=== PATIENT | male | born 1960 | race African-American/Black ===

== ENCOUNTER 2019-04-14 09:16 | Inpatient (IN) ==
[2019-04-14] MEDS ORDERED: FLEET ENEMA PR ONE (10:32)
[2019-04-14 10:55] LABS: URINE SOURCE CLEAN CATCH
[2019-04-14 10:58] LABS: BASO# 0.01 X1000 (0.0-0.2); BASO% 0.2 % (0.0-0.8); EOS# 0.27 X1000 (0.0-0.7); EOS% 6.6 % (0.0-10.0); HEMATOCRIT 19.6 % (42.0-52.0); HEMOGLOBIN 6.1 g/dL (14.0-18.0); IMM GRAN# 0.03 X1000 (0.0-0.04); IMM GRAN% 0.7 % (0.0-0.5); LYMPH# 0.82 X1000 (1.2-3.4); LYMPH% 20.1 % (20.5-51.1); MCHC 31.1 g/dL (33-37); MCV 96.6 FL (81-99); MONO# 0.16 X1000 (0.11-0.59); MONO% 3.9 % (1.7-9.3); MPV 9.8 FL (7.4-10.4); NEUT# 2.78 X1000 (1.4-6.5); NEUT% 68.5 % (42.2-75.2); PLT 238 X1000 (130-400); RBC 2.03 XMIL (4.7-6.1); RDW 15.6 % (11.5-14.5); WBC 4.07 X1000 (4.8-10.8)
[2019-04-14 11:02] LABS: BILIRUBIN URINE NEGATIVE (NEGATIVE); BLOOD URINE TRACE (NEGATIVE); COLOR STRAW; GLUCOSE URINE NEGATIVE (NEGATIVE); KETONE URINE NEGATIVE (NEGATIVE); LEUKOCYTES URINE NEGATIVE (NEGATIVE); NITRITE URINE NEGATIVE (NEGATIVE); PROTEIN URINE 50 mg/dL (NEGATIVE); SP GRAVITY URINE 1.008; TURBIDITY URINE CLEAR (CLEAR); UROBILINOGEN URINE NORMAL (NORMAL)
[2019-04-14 11:04] LABS: UR EPITHELIAL CELLS <10 /HPF (<10); URINE BACTERIA NEGATIVE /HPF; URINE RBC <10 /HPF (<10); URINE WBC <10 /HPF (<10)
[2019-04-14 11:13] LABS: AGAP 13; ALB/GLOB RATIO 1.3; ALBUMIN 3.5 g/dL (3.5-5.0); ALKALINE PHOSPHATASE 88 U/L (32-122); BUN 34 mg/dL (8-22); CALCIUM 8.3 mg/dL (8.8-10.2); CHLORIDE 104 mmol/L (98-107); COSMO 289; CREATININE 4.4 mg/dL (0.7-1.2); ESTIMATED GFR 17; GLUCOSE 96 mg/dL (70-104); GOT 12 U/L (10-34); GPT < 5 U/L (10-44); POTASSIUM 5.5 mmol/L (3.5-5.1); SODIUM 141 mmol/L (136-145); TCO2 24 mmol/L (25-35); TOTAL BILIRUBIN 0.15 mg/dL (0.20-1.00); TOTAL PROTEIN 6.3 g/dL (6.3-8.3)
--- NOTE | 2019-04-14 11:29 | Diag Imaging Result Doc PS360 ---
EXAM: CT ABDOMEN/PELVIS W/O CONTRAST 04/14/2019 HISTORY: flank pain TECHNIQUE: This exam was performed using automated exposure control, adjustment of mA or kV according to patient size, and/or use of iterative reconstruction technique. COMMENT: The current study is compared with the previous study of 09/22/2018. There is worsened atelectasis present in the right middle lobe and both lower lobes particularly the right lower lobe due to compression by a right pleural effusion. The effusion was not present previously. There is some anasarca. There are granulomata present in the spleen. There is no evidence of nephrolithiasis. The kidneys are stable in appearance. There is no evidence of bowel obstruction. There are no appreciable gallstones. The liver is grossly stable in appearance. The appendix is unremarkable. There is an apparent Hutch diverticulum on the left. There is some dilatation of the distal right ureter without evidence of stones. The urinary bladder is not distended. There is extensive lytic disease throughout the skeleton consistent with the patient's diagnosis of multiple myeloma. There is some loss of height of the L2 vertebral body compared to the previous study. Previously there were pathologic compression fractures of T10, T11, and T12 which have not changed. IMPRESSION: Right pleural effusion and worsened atelectasis. Worsened pathologic compression of the L2 vertebral body. Electronically signed by Glen Goldstein 04/14/2019 11:27 AM
--- NOTE | 2019-04-14 11:56 | PROVIDER DOCUMENTATION ---
This chart was entered by Mary Del Castillo Scribe, acting as scribe for Juancarlos Grider MD. HPI-General Adult - General Chief Complaint: Flank Pain Stated Complaint: FLANK PAIN Time Seen by Provider: 04/14/19 09:55 Source: patient Allergies/Adverse Reactions: Patient Allergies Allergy/AdvReac Type Severity Reaction Status Date / Time morphine Allergy ITCHING Verified 12/10/18 15:01 Home Medications: Home Medication List Medication Instructions Recorded Confirmed Last Taken Type Albuterol [Albuterol Neb] 1 dose INH 4XDAY 04/07/19 04/07/19 Unknown History Cetirizine [Zyrtec] 1 tab PO DAILY 04/07/19 04/07/19 Unknown History Diphenhydramine [Benadryl] 1 cap PO TID PRN 04/07/19 04/07/19 Unknown History Docusate Sodium 1 cap PO DAILY 04/07/19 04/07/19 Unknown History Ipratropium Remus Neb [Atrovent 1 dose INH 4X04/07/19 04/07/19 Unknown History Neb] Morphine E.r. [Ms Contin] 15 mg PO TID PRN 04/07/19 04/07/19 Unknown History Ondansetron [Zofran] 1 tab PO TID PRN 04/07/19 04/07/19 Unknown History Sevelamer Carbonate 1 tab PO TID 04/07/19 04/07/19 Unknown History - History of Present Illness -Gen Adult Nature of Presenting Problems: 58 y/o male presents to ED with L flank pain onset 2 days ago. Pt reports he has experienced constipation and polyuria recently. Pt states he has bone cancer and is hurting from his "toes to skull." Pt reports he has only had small, hard stools over the past few days. Pt is alert and oriented. Location of Pain/Injury: reports: other (L flank) Pain Radiation: reports: no radiation Quality of Pain: reports: aching Severity: reports: moderate Onset/Duration: reports: 2 days ago Timing: reports: still present Context/Activities at Onset: reports: none Modifying Factors: worse with: palpation Associated Symptoms: reports: constipation, other (L flank pain; polyuria; bone pain) Similar Symptoms Previously?: Yes Recently seen or treated by another doctor?: Yes Review of Systems - Adult - REVIEW OF SYSTEMS - ADULT Constitutional: denies: chills, fever Eyes: reports: no symptoms reported Ears, Nose, Mouth & Throat: reports: no symptoms reported Cardiovascular: denies: chest pain, palpitations Respiratory: denies: cough, shortness of breath Gastrointestinal: reports: constipation. denies: abdominal pain, diarrhea, nausea, vomiting Genitourinary: reports: flank pain (L). denies: incontinence Musculoskeletal: reports: bone pain. denies: back pain, joint pain Integumentary: reports: no symptoms reported Neurological: denies: dizziness/vertigo, seizure Psychiatric: reports: no symptoms reported Endocrine: reports: polyuria. denies: goiter Hematologic/Lymphatic: reports: no symptoms reported Allergic/Immunologic: reports: no symptoms reported All Other Systems: Reviewed and Negative Past History - Adult - PAST MEDICAL HISTORY-ADULT Review of Records: reports: Old Records Reviewed, Nursing Assessment Review, Medications Reviewed Major Childhood Illnesses: reports: denies history Cardiovascular: reports: HTN Respiratory: reports: asthma, COPD Gastrointestinal: reports: hemorrhoids, other (hernia) Obstetrical/Gynecological: reports: denies history Genitourinary: reports: dialysis, kidney disease Musculoskeletal: reports: cancer, other Neurological: reports: Seizures/Epilepsy Psychiatric: reports: schizophrenia Endocrine/Immune: reports: Diabetes, Myeloma Other Conditions: reports: denies history - PRIOR SURGERIES/PROCEDURES Surgical/Procedure History: reports: reviewed, not pertinent, hernia repair, bowel surgery, other - IMMUNIZATION STATUS Childhood Immunizations: See Nurse Assessment Flu Vaccine: See Nurse Assessment - FAMILY HISTORY Family History: reviewed, not pertinent - SOCIAL HISTORY Smoking: greater than 1 pack/day Provider spent 3-5 mins advising pt. on dangers of tobacco.: Discussed manners to quit use, and f/u contacts for add'l counseling. Substance Use: alcohol, other Alcohol Use Frequency: occasionally Living Situation: family Physical Exam-General - PHYSICAL EXAM-ADULT Initial Vital Signs Reviewed: Yes - CONSTITUTIONAL General Appearance: appears well, no apparent distress, slow to respond - EYES Eyes: other (pinpoint pupils) - HEAD, EARS, NOSE, MOUTH & THROAT HENMT: normocephalic/atraumatic, moist mucous membranes, normal ENT inspection - NECK Neck: non-tender, full range of motion - RESPIRATORY Respiratory: chest non-tender, lungs clear, normal breath sounds - CARDIOVASCULAR Cardiovascular: normal peripheral pulses, regular rate, rhythm - GASTROINTESTINAL (ABDOMEN) Abdominal Exam: normal bowel sounds, non tender, soft - MUSCULOSKELETAL Back Exam: normal inspection, no vertebral tenderness, other (L flank tenderness) Extremity: normal range of motion, non-tender - SKIN Integumentary: normal color, warm/dry - NEUROLOGIC Neurologic: grossly normal - PSYCHIATRIC Psych/Mental Status: other (slow to respond) Progress - PLAN OF CARE/RESULTS Progress/Plan/Lab Results: Vital Signs - 8 hr 04/14/19 09:50 Temperature 98.3 F Pulse Rate 75 Respiratory Rate 12 Blood Pressure 161/103 O2 Sat by Pulse Oximetry 98 Orders Category Date Time Status CT ABDOMEN/PELVIS W/O CONTRAST [CT] Stat Exams 04/14/19 10:30 Taken CBC WITH ELECTRONIC DIFF [HEME] Stat Lab 04/14/19 10:38 Completed COMPREHENSIVE METABOLIC PANEL [CHEM] Stat Lab 04/14/19 10:38 Completed URINALYSIS [URINALYSIS] Stat Lab 04/14/19 10:40 Completed Na Phos,M-B/Na Phos,Di-Ba [Fleet Enema] Med 04/14/19 10:32 Discontinued 133 ml NC NOW ONE Laboratory Tests 04/14/19 04/14/19 04/14/19 10:38 10:38 10:40 WBC 4.07 L RBC 2.03 L Hgb 6.1 L Hct 19.6 L MCV 96.6 MCH 30.0 MCHC 31.1 L RDW Std Deviation 15.6 H Plt Count 238 MPV 9.8 Immature Gran % (Auto) 0.7 H Neut % (Auto) 68.5 Lymph % (Auto) 20.1 L Sullivan % (Auto) 3.9 Eos % (Auto) 6.6 Baso % (Auto) 0.2 Immature Gran # (Auto) 0.03 Neut # (Auto) 2.78 Lymph # (Auto) 0.82 L Sullivan # (Auto) 0.16 Eos # (Auto) 0.27 Baso # (Auto) 0.01 Sodium 141 Potassium 5.5 H Chloride 104 Carbon Dioxide 24 L Anion Gap 13 BUN 34 H Creatinine 4.4 H Estimated GFR/1.73 m2 17 BUN/Creatinine Ratio 8 Glucose 96 Calculated Osmolality 289 Calcium 8.3 L Total Bilirubin 0.15 L AST 12 ALT < 5 L Alkaline Phosphatase 88 Total Protein 6.3 Albumin 3.5 Globulin 2.8 Albumin/Globulin Ratio 1.3 Urine Source CLEAN CATCH Urine Color STRAW Urine Turbidity CLEAR Urine pH 7.0 Ur Specific [place] 1.008 Urine Protein 50 A Ur Glucose (Stick) NEGATIVE Ur Ketones (Stick) NEGATIVE Urine Blood TRACE A Urine Nitrite NEGATIVE Urine Bilirubin NEGATIVE Urobilinogen Dipstick NORMAL Urine Leukocytes NEGATIVE Urine WBC (Auto) <10 Urine RBC (Auto) <10 U Epithel Cells (Auto) <10 Urine Bacteria (Auto) NEGATIVE At recheck pt admits that he hasnt had dialysis in over 1 week and that he usually has to get blood. Result Diagrams: 04/14/19 10:38 04/14/19 10:38 - REASSESSMENT Reassessment #1 Time Reassessed: 11:35 Status: other (Pt is more alert. He reports he was released from [facility] a "week and some days" ago. Pt states he was undergoing dialysis while incarcerated, but has not been dialyzed since his release. Pt reports he was told to come to ED for dialysis.) - CT/MRI 1 CT Study: Abdomen, Pelvis Impression: Abnormal (COMMENT: The current study is compared with the previous study of 09/22/2018. There is worsened atelectasis present in the right middle lobe and both lower lobes particularly the right lower lobe due to compression by a right pleural effusion. The effusion was not present previously. There is some anasarca. There are granulomata present in the spleen. There is no evidence of nephrolithiasis. The kidneys are stable in appearance. There is no evidence of bowel obstruction. There are no appreciable gallstones. The liver is grossly stable in appearance. The appendix is unremarkable. There is an apparent Hutch diverticulum on the left. There is some dilatation of the distal right ureter without evidence of stones. The urinary bladder is not distended. There is extensive lytic disease throughout the skeleton consistent with the patient's diagnosis of multiple myeloma. There is some loss of height of the L2 vertebral body compared to the previous study. Previously there were pathologic compression fractures of T10, T11, and T12 which have not changed. IMPRESSION: Right pleural effusion and worsened atelectasis. Worsened pathologic compression of the L2 vertebral body. Electronically signed by Glen Goldstein 04/14/2019 11:27 AM 04/14/19 [id number]) - CONSULTS/PCP/HOSPITALIST Notification #1 *Consult/PCP/Hospitalist*: KAVEH Mcmahon for hospitalist Time Discussed: 11:43 Reason/Comments: Severe anemia, chronic renal failure, dialysis, pleural effusion Consult Disposition: Admit #2 Consult: Dr. Keita Time Discussed: 14:44 Reason/Comments: Dialysis Consult Disposition: Will see in ED (Dr. Keita saw pt in ED. He does not recommend dialysis, but states he wants pt to followup with nephrology. He requests pt be given a unit of blood while in ED.) Departure - Departure Date of Disposition Decision: 04/14/19 Time of Disposition Decision: 11:30 DIAGNOSIS: Hyperkalemia, Pleural effusion Chronic renal failure Qualifiers: Chronic kidney disease stage: unspecified stage Qualified Code(s): N18.9 - Chronic kidney disease, unspecified Anemia Qualifiers: Anemia type: unspecified type Qualified Code(s): D64.9 - Anemia, unspecified Compression fracture of L2 Qualifiers: Encounter type: initial encounter Qualified Code(s): S32.020A - Wedge compression fracture of second lumbar vertebra, initial encounter for closed fracture Disposition: ADMITTED INPATIENT 09 Certified Medical Emergency: Emergent Condition: Fair - Critical Care Note This patient required my direct & personal management of CC.: No Attestation - Physician/ PRINCESS Attestation Patient care was provided by Advanced Practice Provider:: No The physician spent face to face time with patient:: Yes Advanced Practice Provider documentation review:: Supervising physician onsite and consulted in the evaluation and care of this patient. The physician did have a face to face encounter with the patient. This chart was documented by the indicated scribe, (Mary Del Castillo Scribe) and accurately reflects the services I performed and decisions made by me, Juancarlos Grider MD, as attested by the provider's signature.
[2019-04-14] MEDS ORDERED: ZOFRAN IV PRN (12:16)
[2019-04-14] MEDS ORDERED: TYLENOL PO PRN (12:16)
[2019-04-14] MEDS ORDERED: NS 250 ML ONE (14:32)
[2019-04-14] MEDS ORDERED: ULTRAM PO PRN (15:10)
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
--- NOTE | 2019-04-14 17:56 | NEPHROLOGY CONSULTATION ---
DATE: 04/14/2019 REASON FOR CONSULTATION: CKD stage 5. HISTORY OF PRESENT ILLNESS: Mr. Treadwell is a 58-year-old man. He has schizoaffective disorder as well as COPD and hypertension. We have seen him in the past, and he has required hemodialysis under our care last year. His renal function recovered, and he was able to discontinue treatment. In the interim, he was hospitalized and incarcerated I [facility] in [place]. He had dialysis as an outpatient as a prisoner and is using a tunneled right IJ catheter. He has been back in the [place] area for at least 2 weeks and has not dialyzed since he was released from alf. I saw him back on 04/07 at which time, we offered to see him in the office and help with catheter care and develop a long-term plan. He checked himself out of the emergency room against advice. He has subsequently been to the ER on 1 other occasion before today. Today, he ate his lunch, and he is sleeping. He will arouse for me, but his speech is very difficult to interpret; and he goes back to sleep. He is able to follow commands. Staff states that he was ambulatory and alert. PAST MEDICAL HISTORY: As above. HOME MEDICATIONS: Include albuterol, cetirizine, Colace, ipratropium, ondansetron, sevelamer, morphine. ALLERGIES: Morphine. SOCIAL: He is single and lives alone here in [place]. He has no car and no phone. His only form of transportation is bicycle or else to have someone transport him. [place] FAMILY HISTORY: Otherwise, noncontributory. REVIEW OF SYSTEMS: Otherwise, noncontributory. PHYSICAL EXAMINATION: Vital Signs: Blood pressure 151/88, heart rate 74, afebrile. General: No acute distress. Skin: Warm and dry. Conjunctivae are pale. Pupils are equal. Oropharynx is clear. Neck: Neck veins are not distended. Right IJ catheter in the right chest. PMI is nondisplaced. Regular rate and rhythm. No rubs. Lungs: Have equal breath sounds. No crackles. Abdomen: Soft, nontender. Bowel sounds present. Extremities: No edema, clubbing or cyanosis. Neurologic: No asterixis. IMPRESSION: Chronic kidney disease stage 4 to 5. His creatinine is actually trending downward. Albumin is 3.5 and stable. No significant acidosis. Potassium is only marginally elevated at 5.5. I agree with transfusions to treat his hemoglobin of 6.1. If he is admitted, then we can have surgery remove his tunneled catheter as he is not in an immediate need for dialysis. We certainly can plan for a more appropriate chronic dialysis access. cc: Ronald Keita MD
--- NOTE | 2019-04-15 07:23 | Diag Imaging Result Doc PS360 ---
EXAM: CHEST-PORTABLE 04/15/2019 HISTORY: fu TECHNIQUE: AP portable at 0603 COMMENT: There is what appears to be a loculated pleural fluid collection in the minor fissure. The inspiration is actually slightly better than on 04/07/2019 but there is still some apparent platelike atelectasis in both lower lobes. There is a double-lumen catheter in the right internal jugular with its tip in the superior vena cava near the azygos vein. Lytic changes in the lateral sixth rib on the left with subpleural mass is again noted. IMPRESSION: Atelectasis. Loculated right pleural effusion. Lytic changes in the left sixth rib consistent with the patient's history of multiple myeloma. Electronically signed by Glen Goldstein 04/15/2019 7:20 AM
[2019-04-15 07:59] LABS: HEMATOCRIT 29.3 % (42.0-52.0); HEMOGLOBIN 9.5 g/dL (14.0-18.0); RBC 3.19 XMIL (4.7-6.1); WBC 3.68 X1000 (4.8-10.8)
[2019-04-15 08:00] LABS: BASO# 0.01 X1000 (0.0-0.2); BASO% 0.3 % (0.0-0.8); EOS# 0.02 X1000 (0.0-0.7); EOS% 0.5 % (0.0-10.0); IMM GRAN# 0.02 X1000 (0.0-0.04); IMM GRAN% 0.5 % (0.0-0.5); LYMPH# 0.72 X1000 (1.2-3.4); LYMPH% 19.6 % (20.5-51.1); MCH 29.8 PG (27-31); MCHC 32.4 g/dL (33-37); MCV 91.8 FL (81-99); MONO# 0.14 X1000 (0.11-0.59); MONO% 3.8 % (1.7-9.3); MPV 8.9 FL (7.4-10.4); NEUT# 2.77 X1000 (1.4-6.5); NEUT% 75.3 % (42.2-75.2); PLT 229 X1000 (130-400); RDW 16.5 % (11.5-14.5)
[2019-04-15 08:04] LABS: HEMOGLOBIN A1C 5.8 % (4.8-6.0)
[2019-04-15] MEDS: MIRALAX PO SCH ×2 (08:11→08:13)
[2019-04-15 08:14] LABS: AGAP 12; ALB/GLOB RATIO 0.9; ALBUMIN 3.2 g/dL (3.5-5.0); ALKALINE PHOSPHATASE 86 U/L (32-122); BUN 32 mg/dL (8-22); CALCIUM 9.3 mg/dL (8.8-10.2); CHLORIDE 106 mmol/L (98-107); COSMO 286; CREATININE 3.9 mg/dL (0.7-1.2); ESTIMATED GFR 19; GLUCOSE 92 mg/dL (70-104); GOT 10 U/L (10-34); GPT < 5 U/L (10-44); MAGNESIUM 1.7 mg/dL (1.5-2.7); POTASSIUM 5.5 mmol/L (3.5-5.1); SODIUM 140 mmol/L (136-145); TCO2 22 mmol/L (25-35); TOTAL BILIRUBIN 0.19 mg/dL (0.20-1.00); TOTAL PROTEIN 6.6 g/dL (6.3-8.3)
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
--- NOTE | 2019-04-15 15:03 | NEPHROLOGY PROGRESS NOTE ---
DATE: 04/15/2019 TIME SEEN: 0630. SUBJECTIVE: Mr. Treadwell is resting quietly in bed. He is sitting up. States that the nurses have not treated him well due to him not getting enough pain medication. OBJECTIVE: Most recent vital signs: His last temperature 99.2 degrees, blood pressure 138/68, heart rate 76, respirations are 20. He has had 700 mL in, 1155 mL out. This is to void. LABORATORY DATA: Sodium 140, potassium 5.5, chloride 106, CO2 22, BUN 32, creatinine 3.9, glucose is 92. He has an anion gap of 12, calcium 9.3, magnesium 1.7, albumin is 3.2. White count 3.68, hemoglobin 9.5, hematocrit 29.3 with a platelet count of 223,000. PHYSICAL EXAMINATION: General: This is a 58-year-old male. He appears in no acute distress though he is slightly agitated. Skin: Warm and dry. HEENT: Normocephalic, atraumatic. Conjunctiva is pale pink. He has CHRISTY. Mucous membranes are dry. Neck: Supple. Trachea midline. No evidence of JVD. Chest: Reveals tunneled catheter to the right chest wall. This is dry and intact. Cardiovascular: Regular rate and rhythm without murmur or gallop. Lungs: Clear to auscultation bilaterally. Equal excursion. He is on room air. Abdomen: Soft, nontender. Positive bowel sounds. Genitourinary: Not inspected. Patient has been voiding adequate amount. Extremities: Have no edema. No clubbing or cyanosis. Neurological: He is alert and oriented x2. He has no asterixis upon exam. Integumentary: No rashes or lesions evident. ASSESSMENT AND PLAN: 1. Chronic kidney disease stage 4-5. Patient's creatinine has been trending down, remains stable at 3.9, BUN of 32, adequate urine output. The patient has been running a low-grade temperature. Secondary to these findings, we will go ahead and request Dr. Perez for removal of his tunneled catheter to the right chest wall and we will request that they evaluate for creation of an AV fistula. No indications for hemodialysis at this time. 2. Electrolytes and acid-base balance. These are acceptable. 3. Anemia this is low but stable. The patient received 2 units of packed red blood cells yesterday. 4. Low-grade temperature. Again, patient is to have his tunneled dialysis catheter removed. I would like to thank you for allowing us to follow with this patient. Dictated by KAVEH Cunningham for Ronald Keita MD Face to face encounter, data reviewed, discussed with Lc Mujica on 04/15/19. I agree with the above assessment and plan of care. cc: KAVEH Cunningham MD [facility]
[2019-04-15] MEDS: PERCOCET-5 PO PRN ×2 (17:16→21:49)
--- NOTE | 2019-04-15 17:41 | PROGRESS NOTE ---
DATE: 04/15/2019 INTERVAL HISTORY: No acute event overnight. SUBJECTIVE: The patient refused to take his tramadol, saying that it does not help. He wants me to order something more. He states that he was diagnosed with multiple myeloma probably more than a year ago and he was on some treatment, but the last time he received treatment was about 6 months ago. He tells me that it was stopped because he had developed acute kidney injury and he has a lot of other medical issues and he has not been able to follow up. We discussed about the nature of multiple myeloma and I answered all of his questions. OBJECTIVE: Vital signs: Temperature 98.1 degrees, pulse 86, respiratory rate 20, blood pressure 120/83, saturating 99% on room air. General: Does not appear in any acute distress. HEENT: Oral cavity is moist. Lungs: Air entry bilaterally equal. No wheeze, rhonchi, crackles. Cardiovascular: S1, S2 normal. No murmur, rub, or gallop. Abdomen: Soft, nontender. Extremities: No lower extremity edema. Neurologic: He is alert and oriented x3. Musculoskeletal: He does have localized left-sided rib cage pain. Neck: He has a right-sided neck internal jugular venous catheter for dialysis. LABS: Suggestive of normocytic anemia which has improved after blood transfusion, normal platelet count, hyperkalemia which is stable, chronic kidney disease stage 4 to stage 5. MICROBIOLOGY: No data. ASSESSMENT AND PLAN: 1. Acute respiratory distress and subjective shortness of breath on presentation which has resolved; likely due to symptomatic anemia. He is breathing well on room air. It is possible that his anemia was symptomatic which was causing his shortness of breath and he appears to be doing fine after 2 PRBC blood transfusion. This is likely anemia of chronic kidney disease. Five months ago his ferritin was within normal limits and his saturations were also normal and he appears to have chronic anemia. 2. Chronic kidney disease stage 4 to stage 5. He does have hyperkalemia, but he is making urine and does not have metabolic acidosis. Nephrology is planning to remove his right-sided neck internal jugular catheter and Surgery team is planning am AV fistula placement, following which, my plan is to have him follow up with Nephrology as an outpatient. 3. Acute on chronic back pain, likely because of multiple lytic bony lesions in the setting of multiple myeloma. I will start him on lidocaine patch as well as some [place]. We will get him on MiraLAX to avoid constipation. It appears that the patient has been noncompliant. My plan is to refer him to outpatient provider, Dr. Collins, in her clinic at the time of discharge. 4. Other medical history including COPD, schizoaffective disorder, diabetes mellitus type 2 documentation. Appears to be stable. His hemoglobin A1c is within acceptable range, so he does not have diabetes. 5. Disposition. After possible AV fistula creation tomorrow my plan is to discharge the patient home. Plan of care was discussed with him. I will try to reach out to his next of kin and address all of the surrogate decision maker's concerns. I had left a voice message for his POA as the patient wanted me to contact her. His daughter's number is not functional. cc: Wilfred Carpenter MD MTDD
[2019-04-15] MEDS: LIDODERM TOP SCH (18:08)
[2019-04-16] MEDS ORDERED: XYLOCAINE 1% INJ ONE (06:43)
[2019-04-16 07:36] LABS: BASO# 0.01 X1000 (0.0-0.2); BASO% 0.3 % (0.0-0.8); EOS# 0.02 X1000 (0.0-0.7); EOS% 0.6 % (0.0-10.0); HEMATOCRIT 31.9 % (42.0-52.0); HEMOGLOBIN 10.2 g/dL (14.0-18.0); IMM GRAN# 0.02 X1000 (0.0-0.04); IMM GRAN% 0.6 % (0.0-0.5); LYMPH# 1.04 X1000 (1.2-3.4); LYMPH% 28.7 % (20.5-51.1); MCH 29.6 PG (27-31); MCV 92.5 FL (81-99); MONO# 0.15 X1000 (0.11-0.59); MONO% 4.1 % (1.7-9.3); MPV 8.9 FL (7.4-10.4); NEUT# 2.39 X1000 (1.4-6.5); NEUT% 65.7 % (42.2-75.2); PLT 237 X1000 (130-400); RBC 3.45 XMIL (4.7-6.1); RDW 15.9 % (11.5-14.5); WBC 3.63 X1000 (4.8-10.8)
[2019-04-16 07:55] LABS: CALCIUM 8.9 mg/dL (8.8-10.2); CREATININE 4.1 mg/dL (0.7-1.2); MAGNESIUM 1.6 mg/dL (1.5-2.7); PHOSPHORUS 4.6 mg/dL (2.7-4.5); POTASSIUM 5.1 mmol/L (3.5-5.1)
[2019-04-16] MEDS: PERCOCET-5 PO PRN ×2 (08:31→14:22)
[2019-04-16] MEDS: LIDODERM TOP SCH (08:32)
[2019-04-16] MEDS: MIRALAX PO SCH (08:32)
[2019-04-16] MEDS ORDERED: XYLOCAINE 1%/EPI 1:100,000 ONE (13:09)
[2019-04-16] MEDS ORDERED: XYLOCAINE-MPF 2% ONE (13:12)
[2019-04-16] MEDS ORDERED: AMIDATE ONE (13:12)
[2019-04-16] MEDS ORDERED: QUELICIN (DOSE) ONE (13:12)
--- NOTE | 2019-04-16 13:52 | GENERAL SURGERY PROGRESS NOTE ---
DATE: 04/16/2019 Reviewed ultrasound findings with therapy tech. The patient has very poor vein selection in both extremities secondary to thickened leyva, small vessels and trauma to his left arm. The patient reports pain all over. OBJECTIVE: Vital Signs: Patient is currently afebrile. His vital signs stable. General: No acute distress. HEENT: Normocephalic, atraumatic. Pupils equal, round, reactive to light. Mucous membranes moist. Oropharynx benign. Neck: Supple. Trachea midline. Cardiovascular: Regular rate and rhythm. Lungs: Grossly clear. Abdomen: Soft, nontender, nondistended. Extremities: Unchanged. Vascular: All extremities perfused. Neurologic: Grossly intact. Skin: Intact, no signs of jaundice. LABORATORY: Reviewed from yesterday. White blood cell count 3, hematocrit 29, platelet count 229,000. Creatinine is 3.9. ASSESSMENT AND PLAN: A 58-year-old gentleman with chronic kidney disease and multiple medical comorbidities. 1. Chronic kidney disease. At this time the patient has poor vein selection for fistula access. He may require graft and I am not sure he has good potential as spots for graft. Will discuss with Dr. Keita given the fact he is not requiring dialysis right now if we want to hold off on placement of a fistula, could still potentially remove his dialysis catheter but will have to discuss with Dr. Keita. 2. Multiple medical comorbidities currently being managed by the hospitalist service. cc: Frederick Perez MD
[2019-04-16 15:21] VITALS: BP 125/82
--- NOTE | 2019-04-16 16:57 | NEPHROLOGY PROGRESS NOTE ---
DATE: 04/16/2019 SUBJECTIVE: He is lying in bed. He has no new complaints today. No shortness of breath, nausea, vomiting, etc. OBJECTIVE: Vital Signs: Blood pressure 105/70, heart rate 69, afebrile. General: No acute distress. Skin: Warm and dry. Conjunctivae are pink. Neck: Neck veins are not appreciated. Heart: Regular with a gallop but no rubs. Lungs: Have equal breath sounds. No crackles or wheezes. Abdomen: Soft, nontender. Bowel sounds present. Extremities: Have no edema, clubbing, or cyanosis. Neurologic: No asterixis. IMPRESSION: 1. Chronic kidney disease stage 4 to 5. BUN and creatinine are stable and he does not meet any criteria for acute dialysis. Dr. Perez will remove his tunneled catheter today at the bedside. He did not have suitable veins for fistula so we will defer placement of permanent access until he is eminently in need of treatment. Okay to discharge from my perspective. We will follow him as an outpatient. cc: Ronald Keita MD
--- NOTE | 2019-04-16 19:22 | DISCHARGE SUMMARY ---
ADMISSION DATE: 04/14/2019 DISCHARGE DATE: 04/16/2019 ADDENDUM: I was able to get in touch with the patient's power of ip technology transactions attorney. I informed her about patient's medical course, his medical illnesses, multiple myeloma, chronic kidney disease, need for a regular physician followup and answered all of her questions. She she tells me that patient has schizophrenia and bipolar mood disorder and he does not follow up his appointment and is hard for him to find a regular doctor because of that. She also informs me if I could help him set up a skilled nursing, however I told her that patient is not willing to go to skilled nursing at the moment. He would rather want to go home so I am discharging home and she should contact her primary care provider and start discussion about skilled nursing placement. cc: Wilfred Carpenter MD MTDD
--- NOTE | 2019-04-16 20:02 | OPERATIVE NOTE ---
PROCEDURE DATE: 04/16/2019 PREOPERATIVE DIAGNOSIS: No longer needed hemodialysis catheter. POSTOPERATIVE DIAGNOSIS: No longer needed hemodialysis catheter. PROCEDURE: Removal of tunneled hemodialysis catheter. SURGEON: Frederick Perez MD. SOLVENT PLANT TREATER: None. ANESTHESIA: General endotracheal. INTRAOPERATIVE FINDINGS: As dictated. COMPLICATIONS: None at the time of this dictation. ESTIMATED BLOOD LOSS: 5 mL. SPECIMEN REMOVED: Catheter. BRIEF HISTORY: A 58-year-old gentleman who has chronic kidney disease, had a hemodialysis catheter placed in an outside facility. He needed it removed. The risks, benefits, and alternatives were discussed. Consent was obtained. PROCEDURE: At first, we tried to do this at the bedside. We prepped and draped his neck in the standard fashion and did a formal time-out, confirming patient and procedure. All were in agreement. We used local anesthetic to anesthetize the skin and started making an incision over it. His cuff was higher than anticipated. We therefore aborted the procedure and brought him down to the operating room. The patient underwent general endotracheal anesthesia without complication with a rapid sequence intubation. He then had his neck re-prepped and draped. After a repeat formal time-out, we turned our attention to the neck. We completed the incision, and it took a long incision to get to the cuff. We were able to circumferentially dissect out the cuff and remove it. The catheter came out intact. We closed the skin with 3-0 chromic in a running fashion. The patient tolerated the procedure well and was transferred back to the recovery room in stable condition. cc: Frederick Perez MD
--- NOTE | 2019-04-16 20:39 | Extremity Venous Study ---
PROCEDURE NAME: Vein Map/Hemodialysis Nate Arms - 04/15/2019 REQUESTING PHYSICIAN: Dr. Perez WHEAT CLEANER: Tom INDICATIONS: Evaluation for hemodialysis access. EQUIPMENT: GE Vivid E9 ultrasound system and a 9 L-D transducer. FINDINGS: Images in both right and left upper extremity venous systems were obtained with attention given to size. On the right side, the cephalic vein has a chronic appearing superficial venous thrombosis essentially up into the level of the axilla. The basilic vein has thickened leyva and difficult to see until the level of the axilla. On the left side, the basilic vein measured 2.5, just proximal to the antecubital fossa, but remains just slightly above 2. The cephalic vein has an acute superficial venous thrombosis on the left side. All veins have very thickened leyva. INTERPRETATION: Likely no real good venous access noted with thickened leyva and a combination of superficial venous thrombosis on the right side of the cephalic vein and on the left side acute superficial venous thrombosis. If the patient requires access, he will likely require a graft. cc: Frederick Perez MD
--- NOTE | 2019-04-17 05:47 | DISCHARGE SUMMARY ---
ADMISSION DATE: 04/14/2019 DISCHARGE DATE: 04/16/2019 DISCHARGE DISPOSITION: Home. DISCHARGE CONDITION: The patient is alert and oriented x3. Hemodynamically stable, not in acute distress. Denies any more shortness of breath. He has bone pain from his multiple myeloma. DISCHARGE DIAGNOSES: 1. Acute respiratory distress and subjective shortness of breath due to symptomatic anemia. 2. Acute on chronic back pain in the setting of multiple lytic bony lesions in the setting of multiple myeloma. 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 3. Chronic kidney disease stage 4 to stage 5. 4. Hyperkalemia. OTHER DIAGNOSES: 1. Documented history of chronic obstructive pulmonary disease with active tobacco use. 2. Schizoaffective disorder. 3. Diabetes mellitus type 2 documentation. However, it is resolved based on hemoglobin A1c which is in acceptable range. 4. Removal of right-sided tunneled dialysis catheter on 04/16/2019. DISCHARGE MEDICATIONS: 1. Albuterol nebulization 2.5 mg inhaled 4 times a day. 2. Ipratropium nebulization 0.5 mg inhaled 4 times a day. 3. Sevelamer 800 mg t.i.d. 4. Lidocaine 5% patch to be applied over the back. 10 patches have been prescribed. 5. MiraLAX 17 g daily 20 packets have been prescribed. 6. Percocet 5 mg every 6 hours as needed of pain, 15 tablets have been prescribed. VITALS: At the time of discharge, temperature 98 degrees, pulse 76, respiratory rate of 14, and blood pressure 125/82 saturating 100% on room air. PHYSICAL EXAMINATION: General: He does not appear in any acute distress. Oral cavity is moist. Lungs: Air entry bilaterally equal. No wheeze, rhonchi, or crackles. Cardiovascular: S1, S2 normal. No murmur, rub, or gallop. Abdomen: Soft, nontender. Extremities: No lower extremity edema. He is alert and oriented x3. His right-sided neck tunneled dialysis catheter has been removed. SIGNIFICANT LABORATORY DURING HOSPITAL DISCHARGE: WBC 3.6, hemoglobin 10.2, and platelet count 237,000. Potassium 5.1, BUN 31, creatinine 4.1. GFR of 18. Phosphorus of 4.6. SIGNIFICANT MICROBIOLOGY DURING HOSPITAL ADMISSION: None. SIGNIFICANT IMAGING: Abdomen and pelvis CT for flank pain had right-sided pleural effusion, worse atelectasis. Pathological compression of L2 vertebral body. Extensive lytic disease throughout skeleton consistent with history of multiple myeloma. Chest x-ray on 04/15 had atelectasis, right- sided pleural effusion, lytic changes in the 6th rib consistent with patient's history of multiple myeloma on the left side. HOSPITAL COURSE SUMMARY: Mr. Treadwell is 58-year-old man with prior history of multiple myeloma diagnosed in 2018. 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 Apparently on his last admission a few weeks ago, he had received right-sided tunneled dialysis catheter in preparation for dialysis. However, he had left against medical advice and had not followed up with dialysis clinic at that time. While on arrival, he was found to have mild right-sided pleural effusion, likely in the setting of his chronic kidney disease. Though he was hemodynamically stable, his blood count was found to be 6.1. It was thought to be secondary to his anemia of chronic kidney disease. He received 2 units of blood transfusion, and he responded well to it. His shortness of breath had improved. Right- sided tunneled dialysis catheter was taken out. Apparently, venous mapping was performed in preparation for AV fistula creation for future. However. He had poor vein anatomy so no surgery was performed. He did not have any acute need of dialysis, and his potassium was 5.1 at discharge. He was provided a BMP sleep and was advised to follow up with Nephrology as an outpatient to see if he would need dialysis in the future. His anemia was thought to be anemia of chronic kidney disease, and his hemoglobin was stable after blood transfusion. On CT scan, he was found to have multiple lytic bony lesions affecting his entire vertebral column as well as compression fracture of lumbar vertebra. Apparently, patient was on therapy a year ago when he was diagnosed with multiple myeloma, but he has had behavioral issues and he was not following up with his appointment appropriately so the at home independent call center agent's office had fired him. At the time of discharge, the patient was advised to find a regular provider as well as find another at home independent call center agent if he would need treatment. Hospice concept was explained to the patient to see if he would be willing to go for hospice care. However, he states that he would like to be treated for his medical condition. He was advised to find a regular doctor, and follow up as an outpatient. I tried to reach out to patient's power of environmental attorney listed in the medical chart, and have left voice messages twice. I have not heard back, and the patient was informed about this. TIME SPENT: More than 30 minutes were spent in discharging the patient. All of his questions have been answered satisfactorily. cc: Wilfred Carpenter MD MTDD
== END 2019-04-16 17:39 | disposition home or self-care (01) | DRG 683 ==
LOC: SUPCPDRO → ED 09:16 → EDIPHOLD 12:11 → SUATTDRO 12:11 → 3N 20:52
PROVIDERS: ATTEND Internal Medicine
CPT/HCPCS: 36430; 71010; 71045; 74176; 80048; 80053; 81001; 82948; 83036; 83735; 84100; 85025; 86850; 86900; 86901; 86920; 88300; 99285; A9270; G0365; J0330; J2405; J7050; P9016; XXXXX

== ENCOUNTER 2019-04-24 08:16 | Inpatient (IN) ==
[2019-04-24] MEDS ORDERED: TYLENOL PO ONE (09:46)
--- NOTE | 2019-04-24 10:23 | Diag Imaging Result Doc PS360 ---
EXAM: CHEST-2 VIEWS INDICATION: LUQ pain/SOB TECHNIQUE: 2 views COMPARISON: 04/22/2019 FINDINGS: Bibasilar atelectasis is stable. The subpleural mass at the periphery of the left lower lung zone is unchanged. No new consolidation is identified. Cardiac silhouette is stable. IMPRESSION: Stable chest. Electronically signed by Tyrese Osuna 04/24/2019 10:21 AM
--- NOTE | 2019-04-24 10:25 | PROVIDER DOCUMENTATION ---
HPI-General Adult - General Chief Complaint: Back Pain Stated Complaint: back pain Time Seen by Provider: 04/24/19 09:16 Source: patient Allergies/Adverse Reactions: Patient Allergies Allergy/AdvReac Type Severity Reaction Status Date / Time morphine Allergy ITCHING Verified 04/24/19 15:13 Home Medications: Home Medication List Medication Instructions Recorded Confirmed Last Taken Type RX: Albuterol [Albuterol Neb] 1 dose INH 4XDAY 04/07/19 04/07/19 Unknown History RX: Ipratropium [place] Neb 1 dose INH 4XDAY 04/07/19 04/07/19 Unknown History [Atrovent Neb] RX: Sevelamer Carbonate 1 tab PO TID 04/07/19 04/07/19 Unknown History RX: Lidocaine 5% Patch [Lidoderm] 1 ea TOP DAILY #10 patch 04/16/19 Unknown Rx RX: Oxycodone/APAP 5 mg/325 mg 1 ea PO Q6H PRN #15 tab 04/16/19 Unknown Rx [Percocet-5] RX: Polyethylene Glycol 3350 17 gm PO DAILY #20 powder, packet 04/16/19 Unknown Rx [Miralax] Oxycodone HCl/Acetaminophen 1 ea PO Q6H PRN PRN #12 tab 04/22/19 Unknown Rx [Percocet 5-325 mg Tablet] - History of Present Illness -Gen Adult Nature of Presenting Problems: Patient is a 58 yobm who complains of pain "all down my spine for months", LUQ pain, and SOB x 3 weeks. States he was receiving chemotherapy for bone cancer while in [facility] and dialysis while in [facility] as well. He was released from [facility] 3 weeks ago and has not received any of this treatment. Denies fever, cough, or any other symptoms. He is non-toxic in appearance. Review of Systems - Adult - REVIEW OF SYSTEMS - ADULT Constitutional: reports: no symptoms reported. denies: chills, fever Eyes: reports: no symptoms reported Ears, Nose, Mouth & Throat: reports: no symptoms reported Cardiovascular: reports: no symptoms reported. denies: edema, syncope Respiratory: reports: see HPI, shortness of breath. denies: cough, hemoptysis, wheezing Gastrointestinal: reports: see HPI, abdominal pain. denies: diarrhea, nausea, vomiting Genitourinary: reports: no symptoms reported Musculoskeletal: reports: see HPI, back pain Integumentary: reports: no symptoms reported Neurological: reports: no symptoms reported Psychiatric: reports: no symptoms reported Endocrine: reports: no symptoms reported Hematologic/Lymphatic: reports: no symptoms reported Allergic/Immunologic: reports: no symptoms reported All Other Systems: Reviewed and Negative Past History - Adult - PAST MEDICAL HISTORY-ADULT Review of Records: reports: Old Records Reviewed, Nursing Assessment Review, Medications Reviewed, Social history reviewed & non-contributory. Major Childhood Illnesses: reports: denies history Cardiovascular: reports: HTN Respiratory: reports: asthma, COPD Gastrointestinal: reports: hemorrhoids, other (hernia) Obstetrical/Gynecological: reports: denies history Genitourinary: reports: kidney disease Musculoskeletal: reports: cancer, other Neurological: reports: Seizures/Epilepsy Psychiatric: reports: schizophrenia Endocrine/Immune: reports: Diabetes, Myeloma Other Conditions: reports: denies history - PRIOR SURGERIES/PROCEDURES Surgical/Procedure History: reports: reviewed, not pertinent, hernia repair, other - IMMUNIZATION STATUS Childhood Immunizations: See Nurse Assessment Flu Vaccine: See Nurse Assessment - FAMILY HISTORY Family History: reviewed, not pertinent - SOCIAL HISTORY Smoking: cigarettes, greater than 1 pack/day Physical Exam-General - PHYSICAL EXAM-ADULT Initial Vital Signs Reviewed: Yes - CONSTITUTIONAL General Appearance: alert, no apparent distress. negative: lethargic, slow to respond - EYES Eyes: PERRL/EOMI, pink conjunctivae - HEAD, EARS, NOSE, MOUTH & THROAT HENMT: normocephalic/atraumatic, moist mucous membranes - NECK Neck: non-tender, full range of motion, supple, normal inspection - RESPIRATORY Respiratory: chest non-tender, lungs clear, normal breath sounds, no pleuratic chest pain, no respiratory distress, no accessory muscle use - CARDIOVASCULAR Cardiovascular: regular rate, rhythm, no gallop, no murmur - GASTROINTESTINAL (ABDOMEN) Abdominal Exam: normal bowel sounds, soft, no organomegaly, no pulsatile mass, tenderness (LUQ). negative: distended, guarding, rigid, rebound, McBurney's point tenderness - MUSCULOSKELETAL Back Exam: normal inspection, no CVA tenderness, vertebral tenderness (thoracic and lumbar spine) Extremity: normal range of motion, non-tender, normal inspection - SKIN Integumentary: normal color, warm/dry. negative: cyanosis, diaphoresis, jaundice, mottled, pallor - NEUROLOGIC Neurologic: grossly normal, no motor/sensory deficits - PSYCHIATRIC Psych/Mental Status: normal mood/affect, normal thought content, normal thought process, oriented x 3 Progress - PLAN OF CARE/RESULTS Progress/Plan/Lab Results: Vital Signs - 8 hr 04/24/19 08:24 04/24/19 09:53 Temperature 97.5 F L 97.6 F Pulse Rate 89 84 Respiratory Rate 18 18 Blood Pressure 143/94 159/96 O2 Sat by Pulse Oximetry 97 99 Orders Category Date Time Status Saline Loc NOW Care 04/24/19 09:49 Active CHEST-2 VIEWS [RAD] Stat Exams 04/24/19 09:49 Taken AMYLASE [CHEM] Stat Lab 04/24/19 10:00 Received CBC WITH DIFF [HEME] Stat Lab 04/24/19 10:00 Results COMPREHENSIVE METABOLIC PANEL [CHEM] Stat Lab 04/24/19 10:00 Received LIPASE [CHEM] Stat Lab 04/24/19 10:00 Received PRO B-NATRIURETIC PEPTIDE Stat Lab 04/24/19 10:00 Received TROPONIN T Stat Lab 04/24/19 10:00 Received UA NIMS W/REFLEX CULT [URINALYSIS] Stat Lab 04/24/19 09:49 Uncollected Acetaminophen [Tylenol] Med 04/24/19 09:46 Discontinued 650 mg PO NOW ONE EKG [EKG] Stat Ther 04/24/19 09:49 Ordered 1039- Anemia and renal function stable as compared to prior results. Pt in agreement with admission plan. Result Diagrams: 04/24/19 10:00 04/24/19 13:13 - EKG 1 Time of EKG reading by physician:: 11:15 EKG Read and Signed by:: Juancarlos Grider EKG Interpretation (*Must complete 3 of following elements*): Abnormal Rate: 80 Rhythm: SR with nonspecific t wave abnormality QRS: normal ST Wave: normal - XRAY 1 XRAY Study: Chest (IMPRESSION: Stable chest. Electronically signed by Tyrese Osuna 04/24/2019 10:21 AM) - CT/MRI 1 CT Study: Abdomen, Pelvis (IMPRESSION: 1.Interval resolution of the right pleural effusion and improvement of atelectasis at the lung bases. 2.Stable chronic dilation of the distal left ureter. No obstructing stones are identified and there is no hydronephrosis. 3.Stable diffuse lytic lesions throughout the skeleton consistent with known multiple myeloma with stable multilevel compression deformities. Electronically signed by Tyrese Osuna 04/24/2019 11:28 AM) - CONSULTS/PCP/HOSPITALIST Notification #1 *Consult/PCP/Hospitalist*: CHANO Graham MAIL ORDER BILLER Time Discussed: 14:09 (Dr. Grider spoke with automotive internet sales consultant) Reason/Comments: admission-pancreatitis Consult Disposition: Admit Departure - Departure Date of Disposition Decision: 04/24/19 Time of Disposition Decision: 14:12 DIAGNOSIS: Compression fracture Chronic renal failure Qualifiers: Chronic kidney disease stage: unspecified stage Qualified Code(s): N18.9 - Chronic kidney disease, unspecified Anemia Qualifiers: Anemia type: unspecified type Qualified Code(s): D64.9 - Anemia, unspecified Pancreatitis Qualifiers: Chronicity: acute Pancreatitis type: unspecified pancreatitis type Acute pancreatitis complication: unspecified Qualified Code(s): K85.90 - Acute pancreatitis without necrosis or infection, unspecified Abdominal pain Qualifiers: Abdominal location: left upper quadrant Qualified Code(s): R10.12 - Left upper quadrant pain Disposition: ADMITTED INPATIENT 09 Certified Medical Emergency: Emergent Condition: Stable - Critical Care Note This patient required my direct & personal management of CC.: No Attestation - Physician/ PRINCESS Attestation Patient care was provided by Advanced Practice Provider:: Yes Advanced Practice Provider:: Zeina Blankenship Advanced Practice Provider documentation review:: The Mid-level provider documentation, treatment plan and medical decision making was reviewed by the physician who agrees with all treatment and medical decision making by the [facility]. The physician spent face to face time with patient:: No Advanced Practice Provider documentation review:: Supervising physician onsite and consulted in the evaluation and care of this patient. The physician did not have a face to face encounter with the patient.
[2019-04-24 10:27] LABS: ALB/GLOB RATIO 1.4; ALBUMIN 4.2 g/dL (3.5-5.0); CALCIUM 10.2 mg/dL (8.8-10.2); CREATININE 3.9 mg/dL (0.7-1.2); TOTAL BILIRUBIN 0.18 mg/dL (0.20-1.00); TOTAL PROTEIN 7.3 g/dL (6.3-8.3)
[2019-04-24 10:30] LABS: BASO# 0.02 X1000 (0.0-0.2); BASO% 0.5 % (0.0-0.8); EOS# 0.03 X1000 (0.0-0.7); EOS% 0.7 % (0.0-10.0); HEMATOCRIT 26.9 % (42.0-52.0); HEMOGLOBIN 8.7 g/dL (14.0-18.0); LYMPH# 0.96 X1000 (1.2-3.4); LYMPH% 23.1 % (20.5-51.1); MCH 29.5 PG (27-31); MCHC 32.3 g/dL (33-37); MCV 91.2 FL (81-99); MONO# 0.17 X1000 (0.11-0.59); MONO% 4.1 % (1.7-9.3); MPV 8.8 FL (7.4-10.4); NEUT# 2.97 X1000 (1.4-6.5); NEUT% 71.6 % (42.2-75.2); PLT 231 X1000 (130-400); RBC 2.95 XMIL (4.7-6.1); RDW 15.1 % (11.5-14.5); WBC 4.15 X1000 (4.8-10.8)
[2019-04-24] MEDS ORDERED: KAYEXALATE PO ONE (10:38)
--- NOTE | 2019-04-24 11:31 | Diag Imaging Result Doc PS360 ---
EXAM: CT ABDOMEN/PELVIS W/O CONTRAST INDICATION: LUQ pain TECHNIQUE: This exam was performed using automated exposure control, adjustment of mA or kV according to patient size, and/or use of iterative reconstruction technique. COMPARISON: 04/14/2019 FINDINGS: The right pleural effusion seen on the previous study has resolved. There is residual bibasilar atelectasis bilaterally but it has improved slightly. There is also likely a component of fibrosis at the lung bases. The liver, gallbladder, spleen, pancreas, and adrenal glands are grossly unremarkable as imaged with unenhanced CT. No renal stones are appreciated. The distal left ureter is dilated. There is chronic dilation of the distal left ureter. It is stable. No ureteral stone is identified. There are a couple of stable phleboliths in the pelvis. The urinary bladder is partially distended. Urinary bladder wall is somewhat thickened. This is stable and may be due to underdistention, at least in part. Correlate clinically to exclude a component of cystitis. The GI tract is grossly unremarkable as imaged with unenhanced CT. Diffuse lytic lesions throughout the visualized skeleton consistent with known multiple myeloma are again identified. There are stable pathologic compression deformities involving T10, T11, T12, and L2. IMPRESSION: 1.Interval resolution of the right pleural effusion and improvement of atelectasis at the lung bases. 2.Stable chronic dilation of the distal left ureter. No obstructing stones are identified and there is no hydronephrosis. 3.Stable diffuse lytic lesions throughout the skeleton consistent with known multiple myeloma with stable multilevel compression deformities. Electronically signed by Tyrese Osuna 04/24/2019 11:28 AM
[2019-04-24 11:51] LABS: URINE SOURCE CLEAN CATCH
[2019-04-24 11:57] LABS: BILIRUBIN URINE NEGATIVE (NEGATIVE); BLOOD URINE TRACE (NEGATIVE); COLOR STRAW; GLUCOSE URINE NEGATIVE (NEGATIVE); KETONE URINE NEGATIVE (NEGATIVE); LEUKOCYTES URINE NEGATIVE (NEGATIVE); NITRITE URINE NEGATIVE (NEGATIVE); PH URINE 5.5; PROTEIN URINE 30 mg/dL (NEGATIVE); SP GRAVITY URINE 1.007; TURBIDITY URINE CLEAR (CLEAR); UROBILINOGEN URINE NORMAL (NORMAL)
[2019-04-24 11:58] LABS: UR EPITHELIAL CELLS <10 /HPF (<10); URINE BACTERIA NEGATIVE /HPF; URINE RBC <10 /HPF (<10); URINE WBC <10 /HPF (<10)
[2019-04-24] MEDS ORDERED: ZOFRAN IV ONE (13:34)
[2019-04-24] MEDS ORDERED: DILAUDID IV ONE (13:34)
[2019-04-24] MEDS ORDERED: TYLENOL PO PRN (14:15)
[2019-04-24] MEDS ORDERED: ZOFRAN IV PRN (14:15)
[2019-04-24] MEDS ORDERED: PERCOCET-5 PO PRN (16:41)
[2019-04-24] MEDS ORDERED: GEODON IM ONE (16:41)
[2019-04-24] MEDS ORDERED: STERILE WATER INJ. INJ ONE (16:41)
[2019-04-24] MEDS ORDERED: CALCIUM GLUCONATE 4.65 MEQ in NS 50 ML IV ONE (16:51)
[2019-04-24] MEDS ORDERED: HUMULIN R IV ONE (16:51)
[2019-04-24] MEDS ORDERED: D50W SYRINGE IV ONE (16:52)
[2019-04-24] MEDS ORDERED: ALBUTEROL 0.5% INH CONC FOR HYPERKALEMIA INH ONE (16:52)
[2019-04-24] MEDS ORDERED: NS 1,000 ML IV SCH (17:15)
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
[2019-04-24 21:23] LABS: CALCIUM 9.8 mg/dL (8.8-10.2); CREATININE 4.1 mg/dL (0.7-1.2); POTASSIUM 4.7 mmol/L (3.5-5.1)
[2019-04-25] MEDS: DILAUDID IV PRN ×2 (05:35→08:29)
[2019-04-25 08:27] VITALS: BP 138/87
[2019-04-25 08:36] LABS: EOS# 0.04 X1000 (0.0-0.7); HEMATOCRIT 25.7 % (42.0-52.0); HEMOGLOBIN 8.4 g/dL (14.0-18.0); LYMPH# 0.87 X1000 (1.2-3.4); LYMPH% 22.7 % (20.5-51.1); MCH 29.8 PG (27-31); MCHC 32.7 g/dL (33-37); MCV 91.1 FL (81-99); MONO# 0.16 X1000 (0.11-0.59); MONO% 4.2 % (1.7-9.3); MPV 8.8 FL (7.4-10.4); NEUT# 2.77 X1000 (1.4-6.5); NEUT% 72.1 % (42.2-75.2); PLT 238 X1000 (130-400); RBC 2.82 XMIL (4.7-6.1); RDW 15.3 % (11.5-14.5); WBC 3.84 X1000 (4.8-10.8)
[2019-04-25 08:50] LABS: AGAP 16; ALBUMIN 3.6 g/dL (3.5-5.0); ALKALINE PHOSPHATASE 80 U/L (32-122); BUN 51 mg/dL (8-22); CALCIUM 9.8 mg/dL (8.8-10.2); CHLORIDE 106 mmol/L (98-107); COSMO 295; CREATININE 4.1 mg/dL (0.7-1.2); ESTIMATED GFR 18; GLUCOSE 98 mg/dL (70-104); GOT 10 U/L (10-34); GPT < 5 U/L (10-44); MAGNESIUM 1.6 mg/dL (1.5-2.7); POTASSIUM 5.1 mmol/L (3.5-5.1); SODIUM 141 mmol/L (136-145); TCO2 19 mmol/L (25-35); TOTAL BILIRUBIN 0.15 mg/dL (0.20-1.00); TOTAL PROTEIN 7.3 g/dL (6.3-8.3)
[2019-04-25] MEDS ORDERED: LIDODERM TOP SCH (09:45)
[2019-04-25] MEDS ORDERED: DUONEB (A & A) INH PRN (09:58)
--- NOTE | 2019-04-25 10:04 | PROGRESS NOTE ---
DATE: 04/25/2019 SUBJECTIVE: As per the patient, his abdominal pain is better. He is hungry. We will start this patient on a diet at this moment. I will continue with the home medications. He has a history of multiple myeloma with bone destruction, and he has been on Percocet at home. He has requested to increase the dose, which I believe is okay. After giving his diet, he is tolerating that with no problem. Probably we will discharge this patient in the afternoon. OBJECTIVE: Vital Signs: Temperature 98.3 degrees, pulse 89, respiratory rate 16, blood pressure 138/87, oxygen saturation 100% on room air. HEENT: Head normocephalic, no trauma. PERRLA. Neck: Supple. No JVD. No masses. Central trachea. Chest: Clear to auscultation. No wheezing. No rales. He has multiple places with pain to palpation, which is not new. Abdomen: Soft. Some tenderness to palpation at the level of the left upper quadrant and epigastric area. Extremities: No edema, no clubbing, no cyanosis. Neurological: The patient is alert. He is oriented. He is following commands. DIAGNOSTIC STUDIES: WBC 3.8, hemoglobin 8.4, hematocrit 25.7, platelet 238,000. Sodium 141, potassium 5.1, chloride 106, bicarbonate 19, BUN 51, creatinine 4.1, glucose 98, calcium 9.8. ASSESSMENT AND PLAN: 1. Intractable pain due to multiple compression fractures and multiple myeloma. Continue with the same management. He is feeling a little bit better. 2. Mild pancreatitis, basically resolved. This patient is hungry, and he is not having abdominal pain. We will continue to monitor. 3. Chronic kidney disease. This is his baseline. 4. Hyperkalemia, resolved. 5. Chronic obstructive pulmonary disease, not in exacerbation. 6. Anemia of chronic disease, stable at this moment. 7. Medical noncompliance. As per the patient, he does not have a primary care as he does not wish to be on dialysis. He just wants to control his pain, I talked to him about his kidneys, and I know that the Nephrology department has been following this patient before. I have recommended to him to continue follow up with Dr. Keita as an outpatient. 8. History of multiple myeloma. Aware. I believe he has been followed by Hematology/Oncology department before, but he is not going to the clinic as an outpatient. 9. History of psychiatric illness. It looks like it is related to a schizoaffective disorder. Aware. cc: Albert Barclay MD
[2019-04-25] MEDS ORDERED: REGLAN PO SCH (11:00)
[2019-04-25] MEDS ORDERED: DUONEB (A & A) INH SCH (11:30)
[2019-04-25] MEDS ORDERED: RENAGEL PO SCH (12:00)
--- NOTE | 2019-04-25 17:38 | DISCHARGE SUMMARY ---
ADMISSION DATE: 04/24/2019 DISCHARGE DATE: 04/25/2019 DISCHARGE DIAGNOSES: 1. Intractable pain due to multiple compression fractures and multiple myeloma. 2. Mild pancreatitis, resolved. 3. Chronic kidney disease. 4. Hyperkalemia, resolved. 5. Chronic obstructive pulmonary disease, not in exacerbation. 6. Anemia of chronic disease. 7. Medical noncompliance. 8. History of multiple myeloma. 9. History of psychiatric illness, likely a schizoaffective disorder. HOSPITAL COURSE: A 58-year-old male with a past medical history of advanced CKD, history of multiple myeloma. Apparently he had dialysis in the past, but he left AMA instead of having his dialysis. He has history hypertension, asthma, COPD, GERD, diabetes, schizoaffective disorder, GI bleed due to hemorrhoids, and chronic anemia. He recently was discharged from this hospital on 04/14/2019 with basically the same symptoms. The patient now is complaining of worsening back pain at this time. States that he has not been taking his medication. He denies any fever, chills, pain, heart palpitation, nausea, or vomiting. CT of the abdomen and pelvis was done and showed resolution of the right pleural effusion and stable lytic lesion throughout the skeleton, consistent with multiple myeloma with stable multilevel compression deformities. He was found to be hyperkalemic and also some elevation of the liver enzymes. The potassium was treated and then was better. We gave him a little bit of IV fluids, and the next day, he was not complaining of any abdominal pain. His BUN and creatinine and also his potassium were fine. He asked for food today, and he tolerated that well. He wants to be discharged. He does not want to stay, and I believe he is stable enough to go. I talked to him about his kidney dysfunction, and he states that he knows about it, but he needs time to go to the handbag frames inspector,. As per the patient, he is not following any oncologist, even though he has been seen in the past. He has a long history of medical noncompliance. I do not think this patient will go to any outpatient clinic, but I talked to him multiple times about it. PHYSICAL EXAMINATION: Temperature 98.3 degrees, pulse 89, respiratory rate 18, blood pressure 138/87 ,oxygen saturation 100% on room air HEENT: Head normocephalic, no trauma. PERRLA. Neck: Supple. No JVD. No masses. Central trachea. Chest: Clear to auscultation. Some crepitus at the bases. He does have pain to palpation mostly on the left thoracic area. Abdomen: Soft. Mild tenderness to palpation around the periumbilical area. Extremities: No edema, no clubbing, no cyanosis. Neurological: The patient is alert and oriented x3. No focal neurological deficits. DIAGNOSTIC STUDIES: WBC 3.8, hemoglobin 8.4, hematocrit 25.7, platelets 238. Sodium 141, potassium 5.1, chloride 106, bicarbonate 19, BUN 51, creatinine 4.1, glucose 98, calcium 9.8, magnesium 1.6, albumin 3.6. DISCHARGE MEDICATIONS: Basically I will continue with the same medications that he was discharged on previously. I will add Percocet 10 every 6 hours as needed to his medications. Albuterol 1 dose inhaled 4 times a day. Ipratropium 1 dose inhaled 4 times a day. Lidocaine patch 5% 1 daily on the right side of the thorax. Reglan 10 mg p.o. q.a.c. plus at bedtime. Zofran 4 mg p.o. t.i.d. Percocet 10 mg 1 tablet p.o. q.6 h, #20 tablets. MiraLAX 17 g p.o. daily. Sevelamer carbonate 1 tablet p.o. t.i.d. COORDINATION TIME: Time discharging this patient 35 minutes. cc: Albert Barclay MD MTDD
--- NOTE | 2019-04-26 08:34 | EKG Report ---
Test Performed on : 04/24/2019 11:13:25 AM Test Reason : LUQ pain/SOB Blood Pressure : / mmHG Vent. Rate : 080 BPM Atrial Rate : 080 BPM P-R Int : 204 ms QRS Dur : 092 ms QT Int : 384 ms P-R-T Axes : 041 011 080 degrees QTc Int : 442 ms Normal sinus rhythm. Moderate voltage criteria for LVH, may be normal variant Nonspecific T wave abnormality Abnormal ECG When compared with ECG of 12-APR-2019 04:10, (Unconfirmed) No significant change was found Unconfirmed Result
== END 2019-04-25 14:19 | disposition home or self-care (01) | DRG 559 ==
LOC: SUPCPDRO → ED 08:16 → 3N 16:07
PROVIDERS: ATTEND Internal Medicine
CPT/HCPCS: 71020; 71046; 74176; 80048; 80053; 81001; 82150; 83690; 83735; 83880; 84132; 84478; 84484; 85025; 93005; 94640; 94761; 99284; A9270; J1170; J2405

== ENCOUNTER 2019-05-03 10:28 | Inpatient (IN) ==
[2019-05-03] MEDS ORDERED: MORPHINE IV ONE (10:57)
[2019-05-03] MEDS ORDERED: ZOFRAN IV ONE (10:57)
[2019-05-03] MEDS ORDERED: DILAUDID IV ONE (11:18)
[2019-05-03 11:25] LABS: EOS# 0.05 X1000 (0.0-0.7); EOS% 1.9 % (0.0-10.0); HEMATOCRIT 20.8 % (42.0-52.0); HEMOGLOBIN 6.8 g/dL (14.0-18.0); IMM GRAN# 0.01 X1000 (0.0-0.04); IMM GRAN% 0.4 % (0.0-0.5); LYMPH# 0.79 X1000 (1.2-3.4); LYMPH% 29.6 % (20.5-51.1); MCH 30.4 PG (27-31); MCHC 32.7 g/dL (33-37); MCV 92.9 FL (81-99); MONO# 0.12 X1000 (0.11-0.59); MONO% 4.5 % (1.7-9.3); MPV 8.5 FL (7.4-10.4); NEUT% 63.6 % (42.2-75.2); PLT 203 X1000 (130-400); RBC 2.24 XMIL (4.7-6.1); RDW 15.2 % (11.5-14.5); WBC 2.67 X1000 (4.8-10.8)
--- NOTE | 2019-05-03 11:44 | Diag Imaging Result Doc PS360 ---
CT ABDOMEN/PELVIS W/O CONTRAST - 05/03/2019 INDICATION: abdominal pain COMPARISON: 04/24/2019 FINDINGS: There is some scattered linear atelectasis in the lung bases, similar or improved from prior. There is mild cardiomegaly. Anemia is present. No radiodense renal stones. No hydronephrosis or hydroureter. No bowel obstruction or inflammation. There is severe constipation mainly of the proximal colon. Stable diffuse bony abnormalities. There are numerous compression fractures of the lower thoracic spine. IMPRESSION: Constipation. No acute process. This exam was performed using automated exposure control, adjustment of mA or kV according to patient size, and/or use of iterative reconstruction technique Electronically signed by Marcelino Rausch 05/03/2019 11:42 AM
[2019-05-03 11:45] LABS: AGAP 13; ALKALINE PHOSPHATASE 99 U/L (32-122); BUN 59 mg/dL (8-22); CALCIUM 9.8 mg/dL (8.8-10.2); CHLORIDE 104 mmol/L (98-107); COSMO 287; CREATININE 6.4 mg/dL (0.7-1.2); ESTIMATED GFR 9; GLUCOSE 96 mg/dL (70-104); GOT 10 U/L (10-34); GPT 6 U/L (10-44); LIPASE 24 U/L (13-60); POTASSIUM 5.9 mmol/L (3.5-5.1); SODIUM 135 mmol/L (136-145); TCO2 18 mmol/L (25-35); TOTAL BILIRUBIN < 0.15 mg/dL (0.20-1.00); TOTAL PROTEIN 7.5 g/dL (6.3-8.3)
[2019-05-03] MEDS ORDERED: HUMULIN R IV ONE (11:51)
[2019-05-03] MEDS ORDERED: D50W SYRINGE IV ONE (11:53)
[2019-05-03] MEDS ORDERED: HUMULIN R (PARKWAY) ONE ×2 (11:57→12:03)
[2019-05-03] MEDS ORDERED: ALBUTEROL NEB INH ONE (12:04)
--- NOTE | 2019-05-03 12:20 | PROVIDER DOCUMENTATION ---
This chart was entered by Mary Del Castillo Scribe, acting as scribe for Ana Velez MD. HPI-Abdominal Pain/GI Problem - General Chief Complaint: Abdominal Pain Stated Complaint: ABD PAIN Time Seen by Provider: 05/03/19 10:59 Source: patient, EMS Allergies/Adverse Reactions: Patient Allergies Allergy/AdvReac Type Severity Reaction Status Date / Time morphine Allergy NAUSEA Verified 05/01/19 09:09 Home Medications: Home Medication List Medication Instructions Recorded Confirmed Last Taken Type Albuterol [Albuterol Neb] 1 dose INH 4XDAY 04/07/19 05/01/19 05/01/19 History Ipratropium Troup Neb [Atrovent 1 dose INH 4XDAY 04/07/19 05/01/19 05/01/19 History Neb] Sevelamer Carbonate 1 tab PO TID 04/07/19 05/01/19 05/01/19 History Lidocaine 5% Patch [Lidoderm] 1 ea TOP DAILY #10 patch 04/16/19 05/01/19 05/01/19 Rx Polyethylene Glycol 3350 [Miralax] 17 gm PO DAILY #20 powder, packet 04/16/19 05/01/19 05/01/19 Rx Metoclopramide [Reglan] 10 mg PO AC + HS 04/24/19 05/01/19 05/01/19 History Ondansetron HCl [Zofran] 4 mg PO TID 04/24/19 05/01/19 05/01/19 History Oxycodone HCl/Acetaminophen 1 ea PO Q6H #20 tab 04/25/19 05/01/19 05/01/19 Rx [Percocet 10-325 mg Tablet] - History of Present Illness-ABD Nature of Presenting Problems: 58 y/o male presents to ED with generalized abdominal pain, weakness, N/V, constipation, and back pain onset 2 weeks ago. Pt reports he has not dialyzed in 3 weeks because his port was removed. Pt is alert and oriented. Abdominal Pain Onset Location: reports: generalized abdomen Pain Radiation: reports: no radiation Quality of Pain: reports: aching Severity in ED: reports: mild Onset/Duration: reports: other (2 weeks ago) Timing: reports: still present Activities at Onset: reports: none Exposure to sick contacts?: No Modifying Factors: worse with: palpation Associated Symptoms: reports: back/neck pain, constipation, nausea, vomiting, weakness Last BM: unsure Dark Stools Present?: reports: none noticed Rectal Bleeding: reports: none Rectal Pain: reports: none Similar Symptoms Previously?: Yes Recently seen or treated by another doctor?: Yes Review of Systems - Adult - REVIEW OF SYSTEMS - ADULT Constitutional: denies: chills, fever Eyes: reports: no symptoms reported Ears, Nose, Mouth & Throat: reports: no symptoms reported Cardiovascular: denies: chest pain, palpitations Respiratory: denies: cough, shortness of breath Gastrointestinal: reports: abdominal pain, constipation, nausea, vomiting. denies: diarrhea Genitourinary: reports: no symptoms reported Musculoskeletal: reports: back pain. denies: joint pain Integumentary: reports: no symptoms reported Neurological: reports: other (weakness). denies: dizziness/vertigo, seizure Psychiatric: reports: no symptoms reported Endocrine: reports: no symptoms reported Hematologic/Lymphatic: reports: no symptoms reported Allergic/Immunologic: reports: no symptoms reported All Other Systems: Reviewed and Negative Past History - Adult - PAST MEDICAL HISTORY-ADULT Review of Records: reports: Old Records Reviewed, Nursing Assessment Review, Medications Reviewed Major Childhood Illnesses: reports: denies history Cardiovascular: reports: HTN Respiratory: reports: asthma, COPD Gastrointestinal: reports: hemorrhoids, other (hernia) Obstetrical/Gynecological: reports: denies history Genitourinary: reports: kidney disease Musculoskeletal: reports: cancer, other Neurological: reports: Seizures/Epilepsy Psychiatric: reports: bipolar, schizophrenia Endocrine/Immune: reports: Diabetes, Myeloma Other Conditions: reports: denies history - PRIOR SURGERIES/PROCEDURES Surgical/Procedure History: reports: reviewed, not pertinent, indwelling device (dialysis port placed and removed), hernia repair, bowel surgery, other - IMMUNIZATION STATUS Childhood Immunizations: See Nurse Assessment Flu Vaccine: See Nurse Assessment - FAMILY HISTORY Family History: reviewed, not pertinent - SOCIAL HISTORY Smoking: greater than 1 pack/day Provider spent 3-5 mins advising pt. on dangers of tobacco.: Discussed manners to quit use, and f/u contacts for add'l counseling. Substance Use: other Alcohol Use Frequency: occasionally Living Situation: family Physical Exam-General - PHYSICAL EXAM-ADULT Initial Vital Signs Reviewed: Yes - CONSTITUTIONAL General Appearance: appears well, alert, no apparent distress - EYES Eyes: PERRL/EOMI, pink conjunctivae - HEAD, EARS, NOSE, MOUTH & THROAT HENMT: normocephalic/atraumatic, moist mucous membranes, normal ENT inspection - NECK Neck: non-tender, full range of motion - RESPIRATORY Respiratory: chest non-tender, lungs clear, normal breath sounds - CARDIOVASCULAR Cardiovascular: normal peripheral pulses, regular rate, rhythm - GASTROINTESTINAL (ABDOMEN) Abdominal Exam: normal bowel sounds, soft, tenderness (abdomen diffusely/dramatically tender) - MUSCULOSKELETAL Back Exam: normal inspection, no CVA tenderness Extremity: normal range of motion - SKIN Integumentary: normal color, warm/dry - NEUROLOGIC Neurologic: grossly normal - PSYCHIATRIC Psych/Mental Status: normal mood/affect, normal thought content, normal thought process, oriented x 3 Progress - PLAN OF CARE/RESULTS Progress/Plan/Lab Results: Vital Signs - 8 hr 05/03/19 10:32 Temperature 98.2 F Pulse Rate 88 Respiratory Rate 18 Blood Pressure 124/67 O2 Sat by Pulse Oximetry 95 Orders Category Date Time Status Saline Loc NOW Care 05/03/19 10:[address] ABDOMEN/PELVIS W/O CONTRAST [CT] Stat Exams 05/03/19 10:58 Ordered CBC WITH DIFF [HEME] Stat Lab 05/03/19 10:56 Uncollected COMPREHENSIVE METABOLIC PANEL [CHEM] Stat Lab 05/03/19 10:56 Uncollected LIPASE [CHEM] Stat Lab 05/03/19 10:57 Uncollected Morphine Med 05/03/19 10:57 Discontinued 4 mg IV NOW ONE Ondansetron [Zofran] Med 05/03/19 10:57 Discontinued 4 mg IV NOW ONE Laboratory Tests 05/03/19 05/03/19 11:15 11:15 WBC 2.67 L RBC 2.24 L Hgb 6.8 L Hct 20.8 L MCV 92.9 MCH 30.4 MCHC 32.7 L RDW Std Deviation 15.2 H Plt Count 203 MPV 8.5 Immature Gran % (Auto) 0.4 Neut % (Auto) 63.6 Lymph % (Auto) 29.6 [place] % (Auto) 4.5 Eos % (Auto) 1.9 Baso % (Auto) 0.0 Immature Gran # (Auto) 0.01 Neut # (Auto) 1.70 Lymph # (Auto) 0.79 L [place] # (Auto) 0.12 Eos # (Auto) 0.05 Baso # (Auto) 0.00 Sodium 135 L Potassium 5.9 H Chloride 104 Carbon Dioxide 18 L Anion Gap 13 BUN 59 H Creatinine 6.4 H Estimated GFR/1.73 m2 9 BUN/Creatinine Ratio 9 Glucose 96 Calculated Osmolality 287 Calcium 9.8 Total Bilirubin < 0.15 L AST 10 ALT 6 L Alkaline Phosphatase 99 Total Protein 7.5 Albumin 4.0 Globulin 4.0 Albumin/Globulin Ratio 1.0 Lipase 24 Result Diagrams: 05/03/19 11:15 05/03/19 11:15 - EKG 1 Time of EKG reading by physician:: 12:37 EKG Read and Signed by:: Ana Velez EKG Interpretation (*Must complete 3 of following elements*): Abnormal Rate: 83 Rhythm: NSR [place]: normal QRS: normal [place] Interval: normal ST Wave: non-specific ST changes (consider lateral ischemia) - CT/MRI 1 CT Study: Abdomen, Pelvis Impression: Abnormal ([facility] [address] , [address], [place] [address] Department of Imaging Patient: KEMI HAMILTON Date: 05/03/19#: [id number] : 1960DM Status: REG ERAcct#: [id number] Age/Sex: 58/MRoom/Bed: Loc: P.ED Ordering Physician: Ana Velez MD Family Physician: None,PCP Reason for Procedure: abdominal pain ___ Signed CT ABDOMEN/PELVIS W/O CONTRAST - 05/03/2019 INDICATION: abdominal pain COMPARISON: 04/24/2019 FINDINGS: There is some scattered linear atelectasis in the lung bases, similar or improved from prior. There is mild cardiomegaly. Anemia is present. No radiodense renal stones. No hydronephrosis or hydroureter. No bowel obstruction or inflammation. There is severe constipation mainly of the proximal colon. Stable diffuse bony abnormalities. There are numerous compression fractures of the lower thoracic spine. IMPRESSION: Constipation. No acute process. This exam was performed using automated exposure control, adjustment of mA or kV according to patient size, and/or use of iterative reconstruction technique Electronically signed by Marcelino Rausch 05/03/2019 11:42 AM 05/03/19 1142 Interpreting Physician: Marcelino Rausch MD Dictated Date/Time: 05/03/19 1136 cc: Ana Velez MD; None,PCP) - CONSULTS/PCP/HOSPITALIST Notification #1 *Consult/PCP/Hospitalist*: Dr. Tsai Time Discussed: 12:01 Reason/Comments: Anemia, chronic kidney disease, hyperkalemia, constipation, back pain Consult Disposition: Admit (to [facility]; Dr. Tsai will discuss pt with [facility] hospitalist; Dr. Tsai requests Dr. Langford be consulted.) #2 Consult: Dr. Langford Time Discussed: 12:12 Reason/Comments: Anemia, chronic kidney disease, hyperkalemia, constipation, back pain Consult Disposition: Will see in ED, Admit (to [facility]) Departure - Departure Date of Disposition Decision: 05/03/19 Time of Disposition Decision: 12:14 DIAGNOSIS: Hyperkalemia Anemia Qualifiers: Anemia type: unspecified type Qualified Code(s): D64.9 - Anemia, unspecified Chronic kidney disease Qualifiers: Chronic kidney disease stage: unspecified stage Qualified Code(s): N18.9 - Chronic kidney disease, unspecified Constipation Qualifiers: Constipation type: unspecified constipation type Qualified Code(s): K59.00 - Constipation, unspecified Back pain Qualifiers: Back pain location: back pain in unspecified location Chronicity: chronic Back pain laterality: unspecified Qualified Code(s): M54.9 - Dorsalgia, unspecified; G89.29 - Other chronic pain Disposition: ADMITTED INPATIENT 09 Certified Medical Emergency: Emergent Condition: Stable Referrals and Follow-Ups: None,PCP [Primary Care Provider] - Discharge Education: Steps to Quit Smoking, [id number] - Critical Care Note This patient required my direct & personal management of CC.: No Attestation - Physician/ PRINCESS Attestation Patient care was provided by Advanced Practice Provider:: No The physician spent face to face time with patient:: Yes Advanced Practice Provider documentation review:: Supervising physician onsite and consulted in the evaluation and care of this patient. The physician did have a face to face encounter with the patient. This chart was documented by the indicated scribe, (Mary Del Castillo, Aleyda) and accurately reflects the services I performed and decisions made by me, Ana Velez MD, as attested by the provider's signature.
[2019-05-03] MEDS ORDERED: TYLENOL PO PRN (13:27)
[2019-05-03] MEDS ORDERED: ZOFRAN IV PRN (13:27)
--- NOTE | 2019-05-03 13:46 | EKG Report ---
Test Performed on : 05/03/2019 12:37:14 PM Test Reason : hyperkalemia Blood Pressure : / mmHG Vent. Rate : 083 BPM Atrial Rate : 083 BPM P-R Int : 208 ms QRS Dur : 092 ms QT Int : 362 ms P-R-T Axes : 051 014 095 degrees QTc Int : 425 ms Normal sinus rhythm. T wave abnormality, consider lateral ischemia Abnormal ECG When compared with ECG of 24-APR-2019 11:13, (Unconfirmed) No significant change was found Unconfirmed Result
[2019-05-03] MEDS ORDERED: NS 1,000 ML ONE (14:18)
[2019-05-03 14:27] LABS: BILIRUBIN URINE NEGATIVE (NEGATIVE); BLOOD URINE 1+ (NEGATIVE); CLARITY CLEAR (CLEAR); COLOR YELLOW; GLUCOSE URINE NEGATIVE (NEGATIVE); KETONE URINE NEGATIVE (NEGATIVE); LEUKOCYTES URINE TRACE (NEGATIVE); NITRITE URINE NEGATIVE (NEGATIVE); PROTEIN URINE TRACE mg/dL (NEGATIVE); UROBILINOGEN URINE NORMAL
[2019-05-03 14:37] LABS: UR AMPHETAMINES QUAL NONE DETECTED (NONE DETECT); UR BARBITUATES QUAL NONE DETECTED (NONE DETECT); UR BENZODIAZEPIN QUAL NONE DETECTED (NONE DETECT); UR CANNABINOIDS QUAL NONE DETECTED (NONE DETECT); UR COCAINE QUAL NONE DETECTED (NONE DETECT); UR METHADONE QUAL NONE DETECTED (NONE DETECT); UR METHAMPHETAMINE QUAL NONE DETECTED (NONE DETECT); UR OPIATES QUAL PRESUMPTIVE POSITIVE (NONE DETECT); UR OXYCODONE QUAL NONE DETECTED (NONE DETECT); UR PCP QUAL NONE DETECTED (NONE DETECT); UR PROPOXYPHENE QUAL NONE DETECTED (NONE DETECT); UR TCA QUAL NONE DETECTED (NONE DETECT)
[2019-05-03 14:39] LABS: URINE SOURCE CATH
[2019-05-03 14:41] LABS: URINE BACTERIA NEGATIVE /HFP; URINE CAST NONE SEEN /LPF; URINE CRYSTAL NONE SEEN /HPF; URINE EPITHELIAL CELLS <10 /HPF (<10); URINE RBC <10 /HPF (<10); URINE WBC <10 /HPF (<10); URINE YEAST NONE SEEN /HPF
[2019-05-03] MEDS ORDERED: NS 1,000 ML IV ONE ×2 (14:42→21:21)
[2019-05-03] MEDS ORDERED: HUMULIN R (PARKWAY) SUBQ SCH (16:00)
[2019-05-03] MEDS: DILAUDID IV PRN ×2 (16:20→20:45)
[2019-05-03] MEDS: PRILOSEC PO SCH (17:10)
[2019-05-03] MEDS: PERICOLACE PO SCH (22:07)
[2019-05-03 22:33] LABS: CALCIUM 9.8 mg/dL (8.8-10.2); CREATININE 5.7 mg/dL (0.7-1.2)
[2019-05-03 22:34] LABS: POTASSIUM 6.4 mmol/L (3.5-5.1)
[2019-05-03] MEDS ORDERED: KAYEXALATE PO ONE (23:56)
[2019-05-04] MEDS: DUONEB (A & A) INH SCH ×5 (00:30→21:10)
[2019-05-04] MEDS ORDERED: PERCOCET-10 PO PRN ×2 (00:58→01:07)
[2019-05-04] MEDS: DILAUDID IV PRN (05:54)
[2019-05-04] MEDS: PRILOSEC PO SCH ×3 (05:56→18:03)
[2019-05-04 06:08] LABS: INR 0.87; PROTIME 12.6 Seconds (11.0-16.0)
[2019-05-04 06:09] LABS: PTT 32.4 Seconds (22.3-41.8)
[2019-05-04 06:11] LABS: EOS# 0.02 X1000 (0.0-0.7); EOS% 0.7 % (0.0-10.0); HEMATOCRIT 24.5 % (42.0-52.0); HEMOGLOBIN 7.9 g/dL (14.0-18.0); LYMPH# 1.15 X1000 (1.2-3.4); LYMPH% 37.8 % (20.5-51.1); MCH 29.7 PG (27-31); MCHC 32.2 g/dL (33-37); MCV 92.1 FL (81-99); MONO# 0.15 X1000 (0.11-0.59); MONO% 4.9 % (1.7-9.3); NEUT# 1.72 X1000 (1.4-6.5); NEUT% 56.6 % (42.2-75.2); PLT 204 X1000 (130-400); RBC 2.66 XMIL (4.7-6.1); RDW 15.3 % (11.5-14.5); WBC 3.04 X1000 (4.8-10.8)
[2019-05-04 06:28] LABS: ALB/GLOB RATIO 1.1; ALBUMIN 3.7 g/dL (3.5-5.0); CALCIUM 9.7 mg/dL (8.8-10.2); CREATININE 5.7 mg/dL (0.7-1.2); MAGNESIUM 1.9 mg/dL (1.5-2.7); TOTAL BILIRUBIN 0.16 mg/dL (0.20-1.00)
[2019-05-04] MEDS: HUMULIN R SUBQ SCH ×4 (06:47→21:08)
--- NOTE | 2019-05-04 07:33 | Diag Imaging Result Doc PS360 ---
EXAM: CHEST-PORTABLE INDICATION: sob TECHNIQUE: One view COMPARISON: 05/01/2019 FINDINGS: Lung volumes are low similar to the previous study. The patient is rotated toward the left. Bilateral interstitial infiltrates as well as left basilar atelectasis are approximately stable given differences in positioning. No new consolidation is identified. Cardiac silhouette is stable. IMPRESSION: Essentially stable chest. Electronically signed by Tyrese Osuna 05/04/2019 7:31 AM
--- NOTE | 2019-05-04 08:44 | HISTORY AND PHYSICAL ---
ADDENDUM REPORT This is a 58-year-old gentleman, very unfortunate, with multiple myeloma, with multiple compression fractures. He has not had any treatment for his multiple myeloma. He has chronic renal failure which is usually at a level of, I would say stage 4, but is currently stage 5. He has required dialysis in the past. Workup in the ER showed worsening renal failure, some hyperkalemia, although I do not think he had any distinct EKG changes. When we examined him, he had been given pain medication and was fairly sedated, but he did respond to questions. His vital signs were stable. He was just in a lot of pain, which he has multiple compression fractures which were felt to be associated with multiple myeloma. In any case, with his progression in renal failure, we felt that it would likely be better for him to go to [facility] in case he needed dialysis, not clear that he absolutely needs it at this point, but he may progress to that point. He has required it in the past, but he has also refused it in the past. We will repeat his basic, get a Cardiology consult. I think at this point he is really a Hospice patient, and we will get a Palliative Care consult. I may go ahead and consult Oncology as well, although he has not been amenable to treatment previously. As far as I can tell, I am not sure if he has actually seen anybody in consultation. Dr. Keita has been consulted previously. He has psychiatric issues, too, which is most likely complicating his decision making. As far as I can tell, he has not been seen by Oncology, though. So we will get consult there and will work on pain medication as well. cc: Nick Tsai MD
[2019-05-04] MEDS ORDERED: DEPAKOTE ER PO ONE (09:48)
[2019-05-04] MEDS ORDERED: SEROQUEL PO ONE (09:48)
[2019-05-04] MEDS: HEPARIN SUBQ SCH ×2 (10:32→21:05)
[2019-05-04] MEDS: PERICOLACE PO SCH ×2 (10:32→21:05)
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
[2019-05-04] MEDS: OXY IR PO PRN ×3 (12:14→21:06)
[2019-05-04] MEDS: RENAGEL PO SCH ×2 (17:54→18:03)
[2019-05-04] MEDS: SEROQUEL PO SCH (21:04)
[2019-05-04] MEDS: LOKELMA POWDER PACKET PO SCH (21:04)
[2019-05-04] MEDS: DEPAKOTE ER PO SCH (21:05)
[2019-05-04] MEDS: CYMBALTA PO SCH (21:05)
[2019-05-05] MEDS: OXY IR PO PRN ×5 (01:40→22:20)
[2019-05-05] MEDS: DUONEB (A & A) INH SCH ×4 (03:05→21:15)
[2019-05-05 04:54] LABS: ALLEN TEST YES; BE -5.2 mmoll (-3.0-3.0); BLOOD TYPE ARTERIAL; HCO3-(ACT) 20.9 mmoll (20.0-26.0); METHB 0.5 % (0.0-1.5); O2(CT) 10.1 mL/dL (15.0-23.0); PCO2(98.6) 41 mmHg (35-45); PO2(98.6) 78 mmHg (60-100); SAMPLE BLOOD; SAO2 100.6 % (95.0-100.0); THB 7.3 g/dL (11.5-17.4); pH(98.6) 7.31 (7.35-7.45)
[2019-05-05 04:55] LABS: MODALITY ROOM AIR
[2019-05-05] MEDS: PRILOSEC PO SCH ×3 (05:23→17:33)
[2019-05-05] MEDS: HUMULIN R SUBQ SCH ×4 (06:22→21:48)
[2019-05-05 08:59] LABS: BASO# 0.01 X1000 (0.0-0.2); BASO% 0.4 % (0.0-0.8); EOS# 0.02 X1000 (0.0-0.7); EOS% 0.8 % (0.0-10.0); HEMOGLOBIN 8.4 g/dL (14.0-18.0); LYMPH# 0.85 X1000 (1.2-3.4); LYMPH% 32.9 % (20.5-51.1); MCH 29.9 PG (27-31); MCHC 32.3 g/dL (33-37); MCV 92.5 FL (81-99); MONO# 0.11 X1000 (0.11-0.59); MONO% 4.3 % (1.7-9.3); MPV 9.1 FL (7.4-10.4); NEUT# 1.59 X1000 (1.4-6.5); NEUT% 61.6 % (42.2-75.2); PLT 193 X1000 (130-400); RBC 2.81 XMIL (4.7-6.1); RDW 15.2 % (11.5-14.5); WBC 2.58 X1000 (4.8-10.8)
[2019-05-05 09:13] LABS: ALBUMIN 3.9 g/dL (3.5-5.0); CALCIUM 10.4 mg/dL (8.8-10.2); CREATININE 5.5 mg/dL (0.7-1.2); PHOSPHORUS 8.1 mg/dL (2.7-4.5); POTASSIUM 5.4 mmol/L (3.5-5.1)
[2019-05-05] MEDS: RENAGEL PO SCH ×3 (09:31→17:33)
[2019-05-05] MEDS: DEPAKOTE ER PO SCH ×2 (09:31→20:00)
[2019-05-05] MEDS: CYMBALTA PO SCH ×2 (09:31→20:00)
[2019-05-05] MEDS: HEPARIN SUBQ SCH ×2 (09:32→20:02)
[2019-05-05] MEDS: PERICOLACE PO SCH ×2 (09:32→20:00)
[2019-05-05] MEDS: SEROQUEL PO SCH ×2 (09:32→20:01)
[2019-05-05] MEDS ORDERED: DULCOLAX PR ONE (11:43)
[2019-05-05] MEDS: LOKELMA POWDER PACKET PO SCH (11:58)
[2019-05-05] MEDS ORDERED: DULCOLAX PR PRN (12:02)
--- NOTE | 2019-05-05 15:18 | PROGRESS NOTE ---
DATE: 05/05/2019 INTERVAL HISTORY: Patient with continued reports of back pain, but much better controlled. Complaints of constipation. Conversing exam continue to be somewhat challenging as most of his responses are appropriate, but they are frequently extremely tangential and occasionally just nonsensical. No acute events overnight. REVIEW OF SYSTEMS: Twelve point review of systems negative except as per interval history. LABS: hemoglobin 8.4, hematocrit 26.0, platelets 183,000. ABG with pH 7.3, PO2 41, 78% on room air. Sodium 137, potassium 5.4, BUN 61, creatinine 5.5, bicarb 22, lactate 0.8. VITALS: T-max 98.6, pulse 81, respirations 24, blood pressure 147/85. 02 sat 100% on room air. PHYSICAL EXAMINATION: General: No acute distress. Vitals: As above. HEENT: Normocephalic, atraumatic. Moist mucous membranes. Poor dentition. Cardiovascular: Regular rate and rhythm. No murmurs noted. Pulmonary: Clear to auscultation bilaterally. No wheezing, rales or rhonchi noted. Abdomen: Soft, nontender, nondistended. Bowel sounds positive. Extremities: Peripheral pulses intact. No clubbing or cyanosis. Neurologic: Cranial nerves grossly intact. No focal deficits identified. Psychiatric: Odd affect, asleep but easily arousable. Requires repeated questioning, but did appear to be oriented x 3. Skin: No new rashes or lesions. ASSESSMENT AND PLAN: 1. ANASTASIA on CKD 4 versus worsening of his chronic kidney disease stage 5. Creatinine fairly stable here suggesting more likely CKD 5, approaching end-stage. Has had some mapping done. Again, some hyperkalemia today, although quite mild compared to previous. Will give an additional dose of Kayexalate. Awaiting further recommendations from Nephrology. 2. Constipation. The patient still with no bowel movement. We will add MiraLAX and Dulcolax suppositories and consider enema if this is ineffective. 3. Chronic pain. Continue oxycodone. 4. Anemia, fairly stable. Monitor. 5. Multiple myeloma. Patient has been extremely resistant to treatment of this and caregivers are considering hospice. We will await the results of their discussion. 6. COPD, stable. No sign of exacerbation at this time. 7. Diabetes mellitus. Reasonable control. Monitor sugars. 8. Hypertension, reasonable control. Monitor. 9. Schizoaffective disorder. Does not appear to be well controlled on his home Depakote and Seroquel. Strongly recommend outpatient psych followup. 10. Tobacco abuse. Cessation has been discussed. 11. Disposition. Awaiting Nephrology recommendations regarding possible initiation of dialysis in the near future and discussions with caregivers regarding possibly going home with hospice. We will see what happens. NATALY
[2019-05-05] MEDS: MIRALAX PO SCH ×2 (16:04→20:00)
[2019-05-06] MEDS: DUONEB (A & A) INH SCH ×4 (03:20→21:00)
[2019-05-06 06:31] LABS: HEMATOCRIT 24.7 % (42.0-52.0); MCH 30.5 PG (27-31); MCHC 32.4 g/dL (33-37); MCV 94.3 FL (81-99); MPV 8.9 FL (7.4-10.4); RBC 2.62 XMIL (4.7-6.1); RDW 15.1 % (11.5-14.5); WBC 2.26 X1000 (4.8-10.8)
[2019-05-06] MEDS: OXY IR PO PRN ×3 (06:31→20:23)
[2019-05-06] MEDS: PRILOSEC PO SCH ×2 (06:42→18:52)
[2019-05-06 06:49] LABS: ALBUMIN 3.7 g/dL (3.5-5.0); CALCIUM 10.7 mg/dL (8.8-10.2); CREATININE 5.9 mg/dL (0.7-1.2); PHOSPHORUS 8.8 mg/dL (2.7-4.5); POTASSIUM 5.7 mmol/L (3.5-5.1)
[2019-05-06] MEDS: HUMULIN R SUBQ SCH ×4 (07:23→22:12)
[2019-05-06] MEDS ORDERED: DIPRIVAN 1% ONE (09:16)
[2019-05-06] MEDS ORDERED: VERSED ONE (09:16)
[2019-05-06] MEDS ORDERED: FENTANYL ONE (09:16)
[2019-05-06] MEDS ORDERED: NS 1,000 ML ONE (09:27)
[2019-05-06] MEDS ORDERED: XYLOCAINE 1%/EPI 1:100,000 ONE (09:27)
[2019-05-06] MEDS ORDERED: HEPARIN ONE (09:27)
[2019-05-06] MEDS ORDERED: KEFZOL 1 GM/D5W 1 GM/50 ML IVPB ONE (09:51)
[2019-05-06] MEDS ORDERED: HEPARIN (DOSE) ONE (10:46)
[2019-05-06] MEDS ORDERED: NEO-SYNEPHRINE ONE (10:52)
[2019-05-06] MEDS: HEPARIN SUBQ SCH ×2 (11:35→20:24)
[2019-05-06] MEDS: RENAGEL PO SCH ×3 (11:36→18:52)
--- NOTE | 2019-05-06 12:37 | GENERAL SURGERY PROGRESS NOTE ---
DATE: 05/06/2019 SUBJECTIVE: Patient seems to be doing okay. No major issues. OBJECTIVE: Vital Signs: Patient is currently afebrile. His vital signs are stable. General: No acute distress. HEENT: Normocephalic, atraumatic. Pupils equal, round, reactive to light. Mucous membranes moist. Oropharynx benign. Neck: Supple. Trachea midline. Cardiovascular: Regular rate and rhythm. Lungs: Grossly clear. Abdomen: Soft, nontender, nondistended. Extremities: Left upper extremity still with vein markings from vein mapping. ASSESSMENT AND PLAN: This is a 58-year-old gentleman with chronic kidney disease needing hemodialysis access. Hemodialysis access. At this time we will plan on placement of a brachiocephalic fistula. Vein mapping seems to suggest we could potentially do this. Discussed with the patient yesterday the risks, benefits, and alternatives, risks including, but not limited to, bleeding, infection, risk of anesthesia, risk of failure of the graft to mature, risk of injury to surrounding structures. He voiced understanding and wished to proceed with the procedure. We have him on the schedule for today. cc: Frederick Perez MD
[2019-05-06] MEDS: SEROQUEL PO SCH ×2 (14:17→20:24)
[2019-05-06] MEDS: DEPAKOTE ER PO SCH ×2 (14:17→20:23)
[2019-05-06] MEDS: CYMBALTA PO SCH ×2 (14:17→20:23)
[2019-05-06] MEDS: MIRALAX PO SCH ×2 (14:20→20:23)
[2019-05-06] MEDS: PERICOLACE PO SCH ×2 (14:23→20:24)
--- NOTE | 2019-05-06 16:25 | NEPHROLOGY PROGRESS NOTE ---
DATE: 05/06/2019 SUBJECTIVE: He is lying in bed, anticipating surgery. He is complaining of back pain and says he needs OxyContin. No shortness of breath, nausea or vomiting. OBJECTIVE: Vital Signs: Blood pressure 138/79, heart rate 81, respiration 18, afebrile. Generally: No acute distress. Skin: Warm and dry. Neck: Neck veins are not distended. Heart: Regular. No rubs. Lungs: Equal. No crackles. Abdomen: Soft, nontender. Bowel sounds present. Extremities: No edema, clubbing or cyanosis. IMPRESSION AND PLAN: 1. Chronic kidney disease stage 5. He has plans for a fistula creation today. He is euvolemic. Potassium is acceptable. Okay for surgery. 2. Electrolytes. Potassium 5.7 on lokelma. He also is hypercalcemic. He is on sevelamer as a binder and no other medications that should raise his calcium. No changes. We will check PTH. 3. Hypertension. At target. 4. Anemia. Multiple myeloma. He has been dismissed by Oncology. cc: Ronald Keita MD [facility]
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
--- NOTE | 2019-05-06 17:41 | PROGRESS NOTE ---
DATE: 05/06/2019 INTERVAL HISTORY: Patient is status post placement of left arm fistula this morning. He was groggy afterwards, but seems be recovered now. Still somewhat tangential, but really the most coherent he has been since he has been here. Complaining of constipation and mild abdominal discomfort, but no other new complaints. REVIEW OF SYSTEMS: Twelve point review of systems negative except as per interval history. LABS: WBC 2.2, hemoglobin 8.0, hematocrit 24.7, platelets 172,000. Sodium 140, potassium 5.7, BUN 66, creatinine 5.9, phosphorus 8.8, calcium 10.7, albumin 3.7. VITALS: T-max 98.4, pulse 94, respirations 20, blood pressure 121/81. O2 sat 93% on room. PHYSICAL EXAMINATION: General: No acute distress. Vitals: As above. HEENT: Normocephalic, atraumatic. Moist mucous membranes. Poor dentition. Cardiovascular: Regular rate and rhythm. No murmurs noted. Pulmonary: Clear to auscultation bilaterally. No wheezing, rales or rhonchi. Abdomen: Soft, nontender, nondistended. Bowel sounds positive, Extremities: Peripheral pulses intact. No clubbing or cyanosis. Neurologic: Cranial nerves grossly intact. No focal deficits identified. Psychiatric: Odd affect. Speech somewhat fast and tangential, but less than previous. Requires less redirection. Remains oriented x 3. Skin: No new rashes or lesions. ASSESSMENT AND PLAN: 1. Likely CKD 5. Creatinine slightly increased, but largely stable suggesting this is probably worsening of his underlying chronic kidney disease. Fistula placement this morning. Volume status looks to be okay, but potassium is trying to creep up. We will see what Nephrology says, but may end up needing dialysis in the immediate future. 2. Constipation. Patient n.p.o. this morning so did not receive his laxatives. Will see if MiraLAX and Regi-Colace are effective. Offered patient suppository, but he refused. May consider some lactulose if he continues to have issues. 3. Chronic pain. Continue oxycodone. 4. Anemia, fairly stable. Likely anemia of chronic disease related to kidney dysfunction. Monitor blood counts. 5. Multiple myeloma. Patient has repeatedly refused treatment. Caregivers considering hospice. Further discussion with them pending. 6. COPD, stable. No sign of exacerbation at this time. 7. Diabetes mellitus, reasonable control. Monitor glucose. 8. Hypertension. Excellent control on current regimen. Monitor. 9. Schizoaffective disorder. The patient remains oriented, but has had a lot of tangentiality and varying degrees of coherent. Actually, today he is the best he has been so far, actually pretty reasonable today. Continue Depakote, Seroquel and monitor. I strongly recommend outpatient psych followup. Given the patient has had some improvement over the course of hospitalization, suspect that he may not be fully compliant with his medications at home. 10. Tobacco abuse. Cessation has been discussed. 11. Disposition: Monitoring kidney function, hyperkalemia and awaiting to see if patient will need to initiate dialysis sooner rather than later. Also, pending discussion with power of commercial attorney regarding possibly going home with hospice.
[2019-05-06] MEDS: LOKELMA POWDER PACKET PO SCH (18:39)
--- NOTE | 2019-05-06 18:39 | OPERATIVE NOTE ---
PROCEDURE DATE: 05/06/2019 PREOPERATIVE DIAGNOSIS: Chronic kidney disease with anticipated hemodialysis. POSTOPERATIVE DIAGNOSIS: Chronic kidney disease with anticipated hemodialysis. PROCEDURE: Left brachiocephalic arteriovenous fistula creation with transposition of the cephalic vein. SURGEON: Frederick Perez MD. ROLLER TURNER: Dr. Wilberto Maloney. Dr. Maloney assisted with the entirety of the case. His presence was crucial for the completion of the case. ANESTHESIA: General endotracheal. FINDINGS: Thick walled vein, but amenable to fistula creation. He had some scar tissue from previous traumatic injury in the area. There was flow noted proximally and distally in the artery and in the fistula. COMPLICATIONS: None at the time of this dictation. ESTIMATED BLOOD LOSS: 10 mL. SPECIMENS REMOVED: None. BRIEF HISTORY: A 58-year-old gentleman with chronic kidney disease, felt that he would benefit from AV fistula creation. The risks, benefits, and alternatives were discussed and documented on the chart, all questions answered. DESCRIPTION OF PROCEDURE IN DETAIL: After informed consent was obtained, patient was brought to the operative theatre, transferred to the operating table, placed in supine position. General endotracheal anesthesia was then performed without complication. A formal time-out was then performed confirming patient, date, procedure. All in agreement. At that time, attention was given to the left arm that had previously been marked with vein mapping. This area was prepped and draped in sterile fashion. After the time-out, we identified the cephalic vein, made an incision over it, and connected it laterally to the brachial artery. We isolated the cephalic vein first, put a vessel loop around it. We then dissected out the brachial artery. There was a lot of scar tissue from his previous traumatic injury in the area, but we were able to get proximal and distal control. We then gave the patient heparin 2000 units IV. We then transected the vein in a good location. We tied off the other end. We then transposed it subcutaneous under the skin to the artery, performed an arteriotomy, and then sewed the anastomosis with a running 6- 0 Prolene with good results. We did check both proximally and distally with the dilator on the artery. There was patency. We closed it, we opened and released the arteries after getting the anastomosis fixed, and there was flow noted proximally, distally and in the fistula. His vein was somewhat diminutive distally, but again there was flow. We then closed the skin with a running 3- 0 chromic. We did this because the skin was very thin. The patient tolerated the procedure well, had perfusion noted in his hand at the completion of the case. cc: Frederick Perez MD
--- NOTE | 2019-05-06 18:57 | NEPHROLOGY CONSULTATION ---
DATE: 05/04/2019 REASON FOR CONSULTATION: Evaluate and treat end-stage renal disease with hyperkalemia. HISTORY OF PRESENT ILLNESS: Mr. Treadwell is a 58-year-old man. We have met him on several occasions. He has known chronic kidney disease stage 4-5 but has not required dialysis in the last several weeks. He has been to the emergency room several times, complaining mostly of abdominal discomfort. No shortness of breath. He has not been vomiting. He does have constipation. He again came to the emergency room yesterday, where he was significantly anemic with a hemoglobin of 6.8. He has received a blood transfusion, and his hemoglobin today is 7.9. He was also hyperkalemic with a potassium of 6.4. This has improved to 5.0 this morning. He is eating. His weight is stable. No PND or orthopnea. PAST MEDICAL HISTORY: CKD stage 5, hypertension, COPD, schizoaffective disorder, multiple myeloma. HOME MEDICATIONS: Albuterol, ipratropium, sevelamer, MiraLAX, ondansetron, divalproex, duloxetine, gabapentin, oxycodone, quetiapine, and trazodone. ALLERGIES: Morphine. SOCIAL HISTORY: He lives alone here in [place]. Very limited transportation. FAMILY HISTORY: Otherwise noncontributory. REVIEW OF SYSTEMS: Otherwise noncontributory. PHYSICAL EXAMINATION: Vital Signs: Blood pressure 133/84, heart rate 73, respirations 24, afebrile. General: No acute distress. Skin: Warm and dry. Neck: Neck veins are not distended. Heart: Regular. Lungs: Equal. No crackles or wheezes. Abdomen: Soft and nontender. Bowel sounds present. Extremities: No edema,clubbing or cyanosis. IMPRESSION: 1. Anemia. Improved following transfusion. Likely secondary to his myeloma. He also has leukopenia. Oncology has been consulted. 2. Chronic kidney disease stage 5. I talked to Dr. Perez, and he will attempt left upper arm arteriovenous fistula. As long as we are able to manage his electrolytes and acid base, we will defer on dialysis. Volume status is acceptable. cc: Ronald Keita MD
[2019-05-07] MEDS: OXY IR PO PRN ×2 (00:27→05:57)
[2019-05-07] MEDS: DUONEB (A & A) INH SCH ×4 (03:20→21:10)
[2019-05-07] MEDS: PRILOSEC PO SCH ×3 (05:57→16:20)
[2019-05-07 06:22] LABS: HEMATOCRIT 25.6 % (42.0-52.0); HEMOGLOBIN 8.2 g/dL (14.0-18.0); MCH 30.3 PG (27-31); MCV 94.5 FL (81-99); MPV 8.9 FL (7.4-10.4); RBC 2.71 XMIL (4.7-6.1); RDW 15.1 % (11.5-14.5); WBC 2.53 X1000 (4.8-10.8)
[2019-05-07] MEDS: HUMULIN R SUBQ SCH ×4 (06:56→20:59)
[2019-05-07 07:22] LABS: ALBUMIN 3.7 g/dL (3.5-5.0); CALCIUM 10.9 mg/dL (8.8-10.2); CREATININE 6.1 mg/dL (0.7-1.2); PHOSPHORUS 8.7 mg/dL (2.7-4.5)
[2019-05-07] MEDS: RENAGEL PO SCH ×3 (09:00→16:20)
--- NOTE | 2019-05-07 09:23 | PROGRESS NOTE ---
DATE: 05/04/2019 INTERVAL HISTORY: The patient is still with odd behavior. Complaints of pain entirely controlled by current regimen. Hyperkalemia improved. No acute events on telemetry. No new complaints. Discussed his case with his power of securities attorney, Emili Whitaker. Discussed his longstanding refusal of treatment, his myeloma. He appears to continue to be reluctant about this. He has been agreeable to other therapies so far in this admission. She requested that we have a palliative care nurse speak with her because she is considering moving him to hospice care, both to improve access to pain control medications and because of his relatively poor prognosis for his untreated multiple myeloma and near end-stage kidney disease. REVIEW OF SYSTEMS: 12-point review of systems negative except as per interval history. LABORATORY: WBC 3.0, hemoglobin 10.9, hematocrit 24.5, platelets 204. Sodium 135, potassium 5, bicarbonate 17, BUN 66, creatinine 5.7, glucose 107. IMAGING: Chest x-ray with stable chest, bilateral interstitial infiltrates, essentially unchanged. VITALS: T-max 98.6, pulse 77, respirations 19, blood pressure 145/84, O2 saturation 100% on room air. PHYSICAL EXAMINATION: General: No acute distress. Vitals as above. HEENT: Normocephalic, atraumatic. Moist mucous membranes. No cervical adenopathy. Cardiovascular: Regular rate and rhythm. No murmurs noted. Pulmonary: Clear to auscultation bilaterally. No wheezing, rales, or rhonchi. No accessory muscle use or increased work of breathing. Abdomen soft, nontender, nondistended. Bowel sounds soft. Extremities: Peripheral pulses decreased but present. No clubbing or cyanosis. Neurologic: Cranial nerves appear grossly intact. Mild global weakness but no focal deficits identified. Psychiatric: Patient awake, alert, oriented to person and place but not time. Mostly but not entirely cooperative. Verbal responses are frequently tangential and occasionally nonsensical. Speech slightly fast but not clearly pressured. Skin: No new rashes or lesions identified. ASSESSMENT AND PLAN: 1. Acute kidney injury on chronic kidney disease 4 versus end-stage renal disease. Exact baseline slightly unclear. Definitely bordering on dialysis at least. Plans for mapping for possible dialysis access today. No acute need for dialysis currently as his potassium has improved. Continue to monitor closely and await further nephrology recommendations. 2. Multiple myeloma. Patient has refused all treatment thus far. He has also been fired from at least Dr. Collins's office and possibly Dr. Winkler's office as well. 3. Abdominal pain. CT scan showing constipation. improved with bowel regimen. Continue to monitor. 4. Chronic back pain, likely secondary to multiple myeloma. Patient reports that he has done well with oxycodone in the past. We will start this and adjust dosing as needed. 5. Chronic anemia, likely secondary to multiple myeloma and chronic kidney disease. Slightly worse on admission but improved since post transfusion of 1 unit. Monitor. 6. Chronic obstructive pulmonary disease. No sign of exacerbation at this time. Monitor. 7. Diabetes mellitus. Continue sliding scale insulin, reasonable control so far. 8. Hypertension, reasonable control here. Continue current therapy. 9. Tobacco abuse. Discussed cessation. Offered nicotine patch. DISPOSITION: Patient's potassium improved. Awaiting nephrology recommendations regarding advanced kidney disease. Under normal circumstances suspect that he would initiate dialysis in the near future, but given untreated myeloma, underlying psychiatric issues, medical noncompliance, and the possibility of him going on hospice in the immediate future, uncertain if they will want to pursue this or not. Further discussion is pending regarding the possibility of moving him toward hospice care.
[2019-05-07] MEDS: PERICOLACE PO SCH ×2 (09:44→22:03)
[2019-05-07] MEDS: HEPARIN SUBQ SCH ×2 (09:45→22:02)
[2019-05-07] MEDS: CYMBALTA PO SCH ×2 (09:45→22:02)
[2019-05-07] MEDS: MIRALAX PO SCH ×2 (09:45→22:03)
[2019-05-07] MEDS: EPOGEN SUBQ SCH (09:45)
[2019-05-07] MEDS: DEPAKOTE ER PO SCH ×2 (09:45→22:02)
[2019-05-07] MEDS: SEROQUEL PO SCH ×2 (09:45→22:03)
[2019-05-07] MEDS: LOKELMA POWDER PACKET PO SCH (11:31)
--- NOTE | 2019-05-07 13:48 | GENERAL SURGERY PROGRESS NOTE ---
DATE: 05/07/2019 The patient's fistula has flow in it right now, the incision has a dressing intact. At this point, we will just monitor his fistula. cc: Frederick Perez MD
--- NOTE | 2019-05-07 14:14 | GENERAL SURGERY PROGRESS NOTE ---
DATE: 05/05/2019 SUBJECTIVE: Reviewed vein mapping. Seems to have a candidate for brachiocephalic only left arm. OBJECTIVE: Vital signs: The patient is currently afebrile . His vital signs are stable. General exam: No acute distress. HEENT: Normocephalic, atraumatic. Pupils equal, round, reactive to light. Mucous membranes moist. Oropharynx benign. Neck supple. Trachea is midline. Cardiovascular: Regular rate and rhythm. Lungs grossly clear. Abdomen soft, some tenderness. No peritoneal signs. Extremities: Moves all extremities. Neurologic: Grossly intact. Skin: No signs of jaundice. Vascular: All extremities perfused. LABORATORY: None this morning as of yet. ASSESSMENT AND PLAN: An 88-year-old gentleman with chronic kidney disease needing hemodialysis access. Need for hemodialysis access. At this time we will plan on placement of an AV fistula tomorrow. Discussed with the patient risks, benefits, alternatives, risks including but limited to risk of anesthesia, risk of bleeding, risk of infection, risk of failure to the area to mature, risk of injury to surrounding structures discussed. He voiced understanding and wished to proceed with the procedure. cc: Frederick Perez MD
--- NOTE | 2019-05-07 16:46 | PROGRESS NOTE ---
DATE: 05/07/2019 INTERVAL HISTORY: The patient remains oriented, but overall slightly less coherent today. Increased tangentiality. No acute events overnight. LABS: WBC 2.5, hemoglobin 8.2, hematocrit 25.6, platelets 176,000. Sodium 139, potassium 6, bicarb 21, BUN 66, creatinine 6.1, glucose 98, calcium 10.9, phosphorus 8.7. VITALS: T-max 98.5 degrees, pulse 81, respirations 19, blood pressure 113/62, O2 saturation 95% on room air. PHYSICAL EXAMINATION: General: No acute distress. Vitals: As above. HEENT: Normocephalic, atraumatic. Poor dentition, unchanged. Cardiovascular: Regular rate and rhythm. No murmurs noted. Pulmonary: Clear to auscultation bilaterally. No wheezing, rales, or rhonchi. Abdomen: Soft, nontender, nondistended. Bowel sounds positive. Extremities: Peripheral pulses intact. No clubbing, cyanosis. Recently placed left arm fistula bandaged. Some blood on the bandage, but no obvious active bleeding. Neurologic: Cranial nerves grossly intact. No focal deficits identified. Psychiatric: Still with odd affect. Speech more tangential and topics will be more nonsensical today, although he remains oriented x3. Slightly more difficult to redirect today. Skin: No new rashes or lesions. ASSESSMENT AND PLAN: 1. Likely end-stage renal disease. Creatinine continues slight up trend. Potassium trending up. Has a fistula in place, but will be quite a while before it is ready. Awaiting Nephrology records, but suspect he will need dialysis in the immediate future. 2. Constipation. Improved with bowel regimen. Monitor. 3. Chronic pain continue home oxycodone. 4. Anemia likely anemia of chronic disease related to kidney dysfunction and malignancy. Continue to monitor blood count. 5. Multiple myeloma. Patient has repeatedly refused treatment. Considering hospice. Awaiting decisions. 6. Chronic obstructive pulmonary disease, stable. No sign of exacerbation at this time. 7. Diabetes control reasonable. Monitor glucose. 8. Hypertension. Control remains quite good. Monitor. 9. Schizoaffective disorder versus schizophrenia. The patient remains oriented but with odd and frequently tangential thinking and speech as above. Continue Depakote and Seroquel and monitor. Will need outpatient psych follow-up. 10. Tobacco abuse. Cessation has been discussed. DISPOSITION: Awaiting decision regarding timing of dialysis, resolution of hyperkalemia, and power of management consulting's decisions regarding possible hospice.
--- NOTE | 2019-05-07 19:53 | Extremity Venous Study ---
PROCEDURE NAME: Vein Map/Hemodialysis LT Arm - 05/04/2019 LEFT UPPER EXTREMITY VEIN MAPPING: REFERRING PHYSICIAN: Dr. Perze. LOCATION: [facility]. A 58-year-old male. DIVISIONAL STOREKEEPER: Keena Dougherty RVT. INDICATION: Evaluate for AV fistula placement. FINDINGS: There does appear to be chronic thrombophlebitis involving the veins in the antecubital area, including the cephalic vein in this area and the medial cubital vein. The left brachial artery measured 4.7 mm in greatest dimension. The left radial artery measured 2.7 mm in greatest dimension. The left cephalic vein in the arm measured 3.3 to 4.0 mm in greatest dimension. In the forearm it measured 1.0 to 2.1 mm in greatest dimension. The left basilic vein in the arm measured 2.9 to 5.4 mm in greatest dimension. INTERPRETATION: The superficial veins in the left upper extremity appeared to be satisfactory for arteriovenous fistula placement, especially in the arm. It appears that a left cephalic to radial artery or brachial artery AV fistula is possible. cc: MD Frederick Alvarado MD
[2019-05-08] MEDS: DUONEB (A & A) INH SCH ×4 (03:37→21:20)
[2019-05-08] MEDS: OXY IR PO PRN ×3 (04:44→23:21)
[2019-05-08] MEDS: PRILOSEC PO SCH ×3 (04:45→16:28)
[2019-05-08 06:22] LABS: HEMATOCRIT 25.4 % (42.0-52.0); HEMOGLOBIN 8.1 g/dL (14.0-18.0); MCH 30.2 PG (27-31); MCHC 31.9 g/dL (33-37); MCV 94.8 FL (81-99); MPV 8.5 FL (7.4-10.4); RBC 2.68 XMIL (4.7-6.1); RDW 14.9 % (11.5-14.5); WBC 2.22 X1000 (4.8-10.8)
[2019-05-08 06:40] LABS: ALBUMIN 3.6 g/dL (3.5-5.0); POTASSIUM 5.5 mmol/L (3.5-5.1)
[2019-05-08] MEDS: HUMULIN R SUBQ SCH ×4 (07:10→20:56)
[2019-05-08] MEDS: SEROQUEL PO SCH ×2 (08:37→20:55)
[2019-05-08] MEDS: MIRALAX PO SCH ×2 (08:37→20:55)
[2019-05-08] MEDS: RENAGEL PO SCH ×3 (08:38→16:28)
[2019-05-08] MEDS: DEPAKOTE ER PO SCH ×2 (08:38→20:55)
[2019-05-08] MEDS: HEPARIN SUBQ SCH ×2 (08:39→20:55)
[2019-05-08] MEDS: CYMBALTA PO SCH ×2 (08:46→20:55)
[2019-05-08] MEDS: PERICOLACE PO SCH ×2 (08:51→20:55)
[2019-05-08] MEDS: LOKELMA POWDER PACKET PO SCH (11:37)
--- NOTE | 2019-05-08 14:35 | PROGRESS NOTE ---
DATE: 05/08/2019 INTERVAL HISTORY: No acute events overnight. SUBJECTIVE: Mr. Treadwell was sleeping in the bed, denies any complaints except back pain. He says that doctor had repaired his left arm for dialysis, and he states that he is supposed to go for dialysis Friday, Friday, but is not clear about the schedule and when it is supposed to be started. He said the only thing he is complaining of currently is his back pain. He clearly states that he would never want to go to hospice service. I discussed with him our exam findings and that I would reach out to his power of real estate attorney. OBJECTIVE: Vitals: Temperature 98.1 degrees, pulse off 66, respiratory rate 20, blood pressure 150/60, saturating 98% on room air. General: Does not appear in any acute distress. HEENT: He has missing teeth. Oral cavity is otherwise moist. Respiratory: Air entry bilaterally equal with no wheeze, rhonchi or crackles. Cardiovascular: Heart sounds normal. No murmur, rub or gallop. Abdomen: Soft, nontender, nondistended. Active bowel sounds. He has no lower extremity edema. He has recently placed left arm AV fistula, which is bandaged. Psychiatric: He is alert. He is oriented to place and person and to situation to most part; however, he has poor understanding of his medical condition. He knows he would of cancer but does not understand the timeline. He is not clear about the goals of care for himself. ASSESSMENT AND PLAN: 1. Chronic kidney disease stage 5. He continues to have a high BUN and creatinine. His hyperkalemia is in acceptable range. His hyponatremia, hypochloremia and bicarbonate are also on lower side but in acceptable range. Left arm AV fistula creation has been performed by surgery. According to nephrology, no acute need for dialysis. Continue Lokelma. 2. Chronic back pain because of multiple compression fractures because of his multiple myeloma. Continue him on current dose of oxycodone and continue MiraLAX with bisacodyl to avoid constipation. 3. Schizoaffective disorder versus schizophrenia. Continue his home medication of Depakote, duloxetine, quetiapine. 4. Others: His anemia of chronic illness and leucopenia could be from multiple myeloma; he was briefly on treatment in 2018 but later on because of his unacceptable behavior with the outpatient provider's staff and noncompliance, he was fired; his COPD currently is stable. I will continue albuterol ipratropium nebulization; sevelamer for hypercalcemia and hyperphosphatemia. 5. Disposition. Continue to monitor patient inside the hospital. Plan of care discussed with the patient. All of his questions have been answered. The patient has clearly stated that he would not like to go to hospice service so disposition is going to be a concern. I called to reach out to the patient's power of real estate attorney to discuss about long-term discharge plan. I have left her a voice message to call us back. cc: Wilfred Carpenter MD MTDD
--- NOTE | 2019-05-08 19:01 | NEPHROLOGY PROGRESS NOTE ---
DATE: 05/08/2019 SUBJECTIVE: No new complaints. He states he has been out of bed this morning. He has eaten his breakfast. No other new complaints. He had a dose of Oxy IR at 0444 hours this morning. He is still somewhat slurring his words. OBJECTIVE: Vital Signs: Blood pressure 163/70, heart rate 79, respirations 16, afebrile. Generally: No acute distress. Skin: Warm and dry. Eyes: Conjunctivae are pink. Neck: Neck veins are not distended. Heart: Regular with S4. Lungs: Equal. No crackles. Extremities: Positive thrill and left upper arm AV fistula. No edema. IMPRESSION: 1. Chronic kidney disease stage V. BUN and creatinine are roughly stable. Creatinine 6.0. He is eating adequately. 2. Electrolytes: Hyperphosphatemia. Will address. Hyperkalemia is managed adequately with Lokelma. cc: Ronald Keita MD
[2019-05-09] MEDS: DUONEB (A & A) INH SCH ×4 (03:28→21:05)
[2019-05-09] MEDS: PRILOSEC PO SCH ×2 (06:34→16:41)
[2019-05-09] MEDS: HUMULIN R SUBQ SCH ×4 (06:57→22:34)
[2019-05-09] MEDS: PERICOLACE PO SCH ×2 (09:36→20:24)
[2019-05-09] MEDS: HEPARIN SUBQ SCH ×2 (09:36→20:24)
[2019-05-09] MEDS: DEPAKOTE ER PO SCH ×2 (09:36→20:24)
[2019-05-09] MEDS: RENAGEL PO SCH ×3 (09:36→16:40)
[2019-05-09] MEDS: CYMBALTA PO SCH ×2 (09:37→20:24)
[2019-05-09] MEDS: SEROQUEL PO SCH ×2 (09:37→20:24)
[2019-05-09] MEDS: MIRALAX PO SCH ×2 (09:38→20:24)
[2019-05-09] MEDS: OXY IR PO PRN ×2 (10:11→16:41)
[2019-05-09] MEDS: LOKELMA POWDER PACKET PO SCH (11:55)
--- NOTE | 2019-05-09 12:59 | PROGRESS NOTE ---
DATE: 05/09/2019 SUBJECTIVE: Patient notes that he needs Roxicodone 30's, as that is the only thing that has proven to work for spinal twisting. Notes that he does not take pain medication at home because he has not found a physician to give them to him. OBJECTIVE: Vital signs: Temperature 96, pulse 77, respiratory rate 18, BP 136/61. General: Patient is currently in no distress. Does not appear to be outwardly in pain. He is sitting up in the bed watching television. HEENT: Normocephalic. Neck: Supple. Cardiovascular: Regular rate. Chest: Clear. Abdomen: Soft, nondistended. Extremities: Moves all extremities. Neurologic: No changes .patient is awake, alert, oriented. ASSESSMENT: 1. Chronic kidney failure, stage 5. 2. Chronic pain with a history of multiple compression fractures, I believe secondary to multiple myeloma. 3. Schizoaffective disorder schizophrenia. 4. Anemia of chronic disease. PLAN: Discussed with patient that Roxicodone is something that would need to be written an outpatient from his outpatient clinic. We certainly do not need to start him on medications in the hospital setting for long-term outpatient usage that he would possibly have difficulty attempting to get a prescription for. Currently, he does not appear to be in extreme pain. Therefore, we will continue to follow on his current regimen. DISPOSITION: As noted, before we are awaiting his deputy prosecuting attorney to call us back. cc: Sloan Chu MD MTDD
[2019-05-10] MEDS: DUONEB (A & A) INH SCH ×4 (03:05→21:53)
[2019-05-10] MEDS: PRILOSEC PO SCH ×3 (05:42→19:57)
[2019-05-10] MEDS: OXY IR PO PRN (05:42)
[2019-05-10] MEDS: HUMULIN R SUBQ SCH ×4 (06:52→21:00)
--- NOTE | 2019-05-10 07:04 | GENERAL SURGERY PROGRESS NOTE ---
DATE: 05/10/2019 Patient seems to be doing well. He still has flow in his fistula. From a surgical point of view, everything seems to be healing. I will be available if needed. cc: Frederick Perez MD
[2019-05-10 07:11] LABS: ALBUMIN 3.7 g/dL (3.5-5.0); CALCIUM 11.3 mg/dL (8.8-10.2); CREATININE 6.8 mg/dL (0.7-1.2); PHOSPHORUS 8.1 mg/dL (2.7-4.5); POTASSIUM 5.2 mmol/L (3.5-5.1)
--- NOTE | 2019-05-10 10:11 | NEPHROLOGY PROGRESS NOTE ---
DATE: 05/10/2019 Date Seen: 05/10/2019 Time Seen: 06:40 SUBJECTIVE: Mr. Treadwell is sitting up in bed. Denies any complaints. No increased work of breathing. OBJECTIVE: His most recent vital signs: His last temperature 98 degrees, blood pressure 115/62. His heart rate is 69, respirations are 12. He is currently on room air. His last recorded saturation is 95%. He has had 544 in. He has had 600 mL out to void. LABORATORY DATA: Sodium 138, potassium 5.2, chloride 98, CO2 22, BUN 65, creatinine 6.8, glucose 95, anion gap of 18, his calcium is up to 11.3, phosphorus 8.1, albumin 3.7. The patient had a previous hemoglobin of 8.1 on the twenty-second. PHYSICAL EXAMINATION: This is a 58-year-old male he is resting quietly in bed. His skin is warm and dry. HEENT normocephalic, atraumatic. Conjunctiva is pale pink. He has CHRISTY. Mucous membranes are dry neck is. Trachea midline. No JVD rate and rhythm. The patient has an S4. Lungs: Clear. Mucous membranes are dry. He remains on room air. Abdomen: Soft nontender positive bowel sounds. Genitourinary: Not inspected. Voiding adequate amounts. Extremities positive thrill to the left upper arm AV fistula. No redness or drainage. No lower extremity edema. ASSESSMENT AND PLAN: 1. Chronic kidney disease stage 5. The patient's BUN and creatinine have remained stable. He is eating adequately. Volume status acceptable. No indications for dialysis intervention. Continue to monitor the growth and improvement of his arteriovenous fistula placement to the left upper arm. 2. Electrolytes and acid-base balance. Patient has mild hyperkalemia. Continues on Lokelma . We will encourage him to continue on this until ready to start dialysis. 3. Hypercalcemia. Patient's calcium is 11.3 up from 11 yesterday. He remains on Renagel without a calcium based binder. 4. Anemia. This remains low but stable. He continues on Epogen. 5. Back pain. This continues to be monitored by the primary care. I would like to thank you for allowing us to follow with this patient. Dictated by KAVEH Cunningham for Ronald Keita MD Face to face encounter, data reviewed, discussed with Lc Mujica on 05/10/19. I agree with the above assessment and plan of care. cc: KAVEH Cunningham MD MTDD
[2019-05-10] MEDS: PERICOLACE PO SCH (11:11)
[2019-05-10] MEDS: DEPAKOTE ER PO SCH (11:11)
[2019-05-10] MEDS: EPOGEN SUBQ SCH (11:11)
[2019-05-10] MEDS: HEPARIN SUBQ SCH (11:11)
[2019-05-10] MEDS: CYMBALTA PO SCH (11:12)
[2019-05-10] MEDS: MIRALAX PO SCH (11:13)
[2019-05-10] MEDS: SEROQUEL PO SCH (11:14)
[2019-05-10] MEDS: RENAGEL PO SCH ×3 (11:14→19:57)
[2019-05-10] MEDS: LOKELMA POWDER PACKET PO SCH (15:55)
--- NOTE | 2019-05-10 16:49 | PROGRESS NOTE ---
DATE: 05/10/2019 SUBJECTIVE: The patient has no major complaints. He seemed a bit lethargic per nursing staff, but when he starts to arouse, he does have more complete conversations. He is definitely a lot more awake than I when I saw him on admission. OBJECTIVE: Vital Signs: Blood pressure 133/71, heart rate 74, respiratory 18, and temperature 98.4 degrees. Cardiovascular: Regular rate and rhythm. Pulmonary: Bilateral breath sounds clear to auscultation. GI: Soft, nontender, and nondistended. Bowel sounds are positive. In any case, no major issues. LABORATORY DATA: White count, I do not have any new white count there. Potassium 5.2, creatinine is 6.8, and calcium of 11.3. PROBLEM LIST: 1. Chronic kidney failure which he will end up likely needing dialysis. AV fistula I think had been placed in his left arm. That will take awhile to mature, it was placed on the . Nephrology recommends just monitoring at this point. He does not need dialysis. 2. Hyperkalemia has resolved. He is on Lokelma. 3. Hypercalcemia. He is on Renagel without a calcium binder. 4. Anemia is stable. 5. Multiple myeloma which is still not treated. I guess he has burnt his bridges with Dr. Collins and that group, and I think it is because of not keeping appointment. I will attempt to get another opinion from Dr. Winkler because I do not know if he has ever really been treated or offered treatment at this point. I completely understand. He is a very difficult patient, but I just want to see if there is anything which can be managed. 6. Compression fractures. He will need pain medication. DISPOSITION: Unclear what we can do for him long-term, but we will continue to follow closely. cc: Nick Tsai MD
[2019-05-11] MEDS: DEPAKOTE ER PO SCH ×4 (00:37→21:06)
[2019-05-11] MEDS: SEROQUEL PO SCH ×4 (00:37→21:05)
[2019-05-11] MEDS: CYMBALTA PO SCH ×3 (00:38→21:05)
[2019-05-11] MEDS: PERICOLACE PO SCH ×4 (00:38→21:05)
[2019-05-11] MEDS: HEPARIN SUBQ SCH ×4 (00:38→21:06)
[2019-05-11] MEDS: MIRALAX PO SCH ×3 (00:39→21:06)
[2019-05-11] MEDS: PRILOSEC PO SCH ×3 (01:48→17:13)
[2019-05-11] MEDS: OXY IR PO PRN (03:00)
[2019-05-11] MEDS: DUONEB (A & A) INH SCH ×5 (06:07→22:26)
[2019-05-11] MEDS: HUMULIN R SUBQ SCH ×4 (06:37→21:06)
[2019-05-11 06:44] LABS: ALBUMIN 3.9 g/dL (3.5-5.0); CALCIUM 11.5 mg/dL (8.8-10.2); CREATININE 6.7 mg/dL (0.7-1.2); PHOSPHORUS 7.7 mg/dL (2.7-4.5); POTASSIUM 5.1 mmol/L (3.5-5.1)
[2019-05-11 06:56] LABS: EOS% 1.7 % (0.0-10.0); HEMOGLOBIN 8.5 g/dL (14.0-18.0); LYMPH% 39.6 % (20.5-51.1); MCHC 32.7 g/dL (33-37); MCV 91.9 FL (81-99); MONO% 8.1 % (1.7-9.3); MPV 8.9 FL (7.4-10.4); NEUT% 49.7 % (42.2-75.2); PLT 186 X1000 (130-400); RBC 2.83 XMIL (4.7-6.1); RDW 14.5 % (11.5-14.5); WBC 2.35 X1000 (4.8-10.8)
[2019-05-11 06:57] LABS: EOS# 0.04 X1000 (0.0-0.7); IMM GRAN# 0.02 X1000 (0.0-0.04); IMM GRAN% 0.9 % (0.0-0.5); LYMPH# 0.93 X1000 (1.2-3.4); MONO# 0.19 X1000 (0.11-0.59); NEUT# 1.17 X1000 (1.4-6.5)
--- NOTE | 2019-05-11 08:59 | NEPHROLOGY PROGRESS NOTE ---
DATE: 05/11/2019 TIME SEEN: 0710 hours. SUBJECTIVE: Mr. Treadwell is resting very quietly in bed. The nurses state that he has been uncooperative during the night in regards with fingerstick blood sugars or assistance with his ADL. He states verbally that he is tired of being in the hospital. OBJECTIVE: Vital Signs: Temperature 97.8 degrees, blood pressure 119/62, heart rate 70, respirations 18. He is on room air. Last recorded saturation 95%. He has had 680 in; he has had 450+ out void. General: On physical examination, this is a 58-year-old male. He is resting quietly in bed. He appears chronically ill. He is in no acute distress. Skin: Warm and dry. HEENT: Normocephalic, atraumatic. Conjunctiva is pale. He has CHRISTY. Mucous membranes dry. Neck: Supple. Trachea midline. No evidence of JVD. Cardiovascular: Regular rate and rhythm. Patient has an S4. Lungs: Clear to auscultation bilaterally. Equal excursion on room air. Abdomen: Soft, nontender. Positive bowel sounds, though he complains of left upper quadrant pain with movement. Extremities: Has no edema. No clubbing or cyanosis with left upper arm fistula, palpable good thrill. No edema to the lower extremities. Neurological: Alert and oriented x3. LABORATORY DATA: Sodium 133, potassium is 5.1, chloride 94, CO2 24. BUN 62, creatinine 6.7, glucose 94. His anion gap is 15, calcium is 11.5, phosphorus 7.7, albumin 3.9. White count 6.25, hemoglobin 8.5, hematocrit 26, platelet count 186. ASSESSMENT AND PLAN: 1. Chronic kidney disease stage V. Patient's BUN and creatinine are elevated. His calcium remains elevated. Due to these findings, we will start him on normal saline at 100 mL an hour for 24 hours. We will re-evaluate his labs in the morning. 2. Electrolytes and acid-base balance. Calcium level is up to 11.5, BUN is 62, creatinine 6.7. Sodium down to 133, we will add intravenous fluids of normal saline at 100 mL an hour and re- evaluate the patient in am. If he continues to feel bad, is not eating, continues to ache all over, we may need to revisit starting dialysis sooner than waiting for his arteriovenous fistula to mature. 3. Acid-base balance. This is acceptable. 4. Anemia. This is low, but stable. 5. Left upper quadrant pain. This has been monitored by the Primary Care. We will add intravenous fluid and see if this assists. I would like to thank you for allowing us to follow with this patient. Dictated by KAVEH Cunningham for Ronald Keita MD Face to face encounter, data reviewed, discussed with Lc Mujica on 05/11/19. I agree with the above assessment and plan of care. cc: KAVEH Cunningham MD [facility]
[2019-05-11] MEDS: RENAGEL PO SCH ×3 (09:53→17:13)
[2019-05-11] MEDS: NS 1,000 ML IV SCH ×2 (09:54→23:10)
[2019-05-11] MEDS: LOKELMA POWDER PACKET PO SCH (12:46)
--- NOTE | 2019-05-11 17:15 | PROGRESS NOTE ---
DATE: 05/11/2019 SUBJECTIVE: Patient has no major complaints. OBJECTIVE: Blood pressure 119/72, heart rate 70, respiratory 18, temperature 98.4 degrees, 97% on room air.Cardiovascular: Regular rate and rhythm. Pulmonary: Bilateral breath sounds clear to auscultation. Gastrointestinal: Soft, nontender, nondistended. Bowel sounds are positive. LABORATORY DATA: White count 2,hemoglobin 8, hematocrit 26, platelets 186,000. Sodium 133, creatinine 6.7. PROBLEM LIST: 1. Acute on chronic renal failure with stage 5 disease. He has an AV fistula that was just placed in his left arm. It is not mature yet for usage. Nephrology has initiated IV fluids so we will continue to monitor. 2. Hyperkalemia. The patient is on Lokelma. We will continue treatment. 3. Hypercalcemia. Patient is on Renagel. 4. Multiple myeloma. The patient at least has been evaluated by all local oncologists who have not been able to participate in his care for various reasons. I think mostly it is just that he is not compliant with his treatments, and so he has no local oncologist. 5. Compression fractures. Continue pain control. DISPOSITION: Family member has legal power of food sales clerk, and they are looking at going to rehabilitation tomorrow until he gets a little bit stronger. We will go ahead and pursue that in the meantime and follow closely. cc: Nick Tsai MD
[2019-05-12] MEDS: DUONEB (A & A) INH SCH ×2 (03:28→10:01)
[2019-05-12] MEDS: NS 1,000 ML IV SCH ×2 (05:18→06:12)
[2019-05-12] MEDS: PRILOSEC PO SCH (06:28)
[2019-05-12] MEDS: HUMULIN R SUBQ SCH ×2 (07:30→11:18)
--- NOTE | 2019-05-12 09:07 | NEPHROLOGY PROGRESS NOTE ---
DATE: 05/12/2019 TIME SEEN: 0700. SUBJECTIVE: Mr. Treadwell is resting quietly in bed. States that he is feeling less achy than yesterday. He still has low appetite, though he states his nausea has slightly improved. OBJECTIVE: Vital Signs: Temperature 97.6 degrees, blood pressure 103/57, heart rate 77, respirations 16. He is on room air. Last recorded saturation 98%. He has had 1546 in and 1400 out to void. Labs: These are currently pending this a.m. Previous potassium 5.1. Previous hemoglobin of 8.5 on the . BUN of 62, creatinine 6.7. The patient remains on normal saline at 100 mL an hour. Physical Examination: General: This is a 58-year-old, male resting quietly in bed. He appears chronically ill. No acute distress. Skin is warm and dry. HEENT: Normocephalic, atraumatic. Conjunctivae pale. He has CHRISTY. Mucous membranes are dry. Neck: Supple. Trachea midline. No evidence of JVD. Cardiovascular: He is regular rate and rhythm. He has an S4. Lungs: Clear to auscultation bilaterally. Equal excursion, on room air. Abdomen: Soft, nontender. Positive bowel sounds. Genitourinary: Not inspected. Patient has been voiding adequate amounts. Extremities: Have no edema, no clubbing or cyanosis. Palpable fistula to the left upper arm. Neurological: Alert and oriented x3. ASSESSMENT AND PLAN: 1. Chronic kidney disease stage 5D. The patient's BUN had slightly elevated yesterday. We have started intravenous fluids of normal saline at 100 mL an hour. Labs are still pending this morning. Adequate urine out. 2. Electrolytes and acid-base balance. These are currently pending. Labs have been stable. 3. Anemia. This remains low but stable. 4. Left upper quadrant pain. Again, this may be related to fluid volume deficit. He continues with his intravenous fluids. We will leave this for another 24 hours. I would like to thank you for allowing us to follow with this patient. Dictated by KAVEH Cunningham for Ronald Keita MD Face to face encounter, data reviewed, discussed with Lc Mujica on 05/12/19. I agree with the above assessment and plan of care. cc: KAVEH Cunningham MD [facility]
[2019-05-12 10:15] LABS: ALBUMIN 3.5 g/dL (3.5-5.0); PHOSPHORUS 6.6 mg/dL (2.7-4.5); POTASSIUM 4.6 mmol/L (3.5-5.1)
[2019-05-12] MEDS: MIRALAX PO SCH (10:52)
[2019-05-12] MEDS: HEPARIN SUBQ SCH (11:10)
[2019-05-12] MEDS: EPOGEN SUBQ SCH (11:10)
[2019-05-12] MEDS: SEROQUEL PO SCH (11:11)
[2019-05-12] MEDS: DEPAKOTE ER PO SCH (11:11)
[2019-05-12] MEDS: PERICOLACE PO SCH (11:11)
[2019-05-12] MEDS: CYMBALTA PO SCH (11:11)
[2019-05-12] MEDS: RENAGEL PO SCH ×2 (11:12→13:39)
[2019-05-12] MEDS: OXY IR PO PRN (11:17)
[2019-05-12 11:41] VITALS: BP 120/68
--- NOTE | 2019-05-12 12:00 | DISCHARGE SUMMARY ---
ADMISSION DATE: 05/03/2019 DISCHARGE DATE: 05/12/2019 CONSULTATIONS: 1. Dr. Frederick Perez with General Surgery. 2. Dr. Keita with Nephrology. PERTINENT PROCEDURES: 1. Abdomen and pelvis CT. Constipation. No acute process. 2. Hemodialysis vein mapping for evaluation of AV fistula. 3. Left brachiocephalic AV fistula creation with transposition of the cephalic vein performed by Dr. Perez. DISCHARGE DIAGNOSES: 1. Acute on chronic renal failure stage 5. The patient has had an arteriovenous fistula that was placed, but not mature for usage. He was initiated on IV fluids for 24 hours by Nephrology. 2. Electrolytes and acid base balance. His calcium level was increased to 11, his BUN was 62, his creatinine was 6.7, his sodium was down to 133. Again, Nephrology added normal saline for 24 hours. Question of another hemodialysis session prior to discharge. 3. Acid base balance. Acceptable. 4. Anemia. Low but stable. 5. Hyperkalemia. Patient is on Lokelma. 6. Hypercalcemia, on Renagel. 7. Multiple myeloma. The patient has been evaluated by all local oncologists, who have not been able to participate in his care for various reasons for compliant issues, so he has no local oncologist. 8. Compression fractures. Continue with p.r.n. pain control. 9. Schizoaffective disorder versus schizophrenia. Continue home medications. 10. Chronic obstructive pulmonary disease history. No exacerbation. HOSPITAL COURSE: Briefly, Mr. Treadwell is a 58-year-old male who has known chronic kidney disease stage 4 to 5, but had not required dialysis in several weeks, hypertension, COPD, schizoaffective disorder, multiple myeloma. He reported to the ED where he was found to be significantly anemic with a hemoglobin of 6.8. He received a unit of blood. He was also found to be hyperkalemic with a potassium of 6.4. However, his volume status has been acceptable. Dr. Frederick Perez was consulted by Nephrology to do upper arm AV fistula, which he did receive on 05/06/2019. However, it is not mature enough for hemodialysis use at this point. He did have a bump up in his BUN and creatinine as well as his calcium. He was placed on Lokelma as well as Renagel for his hypercalcemia, and initiated on IV fluids for 24 hours. If his laboratory data is acceptable, he will be discharged this morning to rehab. If not, there is talk of doing a dialysis session prior to his discharge. He has had a stable hospital course and will be discharged to rehab. VITAL SIGNS: Temperature 98.1 degrees, heart rate 65, respirations 16, blood pressure 115/70, O2 is 95% on room air. DISCHARGE DIET: Renal. DISCHARGE MEDICATIONS: 1. Seroquel 300 mg p.o. at bedtime. 2. Albuterol nebulizer 1 dose inhaled 4 times a day. 3. Atrovent 0.5 mg 1 dose inhaled 4 times a day. 4. Cymbalta 20 mg p.o. b.i.d. 5. Depakote ER 500 mg p.o. b.i.d. 6. Desyrel 50 mg p.o. at bedtime p.r.n. 7. Gabapentin 100 mg p.o. t.i.d. 8. Percocet 10/325 one tab p.o. q.6 hours p.r.n. pain. 9. Seroquel 50 mg p.o. at 0800 and 1400. 10. Renagel 3 times a day daily with food. 11. Zofran 4 mg p.o. t.i.d. 12. Lokelma powder packet 10 g p.o. daily at 1100. 13. MiraLAX 17 g p.o. b.i.d. FOLLOWUP: Mr. Treadwell is being discharged to rehab at [facility]. He will continue to follow up with Dr. Keita for hemodialysis in the future. He will follow up in the office in 3 to 4 weeks with a renal CBC, urine, microalbumin, creatinine ratio. In regards to his multiple myeloma, he has not been able to follow treatments or have an oncologist secondary to noncompliance issues. They are having ongoing discussions with his POA about treatment for his multiple myeloma as well as if he would even continue to do his hemodialysis treatments once his fistula has matured and the need arises. He can return to the ED or call 911 for any worsening of symptoms. Dictated by KAVEH Haywood for Nick Tsai MD cc: MD Ronald Huff MD
[2019-05-12] MEDS: LOKELMA POWDER PACKET PO SCH (13:39)
--- NOTE | 2019-05-12 21:59 | DISCHARGE SUMMARY ---
ADMISSION DATE: 05/03/2019 DISCHARGE DATE: 05/12/2019 SUBJECTIVE: The patient is seen day of discharge. She is sitting up in bed. No major complaints. OBJECTIVE: CARDIOVASCULAR: Regular rate and rhythm. PULMONARY: Bilateral breath sounds. Clear to auscultation. LAB DATA: Creatinine is at 7. DISPOSITION: Discharge today. DISCHARGE CONDITION: Is stable and he seems to be doing better. PLAN: [facility]. This is a [id number] encounter note with Tamra Masters. Please note, her medications. He will go out on Lokelma due to persistent hyperkalemia. Of note: I did try to consult Oncology. Unfortunately, he has no local oncologist who will see him. I think there had been attempts to keep care but because of patient behavioral issues and I think not keeping up appointments, he has no opportunities locally unfortunately. We will continue to follow closely. TIME SPENT: 32 minute discharge. cc: Nick Tsai MD MTDD
== END 2019-05-12 15:13 | DRG 629 ==
LOC: P.ED 10:28 → P.EDIPHOLD 13:48 → SUATTDRO 13:48 → 4N 05-04 11:43
PROVIDERS: ATTEND Internal Medicine
CPT/HCPCS: 36430; 71010; 71045; 74176; 80048; 80053; 80069; 80104; 80301; 80305; 81001; 82150; 82550; 82805; 82948; 83605; 83690; 83735; 83970; 84484; 85025; 85027; 85610; 85730; 86850; 86900; 86901; 86920; 87040; 87088; 93005; 93010; 94640; 94761; 94799; 96361; 96374; 96375; 96376; 99284; 99285; A9270; G0365; G0431; G0434; G0477; J0690; J0885; J1170; J1644; J1815; J2250; J2270; J2370; J2405; J3010; J7030; P9016; XXXXX

== ENCOUNTER 2019-07-01 15:18 | Observation (INO) ==
[2019-07-01 16:24] LABS: BASO# 0.01 X1000 (0.0-0.2); BASO% 0.4 % (0.0-0.8); EOS# 0.06 X1000 (0.0-0.7); EOS% 2.2 % (0.0-10.0); HEMATOCRIT 18.1 % (42.0-52.0); IMM GRAN# 0.02 X1000 (0.0-0.04); IMM GRAN% 0.7 % (0.0-0.5); LYMPH# 0.64 X1000 (1.2-3.4); LYMPH% 23.9 % (20.5-51.1); MCH 28.9 PG (27-31); MCHC 30.4 g/dL (33-37); MCV 95.3 FL (81-99); MONO# 0.11 X1000 (0.11-0.59); MONO% 4.1 % (1.7-9.3); MPV 8.6 FL (7.4-10.4); NEUT# 1.84 X1000 (1.4-6.5); NEUT% 68.7 % (42.2-75.2); PLT 193 X1000 (130-400); RDW 16.7 % (11.5-14.5); WBC 2.68 X1000 (4.8-10.8)
[2019-07-01 16:27] LABS: HEMOGLOBIN 5.5 g/dL (14.0-18.0)
[2019-07-01] MEDS ORDERED: NS 500 ML IV ONE (16:29)
[2019-07-01 16:43] LABS: EOS 2 % (1-10); MONO 4 % (1-9)
[2019-07-01 16:44] LABS: LYMPHS 28 % (21-51); SEGS 66 % (42-75)
[2019-07-01 16:48] LABS: AGAP 14; ALBUMIN 3.4 g/dL (3.5-5.0); ALKALINE PHOSPHATASE 68 U/L (32-122); BUN 51 mg/dL (8-22); CALCIUM 11.1 mg/dL (8.8-10.2); CHLORIDE 97 mmol/L (98-107); COSMO 285; CREATININE 8.3 mg/dL (0.7-1.2); ESTIMATED GFR 8; GLUCOSE 125 mg/dL (70-104); GOT 10 U/L (10-34); GPT < 5 U/L (10-44); POTASSIUM 5.1 mmol/L (3.5-5.1); SODIUM 135 mmol/L (136-145); TCO2 24 mmol/L (25-35); TOTAL BILIRUBIN < 0.15 mg/dL (0.20-1.00); TOTAL PROTEIN 6.7 g/dL (6.3-8.3)
[2019-07-01] MEDS ORDERED: NS 2,000 ML MISC PRN (17:28)
[2019-07-01] MEDS ORDERED: HEPARIN IV PRN (17:28)
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
[2019-07-01] MEDS ORDERED: ZOFRAN PO PRN (17:58)
[2019-07-01] MEDS ORDERED: OXY IR PO PRN ×2 (17:58→18:01)
[2019-07-01] MEDS ORDERED: DESYREL PO PRN (17:58)
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
[2019-07-01] MEDS ORDERED: RISPERDAL PO SCH (21:00)
[2019-07-01] MEDS: ALBUTEROL NEB INH SCH (21:29)
[2019-07-01] MEDS: ATROVENT NEB INH SCH (21:29)
[2019-07-01] MEDS: DEPAKOTE ER PO SCH (22:35)
[2019-07-01] MEDS: NEURONTIN PO SCH (22:35)
[2019-07-02] MEDS: MIRALAX PO SCH ×2 (01:01→09:42)
[2019-07-02 01:43] LABS: IRON SATURATION 57 %; TIBC 165 ug/dL; TOTAL IRON 94 ug/dL (53-167); UNBOUND IRON 71 ug/dL (112-346)
[2019-07-02] MEDS: ATROVENT NEB INH SCH ×2 (03:10→10:14)
[2019-07-02] MEDS ORDERED: PROTONIX PO SCH (07:00)
[2019-07-02 07:31] LABS: EOS# 0.04 X1000 (0.0-0.7); EOS% 1.7 % (0.0-10.0); HEMATOCRIT 25.3 % (42.0-52.0); HEMOGLOBIN 8.1 g/dL (14.0-18.0); IMM GRAN# 0.04 X1000 (0.0-0.04); IMM GRAN% 1.7 % (0.0-0.5); LYMPH# 0.76 X1000 (1.2-3.4); LYMPH% 32.8 % (20.5-51.1); MCH 29.6 PG (27-31); MCV 92.3 FL (81-99); MONO# 0.13 X1000 (0.11-0.59); MONO% 5.6 % (1.7-9.3); MPV 8.2 FL (7.4-10.4); NEUT# 1.35 X1000 (1.4-6.5); NEUT% 58.2 % (42.2-75.2); PLT 173 X1000 (130-400); RBC 2.74 XMIL (4.7-6.1); RDW 16.3 % (11.5-14.5); WBC 2.32 X1000 (4.8-10.8)
[2019-07-02 08:17] VITALS: BP 121/65
[2019-07-02] MEDS ORDERED: RENAGEL PO SCH (09:00)
[2019-07-02] MEDS ORDERED: LOKELMA POWDER PACKET PO SCH (09:00)
[2019-07-02] MEDS ORDERED: PROZAC PO SCH (09:00)
[2019-07-02] MEDS ORDERED: VITAMIN B-12 PO SCH (09:00)
[2019-07-02] MEDS: NEURONTIN PO SCH (09:41)
[2019-07-02] MEDS: DEPAKOTE ER PO SCH (09:41)
[2019-07-02] MEDS: ALBUTEROL NEB INH SCH (10:09)
--- NOTE | 2019-07-02 11:30 | DISCHARGE SUMMARY ---
ADMISSION DATE: 07/01/2019 DISCHARGE DATE: 07/02/2019 ADMISSION DIAGNOSES: 1. Anemia with need of blood transfusion, likely progression of anemia of chronic kidney disease as well as bone marrow infiltration with multiple myeloma. 2. End-stage renal disease, on dialysis. 3. Mild wheezing on examination and active tobacco abuse with chronic obstructive pulmonary disease and asthma. 4. Anxiety. 5. Chronic pain. DISCHARGE DIAGNOSES: 1. Anemia with need of blood transfusion, likely progression of anemia of chronic kidney disease as well as bone marrow infiltration with multiple myeloma. 2. End-stage renal disease, on dialysis. 3. Mild wheezing on examination and active tobacco abuse with chronic obstructive pulmonary disease and asthma. 4. Anxiety. 5. Chronic pain. He received 3 packed red blood cells for his anemia. Hemoglobin and hematocrit this morning are 8 and 25. CONSULTATIONS: Dr. Keita. SURGERIES/PROCEDURES: None. HOSPITAL COURSE: Mr. Mickey Treadwell is a 58-year-old male with a medical history of end-stage renal disease, anemia of chronic kidney disease. Apparently was running low on the hemoglobin and hematocrit as an outpatient. Came to the hospital for blood transfusion, dialysis and is to go back home with [facility]. Apparently, there was miscommunication. He went to the emergency department, so we were requested to admit him into the hospital for blood transfusion. vitals remained stable and he is going to go back to his facility he came from. DISCHARGE VITAL SIGNS: Temperature 98.1 degrees, heart rate 79, respiratory rate 16, blood pressure 121/65, O2 saturation 96% on 2 L nasal cannula. DISCHARGE LAB DATA: White blood cells 2000, hemoglobin 8, hematocrit 25, platelet count 173,000. His admission hematocrit and hemoglobin had a hemoglobin of 5.5, hematocrit of 18.1. Glucose this morning was 95. IMAGING: None. Telemetry strips show sinus rhythm with a bundle-branch. DISCHARGE MEDICATIONS: 1. Albuterol 4 times a day. 2. Atrovent 4 times a day. 3. Depakote extended release 500 mg p.o. twice daily. 4. Trazodone 50 mg p.o. nightly p.r.n. 5. Fluoxetine 20 mg p.o. daily. 6. Neurontin 100 mg p.o. t.i.d. 7. Sodium zirconium powder packet 10 g p.o. daily. 8. Oxycodone 20 mg p.o. q.8 hours p.r.n. 9. Protonix 40 mg p.o. daily. 10. Provera 10 mg p.o. daily. 11. Risperidone 1 mg p.o. nightly. 12. Sevelamer carbonate 800 mg p.o. t.i.d. 13. Vitamin B12 1000 mcg p.o. daily. 14. Zofran 4 mg p.o. t.i.d. 15. Zyrtec 10 mg p.o. daily. 16. MiraLAX 17 g p.o. twice daily. DISCHARGE DIET: Renal. DISCHARGE ACTIVITY: As tolerated. DISCHARGE PHYSICIAN FOLLOWUP: Dr. Keita. DISCHARGE INSTRUCTIONS: Those will be per [facility] as he was only here for blood transfusion. DISCHARGE DISPOSITION: [facility]. Dictated by KAVEH Mcknight for Wilfred Carpenter MD cc: KAVEH Mcknight MD MTDD
--- NOTE | 2019-07-02 12:50 | DISCHARGE SUMMARY ---
ADMISSION DATE: 07/01/2019 DISCHARGE DATE: 07/02/2019 ADDENDUM: Mr. Treadwell came to this hospital because of symptomatic anemia with hemoglobin of 5.3 and feeling of weakness. He, on 07/01/2019, received 3 units of blood transfusion as well as hemodialysis, following which he is feeling better. His anemia is thought to be related to progression of his chronic anemia in the setting of chronic kidney disease as well as his bone marrow infiltration with multiple myeloma. Currently, his iron studies are unremarkable. He does not have any overt bleeding in the stool. His hemoglobin has increased after transfusion and plan is to discharge him back to his skilled nursing. I advised him to get benign prostatic hypertrophy evaluation outpatient. I also advised him to consider getting treatment for his multiple myeloma as well. Previously had refused to take treatment. I had a lengthy discussion on previous admissions with his power of deputy county attorney. Less than 30 minutes spent in discharging this patient. Details on discharge medications are dictated separately. cc: Wilfred Carpenter MD MTDD
--- NOTE | 2019-07-02 14:16 | NEPHROLOGY PROGRESS NOTE ---
DATE: 07/02/2019 SUBJECTIVE: He had a transfusion during dialysis yesterday. He is complaining today of urinary frequency and urgency. OBJECTIVE: Vital signs: Blood pressure 121/65, heart rate 79, respirations 16, afebrile. General: No acute distress. Skin: Warm and dry. Neck: Neck veins are not distended. Cardiovascular: Heart is regular with a gallop. Lungs: Equal. No crackles. Abdomen: Soft, nontender. Bowel sounds present. Extremities: No edema, clubbing or cyanosis. IMPRESSION: 1. Anemia requiring transfusion. He has multiple myeloma and leukopenia and anemia secondary to this diagnosis. 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 We will make a referral to Dr. Winkler as an outpatient. Otherwise he can attend his routine dialysis treatment tomorrow. 2. Okay for discharge. cc: MD Wilfred Lowe MD
== END 2019-07-02 12:28 ==
LOC: SUPCPDRO → ED 15:18 → 1N 18:57 → INTOOBSV 18:57
PROVIDERS: ADMIT Internal Medicine; ATTEND Internal Medicine

== ENCOUNTER 2019-07-31 10:19 | Inpatient (IN) ==
[2019-07-31 11:18] LABS: EOS# 0.01 X1000 (0.0-0.7); EOS% 0.4 % (0.0-10.0); HEMATOCRIT 19.8 % (42.0-52.0); IMM GRAN# 0.04 X1000 (0.0-0.04); IMM GRAN% 1.6 % (0.0-0.5); LYMPH# 0.48 X1000 (1.2-3.4); LYMPH% 19.8 % (20.5-51.1); MCH 29.2 PG (27-31); MCHC 29.8 g/dL (33-37); MONO# 0.14 X1000 (0.11-0.59); MONO% 5.8 % (1.7-9.3); MPV 7.7 FL (7.4-10.4); NEUT# 1.76 X1000 (1.4-6.5); NEUT% 72.4 % (42.2-75.2); PLT 211 X1000 (130-400); RBC 2.02 XMIL (4.7-6.1); RDW 16.2 % (11.5-14.5); WBC 2.43 X1000 (4.8-10.8)
[2019-07-31 11:21] LABS: HEMOGLOBIN 5.9 g/dL (14.0-18.0)
[2019-07-31 11:35] LABS: HYPOCHROM 3+; LYMPHS 29 % (21-51); MONO 3 % (1-9); SEGS 68 % (42-75)
[2019-07-31 11:39] LABS: AGAP 14; ALBUMIN 3.6 g/dL (3.5-5.0); ALKALINE PHOSPHATASE 79 U/L (32-122); BUN 43 mg/dL (8-22); CALCIUM 9.5 mg/dL (8.8-10.2); CHLORIDE 95 mmol/L (98-107); COSMO 283; CREATININE 8.3 mg/dL (0.7-1.2); ESTIMATED GFR 7; GLUCOSE 106 mg/dL (70-104); GOT 12 U/L (10-34); GPT < 5 U/L (10-44); POTASSIUM 4.2 mmol/L (3.5-5.1); SODIUM 136 mmol/L (136-145); TCO2 27 mmol/L (25-35); TOTAL PROTEIN 7.2 g/dL (6.3-8.3)
--- NOTE | 2019-07-31 11:48 | Diag Imaging Result Doc PS360 ---
EXAM: CT HEAD/C-SPINE W/O CONTRAST INDICATION: head injury, poss LOC TECHNIQUE: This exam was performed using automated exposure control, adjustment of mA or kV according to patient size, and/or use of iterative reconstruction technique. COMPARISON: CT head dated 04/07/[address] C-spine dated 09/25/2018 FINDINGS: Head: There is suggestion of minimal periventricular white matter microangiopathy that is stable. There is no definite acute infarct given the limited sensitivity of CT versus MRI. There is no discrete intracranial mass, mass effect, or intracranial hemorrhage. The surrounding soft tissues are essentially unremarkable. The calvaria is intact. C-spine: There are diffuse lytic lesions seen throughout the cervical spine as well as the visualized ribs, clavicles, and scapulae consistent with the history of multiple myeloma. It is similar to the previous study. There is a chronic fracture with partial bridging involving the lateral mass of C1 on the right that is stable. No new fracture or subluxation is appreciated. Surrounding soft tissues are essentially unremarkable. IMPRESSION: 1.Suggestion of minimal white matter microangiopathy that is stable. No evidence of acute intracranial pathology. 2.Diffuse lytic lesions seen throughout the cervical spine consistent with known multiple myeloma. 3.Stable chronic fracture involving the lateral mass of C1 on the right with partial bridging. 4.No definite acute fracture or acute C-spine injury is appreciated. Electronically signed by Tyrese Osuna 07/31/2019 11:46 AM
--- NOTE | 2019-07-31 12:03 | EKG Report ---
Test Performed on : 07/31/2019 11:57:09 AM Test Reason : weakness Blood Pressure : / mmHG Vent. Rate : 071 BPM Atrial Rate : 071 BPM P-R Int : 212 ms QRS Dur : 102 ms QT Int : 352 ms P-R-T Axes : 054 024 076 degrees QTc Int : 382 ms Sinus rhythm. with 1st degree AV block. Nonspecific T wave abnormality Abnormal ECG When compared with ECG of 17-JUL-2019 10:01, (Unconfirmed) Non-specific change in ST segment in Anterior leads Unconfirmed Result
[2019-07-31] MEDS ORDERED: NS 500 ML IV ONE (12:37)
--- NOTE | 2019-07-31 13:19 | PROVIDER DOCUMENTATION ---
This chart was entered by Arben Dumont Scribe, acting as scribe for Alisha Aviles CRNP. HPI-General Adult - General Chief Complaint: Fall Stated Complaint: back pain Time Seen by Provider: 07/31/19 10:31 Source: patient, EMS Allergies/Adverse Reactions: Patient Allergies Allergy/AdvReac Type Severity Reaction Status Date / Time morphine AdvReac NAUSEA Verified 07/01/19 16:09 Home Medications: Home Medication List Medication Instructions Recorded Confirmed Last Taken Type Albuterol [Albuterol Neb] 1 dose INH 4XDAY 04/07/19 07/15/19 05/03/19 08:00 History Ipratropium [place] Neb [Atrovent 1 dose INH 4XDAY 04/07/19 07/15/19 05/03/19 08:00 History Neb] Sevelamer Carbonate 1 tab PO TID 04/07/19 07/15/19 05/01/19 History Ondansetron HCl [Zofran] 4 mg PO TID 04/24/19 07/15/19 05/01/19 History Gabapentin 100 mg PO TID 05/03/19 07/15/19 Unknown History Trazodone [Desyrel] 50 mg PO HS PRN PRN 05/03/19 07/15/19 Unknown History Polyethylene Glycol 3350 [Miralax] 17 gm PO BID powder, packet 05/11/19 07/15/19 Unknown Rx Cetirizine HCl [Zyrtec] 10 mg PO DAILY 07/01/19 07/15/19 Unknown History Cyanocobalamin (Vitamin B-12) 1,000 mcg PO DAILY 07/01/19 07/15/19 Unknown History [Vitamin B12] Fluoxetine HCl 20 mg PO QAM 07/01/19 07/15/19 Unknown History Medroxyprogesterone Acet [Provera] 10 mg PO DAILY 07/01/19 07/09/19 Unknown History Oxycodone HCl 20 mg PO Q6H PRN PRN 07/01/19 07/15/19 Unknown History Pantoprazole [Protonix] 40 mg PO DAILY@0700 07/01/19 07/15/19 Unknown History Risperidone 1 mg PO QPM 07/01/19 07/15/19 Unknown History Sodium Zirconium Powder Pkt 10 gm PO DAILY 07/01/19 07/15/19 Unknown History [Lokelma Powder Packet] Valproic Acid [Depakene Liquid] 10 ml PO BID 07/15/19 07/15/19 Unknown History Magnesium Citrate [Citrate of 296 ml PO ONCE #1 bottle 07/17/19 Unknown Rx Magnesia] - History of Present Illness -Gen Adult Nature of Presenting Problems: Pt is a 59 yom who presents the ED with multiple complaints. Pt is a very poor historian. Pt states he fell five days ago getting into the shower. Pt complains of back pain, bilateral rib pain, a headache, generalized weakness, and potential syncope. Pt reports when he fell he hit his head and had LOC. Pt reports being a dialysis pt and states he goes three times per week. Pt denies a hx of a stroke. Location of Pain/Injury: reports: head, upper extremity, abdomen, back, generalized Quality of Pain: reports: aching, dull Severity: reports: mild Onset/Duration: reports: 5 days ago Timing: reports: still present Associated Symptoms: reports: arm pain, back/neck pain, muscle aches, weakness, trouble walking Similar Symptoms Previously?: Yes Recently seen or treated by another doctor?: No Review of Systems - Adult - REVIEW OF SYSTEMS - ADULT Constitutional: reports: see HPI Eyes: reports: no symptoms reported Ears, Nose, Mouth & Throat: reports: no symptoms reported Cardiovascular: reports: no symptoms reported Respiratory: reports: no symptoms reported Gastrointestinal: reports: see HPI, abdominal pain Genitourinary: reports: see HPI Musculoskeletal: reports: see HPI, bone pain, back pain, muscle aches, muscle weakness Integumentary: reports: no symptoms reported Neurological: reports: see HPI, headache/migraines, syncope Psychiatric: reports: no symptoms reported Endocrine: reports: no symptoms reported Hematologic/Lymphatic: reports: no symptoms reported Allergic/Immunologic: reports: no symptoms reported All Other Systems: Reviewed and Negative Past History - Adult - PAST MEDICAL HISTORY-ADULT Review of Records: reports: Old Records Reviewed, Nursing Assessment Review, Medications Reviewed, Social history reviewed & non-contributory. Major Childhood Illnesses: reports: denies history Cardiovascular: reports: HTN Respiratory: reports: asthma, COPD Gastrointestinal: reports: hemorrhoids, other (hernia) Obstetrical/Gynecological: reports: denies history Genitourinary: reports: dialysis, ESRD, kidney disease Musculoskeletal: reports: cancer, other Neurological: reports: Seizures/Epilepsy Psychiatric: reports: bipolar, schizophrenia Endocrine/Immune: reports: Diabetes, Myeloma Other Conditions: reports: denies history - PRIOR SURGERIES/PROCEDURES Surgical/Procedure History: reports: reviewed, not pertinent, indwelling device (dialysis port placed and removed), hernia repair, bowel surgery, other - IMMUNIZATION STATUS Childhood Immunizations: See Nurse Assessment Flu Vaccine: See Nurse Assessment - FAMILY HISTORY Family History: reviewed, not pertinent - SOCIAL HISTORY Smoking: cigarettes, less than 1 pack/day Substance Use: alcohol Alcohol Use Frequency: occasionally Physical Exam-General - PHYSICAL EXAM-ADULT Exam Limited by: Pt's condition Initial Vital Signs Reviewed: Yes - CONSTITUTIONAL General Appearance: alert, mild distress - EYES Eyes: PERRL/EOMI - HEAD, EARS, NOSE, MOUTH & THROAT HENMT: moist mucous membranes - RESPIRATORY Respiratory: chest non-tender, lungs clear, normal breath sounds, no pleuratic chest pain, no respiratory distress, no accessory muscle use - CARDIOVASCULAR Cardiovascular: normal peripheral pulses, regular rate, rhythm, no edema, no gallop, no JVD, no murmur - GASTROINTESTINAL (ABDOMEN) Abdominal Exam: soft, tenderness - MUSCULOSKELETAL Back Exam: CVA tenderness, decreased range of motion Extremity: tenderness - SKIN Integumentary: normal color - NEUROLOGIC Neurologic: motor weakness Progress - PLAN OF CARE/RESULTS Progress/Plan/Lab Results: Vital Signs - 8 hr 07/31/19 10:21 Temperature 98 F Pulse Rate 82 Respiratory Rate 20 Blood Pressure 119/70 O2 Sat by Pulse Oximetry 97 Result Diagrams: 07/31/19 10:53 07/31/19 10:53 - CT/MRI 1 CT Study: Cervical Spine, Head Impression: See EMR Report (EXAM: CT HEAD/C-SPINE W/O CONTRAST INDICATION: head injury, poss LOC TECHNIQUE: This exam was performed using automated exposure control, adjustment of mA or kV according to patient size, and/or use of iterative reconstruction technique. COMPARISON: CT head dated 04/07/[address] C-spine dated 09/25/2018 FINDINGS: Head: There is suggestion of minimal periventricular white matter microangiopathy that is stable. There is no definite acute infarct given the limited sensitivity of CT versus MRI. There is no discrete intracranial mass, mass effect, or intracranial hemorrhage. The surrounding soft tissues are essentially unremarkable. The calvaria is intact. C-spine: There are diffuse lytic lesions seen throughout the cervical spine as well as the visualized ribs, clavicles, and scapulae consistent with the history of multiple myeloma. It is similar to the previous study. There is a chronic fracture with partial bridging involving the lateral mass of C1 on the right that is stable. No new fracture or subluxation is appreciated. Surrounding soft tissues are essentially unremarkable. IMPRESSION: 1.Suggestion of minimal white matter microangiopathy that is stable. No evidence of acute intracranial pathology. 2.Diffuse lytic lesions seen throughout the cervical spine consistent with known multiple myeloma. 3.Stable chronic fracture involving the lateral mass of C1 on the right with partial bridging. 4.No definite acute fracture or acute C-spine injury is appreciated. Electronically signed by Tyrese Osuna 07/31/2019 11:46 AM 07/31/19 1146 Interpreting Physician: Tyrese Osuna MD Dictated Date/Time: 07/31/19 1134 cc: Alisha Aviles; None,PCP) - CONSULTS/PCP/HOSPITALIST Notification #1 *Consult/PCP/Hospitalist*: Dr Tsai Time Discussed: 12:13 (will need to go to [facility]) Consult Disposition: Will see in ED, Admit Departure - Departure Date of Disposition Decision: 07/31/19 Time of Disposition Decision: 12:14 DIAGNOSIS: Elevated troponin Acute on chronic renal failure Qualifiers: Acute renal failure type: unspecified Chronic kidney disease stage: on chronic dialysis Qualified Code(s): N17.9 - Acute kidney failure, unspecified; N18.9 - Chronic kidney disease, unspecified; Z99.2 - Dependence on renal dialysis Multiple myeloma Qualifiers: Multiple myeloma remission status: unspecified Qualified Code(s): C90.00 - Multiple myeloma not having achieved remission Failure to thrive Qualifiers: Failure to thrive age range: in adult Qualified Code(s): R62.7 - Adult failure to thrive Anemia Qualifiers: Anemia type: unspecified type Qualified Code(s): D64.9 - Anemia, unspecified Disposition: ADMITTED INPATIENT 09 Certified Medical Emergency: Emergent Condition: Fair Referrals and Follow-Ups: None,PCP [Primary Care Provider] - - Critical Care Note This patient required my direct & personal management of CC.: No Attestation - Physician/ PRINCESS Attestation Patient care was provided by Advanced Practice Provider:: Yes Advanced Practice Provider:: Alisha Aviles Advanced Practice Provider documentation review:: The Mid-level provider documentation, treatment plan and medical decision making was reviewed by the physician who agrees with all treatment and medical decision making by the MLP. The physician spent face to face time with patient:: No Advanced Practice Provider documentation review:: Supervising physician onsite and consulted in the evaluation and care of this patient. The physician did not have a face to face encounter with the patient. This chart was documented by the indicated scribe, (Arben Dumont Scribe) and accurately reflects the services I performed and decisions made by me, Alisha Aviles CRNP, as attested by the provider's signature.
--- NOTE | 2019-07-31 14:02 | Diag Imaging Result Doc PS360 ---
EXAM: RIBS BILATERAL W/PA CHEST INDICATION: bilateral rib pain TECHNIQUE: 5 views COMPARISON: 07/17/2019 FINDINGS: The entire skeleton is very heterogeneous including the ribs consistent with known diffuse multiple myeloma that has been seen on prior CTs. There are several old rib fractures that are mainly on the left. There is a cortical defect at the anterior aspect of the fifth rib on the left that could be acute. No other obvious acute rib fractures are appreciated. Lung volumes are very low. There is subsegmental atelectasis at the lung bases and there is increased central vascular markings suggesting pulmonary venous congestion. There is stable cardiomegaly. There is no evidence of pneumothorax. IMPRESSION: 1.Diffuse skeletal lytic lesions consistent with known multiple myeloma. 2.Multiple old rib fractures and a possible more acute nondisplaced fracture involving the anterior aspect of the left fifth rib. 3.Low lung volumes, cardiomegaly, and suggestion of pulmonary venous congestion. Electronically signed by Tyrese Osuna 07/31/2019 2:00 PM
[2019-07-31 15:01] LABS: URINE SOURCE CLEAN CATCH
[2019-07-31 15:03] LABS: BILIRUBIN URINE NEGATIVE (NEGATIVE); BLOOD URINE LARGE (NEGATIVE); COLOR ORANGE; GLUCOSE URINE NEGATIVE (NEGATIVE); KETONE URINE NEGATIVE (NEGATIVE); LEUKOCYTES URINE LARGE (NEGATIVE); NITRITE URINE NEGATIVE (NEGATIVE); PH URINE 7.5; PROTEIN URINE 200 mg/dL (NEGATIVE); SP GRAVITY URINE 1.015; TURBIDITY URINE HAZY (CLEAR); UR EPITHELIAL CELLS <10 /HPF (<10); URINE BACTERIA NEGATIVE /HPF; URINE RBC TNTC /HPF (<10); URINE WBC TNTC /HPF (<10); UROBILINOGEN URINE NORMAL (NORMAL)
[2019-07-31] MEDS ORDERED: NARCAN IV ONE (15:32)
[2019-07-31] MEDS ORDERED: ASPIRIN PR ONE (15:41)
[2019-07-31] MEDS ORDERED: ZOSYN 2.25 GM in NS 50 ML IV SCH (15:45)
[2019-07-31] MEDS ORDERED: ZOFRAN PO PRN (15:47)
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
[2019-07-31 16:08] LABS: BLOOD TYPE ARTERIAL; SAMPLE BLOOD
[2019-07-31 16:13] LABS: ALLEN TEST YES; BE 2.7 mmoll (-3.0-3.0); METHB 1.6 % (0.0-1.5); O2(CT) 9.8 mL/dL (15.0-23.0); O2HB 94.9 % (95.0-99.0); PO2(98.6) 87 mmHg (60-100); THB 7.2 g/dL (11.5-17.4); pH(98.6) 7.35 (7.35-7.45)
[2019-07-31 16:15] LABS: MODALITY CANNULA; PCO2(98.6) 52 mmHg (35-45)
[2019-07-31] MEDS: RENAGEL PO SCH (16:59)
[2019-07-31] MEDS ORDERED: ALBUTEROL NEB INH SCH (17:00)
[2019-07-31] MEDS ORDERED: ATROVENT NEB INH SCH (17:00)
--- NOTE | 2019-07-31 18:25 | PROGRESS NOTE ---
DATE: 07/31/2019 HISTORY: Mr. Treadwell was transferred from [facility] for chest pain, altered mental status and need for nephrology and cardiology evaluation. SUBJECTIVE: He is currently very drowsy. He does intermittently open eyes but does not engage in meaningful conversation and keeps asleep. He is mumbling to painful stimuli. VITAL SIGNS: Temperature 98 degrees, pulse 74, respiratory 20, blood pressure 130/80 saturating 100% on 4 L nasal cannula. PHYSICAL EXAMINATION: He is not in acute distress.HEENT: Oral cavity is moist. Respiratory: He has diminished respiratory effort. Lungs: Air entry diminished bilateral inframammary region. No wheeze, rhonchi, crackles. Abdomen: Soft, nontender. Extremity: Edema he has a left arm AV fistula. He is moving all extremities to painful stimuli. LABS: Suggestive of leukopenia anemia related to multiple myeloma. He has elevated BUN and creatinine. The urinalysis has multiple WBCs. In the past urine culture was growing Pseudomonas. His troponin were elevated to 0.117. MICROBIOLOGY: Urine culture is in lab. I will keep him on broad-spectrum antibiotics until the final urine culture results come back, considering he may have a urine infection contributing to it. Chest x-ray, head CT largely unremarkable except diffuse bony lytic lesions. ASSESSMENT AND PLAN: 1. Acute encephalopathy. 2. Suspected acute cystitis. 3. History of untreated multiple myeloma. 4. Chronic bone pain. 5. History of schizophrenia. 6. Elevated troponin. PLAN: 1. I will get stat arterial blood gases. 2. We will give him IV naloxone. 3. Start him on IV antibiotics. 4. Elevated troponin. His elevated troponin could be in the setting of end-stage renal disease and his current acute presentation due to demand ischemia. EKG does not have new ST-T changes. I will consult Cardiology in future if his troponin continues to rise. Plan of care discussed with the nursing team. 5. Anemia, likely because of his multiple myeloma. I will give him 2 units of packed red blood cells. cc: Wilfred Carpenter MD
--- NOTE | 2019-07-31 18:47 | ECHO REPORT ---
ORDER DATE: 07/31/2019 ECHOCARDIOGRAPHIC MEASUREMENTS: 1. Interventricular septum 1.1. 2. Left ventricular posterior wall 1.1. 3. Diastolic diameter 5.1. 4. Left atrium 4.2. 5. Aorta 3.6. SUMMARY OF 2-DIMENSIONAL IMAGIN. Aortic valve leaflets are trileaflet. 2. Pulmonic valve is normal. 3. Mitral valve is normal. 4. Tricuspid valve is normal. 5. There is left atrial enlargement. 6. There is mild mitral regurgitation. 7. Peak velocity across the aortic valve is less than 2 m/sec. There is no aortic stenosis or regurgitation. There is mild tricuspid regurgitation. Peak velocity across the tricuspid valve is 2.8 m/sec. 8. Pulmonary systolic pressure of 42 mmHg. 9. There is left atrial enlargement. 10. Normal left ventricular cavity size. Estimated ejection fraction of 55%. There is mild apical anteroseptal hypokinesis. 11. There is diastolic dysfunction, grade 2. 12. There is no pericardial effusion or obvious intracardiac mass or thrombus seen. cc: MD Nick Walton MD
--- NOTE | 2019-07-31 20:27 | PROGRESS NOTE ---
DATE: 07/31/2019 SUBJECTIVE: Mr. Treadwell was transferred from [facility] to [facility] because of acute encephalopathy, end-stage renal disease, and need for Nephrology followup. There was also initially concern of chest pain and elevated troponin, so Cardiology consultation was also a possible request. However, on my evaluation, his EKG was largely unremarkable, and his troponin has been currently showing flat trend. So, I have stopped the Cardiology evaluation. In the meantime when I went to see Mr. Treadwell at bedside, he is very drowsy. He is mumbling a few words. However, he is repositioning himself in bed. He opens eyes with strong verbal stimuli. He denies any complaints though. He is not participating in the clinical encounter meaningfully at the moment. VITAL SIGNS: His vitals are largely unremarkable. He is afebrile. Temperature of 97.5 degrees, pulse 74, respiratory rate 22, blood pressure 126/78. He is saturating 100% on 4 L nasal cannula. PHYSICAL EXAMINATION: He is not in any acute distress. Oral cavity is moist.Lungs: Air entry bilaterally equal. No wheeze, rhonchi, crackles. Heart: S1, S2 normal. No murmur, rub, or gallop. Abdomen: Soft, nontender. No lower extremity edema. He has a left arm AV fistula. He is arousable to strong verbal stimuli. However, he does not follow commands to help neurological examination. He has been taking oxycodone at home, so I ordered IV naloxone for him. Following which, he started waking up, and when I saw him 10 minutes later on naloxone, he was able to contribute to the history meaningfully. Though he denies any burning or pain while urinating, he states he has been urinating very frequently, which is normal for him. Initially, I had ordered blood culture and antibiotic, which I will discontinue. ASSESSMENT: 1. Acute encephalopathy likely due to acute hypercarbic respiratory failure due to narcotic overdose. 2. Type 2 myocardial infarction. His elevated troponin could be also in the setting of his end- stage renal disease. EKG did not have ST-elevation to suggest acute coronary syndrome. 3. End-stage renal disease, on hemodialysis. 4. Severe anemia, which could also be a contributing factor to his acute encephalopathy, likely because of multiple myeloma which he has not been on treatment for. PLAN: I will start patient on BiPAP. I will hold his narcotic pain medication. I will consult Nephrology for dialysis. Plan of care discussed with the patient. Apparently, he had expressed to the previous team at [facility] that he would not want chest compression and his code status is listed to be DNR level 1, which I will confirm when he is more alert. cc: Wilfred Carpenter MD
[2019-07-31] MEDS: DEPAKENE LIQUID PO SCH (20:31)
[2019-07-31] MEDS: MIRALAX PO SCH (20:31)
[2019-07-31] MEDS: DUONEB (A & A) INH SCH (21:16)
[2019-08-01] MEDS: DUONEB (A & A) INH SCH ×4 (03:42→20:40)
[2019-08-01] MEDS: PROTONIX PO SCH ×2 (05:55→06:19)
[2019-08-01 06:47] LABS: BASO# 0.01 X1000 (0.0-0.2); BASO% 0.4 % (0.0-0.8); EOS# 0.03 X1000 (0.0-0.7); EOS% 1.2 % (0.0-10.0); HEMOGLOBIN 7.8 g/dL (14.0-18.0); IMM GRAN# 0.04 X1000 (0.0-0.04); IMM GRAN% 1.6 % (0.0-0.5); LYMPH% 28.5 % (20.5-51.1); MCH 29.4 PG (27-31); MCHC 31.2 g/dL (33-37); MCV 94.3 FL (81-99); MONO# 0.16 X1000 (0.11-0.59); MONO% 6.5 % (1.7-9.3); MPV 8.4 FL (7.4-10.4); NEUT# 1.52 X1000 (1.4-6.5); NEUT% 61.8 % (42.2-75.2); PLT 201 X1000 (130-400); RBC 2.65 XMIL (4.7-6.1); RDW 16.2 % (11.5-14.5); WBC 2.46 X1000 (4.8-10.8)
[2019-08-01 07:13] LABS: CALCIUM 9.7 mg/dL (8.8-10.2); CREATININE 8.5 mg/dL (0.7-1.2); POTASSIUM 5.4 mmol/L (3.5-5.1)
[2019-08-01] MEDS: VITAMIN B-12 PO SCH (08:15)
[2019-08-01] MEDS: MIRALAX PO SCH ×2 (08:15→20:12)
[2019-08-01] MEDS: PROZAC PO SCH (08:15)
[2019-08-01] MEDS: RENAGEL PO SCH ×3 (08:15→16:17)
[2019-08-01] MEDS: ZYRTEC PO SCH (08:15)
[2019-08-01] MEDS: DEPAKENE LIQUID PO SCH ×2 (08:21→20:12)
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
[2019-08-01] MEDS: LOKELMA POWDER PACKET PO SCH (11:36)
[2019-08-01] MEDS: OXY IR PO PRN (21:37)
[2019-08-02] MEDS: DUONEB (A & A) INH SCH ×3 (03:45→15:15)
[2019-08-02] MEDS: PROTONIX PO SCH ×2 (05:56→06:14)
[2019-08-02] MEDS ORDERED: NS 2,000 ML MISC PRN (06:18)
[2019-08-02] MEDS ORDERED: TIGHT: 0.2 ML/HR FOR DIALYSIS MISC PRN (06:18)
[2019-08-02] MEDS ORDERED: HEPARIN IV PRN (06:18)
[2019-08-02] MEDS ORDERED: NS 500 ML IV ONE (06:19)
[2019-08-02 06:34] LABS: EOS# 0.02 X1000 (0.0-0.7); EOS% 0.7 % (0.0-10.0); HEMATOCRIT 24.1 % (42.0-52.0); HEMOGLOBIN 7.7 g/dL (14.0-18.0); LYMPH# 0.82 X1000 (1.2-3.4); LYMPH% 27.6 % (20.5-51.1); MCH 30.9 PG (27-31); MCV 96.8 FL (81-99); MONO# 0.16 X1000 (0.11-0.59); MONO% 5.4 % (1.7-9.3); MPV 8.4 FL (7.4-10.4); NEUT# 1.97 X1000 (1.4-6.5); NEUT% 66.3 % (42.2-75.2); PLT 181 X1000 (130-400); RBC 2.49 XMIL (4.7-6.1); RDW 16.2 % (11.5-14.5); WBC 2.97 X1000 (4.8-10.8)
[2019-08-02 07:04] LABS: CALCIUM 9.8 mg/dL (8.8-10.2); CREATININE 8.9 mg/dL (0.7-1.2); PHOSPHORUS 8.5 mg/dL (2.7-4.5); POTASSIUM 5.4 mmol/L (3.5-5.1)
[2019-08-02] MEDS: DEPAKENE LIQUID PO SCH (10:02)
[2019-08-02] MEDS: VITAMIN B-12 PO SCH (10:05)
[2019-08-02] MEDS: PROZAC PO SCH (10:05)
[2019-08-02] MEDS: LOKELMA POWDER PACKET PO SCH (10:05)
[2019-08-02] MEDS: RENAGEL PO SCH ×3 (10:05→17:58)
[2019-08-02] MEDS: ZYRTEC PO SCH (10:05)
[2019-08-02] MEDS: MIRALAX PO SCH (10:05)
--- NOTE | 2019-08-02 11:36 | DISCHARGE SUMMARY ---
ADMISSION DATE: 07/31/2019 DISCHARGE DATE: 08/02/2019 DISCHARGE DISPOSITION: Back to [facility]. DISCHARGE CONDITION: Hemodynamically stable. He is alert and oriented. He is answering all questions appropriately. He says he wants to be treated for his multiple myeloma. His blood count has increased appropriately. Discharge team is working on setting up an appointment with Dr. Phillips in [place] for multiple myeloma. DISCHARGE DIAGNOSES: 1. Acute encephalopathy due to use of narcotic pain medication and mild overdose related to that, as well as severe anemia. 2. Acute hypercapnic respiratory failure 2. Type 2 myocardial infarction due to demand ischemia. 3. Severe anemia related to multiple myeloma. OTHER DIAGNOSES: 1. History of multiple myeloma diagnosed in 2016 or 2017, and he was discharged from multiple oncologist offices because of unprofessional behavior. 2. History of schizophrenia. 3. Chronic bone pain due to multiple myeloma, osteolytic lesion. 4. End-stage renal disease, on Friday, , Friday dialysis. 5. Chronic gastroesophageal reflux disease. CONSULTATIONS DURING HOSPITAL ADMISSION: Dr. Keita, Nephrology. DISCHARGE MEDICATIONS: Albuterol nebulization 2.5 mg inhaled 4 times a day, ipratropium 0.5 mg 4 times a day, valproic acid 250 mg p.o. b.i.d., tolterodine 2 mg p.o. daily (24- hour release), fluoxetine 20 mg in the morning time, pantoprazole 40 mg daily, medroxyprogesterone 10 mg daily, risperidone 1 mg at nighttime, Sevelamer 800 mg t.i.d., vitamin B12 at 1000 mcg daily, Zofran 4 mg t.i.d. as needed for nausea and vomiting, cetirizine 10 mg daily, sodium zirconium powder 10 grams daily, MiraLAX 17 grams b.i.d., oxycodone 20 mg every 8 hours for pain not controlled on acetaminophen (the frequency is decreased from every 6 hours considering he presented with likely narcotic overdose). Gabapentin 100 mg t.i.d. as well as trazodone 50 mg at nighttime have been held. PHYSICAL EXAMINATION: Vital Signs: At the time of discharge, temperature 98.1 degrees, pulse 87, respiratory rate 22, blood pressure 120/70, he is saturating 94% on 3 L nasal cannula. General: He does not appear in any acute distress. HEENT: Oral cavity is moist. Lungs: Air entry bilaterally equal. No wheeze or rhonchi. Mild inspiratory crackles. Cardiovascular: S1, S2 normal. No murmur, rub, or gallop. Abdomen: Soft. He has generalized abdominal tenderness. Extremities: No lower extremity edema. He has left arm AV fistula. Neurologic: He is alert and oriented. He is engaging in meaningful conversation. He does have flight of ideas. LABORATORY DATA: Labs suggestive of leukopenia. Hemoglobin of 7.7, platelets of 181,000. His sodium is 135, potassium 5.4. He does have elevated BUN and creatinine. MICROBIOLOGY: Urine culture did not have any growth. IMAGING: Head and cervical spine CT had minimal white matter microangiopathy. No evidence of acute intracranial pathology. Diffuse lytic lesions seen throughout the cervical spine consistent with known multiple myeloma. Stable chronic fracture involving lateral mass of C1 on the right with partial bridging. No definitive evidence of acute C-spine injury. Ribs and chest x-ray had diffuse skeletal lytic lesion consistent with known multiple myeloma. Multiple old rib fractures and possible more acute nondisplaced fracture involving the anterior aspect of the left fifth rib, low lung volumes, cardiomegaly, and suggestion of pulmonary venous congestion. Echocardiogram performed had an estimated ejection fraction of 50% with normal left ventricular cavity size. There was mild hypokinesia of anteroseptal wall. EKG had sinus rhythm with first-degree AV block, nonspecific T-wave abnormalities. Troponin initially was elevated to 0.117, which was declining to 0.109 on repeat. HOSPITAL COURSE SUMMARY: Mr. Treadwell is a 59-year-old man with past medical history of end-stage renal disease, schizophrenia, multiple myeloma, who was found to be confused at the [facility], and was sent to [facility]. From there, he was transferred to [facility] for Nephrology evaluation. He was complaining of bilateral rib cage pain on arrival, and was found to be very drowsy. However, he became more alert after intravenous naloxone. On blood work, he was found to have severe anemia with hemoglobin of 5.9. Noticeably, he was diagnosed with multiple myeloma around the year 2017, and was initially started on treatment, but then he was discharged from multiple oncologist offices because of unprofessional behavior. Since then, his multiple myeloma was untreated. He had intermittently expressed his wishes about not receiving any more treatment because he was tired. Later on, he was placed to [facility]. While inside this hospital, his troponin had suggested a rather flat trend, which was thought to be related to end-stage renal disease, and he, on my evaluation, did not actually complain of chest pain. His pain was rib cage pain, which was thought to be related to his lytic bone lesions. He was managed conservatively. His opioid pain medications were decreased. He also received 2 units of blood transfusion, following which his blood count had increased. I called his daughter, Ms. Iram Treadwell, at [phone], and had a discussion about Mr. Treadwell' condition. I had explained to her that untreated multiple myeloma, he may succumb to within a few months' time, and she had expressed that she would like him to be treated, and so was the patient's wishes. We will try to set an appointment with an oncologist team in [place]. He is hemodynamically stable to be discharged back to [facility]. TIME SPENT: More than 30 minutes were spent in discharging this patient. cc: MD NATALY Alberto
[2019-08-02] MEDS: OXY IR PO PRN (12:17)
[2019-08-02 16:12] VITALS: BP 120/71
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
--- NOTE | 2019-08-03 08:52 | HEMO/ONC CONSULTATION ---
DATE: 08/02/2019 REQUESTING PHYSICIAN: DR. Keita regarding multiple myeloma. HISTORY OF PRESENT ILLNESS: Mr. Treadwell is an unfortunate 59-year-old gentleman who is known to our practice for a diagnosis of multiple myeloma. He was discharged from our practice due to noncompliance and threatening behavior. He has not followed up with Oncology since that time or he has not been fired from another practice, it is unclear. He presented to the hospital with suicidal thoughts, thought to be related to medication overdose. He has improved during his hospitalization, but has had worsening transfusion dependence and severe anemia. He is receiving 2 units of packed red blood cells today before discharge back to [facility]. He is on dialysis under the care of Dr. Keita. We are consulted for recommendations regarding management of multiple myeloma. PAST MEDICAL HISTORY: Significant for multiple myeloma, hypertension, COPD, end-stage renal disease, tobacco abuse, cocaine abuse. History of chronic back pain, anemia, chronic disease, chronic constipation. PAST SURGICAL HISTORY: None. SOCIAL HISTORY: Patient smoked 1 pack per day for 30 years of tobacco. He denies any alcohol use. He does have a history of cocaine use. He was released from assisted after 20 years in November 2017. FAMILY MEDICAL HISTORY: Maternal grandmother had unknown cancer. Dad of an [place]. REVIEW OF SYSTEMS: Pertinent positives and negatives are negative except as per HPI. ECOG performance status is 2. Pain score is a 2. Continue current management. Reassess at return visit. PHYSICAL EXAMINATION: Vital Signs: Temperature 97.8 degrees, pulse 83 to 18, blood pressure 127/75, O2 saturation 95% on 3 L nasal cannula. General: This is a chronically ill-appearing man who appears older than his stated age. He is unaccompanied at the time of consultation. Eyes: Sclerae anicteric. Conjunctiva pale. Cardiovascular: Regular rate and rhythm. Normal S1, S2. No murmurs, rubs, or gallops. Pulmonary: Lungs clear to auscultation bilaterally without wheezes, rales, or rhonchi. Abdomen: Soft, nontender, nondistended with normoactive bowel sounds. Neuro: Gait is not assessed as patient is in a hospital bed. LABORATORY DATA: White count 2.97, hemoglobin 7.7, platelet count 181,000. Creatinine 8.9. ASSESSMENT/PLAN: 1. Multiple myeloma: The patient has not had treatment since at least August 2018. Prior to leaving our clinic, he was noted to have responsive disease. I suspect he would still have responsive disease. In light of his last oncology follow-up, and compliance previously, I would recommend starting low-dose oral therapy. The patient is interested in therapy at this time. I have given recommendations to Dr. Keita for 25 mg daily Cytoxan with weekly CBC monitoring. Cytoxan will be given after dialysis. If Dr. Keita feels comfortable starting treatment, then that can be started prior to his oncology follow-up. I have given recommendations for oncology follow-up option to the patient and to his hospital team, who will establish outpatient followup for the patient. I will check a baseline myeloma panel at this time, which can be followed up as an outpatient by his oncologist. 2. Anemia: Patient is receiving transfusions at this time. Follow up as above. 3. Lytic bone lesions related to myeloma. The patient is a candidate for therapy with Xgeva. This can be instituted as an outpatient and may help some with his bone pain. I will follow up on any further questions prior to his discharge from the hospital. He will have outpatient follow up with another oncologist of his choosing. cc: MD Wilfred Lowe MD Heather Shah, MD MTDD
== END 2019-08-02 19:00 | DRG 840 ==
LOC: P.ED 10:19 → 2N 10:19 → SUATTDRO 10:20 → OBSVTOIN 10:20
PROVIDERS: ATTEND Internal Medicine

== ENCOUNTER 2019-08-24 22:39 | Inpatient (IN) ==
[2019-08-24] MEDS ORDERED: DILAUDID IV ONE (23:06)
[2019-08-24 23:12] LABS: ALLEN TEST YES; BE 4.7 mmoll (-3.0-3.0); BLOOD TYPE ARTERIAL; HCO3-(ACT) 28.5 mmoll (20.0-26.0); METHB 0.9 % (0.0-1.5); MODALITY CANNULA; O2HB 90.6 % (95.0-99.0); PCO2(98.6) 47 mmHg (35-45); PO2(98.6) 67 mmHg (60-100); SAMPLE BLOOD; SAO2 96.9 % (95.0-100.0); pH(98.6) 7.41 (7.35-7.45)
[2019-08-24 23:59] LABS: BASO# 0.01 X1000 (0.0-0.2); BASO% 0.4 % (0.0-0.8); EOS# 0.02 X1000 (0.0-0.7); EOS% 0.8 % (0.0-10.0); HEMATOCRIT 21.4 % (42.0-52.0); HEMOGLOBIN 6.5 g/dL (14.0-18.0); LYMPH# 0.64 X1000 (1.2-3.4); LYMPH% 26.9 % (20.5-51.1); MCH 29.4 PG (27-31); MCHC 30.4 g/dL (33-37); MCV 96.8 FL (81-99); MONO# 0.11 X1000 (0.11-0.59); MONO% 4.6 % (1.7-9.3); MPV 8.3 FL (7.4-10.4); NEUT% 67.3 % (42.2-75.2); PLT 184 X1000 (130-400); RBC 2.21 XMIL (4.7-6.1); RDW 15.9 % (11.5-14.5); WBC 2.38 X1000 (4.8-10.8)
[2019-08-25 00:26] LABS: AGAP 14; ALB/GLOB RATIO 0.8; ALBUMIN 3.2 g/dL (3.5-5.0); ALKALINE PHOSPHATASE 78 U/L (32-122); BUN 31 mg/dL (8-22); CHLORIDE 94 mmol/L (98-107); COSMO 277; CREATININE 5.8 mg/dL (0.7-1.2); ESTIMATED GFR 12; GLUCOSE 103 mg/dL (70-104); GOT 10 U/L (10-34); GPT < 5 U/L (10-44); POTASSIUM 4.6 mmol/L (3.5-5.1); SODIUM 135 mmol/L (136-145); TCO2 27 mmol/L (25-35); TOTAL BILIRUBIN 0.17 mg/dL (0.20-1.00); TOTAL PROTEIN 7.3 g/dL (6.3-8.3)
--- NOTE | 2019-08-25 00:44 | ED EKG INTERP ---
This chart was entered by Sera Savage Scribe, acting as scribe for Prince Adamson MD. EKG Interpretation - EKG Time of EKG reading by physician:: 00:25 EKG Read and Signed by:: Prince Adamson EKG Interpretation (*Must complete 3 of following elements*): Abnormal (Nonspecific T wave abnormality) Rate: 88 Rhythm: NSR [place]: normal QRS: normal AL Interval: normal ST Wave: normal Attestation - Physician/ PRINCESS Attestation Patient care was provided by Advanced Practice Provider:: No The physician spent face to face time with patient:: Yes Advanced Practice Provider documentation review:: Supervising physician onsite and consulted in the evaluation and care of this patient. The physician did have a face to face encounter with the patient. This chart was documented by the indicated scribe, (Sera Savage Scribe) and accurately reflects the services I performed and decisions made by me, Prince Adamson MD, as attested by the provider's signature.
--- NOTE | 2019-08-25 00:45 | EKG Report ---
Test Performed on : 08/25/2019 00:25:09 AM Test Reason : CP Blood Pressure : / mmHG Vent. Rate : 088 BPM Atrial Rate : 088 BPM P-R Int : 188 ms QRS Dur : 090 ms QT Int : 358 ms P-R-T Axes : 046 032 064 degrees QTc Int : 433 ms Normal sinus rhythm. Nonspecific T wave abnormality Abnormal ECG When compared with ECG of 14-AUG-2019 21:37, (Unconfirmed) No significant change was found Unconfirmed Result
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
[2019-08-25] MEDS ORDERED: DILAUDID IV ONE (04:32)
[2019-08-25] MEDS ORDERED: DILAUDID ONE (04:37)
[2019-08-25] MEDS ORDERED: ZOFRAN IV PRN (05:48)
[2019-08-25] MEDS ORDERED: NICODERM PATCH TD PRN (05:52)
[2019-08-25] MEDS ORDERED: TYLENOL PO PRN (05:52)
[2019-08-25] MEDS ORDERED: ROBAXIN PO PRN ×2 (05:53→06:15)
[2019-08-25] MEDS ORDERED: TIGHT: 0.2 ML/HR FOR DIALYSIS MISC PRN (06:17)
[2019-08-25] MEDS ORDERED: HEPARIN IV PRN (06:17)
[2019-08-25] MEDS ORDERED: NS 2,000 ML MISC PRN (06:17)
--- NOTE | 2019-08-25 06:27 | Diag Imaging Result Doc PS360 ---
CHEST-PORTABLE - 08/24/2019 INDICATION: SOB COMPARISON: 08/15/2019 FINDINGS: Stable critically low lung volumes. Slight worsening patchy infiltrates in the lung bases bilaterally. Heart size remains borderline. Pulmonary vascularity is more distended. There is probably interstitial pulmonary edema. IMPRESSION: Worsening from prior. Electronically signed by Marcelino Rausch 08/25/2019 6:24 AM
[2019-08-25] MEDS ORDERED: PROTONIX PO SCH (07:00)
[2019-08-25] MEDS: ATROVENT NEB INH SCH ×2 (08:12→14:09)
[2019-08-25] MEDS: ALBUTEROL NEB INH SCH ×2 (08:12→14:09)
--- NOTE | 2019-08-25 08:26 | Diag Imaging Result Doc PS360 ---
EXAM: ABDOMEN FLAT/UPRIGHT INDICATION: Abdominal Pain TECHNIQUE: 2 views COMPARISON: 07/17/2019 FINDINGS: There are nonspecific bowel gas and stool patterns. There is no obstructive bowel pattern. There is no evidence of large volume free abdominal gas. There is stable metallic shrapnel projecting of the left side of the abdomen and the left thigh. IMPRESSION: Nonspecific abdomen. Electronically signed by Tyrese Osuna 08/25/2019 8:24 AM
[2019-08-25] MEDS: OXY IR PO PRN ×2 (08:28→17:08)
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
[2019-08-25] MEDS ORDERED: MIRALAX PO SCH (09:00)
[2019-08-25] MEDS ORDERED: RENAGEL PO SCH (09:00)
[2019-08-25] MEDS ORDERED: VITAMIN B-12 PO SCH (09:00)
[2019-08-25] MEDS ORDERED: ZYRTEC PO SCH (09:00)
[2019-08-25] MEDS ORDERED: DETROL LA PO SCH (09:00)
[2019-08-25] MEDS ORDERED: PROZAC PO SCH (09:00)
[2019-08-25] MEDS ORDERED: PROVERA PO SCH (09:00)
[2019-08-25] MEDS ORDERED: DEPAKENE LIQUID PO SCH (09:00)
[2019-08-25] MEDS: RENAGEL PO SCH ×3 (09:08→17:08)
[2019-08-25 09:19] LABS: URINE SOURCE CLEAN CATCH
[2019-08-25 09:28] LABS: BILIRUBIN URINE NEGATIVE (NEGATIVE); BLOOD URINE TRACE (NEGATIVE); COLOR STRAW; GLUCOSE URINE NEGATIVE (NEGATIVE); KETONE URINE NEGATIVE (NEGATIVE); LEUKOCYTES URINE MODERATE (NEGATIVE); NITRITE URINE NEGATIVE (NEGATIVE); PH URINE 7.5; PROTEIN URINE 70 mg/dL (NEGATIVE); SP GRAVITY URINE 1.011; TURBIDITY URINE CLEAR (CLEAR); UR EPITHELIAL CELLS <10 /HPF (<10); URINE BACTERIA NEGATIVE /HPF; URINE RBC <10 /HPF (<10); URINE WBC 20-40 /HPF (<10); UROBILINOGEN URINE NORMAL (NORMAL)
--- NOTE | 2019-08-25 12:55 | PROGRESS NOTE ---
DATE: 08/25/2019 SUBJECTIVE: Mr. Treadwell is a 59-year-old male who presented with past medical history of end-stage renal disease, intermittent hemodialysis on Tuesdays, , and Saturdays, hypertension, COPD, untreated multiple myeloma, chronic back pain secondary to compression fracture secondary to multiple myeloma, chronic constipation, anemia of chronic disease, nicotine dependence, and history of cocaine abuse. The patient states that he has had increasing shortness of breath and fatigue for the last couple of days. Reports that he is wheelchair bound, and that he does have chronic back pain. A couple of weeks ago, he fell, hitting his chest and left side. He says they performed x-rays. Looking back in the chart, in the ER, fell on 07/31/2019. During the ER visit, he had gotten x-rays of bilateral ribs and chest, and he had some rib fractures, but they looked old, mainly on the left. He was admitted with dyspnea, and feels secondary to his anemia. Hemoglobin was 6.5, hematocrit 21. X-ray showed some low lung volumes, so they admitted him and put him on some oxygen. He is at dialysis this morning. He has symptomatic anemia, end-stage renal disease, history of multiple myeloma (not treated), elevated troponin, history of hypertension, chronic back pain. PHYSICAL EXAMINATION TODAY: Vital Signs: Temperature 97.6 degrees, pulse 77, respirations 20, blood pressure 139/78. HEENT: Pupils are equal and round. Lungs: Clear in all lung loza. Cardiovascular: Regular rhythm and rate without murmur or S3. Abdomen: Soft. Skin: Warm and dry. IMAGING: Abdominal x-ray: Nonspecific abdomen. ASSESSMENT AND PLAN: 1. Anemia. Suspect this is a combination of chronic disease, renal insufficiency. Transfuse and try to keep his hemoglobin above 7. Ideally, would like to keep it around 9 or 10. 2. Multiple myeloma. Will follow his counts. 3. End-stage renal disease. Continue hemodialysis. His volume status looks pretty good. Follow his electrolytes. 4. Chronic pain syndrome. cc: Akshat Elias MD
[2019-08-25 14:33] VITALS: BP 132/68
--- NOTE | 2019-08-25 17:23 | DISCHARGE SUMMARY ---
ADMISSION DATE: 08/25/2019 DISCHARGE DATE: 08/25/2019 CONTINUATION: DISCHARGE MEDICATIONS: He is going to be on ipratropium bromide nebulizer 1 puff 4 times a day as needed, nicotine patch which is 21 mg a day, Prozac 20 mg daily, acetaminophen 650 mg q.6 hours as needed, takes 25 mg at bedtime. He is going to continue his medications of albuterol, ipratropium, selvamar carbonate 1 tablet 3 times a day. He has Zofran 4 mg to take oral as needed, MiraLAX 17 g twice a day, Zyrtec 10 mg a day, vitamin B12 1000 mcg orally daily, Protonix 40 mg a day, risperidone 1 mg every evening, fluoxetine 20 mg every morning, valproic acid he takes 10 mL twice a day, , Detrol LA 2 mg daily, trazodone 50 mg at bedtime, methocarbamol which is Robaxin 500 mg twice a day and oxycodone 20 mg came with prescription for just 20 of them. cc: Akshat Elias MD MTDD
--- NOTE | 2019-08-25 18:27 | NEPHROLOGY CONSULTATION ---
DATE: 08/25/2019 REASON FOR CONSULTATION: Assistance with management of CKD and anemia. HISTORY OF PRESENT ILLNESS: Mr. Treadwell is a 59-year-old man with myeloma and end- stage kidney disease. He has required recurrent transfusions because of his untreated myeloma. He had progressively worsening fatigue and shortness of breath over the last several weeks. His hemoglobin was 7.1 at dialysis on Friday and we were in the process of arranging transfusion, but he came to the emergency room because of his symptoms. This morning he relates pain in the back but no other new findings. PAST MEDICAL HISTORY: As above. He also has a history of schizoaffective disorder, hypertension, COPD. ALLERGIES: Morphine. HOME MEDICATIONS: Include albuterol, ipratropium, sevelamer, ondansetron, MiraLAX, cetirizine, cyanocobalamin, pantoprazole, risperidone, fluoxetine, valproate, medroxyprogesterone, tolterodine, oxycodone, trazodone, methocarbamol. SOCIAL HISTORY: He lives in [facility]. FAMILY HISTORY: Otherwise not obtainable. REVIEW OF SYSTEMS: Otherwise not obtainable. PHYSICAL EXAMINATION: Vital Signs: Blood pressure 132/68, heart rate 81, respirations 15, afebrile. General: Chronically ill, thin black man, in no distress. Skin: Warm and dry. Conjunctivae are pink. Oropharynx is moist. Dentition poor but unchanged. Neck: Supple. Trachea is midline. Neck vein distention is present. Heart: PMI is nondisplaced. Regular rate and rhythm with S4. No rubs. Lungs: Have equal excursion. Equal breath sounds. No crackles. Abdomen: Soft, nontender. Bowel sounds are present. Extremities: Have no edema, clubbing, or cyanosis. IMAGING: Chest x-ray with low lung volumes, possible interstitial edema. IMPRESSIONS: 1. Anemia secondary to multiple myeloma. He will be transfused during dialysis today, 3 units as they are available. 2. Shortness of breath. Attempt to achieve his outpatient dry weight and reassess. 3. Multiple myeloma. He has been released from both local oncology practices. Okay to discharge after dialysis from my perspective. cc: Ronald Keita MD
[2019-08-25] MEDS ORDERED: CYTOXAN PO SCH (21:00)
[2019-08-25] MEDS ORDERED: RISPERDAL PO SCH (21:00)
[2019-08-25] MEDS ORDERED: DESYREL PO SCH (21:00)
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
== END 2019-08-25 19:17 | DRG 840 ==
LOC: SUPCPDRO → ED 22:39 → 1N 08-25 03:45 → SUATTDRO 08-25 03:45
PROVIDERS: ATTEND Emergency Medicine

== ENCOUNTER 2019-09-04 09:43 | Inpatient (IN) ==
[2019-09-04 11:00] LABS: BASO# 0.01 X1000 (0.0-0.2); BASO% 0.3 % (0.0-0.8); EOS# 0.02 X1000 (0.0-0.7); EOS% 0.7 % (0.0-10.0); HEMATOCRIT 27.7 % (42.0-52.0); HEMOGLOBIN 8.4 g/dL (14.0-18.0); IMM GRAN# 0.03 X1000 (0.0-0.04); LYMPH# 0.65 X1000 (1.2-3.4); MCH 29.1 PG (27-31); MCHC 30.3 g/dL (33-37); MCV 95.8 FL (81-99); MONO# 0.12 X1000 (0.11-0.59); MONO% 4.1 % (1.7-9.3); MPV 8.3 FL (7.4-10.4); NEUT# 2.12 X1000 (1.4-6.5); NEUT% 71.9 % (42.2-75.2); PLT 187 X1000 (130-400); RBC 2.89 XMIL (4.7-6.1); RDW 15.9 % (11.5-14.5); WBC 2.95 X1000 (4.8-10.8)
[2019-09-04 11:04] LABS: INR 0.94; PROTIME 12.7 Seconds (11.0-16.0)
[2019-09-04 11:05] LABS: PTT 39.7 Seconds (22.3-41.8)
[2019-09-04 11:40] LABS: AGAP 13; ALB/GLOB RATIO 0.7; ALBUMIN 3.2 g/dL (3.5-5.0); ALKALINE PHOSPHATASE 81 U/L (32-122); BUN 21 mg/dL (8-22); CALCIUM 10.9 mg/dL (8.8-10.2); CHLORIDE 97 mmol/L (98-107); CK PROFILE 53 U/L (24-204); COSMO 276; CREATININE 4.7 mg/dL (0.7-1.2); ESTIMATED GFR 16; GLUCOSE 84 mg/dL (70-104); GOT 10 U/L (10-34); GPT < 5 U/L (10-44); POTASSIUM 4.3 mmol/L (3.5-5.1); SODIUM 137 mmol/L (136-145); TCO2 27 mmol/L (25-35); TOTAL BILIRUBIN < 0.15 mg/dL (0.20-1.00); TOTAL PROTEIN 7.9 g/dL (6.3-8.3)
[2019-09-04] MEDS ORDERED: NITROGLYCERIN TOP ONE (12:10)
[2019-09-04] MEDS ORDERED: TYLENOL PO PRN ×2 (12:17→13:11)
[2019-09-04] MEDS ORDERED: ZOFRAN IV PRN ×2 (12:17→13:11)
[2019-09-04] MEDS ORDERED: DETROL LA PO PRN (13:11)
[2019-09-04] MEDS: RENAGEL PO SCH ×2 (14:05→18:08)
[2019-09-04] MEDS: OXY IR PO PRN (14:27)
[2019-09-04] MEDS: ROBAXIN PO PRN (14:27)
[2019-09-04] MEDS: ATROVENT NEB INH SCH ×4 (15:23→22:56)
[2019-09-04] MEDS: ALBUTEROL NEB INH SCH ×2 (15:23→21:56)
[2019-09-04] MEDS: DESYREL PO SCH (20:54)
[2019-09-04] MEDS: DEPAKENE LIQUID PO SCH (20:54)
[2019-09-04] MEDS: MIRALAX PO SCH (20:54)
[2019-09-04] MEDS: CYTOXAN PO SCH (20:54)
[2019-09-04] MEDS: RISPERDAL PO SCH (21:03)
[2019-09-05] MEDS: OXY IR PO PRN ×3 (00:38→20:38)
[2019-09-05] MEDS ORDERED: DILAUDID IV ONE (01:44)
[2019-09-05] MEDS: ATROVENT NEB INH SCH ×8 (03:42→21:53)
[2019-09-05] MEDS: ALBUTEROL NEB INH SCH ×4 (03:42→21:53)
[2019-09-05 05:45] LABS: BASO# 0.01 X1000 (0.0-0.2); BASO% 0.4 % (0.0-0.8); EOS# 0.03 X1000 (0.0-0.7); EOS% 1.1 % (0.0-10.0); HEMATOCRIT 26.8 % (42.0-52.0); HEMOGLOBIN 8.1 g/dL (14.0-18.0); IMM GRAN# 0.03 X1000 (0.0-0.04); IMM GRAN% 1.1 % (0.0-0.5); LYMPH% 29.4 % (20.5-51.1); MCH 29.3 PG (27-31); MCHC 30.2 g/dL (33-37); MCV 97.1 FL (81-99); MONO# 0.13 X1000 (0.11-0.59); MONO% 4.8 % (1.7-9.3); MPV 8.4 FL (7.4-10.4); NEUT# 1.72 X1000 (1.4-6.5); NEUT% 63.2 % (42.2-75.2); PLT 181 X1000 (130-400); RBC 2.76 XMIL (4.7-6.1); WBC 2.72 X1000 (4.8-10.8)
[2019-09-05 06:01] LABS: AGAP 14; ALB/GLOB RATIO 0.7; ALKALINE PHOSPHATASE 67 U/L (32-122); BUN 26 mg/dL (8-22); CALCIUM 11.8 mg/dL (8.8-10.2); CHLORIDE 95 mmol/L (98-107); CHOLESTEROL 122 mg/dL (0-200); COSMO 277; CREATININE 6.3 mg/dL (0.7-1.2); ESTIMATED GFR 11; GLUCOSE 99 mg/dL (70-104); GOT 9 U/L (10-34); GPT < 5 U/L (10-44); HDL 50 mg/dL (35-55); LDL 54 mg/dL; SODIUM 136 mmol/L (136-145); TCO2 27 mmol/L (25-35); TOTAL BILIRUBIN 0.15 mg/dL (0.20-1.00); TOTAL PROTEIN 7.4 g/dL (6.3-8.3); TRIGLYCERIDES 92 mg/dL (39-160); VLDL 18 mg/dL
[2019-09-05] MEDS: PROTONIX PO SCH (06:30)
[2019-09-05] MEDS: ASPIRIN PO SCH (09:21)
[2019-09-05] MEDS: ZYRTEC PO SCH (09:21)
[2019-09-05] MEDS: RENAGEL PO SCH ×3 (09:21→17:36)
[2019-09-05] MEDS: VITAMIN B-12 PO SCH (09:21)
[2019-09-05] MEDS: PROZAC PO SCH (09:21)
[2019-09-05] MEDS: DEPAKENE LIQUID PO SCH ×2 (09:21→20:39)
[2019-09-05] MEDS: PROVERA PO SCH (09:22)
[2019-09-05] MEDS: MIRALAX PO SCH ×5 (09:22→20:50)
[2019-09-05] MEDS: ROBAXIN PO PRN (20:38)
[2019-09-05] MEDS: CYTOXAN PO SCH (20:38)
[2019-09-05] MEDS: RISPERDAL PO SCH (20:39)
[2019-09-05] MEDS: DESYREL PO SCH (20:39)
[2019-09-06] MEDS: ATROVENT NEB INH SCH ×4 (03:06→15:17)
[2019-09-06] MEDS: ALBUTEROL NEB INH SCH ×3 (03:08→15:17)
[2019-09-06 05:48] LABS: BASO# 0.01 X1000 (0.0-0.2); BASO% 0.4 % (0.0-0.8); EOS# 0.03 X1000 (0.0-0.7); EOS% 1.1 % (0.0-10.0); HEMATOCRIT 26.1 % (42.0-52.0); HEMOGLOBIN 7.9 g/dL (14.0-18.0); IMM GRAN# 0.02 X1000 (0.0-0.04); IMM GRAN% 0.8 % (0.0-0.5); LYMPH# 0.77 X1000 (1.2-3.4); LYMPH% 28.9 % (20.5-51.1); MCH 29.4 PG (27-31); MCHC 30.3 g/dL (33-37); MONO# 0.09 X1000 (0.11-0.59); MONO% 3.4 % (1.7-9.3); MPV 8.5 FL (7.4-10.4); NEUT# 1.74 X1000 (1.4-6.5); NEUT% 65.4 % (42.2-75.2); PLT 180 X1000 (130-400); RBC 2.69 XMIL (4.7-6.1); WBC 2.66 X1000 (4.8-10.8)
[2019-09-06] MEDS: PROTONIX PO SCH (06:22)
[2019-09-06 06:31] LABS: CREATININE 7.4 mg/dL (0.7-1.2); POTASSIUM 5.8 mmol/L (3.5-5.1)
[2019-09-06 06:32] LABS: CALCIUM 12.2 mg/dL (8.8-10.2)
[2019-09-06] MEDS: VITAMIN B-12 PO SCH (08:19)
[2019-09-06] MEDS: RENAGEL PO SCH ×3 (08:19→18:23)
[2019-09-06] MEDS: ZYRTEC PO SCH (08:19)
[2019-09-06] MEDS: ASPIRIN PO SCH (08:19)
[2019-09-06] MEDS: PROVERA PO SCH (08:20)
[2019-09-06] MEDS: DEPAKENE LIQUID PO SCH (08:20)
[2019-09-06] MEDS: PROZAC PO SCH (08:20)
[2019-09-06] MEDS ORDERED: NS 2,000 ML MISC PRN (08:23)
[2019-09-06] MEDS ORDERED: HEPARIN IV PRN (08:23)
[2019-09-06] MEDS: OXY IR PO PRN (08:50)
[2019-09-06 12:02] VITALS: BP 123/78
[2019-09-06] MEDS ORDERED: XGEVA SUBQ ONE (12:30)
[2019-09-06] MEDS ORDERED: NS IV ONE (14:00)
[2019-09-06] MEDS ORDERED: ZOMETA IV ONE (14:00)
[2019-09-06] MEDS: MIRALAX PO SCH (18:23)
== END 2019-09-06 17:33 ==
LOC: SUPCPDRO → ED 09:43 → 1N 12:46
PROVIDERS: ATTEND Internal Medicine

== ENCOUNTER 2019-09-24 11:51 | Inpatient (IN) ==
--- NOTE | 2019-09-24 12:42 | PROVIDER DOCUMENTATION ---
HPI-Psychological Disorder - General Chief Complaint: Psych-High Risk Stated Complaint: PSYCH EVAL Time Seen by Provider: 09/24/19 11:54 Allergies/Adverse Reactions: Patient Allergies Allergy/AdvReac Type Severity Reaction Status Date / Time morphine AdvReac NAUSEA Verified 09/24/19 12:26 Home Medications: Home Medication List Medication Instructions Recorded Confirmed Last Taken Type Albuterol [Albuterol Neb] 1 dose INH 4XDAY 04/07/19 09/18/19 08/24/19 History Ipratropium [place] Neb [Atrovent 1 dose INH 4XDAY 04/07/19 09/18/19 08/24/19 History Neb] Sevelamer Carbonate 1 tab PO TID 04/07/19 09/18/19 08/24/19 History Ondansetron HCl [Zofran] 4 mg PO TID PRN 04/24/19 09/18/19 08/24/19 History Polyethylene Glycol 3350 [Miralax] 17 gm PO BID powder, packet 05/11/19 09/18/19 08/24/19 Rx Cetirizine HCl [Zyrtec] 10 mg PO DAILY 07/01/19 09/18/19 08/24/19 History Cyanocobalamin (Vitamin B-12) 1,000 mcg PO DAILY 07/01/19 09/18/19 08/24/19 History [Vitamin B12] Pantoprazole [Protonix] 40 mg PO DAILY@0700 07/01/19 09/18/19 08/24/19 History Medroxyprogesterone Acetate 10 mg PO DAILY 07/31/19 09/18/19 08/24/19 History [Provera] Tolterodine Tartrate [Detrol LA] 2 mg PO DAILY PRN 07/31/19 09/18/19 08/24/19 History Acetaminophen [Tylenol] 650 mg PO Q6H PRN PRN tab 08/25/19 09/18/19 Unknown Rx Cyclophosphamide [Cytoxan] 25 mg PO QHS cap 08/25/19 09/18/19 Unknown Rx Ipratropium [place] Neb [Atrovent 0.5 mg INH [id number] neb 08/25/19 09/18/19 Unknown Rx Neb] Methocarbamol [Robaxin] 500 mg PO BID PRN 08/25/19 09/18/19 08/24/19 History Nicotine Patch [Nicoderm Patch] 21 mg TD Q24H PRN PRN patch.td24 08/25/19 09/18/19 Unknown Rx Aspirin 325 mg PO DAILY tab 09/06/19 09/18/19 Unknown Rx Fluoxetine [Prozac] 20 mg PO QAM #20 cap 09/06/19 09/18/19 Unknown Rx Oxycodone I.r. [Oxy Ir] 20 mg PO Q8H PRN PRN #30 tab 09/06/19 09/18/19 Unknown Rx Risperidone [Risperdal] 1 mg PO QPM #20 tab 09/06/19 09/18/19 Unknown Rx Trazodone HCl 50 mg PO QHS #30 tab 09/06/19 09/18/19 Unknown Rx Valproic Acid [Depakene Liquid] 10 ml PO BID #500 ml 09/06/19 09/18/19 Unknown Rx - History of Present Illness-Psych Nature of Presenting Problem: Patient with a h/o Multiple myeloma, schizophrenia, COPD ESRD on HD T/H/S here in the ER today as family wants him to be re evaluation for placement. Patient is said to be aggressive to her family at home and recently stated that she wants to light up his home O2 and cause havok to his relative including himself and his family are quit uncomfortable this this. Patient denies being depressed Timing: reports: still present Situational problems related to:: reports: N/A Psychiatric Complaints: reports: agitated, suicidal ideation Substance Use: reports: denies - Suicidal Ideation Suicide Risk Assessment: male sex, rational thought loss (hallucinations), frightened friends-family Clinician's estimation of suicide risk?: high risk Review of Systems - Adult - REVIEW OF SYSTEMS - ADULT Constitutional: reports: no symptoms reported Eyes: reports: no symptoms reported Ears, Nose, Mouth & Throat: reports: no symptoms reported Cardiovascular: reports: no symptoms reported Respiratory: reports: no symptoms reported Gastrointestinal: reports: no symptoms reported Genitourinary: reports: no symptoms reported Musculoskeletal: reports: back pain (chronic low back pain and he is requesting morphine) Neurological: reports: no symptoms reported Psychiatric: reports: see HPI Endocrine: reports: no symptoms reported Hematologic/Lymphatic: reports: no symptoms reported Past History - Adult - PAST MEDICAL HISTORY-ADULT Review of Records: reports: Nursing Assessment Review, Medications Reviewed, Social history reviewed & non-contributory. Major Childhood Illnesses: reports: denies history Cardiovascular: reports: HTN Respiratory: reports: asthma, COPD Gastrointestinal: reports: hemorrhoids, other (hernia) Obstetrical/Gynecological: reports: denies history Genitourinary: reports: dialysis, ESRD, kidney disease Musculoskeletal: reports: cancer, other Neurological: reports: Seizures/Epilepsy Psychiatric: reports: bipolar, schizophrenia Endocrine/Immune: reports: Diabetes, Myeloma Other Conditions: reports: denies history - PRIOR SURGERIES/PROCEDURES Surgical/Procedure History: reports: reviewed, not pertinent, indwelling device (dialysis port placed and removed), hernia repair, bowel surgery, other - IMMUNIZATION STATUS Childhood Immunizations: See Nurse Assessment Flu Vaccine: See Nurse Assessment - FAMILY HISTORY Family History: reviewed, not pertinent Physical Exam-Psych Focus - Physical Exam-Psych Initial Vital Signs Reviewed: Yes Appearance: no apparent distress, other (speech is sometimes confusing) Neurological: alert, other (oriented x 2, does not know date) Thoughts/Hallucinations: flight of ideas HENMT: normocephalic/atraumatic, moist mucous membranes Neck: non-tender, full range of motion, supple Respiratory: chest non-tender, lungs clear, wheezing (mild) Cardiovascular: no edema, no JVD, no murmur Abdominal Exam: non tender, soft Back Exam: no vertebral tenderness, CVA tenderness Extremity: non-tender, no pedal edema Integumentary: normal color Progress - PLAN OF CARE/RESULTS Progress/Plan/Lab Results: Vital Signs - 8 hr 09/24/19 14:30 09/24/19 14:45 09/24/19 15:00 Pulse Rate 63 72 60 Respiratory Rate 26 H 15 10 L Blood Pressure 129/77 O2 Sat by Pulse Oximetry 98 98 94 L 09/24/19 15:01 09/24/19 15:15 09/24/19 15:30 Pulse Rate 55 L 74 58 L Respiratory Rate 14 17 11 L Blood Pressure O2 Sat by Pulse Oximetry 95 90 L 93 L 09/24/19 15:45 09/24/19 16:00 09/24/19 16:15 Pulse Rate 63 61 57 L Respiratory Rate 20 17 15 Blood Pressure O2 Sat by Pulse Oximetry 91 L 90 L 91 L 09/24/19 16:30 09/24/19 16:45 09/24/19 17:00 Pulse Rate 72 61 67 Respiratory Rate 25 H 11 L 16 Blood Pressure O2 Sat by Pulse Oximetry 90 L 94 L 94 L 09/24/19 17:15 09/24/19 17:30 09/24/19 17:32 Pulse Rate 56 L 69 61 Respiratory Rate 16 20 13 Blood Pressure 145/85 O2 Sat by Pulse Oximetry 93 L 90 L 93 L 09/24/19 18:01 09/24/19 19:48 Pulse Rate 56 L 68 Respiratory Rate 16 17 Blood Pressure 129/80 O2 Sat by Pulse Oximetry 96 99 Laboratory Results - last 24 hr 09/24/19 09/24/19 09/24/19 14:09 14:09 14:09 WBC 2.90 L RBC 2.83 L Hgb 8.3 L Hct 26.2 L MCV 92.6 MCH 29.3 MCHC 31.7 L RDW Std Deviation 17.4 H Plt Count 202 MPV 8.5 Immature Gran % (Auto) 1.7 H Neut % (Auto) 70.4 Lymph % (Auto) 21.7 Glynn % (Auto) 5.5 Eos % (Auto) 0.0 Baso % (Auto) 0.7 Immature Gran # (Auto) 0.05 H Neut # (Auto) 2.04 Lymph # (Auto) 0.63 L Glynn # (Auto) 0.16 Eos # (Auto) 0.00 Baso # (Auto) 0.02 Sodium 132 L Potassium 6.7 H* Chloride 88 L Carbon Dioxide 20 L Anion Gap 24 BUN 128 H Creatinine 10.4 H* Estimated GFR/1.73 m2 6 BUN/Creatinine Ratio 12 Glucose 97 Calculated Osmolality 303 Calcium 8.0 L Total Bilirubin 0.19 L AST 13 ALT < 5 L Alkaline Phosphatase 91 Total Protein 8.2 Albumin 3.8 Globulin 4.4 Albumin/Globulin Ratio 0.9 Vitamin B12 TSH Free T4 Urine Source Urine Color Urine Turbidity Urine pH Ur Specific [place] Urine Protein Ur Glucose (Stick) Ur Ketones (Stick) Urine Blood Urine Nitrite Urine Bilirubin Urobilinogen Dipstick Urine Leukocytes Urine WBC (Auto) Urine RBC (Auto) U Epithel Cells (Auto) Urine Bacteria (Auto) Salicylates < 3.00 L Urine Opiates Screen Ur Oxycodone Screen Ur Methadone, Qual Acetaminophen < 1.2 L Ur Barbiturates Screen Ur Phencyclidine Scrn Ur Amphetamines Screen U Benzodiazepines Scrn Urine Cocaine Screen U Cannabinoids Screen Plasma/Serum Ethyl Alc 0 09/24/19 09/24/19 09/24/19 14:09 14:09 14:09 WBC RBC Hgb Hct MCV MCH MCHC RDW Std Deviation Plt Count MPV Immature Gran % (Auto) Neut % (Auto) Lymph % (Auto) Glynn % (Auto) Eos % (Auto) Baso % (Auto) Immature Gran # (Auto) Neut # (Auto) Lymph # (Auto) Glynn # (Auto) Eos # (Auto) Baso # (Auto) Sodium Potassium Chloride Carbon Dioxide Anion Gap BUN Creatinine Estimated GFR/1.73 m2 BUN/Creatinine Ratio Glucose Calculated Osmolality Calcium Total Bilirubin AST ALT Alkaline Phosphatase Total Protein Albumin Globulin Albumin/Globulin Ratio Vitamin B12 1705 H TSH 3.51 Free T4 0.92 L Urine Source CLEAN CATCH Urine Color STRAW Urine Turbidity CLEAR Urine pH 6.5 Ur Specific [place] 1.014 Urine Protein 70 A Ur Glucose (Stick) NEGATIVE Ur Ketones (Stick) NEGATIVE Urine Blood MODERATE A Urine Nitrite NEGATIVE Urine Bilirubin NEGATIVE Urobilinogen Dipstick NORMAL Urine Leukocytes NEGATIVE Urine WBC (Auto) <10 Urine RBC (Auto) TNTC A U Epithel Cells (Auto) <10 Urine Bacteria (Auto) NEGATIVE Salicylates Urine Opiates Screen Ur Oxycodone Screen Ur Methadone, Qual Acetaminophen Ur Barbiturates Screen Ur Phencyclidine Scrn Ur Amphetamines Screen U Benzodiazepines Scrn Urine Cocaine Screen U Cannabinoids Screen Plasma/Serum Ethyl Alc 09/24/19 09/24/19 14:09 20:20 WBC RBC Hgb Hct MCV MCH MCHC RDW Std Deviation Plt Count MPV Immature Gran % (Auto) Neut % (Auto) Lymph % (Auto) Glynn % (Auto) Eos % (Auto) Baso % (Auto) Immature Gran # (Auto) Neut # (Auto) Lymph # (Auto) Glynn # (Auto) Eos # (Auto) Baso # (Auto) Sodium Potassium 6.3 H* Chloride Carbon Dioxide Anion Gap BUN Creatinine Estimated GFR/1.73 m2 BUN/Creatinine Ratio Glucose Calculated Osmolality Calcium Total Bilirubin AST ALT Alkaline Phosphatase Total Protein Albumin Globulin Albumin/Globulin Ratio Vitamin B12 TSH Free T4 Urine Source Urine Color Urine Turbidity Urine pH Ur Specific [place] Urine Protein Ur Glucose (Stick) Ur Ketones (Stick) Urine Blood Urine Nitrite Urine Bilirubin Urobilinogen Dipstick Urine Leukocytes Urine WBC (Auto) Urine RBC (Auto) U Epithel Cells (Auto) Urine Bacteria (Auto) Salicylates Urine Opiates Screen NONE DETECTED Ur Oxycodone Screen PRESUMPTIVE POSITIVE A Ur Methadone, Qual NONE DETECTED Acetaminophen Ur Barbiturates Screen NONE DETECTED Ur Phencyclidine Scrn NONE DETECTED Ur Amphetamines Screen NONE DETECTED U Benzodiazepines Scrn NONE DETECTED Urine Cocaine Screen NONE DETECTED U Cannabinoids Screen NONE DETECTED Plasma/Serum Ethyl Alc Orders Category Date Time Status Admit - [facility] Routine AdmDCTranf 09/24/19 21:03 Active Activity - Bedrest with BSC ORDERED Care 09/24/19 21:03 Active Finger Stick Blood Sugar (ED) DIRECTED Care 09/24/19 19:49 Active Intake and Output-Strict ORDERED Care 09/24/19 21:03 Active Nursing- MD Consult Request ROUTINE Care 09/24/19 21:03 Active Update & Confirm Home Medicati ROUTINE Care 09/24/19 20:08 Active Vital Signs Order Q1H Care 09/24/19 21:03 Active Z-Document. for Tele Applied ORDERED Care 09/24/19 21:03 Active [facility] Routine Cons 09/25/19 08:00 Ordered Physician/Provider Consults Routine Cons 09/25/19 08:00 Ordered Renal Diet Diet 09/24/19 17:22 Active cxr [CHEST-PORTABLE] [RAD] Stat Exams 09/24/19 20:04 Completed ACETAMINOPHEN [TDM] Stat Lab 09/24/19 14:09 Completed ALCOHOL BLOOD Stat Lab 09/24/19 14:09 Completed BASIC METABOLIC PANEL [CHEM] Routine Lab 09/25/19 06:00 Ordered CBC WITH DIFF [HEME] Routine Lab 09/25/19 06:00 Ordered CBC WITH ELECTRONIC DIFF [HEME] Stat Lab 09/24/19 14:09 Completed COMPREHENSIVE METABOLIC PANEL [CHEM] Stat Lab 09/24/19 14:09 Completed FREE T4 Stat Lab 09/24/19 14:09 Completed MAGNESIUM [CHEM] Routine Lab 09/25/19 06:00 Ordered POTASSIUM [CHEM] Stat Lab 09/24/19 20:20 Completed POTASSIUM [CHEM] Timed Lab 09/24/19 23:00 Ordered SALICYLATES [TDM] Stat Lab 09/24/19 14:09 Completed TSH Stat Lab 09/24/19 14:09 Completed URINALYSIS W/POSS RFLX CULT [URINALYSIS] Stat Lab 09/24/19 14:09 Completed URINE DRUG SCREEN Stat Lab 09/24/19 14:09 Completed VITAMIN B12 Stat Lab 09/24/19 14:09 Completed Acetaminophen [Tylenol] Med 09/24/19 21:03 Active 650 mg PO Q6H PRN PRN Albuterol 0.5% INH Conc [Albuterol 0.5% INH Conc For Med 09/24/19 19:48 Discontinued Hyperkalemia] 25 mg INH NOW ONE Albuterol 2.5MG/Ipratrop 0.5MG [Duoneb (A & A)] Med 09/24/19 18:09 Discontinued 3 ml INH NOW ONE Albuterol 2.5MG/Ipratrop 0.5MG [Duoneb (A & A)] Med 09/25/19 04:00 Active 3 ml INH RTQ6H Calcium Gluconate 1 gm Med 09/24/19 18:08 Discontinued 0.9% Sodium Chloride Inj [Ns] 50 ml IV NOW Dextrose 50% Syringe [D50w Syringe] Med 09/24/19 19:57 Discontinued 50 ml IV NOW ONE Dextrose 50% Syringe [D50w Syringe] Med 09/24/19 20:52 Discontinued 50 ml IV NOW ONE Heparin Med 09/24/19 21:03 Active 5,000 unit SUBQ Q8H Hydromorphone [Dilaudid] Med 09/24/19 21:03 Active See Dose Instructions IV Q3H PRN PRN Insulin Human Regular [Humulin R] Med 09/24/19 18:10 Discontinued 10 unit IV NOW ONE Insulin Human Regular [Humulin R] Med 09/24/19 20:52 Discontinued 6 unit IV NOW ONE Ondansetron [Zofran] Med 09/24/19 21:03 Active 4 mg IV Q4H PRN PRN Sodium Bicarbonate 8.4% Med 09/24/19 19:51 Discontinued 50 meq IV PUSH NOW ONE Sodium Zirconium Powder Pkt [Lokelma Powder Packet] Med 09/24/19 18:15 Discontinued 10 gm PO DAILY Aerosol Treatments Routine Oth 09/24/19 19:48 Completed Aerosol Treatments Routine Oth 09/24/19 21:03 Active Aerosol Treatments Stat Oth 09/24/19 19:48 Completed Telemetry [OM.EQ] Routine Oth 09/24/19 21:03 Active EKG [EKG] Routine Ther 09/25/19 08:00 Ordered EKG [EKG] Stat Ther 09/24/19 18:07 Ordered Transfer/Admit Order [TRANSFER] Routine Transfer 09/24/19 20:05 Completed Result Diagrams: 09/24/19 14:09 09/24/19 20:20 - REASSESSMENT Reassessment #1 Time Reassessed: 07:37 Status: unchanged (speech still occasiontently was asking for pain made stating he is heurting all overally confusing, Later spoke with Dr Keita, he states that his TRANSFER CONTROLLER has evaluated pt for dialysis today and thinks pt ids too agitated. He wants pt admitted and for relevated serum k be treated with lokelma., glucose, IV insulin, albuterol neb) - CONSULTS/PCP/HOSPITALIST Notification #1 *Consult/PCP/Hospitalist*: Dr Brady Time Discussed: 07:37 Consult Disposition: Admit (accepted admission) Departure - Departure Date of Disposition Decision: 09/24/19 Time of Disposition Decision: 07:40 DIAGNOSIS: Hyperkalemia, ESRD (end stage renal disease) on dialysis Disposition: ADMITTED INPATIENT 09 Certified Medical Emergency: Urgent Condition: Fair Referrals and Follow-Ups: None,PCP [Primary Care Provider] - - Critical Care Note This patient required my direct & personal management of CC.: No Attestation - Physician/ PRINCESS Attestation Patient care was provided by Advanced Practice Provider:: No The physician spent face to face time with patient:: Yes Advanced Practice Provider documentation review:: Supervising physician onsite and consulted in the evaluation and care of this patient. The physician did have a face to face encounter with the patient.
[2019-09-24 14:31] LABS: URINE SOURCE CLEAN CATCH
[2019-09-24 14:40] LABS: BASO# 0.02 X1000 (0.0-0.2); BASO% 0.7 % (0.0-0.8); HEMATOCRIT 26.2 % (42.0-52.0); HEMOGLOBIN 8.3 g/dL (14.0-18.0); IMM GRAN# 0.05 X1000 (0.0-0.04); IMM GRAN% 1.7 % (0.0-0.5); LYMPH# 0.63 X1000 (1.2-3.4); LYMPH% 21.7 % (20.5-51.1); MCH 29.3 PG (27-31); MCHC 31.7 g/dL (33-37); MCV 92.6 FL (81-99); MONO# 0.16 X1000 (0.11-0.59); MONO% 5.5 % (1.7-9.3); MPV 8.5 FL (7.4-10.4); NEUT# 2.04 X1000 (1.4-6.5); NEUT% 70.4 % (42.2-75.2); PLT 202 X1000 (130-400); RBC 2.83 XMIL (4.7-6.1); RDW 17.4 % (11.5-14.5)
[2019-09-24 14:48] LABS: BILIRUBIN URINE NEGATIVE (NEGATIVE); BLOOD URINE MODERATE (NEGATIVE); COLOR STRAW; GLUCOSE URINE NEGATIVE (NEGATIVE); KETONE URINE NEGATIVE (NEGATIVE); LEUKOCYTES URINE NEGATIVE (NEGATIVE); NITRITE URINE NEGATIVE (NEGATIVE); PH URINE 6.5; PROTEIN URINE 70 mg/dL (NEGATIVE); SP GRAVITY URINE 1.014; TURBIDITY URINE CLEAR (CLEAR); UROBILINOGEN URINE NORMAL (NORMAL)
[2019-09-24 14:49] LABS: UR AMPHETAMINES QUAL NONE DETECTED (NONE DETECT); UR BARBITUATES QUAL NONE DETECTED (NONE DETECT); UR BENZODIAZEPIN QUAL NONE DETECTED (NONE DETECT); UR CANNABINOIDS QUAL NONE DETECTED (NONE DETECT); UR COCAINE QUAL NONE DETECTED (NONE DETECT); UR EPITHELIAL CELLS <10 /HPF (<10); UR METHADONE QUAL NONE DETECTED (NONE DETECT); UR OPIATES QUAL NONE DETECTED (NONE DETECT); UR OXYCODONE QUAL PRESUMPTIVE POSITIVE (NONE DETECT); UR PCP QUAL NONE DETECTED (NONE DETECT); URINE BACTERIA NEGATIVE /HPF; URINE RBC TNTC /HPF (<10); URINE WBC <10 /HPF (<10)
[2019-09-24 14:51] LABS: ACETAMINOPHEN < 1.2 ug/mL (10-30); AGAP 24; ALB/GLOB RATIO 0.9; ALBUMIN 3.8 g/dL (3.5-5.0); ALKALINE PHOSPHATASE 91 U/L (32-122); CHLORIDE 88 mmol/L (98-107); COSMO 303; ESTIMATED GFR 6; GLUCOSE 97 mg/dL (70-104); GOT 13 U/L (10-34); GPT < 5 U/L (10-44); SALICYLATES < 3.00 mg/dL (3-10); SODIUM 132 mmol/L (136-145); TCO2 20 mmol/L (25-35); TOTAL BILIRUBIN 0.19 mg/dL (0.20-1.00); TOTAL PROTEIN 8.2 g/dL (6.3-8.3)
[2019-09-24 14:57] LABS: FREE T4 0.92 ng/dL (0.93-1.70); TSH 3.51 uIUmL (0.27-4.20)
[2019-09-24 14:58] LABS: BUN 128 mg/dL (8-22)
[2019-09-24 15:08] LABS: CREATININE 10.4 mg/dL (0.7-1.2); POTASSIUM 6.7 mmol/L (3.5-5.1)
[2019-09-24] MEDS ORDERED: CALCIUM GLUCONATE 1 GM in NS 50 ML IV ONE (18:08)
[2019-09-24] MEDS ORDERED: DUONEB (A & A) INH ONE (18:09)
[2019-09-24] MEDS ORDERED: HUMULIN R IV ONE ×2 (18:10→20:52)
[2019-09-24] MEDS ORDERED: LOKELMA POWDER PACKET PO SCH (18:15)
[2019-09-24] MEDS ORDERED: ALBUTEROL 0.5% INH CONC FOR HYPERKALEMIA INH ONE (19:48)
[2019-09-24] MEDS ORDERED: SODIUM BICARBONATE 8.4% IV PUSH ONE (19:51)
[2019-09-24] MEDS ORDERED: D50W SYRINGE IV ONE ×2 (19:57→20:52)
--- NOTE | 2019-09-24 20:50 | Diag Imaging Result Doc PS360 ---
EXAM: CHEST-PORTABLE HISTORY: hypoxia TECHNIQUE: Single view COMPARISON: 09/18/2019 FINDINGS: Left-sided pneumonia with atelectasis and at least a moderate sized pleural effusion. The right lung is unchanged. There are scattered granuloma. IMPRESSION: Interval worsening. Electronically signed by Brendan Rene 09/24/2019 8:48 PM
[2019-09-25] MEDS: DILAUDID IV PRN ×5 (00:11→23:06)
[2019-09-25] MEDS: HEPARIN SUBQ SCH ×4 (00:11→20:16)
[2019-09-25 05:02] LABS: BASO# 0.01 X1000 (0.0-0.2); BASO% 0.5 % (0.0-0.8); EOS# 0.01 X1000 (0.0-0.7); EOS% 0.5 % (0.0-10.0); HEMATOCRIT 23.8 % (42.0-52.0); HEMOGLOBIN 7.5 g/dL (14.0-18.0); IMM GRAN% 4.5 % (0.0-0.5); MCH 29.3 PG (27-31); MCHC 31.5 g/dL (33-37); MONO# 0.19 X1000 (0.11-0.59); MONO% 8.6 % (1.7-9.3); NEUT# 1.31 X1000 (1.4-6.5); NEUT% 58.9 % (42.2-75.2); PLT 171 X1000 (130-400); RBC 2.56 XMIL (4.7-6.1); RDW 17.4 % (11.5-14.5); WBC 2.22 X1000 (4.8-10.8)
[2019-09-25 05:21] LABS: CALCIUM 7.6 mg/dL (8.8-10.2); MAGNESIUM 2.6 mg/dL (1.5-2.7); POTASSIUM 5.7 mmol/L (3.5-5.1)
[2019-09-25] MEDS ORDERED: LOKELMA POWDER PACKET PO ONE (05:49)
[2019-09-25] MEDS ORDERED: HUMULIN R IV ONE (05:50)
[2019-09-25] MEDS ORDERED: SODIUM BICARBONATE 8.4% IV PUSH ONE (05:50)
[2019-09-25] MEDS ORDERED: CALCIUM GLUCONATE 1 GM in NS 50 ML IV ONE (05:52)
[2019-09-25] MEDS ORDERED: ALBUTEROL 0.5% INH CONC FOR HYPERKALEMIA INH ONE (05:52)
[2019-09-25] MEDS ORDERED: VANCOMYCIN 1 GM/NS 1 GM/250 ML IVPB IV ONE (06:04)
[2019-09-25] MEDS ORDERED: ZOSYN 2.25 GM in NS 50 ML IV ONE (06:06)
[2019-09-25 06:08] LABS: CREATININE 11.4 mg/dL (0.7-1.2)
[2019-09-25] MEDS: DUONEB (A & A) INH SCH ×4 (06:13→22:03)
--- NOTE | 2019-09-25 06:36 | HISTORY AND PHYSICAL ---
CHIEF COMPLAINT: Psych evaluation. HISTORY OF PRESENT ILLNESS: This is a 59-year-old male who is well known to our service. He has multiple health problems that include multiple myeloma with chronic fractures to his vertebra which cause him chronic pain. He is medically noncompliant, has schizoaffective disorder, end- stage renal disease with Friday, , Friday hemodialysis, hypertension, COPD, chronic anemia. At any rate, he comes in today with his family stating that he was very aggressive. He was at home and threatened to light up his home O2 and cause havoc apparently. His relatives were quite uncomfortable and brought him in for evaluation. The patient was agitated in the ER. He denied suicidal or homicidal ideations. He has been in the past discharged from multiple oncologists related to unprofessional behavior. At any rate, he was found to be hyperkalemic and anemic. He will be placed in the ICU until medically stable for psych evaluation. PAST MEDICAL HISTORY: See HPI. PREVIOUS SURGICAL HISTORY: Fistula placement on the left arm. SOCIAL HISTORY: Pack per day smoker for multiple years. Denies alcohol. History of cocaine use. Denies current illicit drugs. He does take chronic oxycodone related to bone pain. I believe he was released from [facility] after 20 years or so back in November of 2017. FAMILY HISTORY: Maternal grandmother had unknown cancer. Father from myocardial infarction. REVIEW OF SYSTEMS: The patient is agitated. Denies complaint. Pertinent positives for admission are listed above in the HPI. ALLERGIES: Morphine. HOME MEDICATIONS: A list has not been reconciled. An order was placed from nursing to reconcile home medications from pharmacy. These can be restarted when appropriate. PHYSICAL EXAMINATION: VITAL SIGNS: Temperature 99.4 degrees, pulse 84, respirations 27, blood pressure 123/75, oxygen saturation 95% on 2 liters nasal cannula. GENERAL: Agitated 59-year-old -[place] male lying in the ER bed. He is awake and alert and oriented x3. He is for the most part not helpful with examination. HEENT: Head is atraumatic, normocephalic. Pupils equal, round and reactive to light. Extraocular eye movements are intact. Sclerae nonicteric. Conjunctivae pale. Oral mucosa is moist. NECK: Supple. No JVD. No thyromegaly. Trachea is midline. No cervical lymphadenopathy. CARDIAC: S1, S2 appreciated. No murmurs, gallops, rubs. LUNGS: Clear to auscultation bilaterally. No rhonchi, wheezes or rales. Symmetric rise and fall of respirations. ABDOMEN: Soft, nondistended, nontender. Bowel sounds present in all 4 quadrants. Normoactive. No pulsatile masses or organomegaly. NEUROLOGICAL: Alert and oriented x3. Appears to have no focal motor deficits. Cranial nerves could not be fully tested. DIAGNOSTIC DATA: Chest x-ray: Interval worsening of a left-sided pneumonia with atelectasis. LABORATORY DATA: WBC 2.90, hemoglobin 8.3, hematocrit 26.3, platelet count 202,000. Sodium 132, potassium 6.7, chloride 88, carbon dioxide 20, BUN 128, creatinine 10.4, glucose 97. Urine unremarkable. Toxicology screen positive for oxycodone otherwise unremarkable. ASSESSMENT AND PLAN: 1. End-stage renal disease with Friday, , Friday hemodialysis. 2. Hyperkalemia. 3. Questionable suicidal or homicidal ideation. The patient is known to have schizoaffective disorder. 4. Anemia of chronic disease. 5. Multiple myeloma. 6. Chronic bone pain. 7. Left-sided pneumonia. We will treat this as hospital acquired. PLAN: Admit patient to ICU so he can be monitored one on one for questionable suicidal ideation. Consult Aiden Vargas for psych evaluation. Consult Dr. Keita for renal dialysis. Treat and recheck potassium. We will continue to monitor. We will give Dilaudid as needed for chronic pain. We will request that Dr. Keita helps with dosing of antibiotics as he is dialysis. Have started him on vancomycin and Zosyn. Further recommendations per patient's clinical course. Dictated by KAVEH Greene for Percy Brady MD I have performed a face to face diagnostic evaluation. Labs/Xrays- reviewed. Exam- Chest- clear CV- regular, Psyh- anxious. A/P- ESRD, Hyperkalemia ,Suicidal ideation- Admit, Dialysis, Psychiatry consult. Dr. Brady cc: KAVEH Greene MD [facility]
[2019-09-25] MEDS ORDERED: D50W SYRINGE IV ONE (06:38)
[2019-09-25] MEDS ORDERED: D50W SYRINGE ONE (06:48)
[2019-09-25] MEDS ORDERED: SODIUM BICARBONATE 8.4% ONE (06:49)
--- NOTE | 2019-09-25 07:07 | EKG Report ---
Test Performed on : 09/25/2019 06:20:06 AM Test Reason : chest pain Blood Pressure : / mmHG Vent. Rate : 077 BPM Atrial Rate : 077 BPM P-R Int : 200 ms QRS Dur : 098 ms QT Int : 402 ms P-R-T Axes : 042 055 233 degrees QTc Int : 454 ms Normal sinus rhythm. Nonspecific ST and T wave abnormality Abnormal ECG When compared with ECG of 24-SEP-2019 21:06, (Unconfirmed) No significant change was found Unconfirmed Result
--- NOTE | 2019-09-25 07:07 | EKG Report ---
Test Performed on : 09/24/2019 9:06:01 PM Test Reason : CP Blood Pressure : / mmHG Vent. Rate : 088 BPM Atrial Rate : 088 BPM P-R Int : 196 ms QRS Dur : 098 ms QT Int : 372 ms P-R-T Axes : 050 026 131 degrees QTc Int : 450 ms Normal sinus rhythm. Nonspecific T wave abnormality Abnormal ECG When compared with ECG of 19-SEP-2019 02:42, (Unconfirmed) ST no longer depressed in Inferior leads Unconfirmed Result
[2019-09-25 07:34] LABS: ANISOCYTOSIS 2+; BANDS 8 % (0-1); HYPOCHROM 1+; LYMPHS 32 % (21-51); MONO 4 % (1-9); SEGS 56 % (42-75)
[2019-09-25 07:35] LABS: POIKILOCYTOSIS 1+
[2019-09-25] MEDS: LEVAQUIN PO SCH (09:17)
[2019-09-25] MEDS ORDERED: HEPARIN IV PRN (10:58)
[2019-09-25] MEDS ORDERED: NS 2,000 ML MISC PRN (10:58)
--- NOTE | 2019-09-25 14:20 | PROGRESS NOTE ---
DATE: 09/25/2019 SUBJECTIVE: The patient reports feeling okay and he said that he is ready to go. He has been more calmed down overnight. No other issues noted as per nursing staff overnight. OBJECTIVE: Vital Signs: Temperature. 96.4 degrees, heart rate 62, respiratory rate 27, blood pressure 136/72, O2 saturation 100% 2 L nasal cannula. General Examination: This is a chronically ill-appearing, 59-year-old male, lying in bed, in no acute distress. Cardiovascular exam: S1, S2 heard. No murmurs, gallops, or rubs. Regular rate and rhythm. Respiratory exam: Clear bilaterally to auscultation. No work of breathing. No use of accessory muscles. Abdomen: Soft, nontender to palpation. Bowel sounds present. No organomegaly. Extremities: No clubbing, cyanosis or edema. Peripheral pulses present in both legs. Neurological exam: The patient is alert and oriented x3. His speech is slow. Follows commands. Moves 4 extremities spontaneously. LABORATORY DATA: The white cell count is 2.22, hemoglobin 7.5, hematocrit 23.8, platelets 171,000. Potassium 5.7. ASSESSMENT AND PLAN: 1. Questionable suicidal or homicidal ideation. We know this patient he has schizophrenia and apparently family brought him to the hospital because he was agitated and wanted to put himself on fire. At this time he looks to be more calmed down. There is a consult for Aiden Vargas. 2. Hyperkalemia improved. The patient has refused dialysis yesterday, otherwise his potassium should be back to normal. 3. End-stage renal disease, on dialysis. Patient's routine dialysis Friday and Friday. He going to dialysis today. That definitely will take care of the mild potassium elevation. 4. Anemia of chronic disease. Stable. We will continue to monitor. 5. Multiple myeloma. Aware. 6. Chronic bone pain. Patient is on pain medications. 7. Left-sided pneumonia. On checking x-rays from the last couple months findings in the left lung are pretty much similar so at this point I think we will provide Levaquin 250 mg p.o. daily for 10 days. 8. Disposition. Patient is medically stable. After dialysis he should be good to go. We will see Aiden Vargas evaluated this patient considering his history of schizophrenia, schizoaffective disorder. cc: Clifford Jeff MD [facility]
--- NOTE | 2019-09-25 18:53 | NEPHROLOGY CONSULTATION ---
DATE: 09/25/2019 REASON FOR CONSULTATION: Hyperkalemia and ESRD. Medical management. HISTORY OF PRESENT ILLNESS: Mr. Treadwell is a 59-year-old man who we know well. He has myeloma and has been residing in [facility]. He was recently discharged to live with family, and he has not attended outpatient dialysis since then. After searching for him we found him in the [facility], and we were told that he was arrested because of selling cocaine. That was on, I believe, Friday of this week. He now is brought to the emergency room because of worsening shortness of breath and fluid retention. He also had difficult interactions with his family. The notes state that he was aggressive toward his family at home and stated "wants to light up his home oxygen and cause havoc." At this time he is resting quietly in the ICU. He complains to me of swelling and fluid retention, and that he is hungry. PAST MEDICAL HISTORY: As above. MEDICATIONS: Home medications are reviewed. See list. ALLERGIES: Morphine. SOCIAL HISTORY: As above. FAMILY HISTORY: Noncontributory. REVIEW OF SYSTEMS: Noncontributory. PHYSICAL EXAMINATION: Blood pressure 128/73, heart rate 78, respirations 19, afebrile. Generally, chronically ill man lying in bed, in no distress. Skin is warm and dry. Conjunctivae are pink. Oropharynx is moist. Poor dentition. Neck is supple. Neck vein distention is not appreciated. PMI nondisplaced. Regular rate and rhythm. No rub. Lungs have equal breath sounds without crackles. Abdomen soft, nontender. Bowel sounds present.Extremities: Edema 1+. No clubbing or cyanosis. Neurologic exam at baseline. IMPRESSION AND PLAN: 1. Chronic kidney disease 5D. No recent dialysis. Hyperkalemia has been managed appropriately overnight. Potassium now 5.7. Modest metabolic acidosis with anion gap of 24. He will have dialysis today to address all of the above, and his volume status. 2. Anemia. 3. Multiple myeloma. 4. Pancytopenia. He is receiving Cytoxan 25 mg once daily, and I will restart that while he is an inpatient. He has required multiple transfusions in the past. cc: Ronald Keita MD
--- NOTE | 2019-09-26 00:19 | EKG Report ---
Test Performed on : 09/25/2019 7:55:07 PM Test Reason : needed for [facility] Blood Pressure : / mmHG Vent. Rate : 078 BPM Atrial Rate : 078 BPM P-R Int : 194 ms QRS Dur : 096 ms QT Int : 384 ms P-R-T Axes : 047 024 116 degrees QTc Int : 437 ms Normal sinus rhythm. Minimal voltage criteria for LVH, may be normal variant T wave abnormality, consider lateral ischemia Abnormal ECG No previous ECGs available Unconfirmed Result
[2019-09-26] MEDS: DUONEB (A & A) INH SCH ×5 (02:54→23:00)
[2019-09-26] MEDS: HEPARIN SUBQ SCH ×3 (04:06→23:34)
[2019-09-26 08:12] LABS: BASO# 0.01 X1000 (0.0-0.2); BASO% 0.8 % (0.0-0.8); EOS# 0.01 X1000 (0.0-0.7); EOS% 0.8 % (0.0-10.0); HEMATOCRIT 24.1 % (42.0-52.0); HEMOGLOBIN 7.5 g/dL (14.0-18.0); IMM GRAN# 0.02 X1000 (0.0-0.04); IMM GRAN% 1.7 % (0.0-0.5); LYMPH# 0.43 X1000 (1.2-3.4); LYMPH% 35.5 % (20.5-51.1); MCH 29.2 PG (27-31); MCHC 31.1 g/dL (33-37); MCV 93.8 FL (81-99); MONO# 0.08 X1000 (0.11-0.59); MONO% 6.6 % (1.7-9.3); MPV 8.1 FL (7.4-10.4); NEUT# 0.66 X1000 (1.4-6.5); NEUT% 54.6 % (42.2-75.2); PLT 166 X1000 (130-400); RBC 2.57 XMIL (4.7-6.1); RDW 17.6 % (11.5-14.5); WBC 1.21 X1000 (4.8-10.8)
[2019-09-26] MEDS: DILAUDID IV PRN ×3 (08:16→23:34)
[2019-09-26] MEDS: LEVAQUIN PO SCH (08:16)
--- NOTE | 2019-09-26 08:24 | PROGRESS NOTE ---
DATE: 09/26/2019 SUBJECTIVE: The patient reports feeling okay. Not suicidal anymore. No acute issues noted as per nursing staff overnight. OBJECTIVE: Vital Signs: Temperature 98.2 degrees, heart rate 78, respiratory rate 19, blood pressure 143/76, O2 saturation 95% on 2 L nasal cannula. General Examination: This is a chronically ill-appearing, 59-year-old, male, lying in bed, in no acute distress. Cardiovascular Examination: S1 and S2 heard. No murmurs, gallops, or rubs. Regular rate and rhythm. Respiratory Examination: Clear bilaterally to auscultation. No work of breathing. No use of accessory muscles. Abdomen: Soft, nontender to palpation. Bowel sounds present. No organomegaly. Extremities: No clubbing, cyanosis, or edema. Peripheral pulses present in both legs. Neurological Examination: The patient is alert and oriented x3. Follow commands, moves four extremities. Laboratory Data: Pending at the time of my dictation. ASSESSMENT AND PLAN: 1. Question of suicidal or homicidal ideation. The patient has a history of schizophrenia and, apparently, the family brought him to the hospital because he was agitated and wanted to set his house on fire. At this time, he reports he is fine. [facility] has been consulted and they are okay admitting this patient but they do not have the capabilities of moving this patient three times per week for dialysis so they said that they are going to help us in finding a place for him in a psychiatric facility. 2. Hyperkalemia. Labs are improved. Labs from this morning are still pending. 3. End-stage renal disease, on dialysis. Patient had received routine dialysis yesterday. Dr. Keita has been consulted for medical management. 4. Multiple myeloma. Aware. 5. Anemia of chronic disease. Stable. We will continue to monitor. 6. Chronic bone pain. Patient is on pain medication. 7. Left-sided pneumonia. We will continue Levaquin 250 mg by mouth daily. We will complete 10 days of treatment. 8. Disposition. At this point, the patient is definitely much more stable. We will transfer him to a regular floor today. cc: Clifford Jeff MD
[2019-09-26 09:00] LABS: CALCIUM 8.9 mg/dL (8.8-10.2); CREATININE 7.7 mg/dL (0.7-1.2); LYMPHS 25 % (21-51); MONO 10 % (1-9); POTASSIUM 5.2 mmol/L (3.5-5.1); SEGS 60 % (42-75)
[2019-09-26] MEDS ORDERED: CYTOXAN PO SCH (09:00)
[2019-09-27] MEDS: DUONEB (A & A) INH SCH ×4 (03:05→22:55)
[2019-09-27 05:39] LABS: BASO# 0.01 X1000 (0.0-0.2); BASO% 0.5 % (0.0-0.8); HEMATOCRIT 22.8 % (42.0-52.0); IMM GRAN# 0.03 X1000 (0.0-0.04); IMM GRAN% 1.6 % (0.0-0.5); LYMPH# 0.67 X1000 (1.2-3.4); MCH 28.8 PG (27-31); MCHC 30.7 g/dL (33-37); MCV 93.8 FL (81-99); MONO# 0.12 X1000 (0.11-0.59); MONO% 6.5 % (1.7-9.3); MPV 8.4 FL (7.4-10.4); NEUT# 1.03 X1000 (1.4-6.5); NEUT% 55.4 % (42.2-75.2); PLT 172 X1000 (130-400); RBC 2.43 XMIL (4.7-6.1); RDW 17.6 % (11.5-14.5); WBC 1.86 X1000 (4.8-10.8)
[2019-09-27 06:36] LABS: CALCIUM 7.4 mg/dL (8.8-10.2); CREATININE 8.6 mg/dL (0.7-1.2)
[2019-09-27] MEDS ORDERED: D50W SYRINGE IV ONE (06:48)
[2019-09-27] MEDS ORDERED: HUMULIN R IV ONE (06:51)
[2019-09-27] MEDS ORDERED: ALBUTEROL NEB INH ONE (06:52)
[2019-09-27] MEDS ORDERED: CALCIUM GLUCONATE 1 GM in NS 50 ML IV ONE (06:55)
[2019-09-27] MEDS ORDERED: SODIUM BICARBONATE 8.4% IV PUSH ONE (06:56)
[2019-09-27] MEDS ORDERED: NS 2,000 ML MISC PRN (07:32)
[2019-09-27] MEDS ORDERED: TIGHT: 0.2 ML/HR FOR DIALYSIS MISC PRN (07:32)
[2019-09-27] MEDS ORDERED: HEPARIN IV PRN (07:32)
[2019-09-27] MEDS: LEVAQUIN PO SCH (08:37)
[2019-09-27] MEDS: DILAUDID IV PRN ×2 (08:43→20:54)
[2019-09-27] MEDS ORDERED: KAYEXALATE PO ONE (10:20)
[2019-09-27] MEDS ORDERED: NS 500 ML IV ONE (10:21)
--- NOTE | 2019-09-27 11:20 | NEPHROLOGY PROGRESS NOTE ---
DATE: 09/27/2019 Subjective: pt lying in bed awake. Voices being tender all over. Voices having an incontinent episodes. Objective: vitals, temp 99.1, pulse 90, respiration 16, blood pressure 133/76, 02 sat 95% on 2 L nasal cannula. General: elderly -Mosotho male lying in bed and no acute distress. HEENT: Normocephalic, atraumatic. Mucous membranes moist. Skin: warm and dry Neck: supple, no jvd observed Cardiovascular: S1, s2 regulate rate and rhythm, no murmur or gallop Respiratory: clear and equal lung sounds bilaterally. Abdomen: soft, nontender, nondistended. Positive bowel sounds. : not inspected Extremities: no edema, clubbing, or cyanosis. Fistula left upper arm positive thrill and bruit Neurologic: alert oriented to person and place. Talks irrationally. Labs: WBC 1.86, hemoglobin 7, hematocrit 22.8, platelet count 172, sodium 128, potassium 6, chloride 86, carbon dioxide 22, anion gap 20, BUN 81, creatinine 8.6, calcium 7.4. Intake 699, output 600. Impression: 1. Chronic kidney disease Vd. He will have his routine hemodialysis today. 2. Electrolytes and acid base balance. We will correct this on hemodialysis today. 3. Anemia. Chronic. He will receive one unit packed red blood cells during his hemodialysis today. 4. Neutropenia. I will hold his Cytoxan. cc: Ronald Keita MD MTDD
--- NOTE | 2019-09-27 11:34 | PROGRESS NOTE ---
DATE: 09/27/2019 SUBJECTIVE: The patient reports feeling okay. He wanted to go home. He is not suicidal anymore. OBJECTIVE: Vital Signs: Temperature 99.1 degrees, heart rate 78, respiratory rate 17, blood pressure 133/76, O2 saturation 95% on 2 L nasal cannula. General: This is a chronically ill- appearing, 59-year-old, male, lying in bed in no acute distress. Cardiovascular: S1, S2 heard. No murmurs, gallops, or rubs. Regular rate and rhythm. Respiratory: Clear bilaterally to auscultation. No work of breathing or using accessory muscles. Abdomen: Soft, nontender to palpation. Bowel sounds present. No organomegaly. Extremities: No clubbing, cyanosis, or edema. Peripheral pulses present in both legs. Neurological: The patient is awake, but sometimes he is disoriented to person. Follows basic commands. Moves all 4 extremities. LABORATORY DATA: White cell count 1.86, hemoglobin 7.0, hematocrit 22.8, platelets 172,000. BMP shows potassium 6.0, sodium 128. ASSESSMENT AND PLAN: 1. Questionable suicidal or homicidal ideation. The patient has a history of schizophrenia. He has been restless, and one of the reasons why he was brought here was that he apparently wanted to set his house on fire. At this time, he reports that he is not suicidal, that he does not want someone to damage any of his property. [facility] has evaluated this patient, and they think that this patient needs to be admitted inpatient, but unfortunately they said that they do not have the capabilities of moving this patient 3 times per week for dialysis, so they said that they are going to help to find a placement for him in a psychiatric facility. Of course, we have not heard from them since they have been consulted. I think they should be able to transport this patient back and forth while he is in [facility]. In any case, we will talk with social services to inform her, and see what else we can do for this patient. 2. Hyperkalemia. Will provide one dose of Kayexalate, and the patient will have dialysis today. 3. End-stage renal disease. The patient received routine dialysis on Friday. Dr. Keita has been consulted for medical management. 4. Anemia of chronic disease. Hemoglobin has dropped to 1, so while he is on dialysis today, will transfuse 1 unit of blood. 5. Chronic bone pain. Will continue with home medication. 6. Left-sided pneumonia. Will continue with Levaquin 250 mg by mouth daily to complete 10 days of treatment. 7. Disposition. At this point, the patient is medically stable. He will receive 1 unit of blood. After that, the patient should be good to go to any psychiatric facility. cc: Clifford Jeff MD
[2019-09-27] MEDS: HEPARIN SUBQ SCH ×2 (14:57→20:56)
[2019-09-27] MEDS ORDERED: NS 500 ML ONE (16:35)
[2019-09-27] MEDS: LOKELMA POWDER PACKET PO SCH (17:41)
[2019-09-28] MEDS: DILAUDID IV PRN ×5 (00:43→21:44)
[2019-09-28] MEDS: DUONEB (A & A) INH SCH ×4 (03:39→22:29)
[2019-09-28] MEDS: HEPARIN SUBQ SCH ×4 (04:10→20:56)
[2019-09-28 05:44] LABS: CALCIUM 8.5 mg/dL (8.8-10.2); CREATININE 9.9 mg/dL (0.7-1.2); POTASSIUM 5.6 mmol/L (3.5-5.1)
[2019-09-28] MEDS ORDERED: NS 2,000 ML MISC PRN (06:24)
[2019-09-28] MEDS ORDERED: HEPARIN IV PRN (06:24)
[2019-09-28] MEDS ORDERED: TIGHT: 0.2 ML/HR FOR DIALYSIS MISC PRN (06:24)
[2019-09-28] MEDS ORDERED: NS 500 ML IV ONE (06:25)
[2019-09-28] MEDS: LOKELMA POWDER PACKET PO SCH ×2 (06:47→18:18)
--- NOTE | 2019-09-28 10:39 | NEPHROLOGY PROGRESS NOTE ---
DATE: 09/28/2019 Subjective: pt lying in bed awake. Voices being tender all over. Pt is crying and voicing he can not take anymore. Objective: vitals, temp 98.0, pulse 77, respirations 18, blood pressure 156/90, 02 sat 99% on 2 L nasal cannula. General: elderly -Cook Islander male lying in bed and no acute distress. HEENT: Normocephalic, atraumatic. Mucous membranes moist. Skin: warm and dry Neck: supple, no jvd observed Cardiovascular: S1, s2 regulate rate and rhythm, no murmur or gallop Respiratory: clear and equal lung sounds bilaterally. Abdomen: soft, nontender, nondistended. Positive bowel sounds. : not inspected Extremities: no edema, clubbing, or cyanosis. Fistula left upper arm positive thrill and bruit Neurologic: alert oriented to person and place. Talks irrationally. Labs: sodium 134, potassium 5.6, or at 87, carbon dioxide 24, anion gap 23, BUN 88, creatinine 9.9, calcium 8.5. Impression: Chronic kidney disease 5D. He did not receive hemodialysis yesterday so he will get his treatment today. Electrolytes and acid base balance. We will correct this on hemodialysis today. Anemia. Chronic. Myeloma. He will receive one unit packed red blood cells during his hemodialysis today. Myeloma. Cytoxan on hold because of his neutropenia. cc: Ronald Keita MD MTDD
[2019-09-28] MEDS: LEVAQUIN PO SCH (13:37)
--- NOTE | 2019-09-28 18:33 | PROGRESS NOTE ---
DATE: 09/28/2019 SUBJECTIVE: The patient seems like he is very agitated. He is completely naked, and his door is wide open. He is just kind of calling out, but he is not disoriented. He knows where he is. He knows what is going on. He knows he is in the hospital. He knows he is supposed to be getting care, but he says he does not feel better. He does not have the right magic. He has kind of pressured speech, maybe some sort of annemarie or hypomania. OBJECTIVE: Vital Signs: Blood pressure 146/90, heart rate of 82, respiratory rate 18, and temperature 98 degrees, 96% on room air. Cardiovascular: Regular rate and rhythm. Pulmonary: Bilateral breath sounds. Clear to auscultation. GI: Soft, nontender, and nondistended. Bowel sounds are positive. LABORATORY DATA: Sodium 130, potassium 5.6, and creatinine 9.9. PROBLEM LIST: 1. He has got schizophrenia versus schizoaffective. Unclear if this is really being completely treated. We are going to get [facility] to re-evaluate. He is not suicidal, no longer suicidal or homicidal at this time. Decide about placement subsequently because they were not going to be able to handle him with his dialysis needs. 2. Hyperkalemia. We will continue to monitor and initiate lokelma. 3. End-stage renal. He kind of stopped getting dialysis for unclear reasons. We will continue to monitor. Encourage compliance. 4. Anemia. Hemoglobin and hematocrit has stabilized. We will continue to follow. 5. Left-sided pneumonia. He is on Levaquin to complete 10 days of treatments. He is on day 4. DISPOSITION: It is difficult. He was a [facility] patient, but then was released by his family, but his family will not take him back at this point because of underlying psychiatric issues, which are fairly difficult to control even at baseline. We are looking into where we are going to be able to get him home. We will continue to monitor closely. cc: Nick Tsai MD [facility]
[2019-09-28] MEDS: ZOFRAN IV PRN (22:59)
[2019-09-28] MEDS: HALDOL IM PRN (23:42)
[2019-09-29] MEDS: DUONEB (A & A) INH SCH ×4 (03:39→21:28)
[2019-09-29 05:21] LABS: BASO# 0.01 X1000 (0.0-0.2); BASO% 0.5 % (0.0-0.8); HEMATOCRIT 29.4 % (42.0-52.0); IMM GRAN# 0.02 X1000 (0.0-0.04); IMM GRAN% 0.9 % (0.0-0.5); LYMPH# 0.51 X1000 (1.2-3.4); LYMPH% 23.7 % (20.5-51.1); MCH 28.5 PG (27-31); MCHC 30.6 g/dL (33-37); MONO# 0.11 X1000 (0.11-0.59); MONO% 5.1 % (1.7-9.3); MPV 8.2 FL (7.4-10.4); NEUT% 69.8 % (42.2-75.2); PLT 145 X1000 (130-400); RBC 3.16 XMIL (4.7-6.1); RDW 17.6 % (11.5-14.5); WBC 2.15 X1000 (4.8-10.8)
[2019-09-29 05:37] LABS: CALCIUM 8.6 mg/dL (8.8-10.2); POTASSIUM 4.5 mmol/L (3.5-5.1)
[2019-09-29] MEDS: HALDOL IM PRN ×2 (05:46→11:28)
[2019-09-29] MEDS: HEPARIN SUBQ SCH ×3 (05:46→21:18)
[2019-09-29] MEDS ORDERED: TIGHT: 0.2 ML/HR FOR DIALYSIS MISC PRN (06:24)
[2019-09-29] MEDS ORDERED: NS 2,000 ML MISC PRN (06:24)
[2019-09-29] MEDS ORDERED: HEPARIN IV PRN (06:24)
[2019-09-29] MEDS: LEVAQUIN PO SCH (09:57)
[2019-09-29 12:18] LABS: HEPATITIS PROFILE ACUTE SEE COMMENTS
[2019-09-29] MEDS: LOKELMA POWDER PACKET PO SCH (12:46)
[2019-09-29] MEDS ORDERED: DEPAKOTE PO ONE (14:06)
--- NOTE | 2019-09-29 15:32 | PROVIDER PROGRESS NOTE ---
Progress Note Subjective: pt lying in bed awake. Voices being tender all over. Pt is crying and voicing he can not take anymore. Objective: vitals, temp 98.9, pulse 85, respirations 18, blood pressure 155/90, 02 sat 100% on 2 L nasal cannula. General: elderly -Tanzanian male lying in bed and no acute distress. HEENT: Normocephalic, atraumatic. Mucous membranes moist. Skin: warm and dry Neck: supple, no jvd observed Cardiovascular: S1, s2 regulate rate and rhythm, no murmur or gallop Respiratory: clear and equal lung sounds bilaterally. Abdomen: soft, nontender, nondistended. Positive bowel sounds. : not inspected Extremities: no edema, clubbing, or cyanosis. Fistula left upper arm positive thrill and bruit Neurologic: alert oriented to person and place. Talks irrationally. Labs: WBC 2.15, hemoglobin 9, hematocrit 29.4, platelet count 145, sodium 138, potassium 4.5, chloride 93, carbon dioxide 28, anion gap 17, BUN 45, creatinine 6.0. intake 590, output 700. Impression: Chronic kidney disease 5D. He received his routine hemodialysis treatment today. No changes. Electrolytes and acid base balance. Stable. Anemia. Chronic. Myeloma. Improved with 1 unit PRBC. Will consider restarting cytoxan with next lab results.
[2019-09-29] MEDS ORDERED: ALBUTEROL NEB INH SCH ×2 (17:00→21:00)
[2019-09-29] MEDS ORDERED: DETROL LA PO PRN (17:00)
--- NOTE | 2019-09-29 18:32 | PROGRESS NOTE ---
DATE: 09/29/2019 SUBJECTIVE: Patient has no major complaints. OBJECTIVE: Vital signs: Blood pressure 133/90, heart rate 72, respiratory rate 17, temperature 97.8 degrees, 100% on 4 L. Cardiovascular: Regular rate and rhythm. Pulmonary: Bilateral breath sounds. Clear to auscultation. GI: Soft, nontender, nondistended. Bowel sounds are positive. LABORATORY DATA: White count is 2, hemoglobin and hematocrit 9 and 29, platelets 145,000. BUN and creatinine 45 and 6. PROBLEMS: 1. Schizophrenia, schizoaffective disorder. He is kind of getting inappropriate behaviors. [facility] I guess has evaluated the patient and felt that he is not appropriate for them. I think there is a concern over meeting his dialysis needs. The trick is, he has not been on his home medications for several days. Now granted, I think he was having suicidality when he was on his medications reportedly. It is not completely clear if he was completely compliant with them, but we at least need to resume his regular medications. I am going to put him back on Depakote, Risperdal. I am going to put him on Zoloft, he was on Prozac previously, just because of these inappropriate sexual behaviors he is exhibiting. 2. Hyperkalemia. He is on Lokelma. 3. End-stage renal disease. He is on dialysis. Continue to follow. 4. Anemia, stable. 5. Left-sided pneumonia. He is on Levaquin, day 03/26. DISPOSITION: We are looking at long-term placement. We will continue to follow. cc: Nick Tsai MD
[2019-09-29] MEDS: ROCEPHIN 1 GM in NS 50 ML IV SCH (18:50)
[2019-09-29] MEDS: ZOLOFT PO SCH (18:51)
[2019-09-29] MEDS: SEROQUEL PO SCH (18:51)
[2019-09-29] MEDS: RENAGEL PO SCH (18:51)
[2019-09-29] MEDS ORDERED: DESYREL PO SCH (21:00)
[2019-09-29] MEDS ORDERED: DEPAKOTE PO SCH (21:00)
[2019-09-29] MEDS ORDERED: ATROVENT NEB INH SCH (21:00)
[2019-09-29] MEDS: DEPAKENE LIQUID PO SCH (21:18)
[2019-09-29] MEDS: PROVERA PO SCH (21:18)
[2019-09-29] MEDS: RISPERDAL PO SCH (21:21)
[2019-09-29] MEDS: OXY IR PO PRN (23:47)
[2019-09-30] MEDS: HALDOL IM PRN ×3 (02:16→16:10)
[2019-09-30] MEDS: DUONEB (A & A) INH SCH ×4 (03:23→19:49)
[2019-09-30] MEDS: DILAUDID IV PRN ×4 (05:00→21:58)
[2019-09-30] MEDS: HEPARIN SUBQ SCH ×3 (05:30→20:08)
[2019-09-30] MEDS: PROTONIX PO SCH ×2 (05:30→06:29)
[2019-09-30 05:34] LABS: ALBUMIN 3.3 g/dL (3.5-5.0); CALCIUM 8.4 mg/dL (8.8-10.2); CREATININE 4.2 mg/dL (0.7-1.2); PHOSPHORUS 4.6 mg/dL (2.7-4.5); POTASSIUM 3.9 mmol/L (3.5-5.1)
[2019-09-30 05:35] LABS: BASO# 0.01 X1000 (0.0-0.2); BASO% 0.4 % (0.0-0.8); EOS# 0.01 X1000 (0.0-0.7); EOS% 0.4 % (0.0-10.0); HEMATOCRIT 28.1 % (42.0-52.0); HEMOGLOBIN 8.8 g/dL (14.0-18.0); LYMPH# 0.47 X1000 (1.2-3.4); LYMPH% 20.6 % (20.5-51.1); MCH 29.5 PG (27-31); MCHC 31.3 g/dL (33-37); MCV 94.3 FL (81-99); MONO# 0.09 X1000 (0.11-0.59); MONO% 3.9 % (1.7-9.3); MPV 8.4 FL (7.4-10.4); NEUT% 74.7 % (42.2-75.2); PLT 139 X1000 (130-400); RBC 2.98 XMIL (4.7-6.1); RDW 16.8 % (11.5-14.5); WBC 2.28 X1000 (4.8-10.8)
[2019-09-30] MEDS: PROVERA PO SCH (08:14)
[2019-09-30] MEDS: RENAGEL PO SCH ×3 (08:14→16:12)
[2019-09-30] MEDS: DEPAKENE LIQUID PO SCH ×2 (08:14→20:07)
[2019-09-30] MEDS: SEROQUEL PO SCH ×2 (08:14→16:11)
[2019-09-30] MEDS: ZOLOFT PO SCH (08:14)
--- NOTE | 2019-09-30 15:01 | PROVIDER PROGRESS NOTE ---
Progress Note Subjective: pt lying in bed awake. Voices being tender all over. Denies decreased appetite or shortness of breath. Left chest pain, Objective: vitals, temp 97.8, pulse 89, respirations 18, blood pressure 139/81, 02 sat 92% on room air. General: elderly -Ivorian male lying in bed and no acute distress. HEENT: Normocephalic, atraumatic. Mucous membranes moist. Skin: warm and dry, left chest lipoma. Neck: supple, no jvd observed Cardiovascular: S1, s2 regulate rate and rhythm, no murmur or gallop Respiratory: clear and equal lung sounds bilaterally. Abdomen: soft, nontender, nondistended. Positive bowel sounds. : not inspected Extremities: no edema, clubbing, or cyanosis. Fistula left upper arm positive thrill and bruit Neurologic: alert oriented to person and place. Talks irrationally. Labs: WBC 2.28, hemoglobin 8.8, hematocrit 28.1, platelet count 139, sodium 141, potassium 3.9, chloride 95, carbon dioxide 28, anion gap 18, BUN 30, creatinine 4.2, calcium 8.4, phosphorus 4.6, albumin 3.3, intake 480, output 1294. Impression: Chronic kidney disease 5D. He received his routine hemodialysis treatment yesterday. No changes. Electrolytes and acid base balance. Stable. Anemia. Chronic. Myeloma. Improved with 1 unit PRBC. Will consider restarting cytoxan with next lab results. Repeat chest xray.
[2019-09-30] MEDS: LOKELMA POWDER PACKET PO SCH (16:12)
--- NOTE | 2019-09-30 17:04 | Diag Imaging Result Doc PS360 ---
EXAM: CHEST-PORTABLE 09/30/2019 HISTORY: follow up on left pleural effusion TECHNIQUE: AP portable upright at 1604 COMMENT: There is near complete opacification of the left hemithorax. This is worse than on 09/24/2019. There is bony destruction in the lateral fourth, fifth, sixth and seventh ribs on the left. There is ill-defined opacity in the right upper lobe and the inspiration is generally suboptimal. IMPRESSION: Worsening pleural effusion on the left. Pulmonary edema versus pneumonia on the right. Lytic bone disease. Electronically signed by Glen Goldstein 09/30/2019 5:01 PM
[2019-09-30] MEDS: ROCEPHIN 1 GM in NS 50 ML IV SCH (17:12)
--- NOTE | 2019-09-30 19:15 | PROGRESS NOTE ---
DATE: 09/30/2019 SUBJECTIVE: The patient reports feeling fine. He looks like he is disoriented to place. According to nursing staff, he has been having visual hallucination. OBJECTIVE: Vital Signs: Temperature 97.8 degrees, heart rate 89, respiratory rate of 18 ,Blood pressure 139/81, O2 saturation 97% on 4 L nasal cannula. General: This is a chronically ill- appearing 59-year-old male, looking older than his stated age lying in bed, in no acute distress. Cardiovascular: S1, S2 heard. No murmurs, gallops, or rubs. Regular rate and rhythm. Respiratory: Clear bilaterally to auscultation. No work of breathing or using accessory muscles. Abdomen: Soft, nontender to palpation. Bowel sounds present. No organomegaly. Extremities: No clubbing, cyanosis, or edema. Peripheral pulses present in both legs. Neurological exam: The patient is disoriented, follows commands, but looks confused. LABORATORY DATA: Reviewed. ASSESSMENT/PLAN: 1. Schizophrenia with schizoaffective disorder. According to nursing staff, the patient has not had any inappropriate sexual behavior here for the last 24 hours. He has been started on his home medications that includes Zoloft, Risperdal, Depakote. We will continue with the same management. The patient has been evaluated by [facility] and initially they mentioned that they are going to take him, but because of his dialysis, they declined so State evaluation has been requested. We will continue to monitor. 2. Hyperkalemia, resolved. Patient is on Lokelma. 3. End-stage renal disease, on dialysis. Continue with dialysis. Dr. Keita following this patient. 4. Anemia of chronic disease. Stable after 1 unit of blood transfused. 5. Left-sided pneumonia. We will continue with Levaquin 250 mg p.o. daily. Today is day #6 of 10. DISPOSITION: At this point, we are looking for a long-term psychiatric placement. cc: Clifford Jeff MD MTDD
[2019-09-30] MEDS: RISPERDAL PO SCH (20:08)
[2019-10-01] MEDS: DUONEB (A & A) INH SCH ×5 (01:36→22:52)
[2019-10-01] MEDS: HEPARIN SUBQ SCH ×3 (05:00→20:20)
[2019-10-01] MEDS: DILAUDID IV PRN ×5 (05:08→23:57)
[2019-10-01] MEDS: PROTONIX PO SCH (06:14)
[2019-10-01] MEDS ORDERED: HEPARIN IV PRN (08:35)
[2019-10-01] MEDS ORDERED: NS 2,000 ML MISC PRN (08:35)
[2019-10-01] MEDS ORDERED: TIGHT: 0.2 ML/HR FOR DIALYSIS MISC PRN (08:35)
[2019-10-01] MEDS: HALDOL IV PRN ×3 (08:54→20:20)
[2019-10-01] MEDS: RENAGEL PO SCH ×3 (09:12→16:37)
[2019-10-01] MEDS: PROVERA PO SCH (09:12)
[2019-10-01] MEDS: SEROQUEL PO SCH ×2 (09:12→16:37)
[2019-10-01] MEDS: DEPAKENE LIQUID PO SCH ×2 (09:12→20:20)
[2019-10-01] MEDS: ZOLOFT PO SCH (09:13)
[2019-10-01] MEDS: LOKELMA POWDER PACKET PO SCH (13:41)
[2019-10-01] MEDS: OXY IR PO PRN ×2 (14:57)
--- NOTE | 2019-10-01 15:07 | PROGRESS NOTE ---
DATE: 10/01/2019 SUBJECTIVE: The patient reports feeling fine. No complaints at this time. No issues noted as per nursing staff overnight. OBJECTIVE: Vital Signs: Temperature 98.1 degrees, heart rate 73, respiratory rate 18, blood pressure 139/81, O2 saturation 100% on 2 L nasal cannula. General Examination: This is a chronically ill-appearing, 59-year-old, -Grenadian male, looking older than his stated age, lying in bed, in no acute distress. Cardiovascular Examination: S1 and S2 heard. No murmurs, gallops, or rubs. Regular rate and rhythm. Respiratory Examination: Clear bilaterally to auscultation. No work of breathing or using accessory muscles. Abdomen: Soft, nontender to palpation. Bowel sounds present. No organomegaly. Extremities: No clubbing, cyanosis, or edema. Peripheral pulses present in both legs. Neurological Examination: The patient alert. The patient is awake. Sometimes disoriented at times, followed commands. Laboratory Data: Reviewed. ASSESSMENT AND PLAN: 1. Schizophrenia with schizoaffective disorder. The patient has a history of this problem. During the first 2 to 3 days, he has not received any of his home medications so he has been having inappropriate sexual behavior but over the last 48 hours, he has been okay. At this point, the patient is not suicidal. It looks like he is more calm. He said that he is not going to harm himself or any other members of his family. [facility] has refused to take this patient so at this point, we will keep this patient in the hospital. State evaluation has been requested. That is going to be held on October 07 so he is going to be in the hospital at least until that time. We will continue to monitor the patient closely. 2. Hyperkalemia, resolved. Patient is on Lokelma on a daily basis. 3. End-stage renal disease, on dialysis. Dr. Keita is following this patient. We will continue with routine dialysis. 4. Anemia of chronic disease. Hemoglobin is stable after 1 unit of blood transfused 2 days ago. We will continue to monitor CBC. 5. Left-sided pneumonia. White cell count is okay. Patient is not spiking a fever. Will complete 10 days of antibiotics. Today is day #7 out of 10. 6. Disposition. We will continue to monitor this patient closely. cc: Clifford Jeff MD
[2019-10-01] MEDS: ROCEPHIN 1 GM in NS 50 ML IV SCH (16:37)
[2019-10-01] MEDS: RISPERDAL PO SCH (20:20)
--- NOTE | 2019-10-01 21:00 | NEPHROLOGY PROGRESS NOTE ---
DATE: 10/01/2019 SUBJECTIVE: He relates being short of breath. Eating. No nausea or vomiting. OBJECTIVE: Blood pressure 112/70, heart rate 74, respirations 18, afebrile. Generally, no acute distress. Skin is warm and dry. No neck vein distention. Heart is regular, with S4. Lungs are equal. No crackles. Abdomen soft, nontender.Extremities: No edema, clubbing or cyanosis. IMPRESSION AND PLAN: 1. Chronic kidney disease stage 5D. Continue his routine hemodialysis prescription today using a 2K bath and his previously established dry weight. Electrolytes/acid base in target. 2. Anemia. Below target but acceptable. He has multiple myeloma resulting in pancytopenia. His white count has improved, so I will restart his cyclophosphamide. cc: Ronald Keita MD
[2019-10-02] MEDS: HALDOL IV PRN ×4 (00:06→20:08)
[2019-10-02] MEDS: OXY IR PO PRN (02:26)
[2019-10-02] MEDS: DUONEB (A & A) INH SCH ×4 (03:16→21:30)
[2019-10-02] MEDS: HEPARIN SUBQ SCH ×3 (06:03→20:17)
[2019-10-02] MEDS: DILAUDID IV PRN ×4 (06:04→21:58)
[2019-10-02] MEDS: PROTONIX PO SCH (06:04)
[2019-10-02] MEDS: DEPAKENE LIQUID PO SCH ×2 (08:05→20:08)
[2019-10-02] MEDS: PROVERA PO SCH (08:05)
[2019-10-02] MEDS: ZOLOFT PO SCH (08:07)
[2019-10-02] MEDS: SEROQUEL PO SCH ×2 (08:07→15:20)
[2019-10-02] MEDS: RENAGEL PO SCH ×3 (08:07→16:24)
[2019-10-02] MEDS: CYTOXAN PO SCH (08:11)
[2019-10-02] MEDS: LOKELMA POWDER PACKET PO SCH (11:54)
--- NOTE | 2019-10-02 12:19 | PROGRESS NOTE ---
DATE: 10/02/2019 CHIEF COMPLAINT: He wanted psych evaluation. SUBJECTIVE: He is 59, well known to our service. Has multiple health problems including multiple myeloma, chronic fractures to his vertebrae causing chronic pain, medically noncompliant with schizoaffective disorder, end-stage renal disease, Tuesdays, , Saturdays gets hemodialysis, hypertension, COPD, chronic anemia. At any rate, came in on 09/24/2019 with his family stating that he was being very aggressive. He was at home, threatened to light up the home with his oxygen and relatives were very uncomfortable, brought him here, and was agitated in the emergency room. Had denied suicidal or homicidal ideations. He has been past discharged from multiple oncologists related to unprofessional behavior. At any rate, found to have a high potassium and anemia. He has a fistula placement in the left arm, so admitted with end-stage renal disease for hemodialysis, hyperkalemia, questionable suicide or homicidal ideation, schizoaffective disorder, anemia of chronic disease, multiple myeloma, chronic bone pain, left- sided pneumonia. He is stating he wants to go home. His daughter is going to take care of him. OBJECTIVE: Temperature 98.7 degrees, pulse 60 respirations 14, blood pressure 123/73. Pupils are equal and round. Lungs are clear in all lung loza. Cardiovascular: Regular rhythm and rate without murmur or S3. Abdomen is soft. Skin is warm and dry. LABORATORY DATA: Blood sugar 122, 80, 136. ASSESSMENT AND PLAN: 1. Chronic kidney disease stage 5D. Continue hemodialysis. Volume status, electrolytes and acid base seem to be good. 2. Anemia. Seems to be below target but acceptable. He has underlying multiple myeloma. 3. History of multiple myeloma. 4. Schizoaffective disorder. Continue his current medications. 5. As far as where he can be discharged and where he is going to go, I do not think we have a solution to that right now. REVIEW OF HIS ORDERS: He is on risperidone 1 mg at bedtime. He is on cyclophosphamide 25 mg q.day. He gets Haldol as needed. Hydroxyprogesterone 10 mg daily. Oxycodone IR 20 mg every 8 hours p.r.n. Protonix 40 mg a day. Seroquel 50 mg which I think he is taking the Seroquel twice a day. Ceftriaxone 1 g q.24 hours. Zoloft 50 mg daily. Sevelamer as 800 mg p.o. t.i.d. He takes Detrol 2 mg p.o. daily and valproic acid 500 mg p.o. b.i.d. Lab was unremarkable, today hematocrit 28, hemoglobin 8.8. cc: Akshat Elias MD MTDD
[2019-10-02] MEDS: ROCEPHIN 1 GM in NS 50 ML IV SCH (16:23)
[2019-10-02] MEDS: RISPERDAL PO SCH (20:08)
[2019-10-03] MEDS: HALDOL IV PRN ×5 (00:49→20:15)
[2019-10-03] MEDS: DILAUDID IV PRN ×5 (03:29→20:15)
[2019-10-03] MEDS: OXY IR PO PRN (04:40)
[2019-10-03] MEDS: DUONEB (A & A) INH SCH ×4 (06:00→21:50)
[2019-10-03] MEDS: PROTONIX PO SCH (06:11)
[2019-10-03] MEDS: HEPARIN SUBQ SCH ×3 (06:11→20:17)
[2019-10-03] MEDS: DEPAKENE LIQUID PO SCH ×2 (08:18→20:18)
[2019-10-03] MEDS: RENAGEL PO SCH ×3 (08:18→17:27)
[2019-10-03] MEDS: PROVERA PO SCH (08:18)
[2019-10-03] MEDS: ZOLOFT PO SCH (08:19)
[2019-10-03] MEDS: SEROQUEL PO SCH ×2 (08:19→17:27)
[2019-10-03] MEDS: CYTOXAN PO SCH (08:42)
--- NOTE | 2019-10-03 08:51 | PROGRESS NOTE ---
DATE: 10/03/2019 SUBJECTIVE: Mr. Treadwell feels good. No complaints. Of course, he is wanting to go home. He wanted to get his phone. OBJECTIVE: Vital Signs: His temperature is 98 degrees. He remains afebrile. Pulse 80, respirations 14, blood pressure 140/76. HEENT: Pupils are equal and round. Lungs: Clear in all lung loza. Cardiovascular: Regular rhythm and rate without murmur or S3. Abdomen: Soft. Skin: Warm and dry. ASSESSMENT AND PLAN: 1. Chronic kidney disease stage 5D. Continue hemodialysis. Volume status, electrolytes, and acid-base status look good. 2. Anemia. Below target, but acceptable. 3. History of underlying multiple myeloma. 4. Schizoaffective disorder. 5. Discharge plans. Still trying to find a place for him to go. He has chronic kidney disease stage 5D, so continue hemodialysis as needed. cc: Akshat Elias MD
[2019-10-03] MEDS: LOKELMA POWDER PACKET PO SCH (13:10)
[2019-10-03] MEDS: ROCEPHIN 1 GM in NS 50 ML IV SCH (17:27)
[2019-10-03] MEDS: RISPERDAL PO SCH (20:18)
[2019-10-04] MEDS: HALDOL IV PRN ×3 (02:17→16:58)
[2019-10-04] MEDS: DILAUDID IV PRN ×5 (02:17→19:46)
[2019-10-04] MEDS: OXY IR PO PRN ×2 (04:08→14:27)
[2019-10-04] MEDS: DUONEB (A & A) INH SCH ×4 (04:14→22:55)
[2019-10-04] MEDS: HEPARIN SUBQ SCH ×3 (06:15→20:54)
[2019-10-04] MEDS: PROTONIX PO SCH (06:15)
[2019-10-04] MEDS ORDERED: TIGHT: 0.2 ML/HR FOR DIALYSIS MISC PRN (07:46)
[2019-10-04] MEDS ORDERED: NS 2,000 ML MISC PRN (07:46)
[2019-10-04] MEDS ORDERED: HEPARIN IV PRN (07:46)
[2019-10-04] MEDS: RENAGEL PO SCH ×3 (08:16→16:58)
[2019-10-04] MEDS: SEROQUEL PO SCH ×2 (08:16→16:57)
[2019-10-04] MEDS: ZOLOFT PO SCH (08:17)
[2019-10-04] MEDS: PROVERA PO SCH (08:17)
[2019-10-04] MEDS: DEPAKENE LIQUID PO SCH ×2 (08:18→20:54)
--- NOTE | 2019-10-04 12:59 | PROVIDER PROGRESS NOTE ---
Progress Note Subjective: pt lying in bed awake. Voices needing to go home and wondering where he will be placed. Objective: vitals, temp 97.8, pulse 69, respirations 17, blood pressure 134/75, 02 sat 96% on 5 L nasal cannula. General: elderly -Cypriot male lying in bed and no acute distress. HEENT: Normocephalic, atraumatic. Mucous membranes moist. Skin: warm and dry, left chest lipoma. Neck: supple, jvd observed Cardiovascular: S1, s2 regulate rate and rhythm, no murmur or gallop Respiratory:left anterior diminished to upper and lower lobes. Abdomen: soft, nontender, nondistended. Positive bowel sounds. : not inspected Extremities: no edema, clubbing, or cyanosis. Fistula left upper arm positive thrill and bruit Neurologic: alert oriented to person and place. Talks irrationally. Labs: intake 1454. Output 750. Impression: Chronic kidney disease 5D. He will receive his routine hemodialysis treatment today. No changes. Electrolytes and acid base balance. Stable on last labs. Will order new labs for the AM. Anemia. Chronic. Multiple Myeloma resulting in pancytopenia. Will monitor. Continue cyclophosphamide. Fluid volume. Euvolemic. Blood pressure. In target. Nutrition. 25-75% meals eaten. Ambulation. Up to chair daily. Medications reviewed.
[2019-10-04] MEDS: CYTOXAN PO SCH (13:38)
--- NOTE | 2019-10-04 16:10 | PROGRESS NOTE ---
DATE: 10/04/2019 SUBJECTIVE: Mr. Treadwell was resting, sleeping good, easy to arouse, comfortable, breathing comfortably. OBJECTIVE: Vital signs: Temperature was 97.8 degrees, pulse 75, respirations 18, blood pressure 134/75. Weight 147 pounds. HEENT: Pupils are equal and round. Lungs: Clear in all lung loza. Cardiovascular: Regular rhythm and rate without murmur or S3. Abdomen: Soft. Urine output was about 1000 mL. ASSESSMENT AND PLAN: 1. Chronic kidney disease stage 5D. Continues to get routine hemodialysis. He will get it today. No change in electrolyte, acid-base. His anemia is stable. 2. He has multiple myeloma resulting in pancytopenia. Continue cyclophosphamide. 3. Anemia. It is a little below target, but acceptable. 4. Schizoaffective disorder. 5. Discharge plans. Does not really have a place to go. Social Service is working on his case. Continue his current medication. He is on Risperdal 1 mg at bedtime. He gets Dilaudid 0.5 to 1 q.3 p.r.n. pain, cyclophosphamide 25 mg daily, medroxyprogesterone 10 mg p.o. daily, oxycodone IR 20 mg q.8 hours p.r.n., Protonix 40 mg a day, Seroquel 50 mg, I believe he gets that twice a day, ceftriaxone 1 g IV q.24 hours, Zoloft 50 mg q.a.m., sevelamer 800 mg p.o. t.i.d., tolterodine 2 mg p.o. daily p.r.n., Depakote 500 mg b.i.d. I think we can stop the ceftriaxone. cc: Akshat Elias MD
[2019-10-04] MEDS: LOKELMA POWDER PACKET PO SCH (16:57)
[2019-10-04] MEDS: RISPERDAL PO SCH (20:54)
[2019-10-05] MEDS: DILAUDID IV PRN ×4 (02:58→20:46)
[2019-10-05] MEDS: HEPARIN SUBQ SCH ×3 (04:57→20:45)
[2019-10-05] MEDS: OXY IR PO PRN (04:59)
[2019-10-05] MEDS: DUONEB (A & A) INH SCH ×4 (05:15→22:20)
[2019-10-05 05:39] LABS: ALBUMIN 3.3 g/dL (3.5-5.0); CALCIUM 8.7 mg/dL (8.8-10.2); PHOSPHORUS 5.2 mg/dL (2.7-4.5); POTASSIUM 4.7 mmol/L (3.5-5.1)
[2019-10-05 05:52] LABS: HEMATOCRIT 24.8 % (42.0-52.0); HEMOGLOBIN 7.6 g/dL (14.0-18.0); MCH 30.3 PG (27-31); MCHC 30.6 g/dL (33-37); MCV 98.8 FL (81-99); MPV 9.2 FL (7.4-10.4); RBC 2.51 XMIL (4.7-6.1); RDW 16.6 % (11.5-14.5); WBC 2.71 X1000 (4.8-10.8)
[2019-10-05 06:02] LABS: CREATININE 6.1 mg/dL (0.7-1.2)
[2019-10-05] MEDS: PROTONIX PO SCH (06:05)
[2019-10-05] MEDS: HALDOL IV PRN ×2 (08:51→17:10)
[2019-10-05] MEDS: RENAGEL PO SCH ×3 (08:53→17:11)
[2019-10-05] MEDS: CYTOXAN PO SCH (08:53)
[2019-10-05] MEDS: DEPAKENE LIQUID PO SCH ×2 (08:53→20:45)
[2019-10-05] MEDS: ZOLOFT PO SCH (08:53)
[2019-10-05] MEDS: PROVERA PO SCH (08:54)
[2019-10-05] MEDS: SEROQUEL PO SCH ×2 (08:54→17:11)
[2019-10-05] MEDS ORDERED: EPOGEN SUBQ ONE (10:42)
[2019-10-05] MEDS ORDERED: EPOGEN SUBQ SCH (10:45)
[2019-10-05] MEDS: EPOGEN SUBQ SCH (12:19)
--- NOTE | 2019-10-05 12:47 | PROGRESS NOTE ---
DATE: 10/05/2019 SUBJECTIVE: Mr. Treadwell is about ready to eat lunch. He is frustrated that he cannot be discharged from the hospital and frustrated with the situation. He remains afebrile. OBJECTIVE: Temperature 98.9 degrees, pulse 70, respirations 18, blood pressure 152/84. Pupils are equal and round. Lungs are clear in all lung loza. Cardiovascular Examination: Regular rhythm and rate without murmur or S3. Abdomen is soft. Skin is warm and dry. Left arm with his AV graft and it looks unremarkable. ASSESSMENT AND PLAN: 1. Chronic kidney disease stage 5D. Gets routine hemodialysis. Electrolytes, acid-base, volume status look good. His anemia is stable. 2. History of multiple myeloma resulting in pancytopenia. He is on cyclophosphamide. 3. Anemia, stable. 4. Schizoaffective disorder. 5. Still working on discharge plans. It will be difficult because he requires dialysis. REVIEW OF ORDERS: Looking over his orders, I do not see any change. LABORATORY DATA: From today, white count 2710, hematocrit 24, hemoglobin 7.6, platelet count 117,000. Sodium 134, potassium 4.7, chloride 92, BUN 41, creatinine 6.1. Blood sugars 89, 99, 90, 98, and 83, so in the normal range. cc: Akshat Elias MD
--- NOTE | 2019-10-05 16:04 | PROVIDER PROGRESS NOTE ---
Progress Note Subjective: pt lying in bed awake. Voices feeling everyone is disturbing him. Objective: vitals, temp 98.9, pulse 75, respirations 19, blood pressure 150/76, 02 sat 97% on nasal cannula at 2 L. General: elderly -Mauritanian male lying in bed and no acute distress. HEENT: Normocephalic, atraumatic. Mucous membranes moist. Skin: warm and dry, left chest lipoma. Neck: supple, jvd observed Cardiovascular: S1, s2 regulate rate and rhythm, no murmur or gallop Respiratory:left anterior diminished to bilateral lobes with musical rhonchi not ed to upper lobes. Abdomen: soft, nontender, nondistended. Positive bowel sounds. : not inspected Extremities: no edema, clubbing, or cyanosis. Fistula left upper arm positive thrill and bruit Neurologic: alert oriented to person and place. Talks irrationally. Labs: WBC 2.71, hemoglobin 7.6, hematocrit 24.8, platelet count 117, sodium 134, potassium 4.7, chloride 92, carbon dioxide 27, BUN 41, creatinine 6.1. intake 720, output 843 Impression: Chronic kidney disease 5D. He received his routine hemodialysis treatment yesterday, No changes. Electrolytes and acid base balance. Stable Anemia. Chronic. Multiple Myeloma resulting in pancytopenia. Will monitor. Will order a dose of erythropoietin weekly. Fluid volume. Euvolemic. Blood pressure. In target. Nutrition. 25-75% meals eaten. Ambulation. Up to chair daily. Medications reviewed. Discontinued Lokelma.
[2019-10-05] MEDS: RISPERDAL PO SCH (20:46)
[2019-10-06] MEDS: DILAUDID IV PRN ×4 (03:05→17:52)
[2019-10-06] MEDS: DUONEB (A & A) INH SCH ×4 (03:21→21:40)
[2019-10-06] MEDS: OXY IR PO PRN (05:14)
[2019-10-06] MEDS: HEPARIN SUBQ SCH ×3 (06:09→22:45)
[2019-10-06] MEDS: PROTONIX PO SCH (06:09)
[2019-10-06] MEDS ORDERED: HEPARIN IV PRN (06:17)
[2019-10-06] MEDS ORDERED: TIGHT: 0.2 ML/HR FOR DIALYSIS MISC PRN (06:17)
[2019-10-06] MEDS ORDERED: NS 2,000 ML MISC PRN (06:17)
[2019-10-06] MEDS: HALDOL IV PRN ×3 (07:21→19:41)
--- NOTE | 2019-10-06 09:02 | NEPHROLOGY PROGRESS NOTE ---
DATE: 10/06/2019 SUBJECTIVE: No new complaint. OBJECTIVE: Vital signs: Blood pressure 183/98, heart rate 68, respiration 22, afebrile. General: No acute distress. Skin: Warm and dry. Neck: Neck veins are not distended. Heart: Regular with S4. Lungs: Equal. No crackles. Abdomen: Soft, nontender, bowel sounds present. Extremities: No edema, clubbing, or cyanosis. IMPRESSION: 1. Chronic kidney disease 5D. He will have his routine hemodialysis treatment today. 2. Hypertension. Blood pressure typically ranging between 120 and 145 systolic. No changes. 3. Electrolyte/acid base in target. 4. Anemia. Hemoglobin 7.6 on yesterday. Transfuse for hemoglobin below 7. Continue Cytoxan. cc: Ronald Keita MD
[2019-10-06] MEDS: PROVERA PO SCH (11:00)
[2019-10-06] MEDS: DEPAKENE LIQUID PO SCH ×2 (11:00→22:45)
[2019-10-06] MEDS: SEROQUEL PO SCH ×2 (11:00→17:54)
[2019-10-06] MEDS: ZOLOFT PO SCH (11:00)
[2019-10-06] MEDS: CYTOXAN PO SCH (11:01)
[2019-10-06] MEDS: RENAGEL PO SCH ×3 (11:05→17:54)
--- NOTE | 2019-10-06 12:55 | PROGRESS NOTE ---
DATE: 10/06/2019 SUBJECTIVE: Mr. Treadwell is feeling good. There is a possibility he could be accepted at [place] and so may be able to get him discharged. OBJECTIVE: Vital signs: Temperature 98.6 degrees, pulse 85, respirations 20, blood pressure 136/81. HEENT: Pupils are equal and round. Lungs: Clear in all lung loza. Cardiovascular: Regular rhythm and rate without murmur or S3. ASSESSMENT AND PLAN: 1. Chronic kidney disease stage 5D. Continue routine hemodialysis. 2. Hypertension. Blood pressures look good. No changes in medication. 3. Electrolyte, acid-base balance appear on target. 4. Anemia. Hemoglobin 7.6 yesterday. We will transfuse if hemoglobin below 7. Continue his Cytoxan. 5. Hopefully he has a place for discharge at [place], we will pursue that. REVIEW OF HIS ORDERS: I do not see any change. REVIEW OF HIS LAB: Hematocrit 24, hemoglobin 7.6. Blood sugars 105, 88, 86 and 102. cc: Akshat Elias MD
[2019-10-06] MEDS: RISPERDAL PO SCH (22:44)
[2019-10-07] MEDS: DUONEB (A & A) INH SCH ×4 (03:35→21:33)
[2019-10-07] MEDS: HALDOL IV PRN ×4 (03:40→20:13)
[2019-10-07] MEDS: HEPARIN SUBQ SCH ×3 (06:40→20:14)
[2019-10-07] MEDS: PROTONIX PO SCH (06:40)
--- NOTE | 2019-10-07 08:18 | Diag Imaging Result Doc PS360 ---
EXAM: CHEST-1 VIEW HISTORY: co SOB TECHNIQUE: Single view COMPARISON: 09/30/2019 FINDINGS: There is partial reexpansion of the left lung although a moderate-sized pleural effusion remains. Poor inspiratory effort. There are multiple old rib fractures. No right pleural effusion identified. IMPRESSION: Slight interval improvement Electronically signed by Brendan Rene 10/07/2019 8:15 AM
--- NOTE | 2019-10-07 08:20 | Diag Imaging Result Doc PS360 ---
EXAM: FACIAL BONES 10/07/2019 HISTORY: fell in hospital room TECHNIQUE: Facial bone series 3 views COMMENT: There is some mucosal thickening in the left maxillary sinus. There are no air-fluid levels. There is no evidence of acute bony abnormality. IMPRESSION: Possible chronic left maxillary sinusitis. No evidence of acute bony disease. Electronically signed by Glen Goldstein 10/07/2019 8:18 AM
[2019-10-07] MEDS: DILAUDID IV PRN ×3 (08:50→17:10)
[2019-10-07] MEDS: DEPAKENE LIQUID PO SCH ×2 (08:53→20:14)
[2019-10-07] MEDS: CYTOXAN PO SCH (08:54)
[2019-10-07] MEDS: ZOLOFT PO SCH (08:54)
[2019-10-07] MEDS: PROVERA PO SCH (08:54)
[2019-10-07] MEDS: RENAGEL PO SCH ×3 (08:54→17:11)
[2019-10-07] MEDS: SEROQUEL PO SCH ×4 (08:54→20:14)
--- NOTE | 2019-10-07 09:08 | Diag Imaging Result Doc PS360 ---
EXAM: WRIST 2 VIEWS-RIGHT 10/07/2019 HISTORY: fell in hospital room TECHNIQUE: Right wrist two views COMMENT: There is no evidence of fracture dislocation or periosteal reaction. IMPRESSION: No acute bony abnormality. Electronically signed by Glen Goldstein 10/07/2019 9:06 AM
--- NOTE | 2019-10-07 10:15 | PROVIDER PROGRESS NOTE ---
Progress Note Subjective: pt lying in floor, he had just fallen. The bridge of his nose has a small laceration and he is bleeding. He is complaining of right wrist pain and shortness of breath. Oxygen applied, chest, wrist, and facial bone xray ordered. Objective: temp 98.3, pulse 90, respiration 16, blood pressure 149/86, 02 sat 95% on 2 L nasal cannula. General: elderly -[place] male lying in the flood in mild distress. HEENT: Normocephalic, atraumatic. Mucous membranes moist. Skin: warm and dry, new small laceration to bridge of nose. Neck: supple, jvd observed Cardiovascular: S1, s2 regulate rate and rhythm, no murmur or gallop today. Respiratory: equal no crackles. Abdomen: soft, nontender, nondistended. Positive bowel sounds. : not inspected Extremities: no edema, clubbing, or cyanosis. Fistula left upper arm positive thrill and bruit Neurologic: alert oriented to person and place. Talks irrationally. Labs: intake 300, output 1549. Impression: Chronic kidney disease 5D. He received his routine hemodialysis treatment yesterday, No changes. Electrolytes and acid base balance. Stable Anemia. Chronic. Multiple Myeloma. On weekly erythropoietin. Fluid volume. Euvolemic. Blood pressure. In target. Nutrition. 25-75% meals eaten. Functional state. Fell when left alone today. Wrist and facial films without fractures. Needs rehab. Medications reviewed.
--- NOTE | 2019-10-07 18:06 | PROGRESS NOTE ---
DATE: 10/07/2019 SUBJECTIVE: He was sleeping, easy to arouse. He said he does not feel real good today. He fell while he was on the commode and he kind of hit his nose pretty hard. He has been eating. OBJECTIVE: Vital signs: He remains afebrile, temperature 98.3 degrees, pulse 78, respirations 15, blood pressure 141/84. HEENT: Pupils are equal. Neck: No distended neck veins. Lungs: Clear in all lung loza. Cardiovascular: Regular rhythm and rate without murmur or S3. Abdomen: Soft. Skin: Warm and dry. No sign of visible swelling or ecchymosis at this point on his head or the bridge of his nose where he fell. Blood sugars 86, 102, 125, 93. ASSESSMENT AND PLAN: 1. Chronic kidney disease stage 5D. Continue routine hemodialysis. His electrolytes and acid base status look good. His anemia is chronic. He has underlying multiple myeloma. 2. Multiple myeloma. Continue his present treatment with Cytoxan. He appears to be euvolemic. 3. He has schizoaffective disorder. He still has times where he gets agitated and he seems to be oriented. We have had to give him Haldol every day. He is on Risperdal 1 mg at bedtime. He is getting Dilaudid 0.5 to 1 IV q.3 hours. He is getting cyclophosphamide 25 mg a day. He gets his erythropoietin 14356 units subcutaneously weekly, medroxyprogesterone 10 mg p.o. daily, oxycodone IR 20 mg p.o. q.8 hours p.r.n., Protonix 40 mg a day. I am going to go up on his Seroquel and I am going to see if we can go up to 100 mg at 8 o'clock and 4 o'clock p.m. and give him another 100 at bedtime. Zoloft 50 mg a day, sevelamer 800 mg p.o. t.i.d., tolterodine 2 mg p.o. daily p.r.n., Depakote 500 mg b.i.d. cc: Akshat Elias MD
[2019-10-07] MEDS: RISPERDAL PO SCH (20:14)
[2019-10-07] MEDS: OXY IR PO PRN (20:14)
[2019-10-08] MEDS: TYLENOL PO PRN (02:07)
[2019-10-08] MEDS: HALDOL IV PRN (02:07)
[2019-10-08] MEDS: DUONEB (A & A) INH SCH ×4 (03:42→22:55)
[2019-10-08] MEDS: OXY IR PO PRN ×3 (05:26→23:28)
[2019-10-08] MEDS: HEPARIN SUBQ SCH ×3 (05:28→20:39)
[2019-10-08] MEDS: PROTONIX PO SCH (06:58)
[2019-10-08] MEDS ORDERED: NS 2,000 ML MISC PRN (07:55)
[2019-10-08] MEDS ORDERED: TIGHT: 0.2 ML/HR FOR DIALYSIS MISC PRN (07:55)
[2019-10-08] MEDS ORDERED: HEPARIN IV PRN (07:55)
[2019-10-08] MEDS: RENAGEL PO SCH ×3 (08:11→16:51)
[2019-10-08] MEDS: SEROQUEL PO SCH ×3 (08:12→20:39)
[2019-10-08] MEDS: CYTOXAN PO SCH (08:31)
[2019-10-08] MEDS: DEPAKENE LIQUID PO SCH ×2 (08:31→20:39)
[2019-10-08] MEDS: PROVERA PO SCH (08:31)
[2019-10-08] MEDS: ZOLOFT PO SCH (08:32)
--- NOTE | 2019-10-08 15:45 | PROGRESS NOTE ---
DATE: 10/08/2019 SUBJECTIVE: Mr. Treadwell had a pretty uneventful night and breathing comfortably. Remains afebrile. OBJECTIVE: Vital Signs: Temperature 98.2 degrees, pulse 80, respirations 22, blood pressure 129/73. Eyes: Pupils are equal and round. Lungs: Lungs are clear in all lung loza. Cardiovascular exam: Regular rhythm and rate without murmur or S3. : Urine output is 1400 mL. ASSESSMENT AND PLAN: 1. Chronic kidney disease stage 5 D. Continue routine hemodialysis. Electrolytes and volume status look good. His anemia is chronic and appears to be stable. 2. Multiple myeloma. Continue Cytoxan. 3. Schizoaffective disorder. I have gone up on his Seroquel. We will see if this will help. LABORATORY DATA: Review of his lab: Hematocrit 24, hemoglobin 7.6, blood sugars 94, 69, 131. REVIEW OF HIS ORDERS: I do not see any change. cc: Akshat Elias MD
--- NOTE | 2019-10-08 19:00 | NEPHROLOGY PROGRESS NOTE ---
DATE: 10/08/2019 SUBJECTIVE: Patient resting in bed. He is waiting for breakfast. He wants to go to dialysis. OBJECTIVE: Vital Signs: Temperature 97.8 degrees, pulse 85, respiratory rate 20, blood pressure 145/76, intake not measured. Output 355 mL. General: This is a middle-aged gentleman resting in bed. He is in no acute distress. HEENT: Normocephalic. He does have laceration across the bridge of the nose. Oral mucosa moist. Dentition poor. Neck: Supple. Trace JVD. Cardiovascular: Regular rate and rhythm without murmur or gallop. Pulmonary: He has equal excursion. Abdomen: Soft, with positive bowel sounds. : He has minimal void with hemodialysis assist. Extremities: No clubbing, cyanosis, or edema. AV fistula in left upper extremity. Integumentary: Skin warm and dry. LAB DATA: Pending. ASSESSMENT AND PLAN: 1. Chronic kidney disease 5d. His routine dialysis is Friday, Friday, Friday. We will plan to dialyze him today on a 2 K bath/UF to his dry weight 3.5 hour treatment. 2. Electrolytes, acid-base balance. See above for plan. 3. Anemia. He has multiple myeloma. He continues with erythropoietin. 4. Fluid volume. He is not overloaded at this time. Again, we will dialyze with UF to dry weight. 5. Hypertension, controlled. Medication reviewed, no changes. 6. Disposition. It appears they are trying to find a place for him at [place]. Dictated by KAVEH Clarke for Ronald Keita MD cc: Ronald Keita MD
[2019-10-08] MEDS: RISPERDAL PO SCH (20:39)
[2019-10-09] MEDS: HALDOL IV PRN ×4 (01:32→15:07)
[2019-10-09] MEDS: DUONEB (A & A) INH SCH ×5 (04:25→23:41)
[2019-10-09] MEDS: HEPARIN SUBQ SCH ×3 (06:42→21:03)
[2019-10-09] MEDS: PROTONIX PO SCH (06:42)
[2019-10-09] MEDS: SEROQUEL PO SCH ×3 (08:35→21:02)
[2019-10-09] MEDS: PROVERA PO SCH (08:36)
[2019-10-09] MEDS: ZOLOFT PO SCH (08:36)
[2019-10-09] MEDS: RENAGEL PO SCH ×3 (08:36→17:50)
[2019-10-09] MEDS: CYTOXAN PO SCH (08:37)
[2019-10-09] MEDS: DEPAKENE LIQUID PO SCH ×2 (08:37→21:02)
[2019-10-09] MEDS: OXY IR PO PRN (08:46)
--- NOTE | 2019-10-09 12:44 | PROGRESS NOTE ---
DATE: 10/09/2019 SUBJECTIVE: Mr. Treadwell is comfortable. He is a little more relaxed. I will probably go up on his Seroquel some. He is eating. He has not had any recent falls. PHYSICAL EXAM: Vital Signs: Today afebrile, pulse 89, respirations 19, blood pressure 137/70. HEENT: Pupils are equal and round. Lungs: Clear in all lung loza. Cardiovascular exam: Regular rhythm and rate without murmur or S3. : Urine output is 900 mL. ASSESSMENT AND PLAN: 1. Chronic kidney disease stage 5 D. Continue hemodialysis. His electrolytes and volume status are stable. 2. Multiple myeloma. He has chronic anemia and it remained low, but stable. Hematocrit 24, hemoglobin 7.6. 3. Schizoaffective disorder. I have actually gone up on his Seroquel and now I think I will go up a little more. We will go up to 150 mg twice a day and continue his 50 mg at night. cc: Akshat Elias MD
[2019-10-09] MEDS: RISPERDAL PO SCH (21:02)
[2019-10-10] MEDS: OXY IR PO PRN ×2 (01:29→09:18)
[2019-10-10] MEDS: DUONEB (A & A) INH SCH ×4 (03:15→21:46)
[2019-10-10] MEDS: HALDOL IV PRN ×2 (06:07→10:59)
[2019-10-10] MEDS: PROTONIX PO SCH (06:11)
[2019-10-10] MEDS: HEPARIN SUBQ SCH ×3 (06:11→21:33)
[2019-10-10] MEDS: DEPAKENE LIQUID PO SCH ×2 (09:15→21:33)
[2019-10-10] MEDS: SEROQUEL PO SCH ×3 (09:16→21:33)
[2019-10-10] MEDS: PROVERA PO SCH (09:16)
[2019-10-10] MEDS: RENAGEL PO SCH ×3 (09:18→18:19)
[2019-10-10] MEDS: ZOLOFT PO SCH (09:18)
--- NOTE | 2019-10-10 14:45 | PROGRESS NOTE ---
DATE: 10/10/2019 SUBJECTIVE: He was sitting up in his chair near the door. He said he wanted to just get some fresh air in the door of his room. He says he is still not sleeping real good. He appears comfortable. No complaints of pain. Breathing comfortably. He would like me to go up on his medicine a little more to help him sleep at night. OBJECTIVE: Vital signs: Temperature 97.6 degrees, pulse 93, respirations 20, blood pressure 146/87. HEENT: Pupils are equal and round. Lungs: Clear in all lung loza. Cardiovascular: Regular rhythm and rate without murmur or S3. Abdomen: Soft. Skin: Warm and dry. ASSESSMENT AND PLAN: 1. Chronic kidney disease stage 5D. His volume status and electrolytes look good. 2. Multiple myeloma and he has chronic anemia from chronic kidney disease. Hemoglobin and hematocrit are on the low side but stable. We will check again his levels tomorrow. 3. Schizoaffective disorder. Aware. Still working on discharge plans. Has to be approved by the State. He is on Risperdal 1 mg at bedtime, Seroquel 50 mg p.o. at bedtime. I have him on Seroquel 150 mg twice a day, Zoloft 50 mg a day. I will go up on the Seroquel to 200 mg twice a day and 100 mg at night to see if that will help. cc: Akshat Elias MD
[2019-10-10] MEDS: CYTOXAN PO SCH (16:20)
[2019-10-10] MEDS: RISPERDAL PO SCH (21:33)
[2019-10-11] MEDS: OXY IR PO PRN ×2 (01:58→11:22)
[2019-10-11] MEDS: DUONEB (A & A) INH SCH ×4 (03:16→22:11)
[2019-10-11] MEDS: HEPARIN SUBQ SCH ×3 (05:09→21:07)
[2019-10-11] MEDS: HALDOL IV PRN (05:10)
[2019-10-11] MEDS: PROTONIX PO SCH (06:16)
[2019-10-11] MEDS ORDERED: NS 2,000 ML MISC PRN (06:59)
[2019-10-11] MEDS ORDERED: HEPARIN IV PRN (06:59)
[2019-10-11] MEDS ORDERED: TIGHT: 0.2 ML/HR FOR DIALYSIS MISC PRN (06:59)
[2019-10-11] MEDS: TYLENOL PO PRN ×2 (09:24→23:30)
[2019-10-11 10:07] LABS: HEMATOCRIT 22.3 % (42.0-52.0); MCH 30.8 PG (27-31); MCHC 31.4 g/dL (33-37); MCV 98.2 FL (81-99); MPV 9.4 FL (7.4-10.4); RBC 2.27 XMIL (4.7-6.1); RDW 16.5 % (11.5-14.5); WBC 1.84 X1000 (4.8-10.8)
[2019-10-11 11:03] LABS: ALBUMIN 3.3 g/dL (3.5-5.0); CALCIUM 8.8 mg/dL (8.8-10.2); CREATININE 8.2 mg/dL (0.7-1.2); PHOSPHORUS 6.2 mg/dL (2.7-4.5)
[2019-10-11] MEDS: RENAGEL PO SCH ×3 (11:20→17:11)
[2019-10-11] MEDS: SEROQUEL PO SCH ×3 (11:22→21:08)
[2019-10-11] MEDS: ZOLOFT PO SCH (11:22)
[2019-10-11] MEDS: DEPAKENE LIQUID PO SCH ×2 (11:23→21:07)
[2019-10-11] MEDS: CYTOXAN PO SCH (11:23)
[2019-10-11] MEDS: PROVERA PO SCH (11:23)
--- NOTE | 2019-10-11 16:32 | PROVIDER PROGRESS NOTE ---
Progress Note Subjective: Pt lying in bed, still remains sore to his upper chest. Objective: temp 97.5, pulse 84, respirations 14, blood pressure 133/74, O2 sat 100% on 5 L nasal cannula General: elderly -Zimbabwean male lying in bed in no acute distress.. HEENT: Normocephalic, atraumatic. Mucous membranes moist. Skin: warm and dry, healing laceration to bridge of nose. Neck: supple, jvd observed Cardiovascular: S1, s2 regulate rate and rhythm, no murmur or gallop today. Respiratory: equal no crackles. Abdomen: soft, nontender, nondistended. Positive bowel sounds. : not inspected Extremities: no edema, clubbing, or cyanosis. Fistula left upper arm positive thrill and bruit Neurologic: alert oriented to person, place, and time. Labs: intake 702, output 400. WBC 1.84, hemoglobin seven, hematocrit 22.3, platelet count 160, sodium 131, potassium 6.0, chloride 90, carbon dioxide 25, BUN 69, creatinine 8.2. Impression: Chronic kidney disease 5D. He will receive his routine hemodialysis treatment today, No changes. Electrolytes and acid base balance. Will be corrected with hemodialysis today. Anemia. Chronic. Multiple Myeloma. On weekly erythropoietin. Will transfuse Packed blood cells with treatment today. Fluid volume. Euvolemic. Blood pressure. In target. Nutrition. Adequate Ambulation. Up to chair daily. Medications reviewed.
--- NOTE | 2019-10-11 16:57 | PROGRESS NOTE ---
DATE: 10/11/2019 SUBJECTIVE: Mr. Treadwell was resting, sleeping comfortably, easy to arouse. Appears to be comfortable. No complaints of pain. OBJECTIVE: Vital signs: Temp 98.1 degrees, pulse 74, respirations 16, blood pressure 136/77. Weight 154 pounds. HEENT: Pupils are equal and round. Lungs: Clear in all lung loza. Cardiovascular: Regular rhythm and rate without murmur or S3. Abdomen: Soft. Skin: Warm and dry. Urine output 3,000 mL. ASSESSMENT AND PLAN: 1. Chronic kidney disease stage 5D. Volume status and electrolytes remain good. 2. Underlying multiple myeloma. He has anemia both from multiple myeloma and chronic kidney disease. Hemoglobin is at 7, hematocrit is 22, fairly stable. We will give him a unit of blood if hemoglobin less than 7. Dr. Keita is following. He has pancytopenia from his multiple myeloma. Continue his medroxyprogesterone 10 mg a day and cyclophosphamide at 25 mg a day. 3. Schizoaffective disorder and we have gone up on his Seroquel, which seems to be helping. We are looking for placement opportunities which is difficult. Right now he is on Seroquel 200 mg twice a day and then he takes Seroquel 100 mg at night and so we will continue that. cc: Akshat Elias MD
[2019-10-11] MEDS: MIRALAX PO SCH (17:11)
[2019-10-11] MEDS: RISPERDAL PO SCH (21:08)
[2019-10-12] MEDS: DUONEB (A & A) INH SCH ×5 (04:41→22:11)
[2019-10-12] MEDS: HEPARIN SUBQ SCH ×3 (04:43→21:22)
[2019-10-12] MEDS: PROTONIX PO SCH (06:23)
[2019-10-12] MEDS: OXY IR PO PRN ×2 (08:10→16:04)
[2019-10-12] MEDS: DEPAKENE LIQUID PO SCH ×2 (08:11→21:22)
[2019-10-12] MEDS: CYTOXAN PO SCH (08:11)
[2019-10-12] MEDS: ZOLOFT PO SCH (08:11)
[2019-10-12] MEDS: SEROQUEL PO SCH ×3 (08:11→21:22)
[2019-10-12] MEDS: PROVERA PO SCH (08:11)
[2019-10-12] MEDS: RENAGEL PO SCH ×3 (08:11→16:05)
[2019-10-12] MEDS: MIRALAX PO SCH (08:12)
[2019-10-12] MEDS: PROZAC PO SCH (10:06)
[2019-10-12] MEDS: EPOGEN SUBQ SCH (11:26)
--- NOTE | 2019-10-12 13:17 | PROVIDER PROGRESS NOTE ---
Progress Note Subjective: Pt sitting up at side of bed eating breakfast without difficulty, however he is voicing shortness of breath, he recently received a breathing treatment. Denies nausea, vomiting, or chest pain. Objective: temp 98.3, pulse 73, respirations 18, blood pressure 160/82, 02 sat 98% on room air. General: elderly -Japanese male in bed in no acute distress.. HEENT: Normocephalic, atraumatic. Mucous membranes moist. Pupils equal and reactive. Skin: warm and dry, healing laceration to bridge of nose. Neck: supple, no jvd observed Cardiovascular: S1, s2 regulate rate and rhythm, no murmur or gallop. Respiratory: equal air excursion, no crackles or wheezes. Abdomen: soft, nontender, nondistended. Positive bowel sounds. : not inspected Extremities: no edema, clubbing, or cyanosis. Fistula left upper arm positive thrill and bruit Neurologic: alert oriented to person, place, and time. Labs: intake 800, output 1650 Impression: Chronic kidney disease 5D. He only stayed in his treatment for a little over an hour yesterday until he told the staff he didnt want it anymore. We will plan to continue his current schedule of hemodialysis tomorrow. Electrolytes and acid base balance. Stable Anemia. Chronic. Multiple Myeloma. On weekly erythropoietin, po cyclophosphamide. Fluid volume. Euvolemic. Blood pressure. Above target. Nutrition. Adequate Ambulation. Up to chair daily. Medications reviewed.
[2019-10-12] MEDS: HALDOL IV PRN (17:38)
--- NOTE | 2019-10-12 19:25 | PROGRESS NOTE ---
DATE: 10/12/2019 SUBJECTIVE: This patient states that he is feeling fine at this moment, but he has been having episodes of agitation on and off. He has been placed on Seroquel 200 mg p.o. twice a day and 100 mg p.o. before bedtime, also Risperdal 1 mg, Zoloft 50 mg q.a.m. scheduled, and recently I started this patient on Prozac 20 mg p.o. q.a.m. He has been getting Haldol as needed as well. At this moment, he seems to be stable, sleepy, but arousable, and he is talking. OBJECTIVE: Vital signs: Temperature 98.1 degrees, pulse 79, respiratory rate 18, blood pressure 126/78, oxygen saturation 100% on 2 L of nasal cannula. HEENT: Head normocephalic, no trauma. PERRLA. Poor dentition. Neck: Supple. No JVD. Central trachea. Chest: Clear to auscultation. No wheezing. No rales. Abdomen: Soft, protuberant, nontender, nondistended. No hepatosplenomegaly. Extremities: He has no edema, no clubbing, no cyanosis. Neurological: This patient is alert. He is following commands. He is able to say his name and his date of and also the location. LABORATORY: Glucose 114. ASSESSMENT AND PLAN: 1. Schizophrenia with schizoaffective disorder. This is not a new diagnosis. He has been having this problem for a very long time. He has been placed back on his home medications. Some of them have been increased like the Seroquel. He is not suicidal or homicidal. He seems to be less agitated today, but he has been having episodes of that during the day as well. We will continue with same management. 2. Hyperkalemia. He is status post dialysis yesterday. We will just monitor. I will repeat the blood work in the morning. Also, his hemoglobin is borderline low at 7 yesterday, and he received 1 unit of packed red blood cells. I will repeat the hemoglobin and hematocrit in the morning. 3. End-stage renal disease. Continue with dialysis as scheduled. 4. Anemia of chronic disease. Hemoglobin was 7 yesterday. I will monitor this again in the morning. 5. Left-sided pneumonia. He is no longer on antibiotics. Resolved. 6. History of multiple myeloma. Continue with the same management for now. No changes. 7. Disposition. We would like to discharge this patient to a rehab center or a retirement. spring floor service worker is trying to get some place for him. We will continue with the same management for now. cc: Albert Barclay MD
[2019-10-12] MEDS: TYLENOL PO PRN (21:22)
[2019-10-12] MEDS: RISPERDAL PO SCH (21:26)
[2019-10-13] MEDS: OXY IR PO PRN ×2 (03:00→13:05)
[2019-10-13] MEDS: DUONEB (A & A) INH SCH ×4 (03:26→21:25)
[2019-10-13 05:44] LABS: EOS# 0.01 X1000 (0.0-0.7); EOS% 0.7 % (0.0-10.0); HEMATOCRIT 22.3 % (42.0-52.0); HEMOGLOBIN 6.8 g/dL (14.0-18.0); IMM GRAN# 0.03 X1000 (0.0-0.04); LYMPH# 0.58 X1000 (1.2-3.4); LYMPH% 39.5 % (20.5-51.1); MCH 29.7 PG (27-31); MCHC 30.5 g/dL (33-37); MCV 97.4 FL (81-99); MONO# 0.08 X1000 (0.11-0.59); MONO% 5.4 % (1.7-9.3); MPV 8.8 FL (7.4-10.4); NEUT# 0.77 X1000 (1.4-6.5); NEUT% 52.4 % (42.2-75.2); PLT 171 X1000 (130-400); RBC 2.29 XMIL (4.7-6.1); RDW 16.2 % (11.5-14.5); WBC 1.47 X1000 (4.8-10.8)
[2019-10-13] MEDS: TYLENOL PO PRN (05:56)
[2019-10-13] MEDS: HEPARIN SUBQ SCH ×3 (05:56→22:01)
[2019-10-13] MEDS: PROTONIX PO SCH (06:00)
[2019-10-13 07:06] LABS: CALCIUM 8.8 mg/dL (8.8-10.2); CREATININE 7.5 mg/dL (0.7-1.2); POTASSIUM 5.8 mmol/L (3.5-5.1)
[2019-10-13] MEDS ORDERED: NS 500 ML IV ONE (08:29)
[2019-10-13] MEDS: PROZAC PO SCH (09:32)
[2019-10-13] MEDS: RENAGEL PO SCH ×3 (09:32→15:59)
[2019-10-13] MEDS: ZOLOFT PO SCH (09:32)
[2019-10-13] MEDS: DEPAKENE LIQUID PO SCH ×2 (09:32→22:00)
[2019-10-13] MEDS: SEROQUEL PO SCH ×3 (09:33→22:00)
[2019-10-13] MEDS: PROVERA PO SCH (09:34)
[2019-10-13] MEDS: CYTOXAN PO SCH (09:36)
[2019-10-13] MEDS: MIRALAX PO SCH (09:36)
--- NOTE | 2019-10-13 11:43 | PROVIDER PROGRESS NOTE ---
Progress Note Subjective: Pt lying in bed, voices shortness of breath. He will be able to receive a breathing treatment in 20 minutes. Denies nausea, vomiting, or chest pain. Objective: temp 98.0, pulse 84, respirations 18, blood pressure 155/85, 02 sat 96% on 3 L nasal cannula. General: elderly -Swiss male in bed in no acute distress.. HEENT: Normocephalic, atraumatic. Mucous membranes moist. Pupils equal and reactive. Skin: warm and dry, healing laceration to bridge of nose. Neck: supple, jvd observed Cardiovascular: S1, s2 with a gallop. regulate rate and rhythm, no murmur. Respiratory: equal air excursion, no crackles or wheezes. Accessory muscle use. Abdomen: soft, nontender, nondistended. Positive bowel sounds. : not inspected Extremities: no edema, clubbing, or cyanosis. Fistula left upper arm positive thrill and bruit Neurologic: alert oriented to person, place, and time. Labs: 1.47, hemoglobin 6.8, hematocrit 22.3, platelet count 171, sodium 132, potassium 5.8, chloride 89, carbon dioxide 29, BUN 67, creatinine 7.5. Intake 920, output 750. Impression: Chronic kidney disease 5D. He will receive his routine hemodialysis treatment today we will encourage him to stay his full 3 1/2 hour treatment. Electrolytes and acid base balance. Stable Anemia. Chronic. Multiple Myeloma. On weekly erythropoietin. He will receive 2 units packed red blood cells with his hemodialysis treatment today Fluid volume. Euvolemic. Blood pressure. Above target. Nutrition. Adequate Ambulation. Up to chair daily. Medications reviewed. Remains on cytoxan, started on Zoloft yesterday.
[2019-10-13] MEDS: ZOFRAN IV PRN (13:06)
--- NOTE | 2019-10-13 15:23 | PROGRESS NOTE ---
DATE: 10/13/2019 SUBJECTIVE: This patient today is resting comfortably in bed. His potassium level is a little bit high at 5.8, but he will get dialysis today. Also, his hemoglobin is 6.8, and he will receive blood. Vital signs are stable. He is on 3 L of nasal cannula. OBJECTIVE: Vital Signs: Temperature 97.7 degrees, pulse 87, respiratory rate 17, blood pressure 153/85, oxygen saturation 100% on 3 L of nasal cannula. HEENT: Head normocephalic, no trauma. Poor dentition. Neck: Supple. No JVD. No masses. Central trachea. Chest: Clear to auscultation. No wheezing. No rales. Abdomen: Soft, protuberant, nontender, nondistended. No hepatosplenomegaly. Extremities: Trace edema, no clubbing, no cyanosis. Neurological examination: The patient is sleepy, but arousable. He is following commands. He is able to say his name, his date of and location. LABORATORY: WBC 1.4, hemoglobin 6.8, hematocrit 22.3, platelets 171. Sodium 132, potassium 5.8, chloride 89, bicarbonate 29. BUN 67, creatinine 7.5, glucose 73, calcium 8.8. ASSESSMENT AND PLAN: 1. Schizophrenia with schizoaffective disorder. This is chronic. He has been having this problem for a very long time. I have placed this patient back on home medications. Some of the doses have been increased already and it seems to be working fine. He is not suicidal or homicidal. He seems to be less agitated today, but he has been having some episodes on and off with some agitation. 2. Hyperkalemia. He will get dialysis today. We will monitor this afterwards. 3. Anemia of chronic disease. Hemoglobin dropped to 6.8. He will receive some packed red blood cells. Nephrology Department on board. 4. Left-sided pneumonia, resolved. He is no longer on antibiotics. 5. History of multiple myeloma. Continue with same management for now. No changes. 6. End-stage renal disease. Continue with dialysis today as scheduled. cc: Albert Barclay MD
[2019-10-13] MEDS: RISPERDAL PO SCH (22:03)
[2019-10-14] MEDS: DUONEB (A & A) INH SCH ×5 (03:58→21:53)
[2019-10-14 05:36] LABS: BASO# 0.01 X1000 (0.0-0.2); BASO% 0.6 % (0.0-0.8); HEMATOCRIT 23.7 % (42.0-52.0); HEMOGLOBIN 7.2 g/dL (14.0-18.0); IMM GRAN# 0.04 X1000 (0.0-0.04); IMM GRAN% 2.4 % (0.0-0.5); LYMPH% 35.9 % (20.5-51.1); MCH 29.6 PG (27-31); MCHC 30.4 g/dL (33-37); MCV 97.5 FL (81-99); MONO# 0.07 X1000 (0.11-0.59); MONO% 4.2 % (1.7-9.3); MPV 8.7 FL (7.4-10.4); NEUT# 0.95 X1000 (1.4-6.5); NEUT% 56.9 % (42.2-75.2); PLT 168 X1000 (130-400); RBC 2.43 XMIL (4.7-6.1); RDW 16.4 % (11.5-14.5); WBC 1.67 X1000 (4.8-10.8)
[2019-10-14 06:04] LABS: CALCIUM 8.9 mg/dL (8.8-10.2); CREATININE 8.4 mg/dL (0.7-1.2)
[2019-10-14] MEDS: HEPARIN SUBQ SCH ×3 (06:26→20:12)
[2019-10-14] MEDS: PROTONIX PO SCH (06:27)
[2019-10-14] MEDS ORDERED: NS 2,000 ML MISC PRN (06:54)
[2019-10-14] MEDS: RENAGEL PO SCH ×3 (10:15→15:59)
[2019-10-14] MEDS: DEPAKENE LIQUID PO SCH ×2 (10:15→20:12)
[2019-10-14] MEDS: SEROQUEL PO SCH ×3 (10:15→20:12)
[2019-10-14] MEDS: PROVERA PO SCH (10:16)
[2019-10-14] MEDS: PROZAC PO SCH (10:16)
[2019-10-14] MEDS: CYTOXAN PO SCH (10:16)
[2019-10-14] MEDS: MIRALAX PO SCH (10:17)
[2019-10-14] MEDS: OXY IR PO PRN ×2 (10:20→19:31)
[2019-10-14] MEDS: ZOLOFT PO SCH (10:27)
--- NOTE | 2019-10-14 12:59 | PROGRESS NOTE ---
DATE: 10/14/2019 SUBJECTIVE: The patient is resting comfortably in bed. He had dialysis today. He received also blood today. The potassium was elevated but hopefully with dialysis, this will get better. OBJECTIVE: Vital Signs: Temperature 98.3 degrees, pulse 122, respiratory rate 18, blood pressure 134/98, oxygen saturation 96 on 3 L of nasal cannula. HEENT: Head normocephalic. No trauma. Poor dentition. Neck: Supple. No JVD. No masses. Central trachea. Chest: Clear to auscultation. No wheezing. No rales. Abdomen: Soft, nontender, nondistended. No hepatosplenomegaly. Extremities: Trace edema. No clubbing, no cyanosis. Neurological Examination: The patient is awake and alert. He is following commands. He is not agitated at this moment. He is oriented x2. Laboratory: WBC 1.6, hemoglobin 7.2, hematocrit 23.7, platelets 168,000. Sodium 127, potassium 7, chloride 97, bicarbonate 24, BUN 74, creatinine 8.4, glucose 75, calcium 8.9. ASSESSMENT AND PLAN: 1. Schizophrenia with schizoaffective disorder, chronic. We have placed this patient back on his home medications. Some of the doses have been increased already and seem to be working fine. He is not suicidal or homicidal. He does not look agitated today. He has been having some episodes on and off of some agitation but much better compared with before. 2. Hyperkalemia, status post dialysis today. Hopefully, that will decrease the amount. 3. Anemia of chronic disease. Hemoglobin was low yesterday at 6.8. He received some blood during dialysis today. 4. Left-sided pneumonia, resolved. He is no longer on antibiotics. 5. History of multiple myeloma. Aware. Continue with the same management. 6. End-stage renal disease. Continue with dialysis as scheduled. He received dialysis today. cc: Albert Barclay MD
[2019-10-14] MEDS: TYLENOL PO PRN (13:43)
[2019-10-14] MEDS: ZOFRAN IV PRN ×2 (19:37→23:21)
[2019-10-14] MEDS: RISPERDAL PO SCH (20:12)
[2019-10-14] MEDS: HALDOL IV PRN ×2 (20:13→21:16)
[2019-10-15] MEDS: TYLENOL PO PRN (01:28)
[2019-10-15] MEDS: OXY IR PO PRN ×2 (03:00→17:32)
[2019-10-15] MEDS: DUONEB (A & A) INH SCH ×4 (03:16→21:51)
[2019-10-15] MEDS: HEPARIN SUBQ SCH ×2 (05:25→19:23)
[2019-10-15] MEDS: PROTONIX PO SCH (06:07)
[2019-10-15 06:11] LABS: HEMATOCRIT 28.1 % (42.0-52.0)
[2019-10-15 06:26] LABS: CALCIUM 9.2 mg/dL (8.8-10.2); CREATININE 6.8 mg/dL (0.7-1.2)
[2019-10-15 06:50] LABS: POTASSIUM 6.2 mmol/L (3.5-5.1)
[2019-10-15] MEDS ORDERED: ALBUTEROL 0.5% INH CONC FOR HYPERKALEMIA INH ONE (07:05)
[2019-10-15] MEDS ORDERED: CALCIUM GLUCONATE 4.65 MEQ in NS 50 ML IV ONE (07:06)
[2019-10-15] MEDS ORDERED: HUMULIN R IV ONE (07:06)
[2019-10-15] MEDS ORDERED: LOKELMA POWDER PACKET PO STA (07:07)
[2019-10-15] MEDS: D50W SYRINGE IV ONE ×2 (08:36→11:42)
[2019-10-15] MEDS ORDERED: NS 2,000 ML MISC PRN (09:05)
[2019-10-15] MEDS ORDERED: D50W SYRINGE ONE (11:43)
--- NOTE | 2019-10-15 13:50 | PROGRESS NOTE ---
DATE: 10/15/2019 SUBJECTIVE: This patient had dialysis today and also he had an episode of hypoglycemia, he seems to be a little bit confused but he is recovering, his more recent blood sugar was above 90. We will continue to monitor. He was hyperkalemic and was treated. OBJECTIVE: Vital Signs: Temperature 98 degrees, pulse 92, respiratory rate 16, blood pressure 180/93, oxygen saturation 93 on 2 L of nasal cannula. HEENT: Head normocephalic, no trauma. Poor dentition. Neck: Supple. No JVD. No masses. Central trachea. Chest: Clear to auscultation. Some crepitus at the bases. Abdomen: Soft, nontender, nondistended. No hepatosplenomegaly. Extremities: Trace edema. No clubbing, no cyanosis. Neurological: The patient is sleepy, but arousable. He seems to be a little bit confused. He is following commands on and off. He is not agitated. LABORATORY: Hemoglobin 9, hematocrit 28.1. Sodium 131, potassium 6.2, chloride 86, bicarbonate 25, BUN 61, creatinine 6.8, glucose 105, calcium 9.2. ASSESSMENT AND PLAN: 1. Schizophrenia with schizoaffective disorder, this is chronic. Continue with the same medication. 2. Hyperkalemia, we have treated this patient earlier and also he received dialysis today so hopefully the potassium level will decrease. 3. Anemia of chronic disease, better after transfusion. 4. Left-sided pneumonia, already treated, resolved. 5. History of multiple myeloma, aware. Continue with same management. 6. End-stage renal disease. He received dialysis today. Probably his next dialysis will be on Friday. 7. Hypoglycemia, already treated. We will continue to monitor. cc: Albert Barclay MD
--- NOTE | 2019-10-15 15:06 | NEPHROLOGY PROGRESS NOTE ---
DATE: 10/15/2019 SUBJECTIVE: He is retching and vomiting black-appearing emesis. He is mumbling but words are difficult to understand. He does state he needs to get up. OBJECTIVE: Vital Signs: Blood pressure 180/93, heart rate 92, respirations 16, afebrile. Generally: A middle-aged, chronically ill-appearing black male, retching. Overt asterixis. Pupils are dilated. Conjunctivae are pale. Oropharynx is discolored with emesis. Neck: Neck veins are not visible. Heart: Regular. Lungs: Equal. No crackles. Abdomen: Soft, mildly distended. Bowel sounds present. Extremities: No edema, clubbing or cyanosis. IMPRESSION: 1. Possible upper gastrointestinal bleed. We will check KUB and chest x-ray. Scheduled hematocrit. Transfuse as needed. 2. Asterixis. Likely from under-dialysis. He has stayed only less than 2 hours at his last 2 to 3 treatments. 3. Hyperkalemia. Secondary to inadequate dialysis. However, possibly related to gastrointestinal bleeding as well. We will treat with Lokelma overnight and likely dialyze again tomorrow. 4. Volume status acceptable. cc: Ronald Keita MD
--- NOTE | 2019-10-15 16:34 | Diag Imaging Result Doc PS360 ---
EXAM: CHEST-1 VIEW HISTORY: n/v, ?aspiration TECHNIQUE: Single view COMPARISON: 10/07/2019 FINDINGS: There is opacification of the left hemithorax. Poor inspiratory effort. Mild vascular distention. IMPRESSION: Interval worsening likely with a combination of atelectasis, infiltrates/pulmonary edema and left pleural effusion Electronically signed by Brendan Rene 10/15/2019 4:32 PM
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
[2019-10-15] MEDS: LOKELMA POWDER PACKET PO SCH ×2 (17:20→17:26)
[2019-10-15] MEDS: RENAGEL PO SCH ×2 (17:25→17:28)
[2019-10-15] MEDS: SEROQUEL PO SCH ×3 (17:26→21:12)
[2019-10-15] MEDS: APRESOLINE PO SCH ×3 (17:39→17:40)
[2019-10-15] MEDS: CYTOXAN PO SCH (17:40)
[2019-10-15] MEDS: MIRALAX PO SCH (17:41)
[2019-10-15] MEDS: DEPAKENE LIQUID PO SCH ×2 (17:41→21:12)
[2019-10-15] MEDS: PROVERA PO SCH (17:42)
[2019-10-15] MEDS: PROZAC PO SCH (17:43)
[2019-10-15] MEDS: ZOLOFT PO SCH (17:44)
[2019-10-15] MEDS: HALDOL IV PRN (17:45)
[2019-10-15] MEDS: PROTONIX IV SCH (17:57)
[2019-10-15] MEDS: RISPERDAL PO SCH (21:12)
[2019-10-15] MEDS: ZOFRAN IV PRN (23:16)
[2019-10-16] MEDS: PROTONIX IV SCH ×2 (04:08→14:49)
[2019-10-16] MEDS: DUONEB (A & A) INH SCH ×5 (05:24→22:05)
[2019-10-16 06:01] LABS: CALCIUM 8.8 mg/dL (8.8-10.2); CREATININE 6.2 mg/dL (0.7-1.2)
[2019-10-16 06:05] LABS: POTASSIUM 6.2 mmol/L (3.5-5.1)
[2019-10-16] MEDS: OXY IR PO PRN ×2 (07:54→17:20)
[2019-10-16] MEDS ORDERED: NS 2,000 ML MISC PRN (08:40)
--- NOTE | 2019-10-16 11:25 | PROGRESS NOTE ---
DATE: 10/16/2019 SUBJECTIVE: This patient is receiving dialysis today again. It looks like he had an episode of hematemesis yesterday, but his hemoglobin has been stable. He is still hyperkalemic and getting dialysis at this moment. It looks like also he has been having some hallucinations so I will hold for now the fluoxetine and I will decrease the dose of the quetiapine to see how he does, and we will continue to monitor this patient closely. Gastroenterology Department has been consulted already. This patient was placed n.p.o. during the night but since he is not having any signs of bleeding and the hemoglobin seems to be stable, we are going to keep an eye on him. On the other hand, his metabolic profile does not make him a good candidate for any surgery or procedure at this moment. OBJECTIVE: Vital Signs: Temperature 97.6 degrees, pulse 83, respiratory rate 20, blood pressure 191/87, oxygen saturation 98 on 3 L of nasal cannula. HEENT: Head normocephalic, no trauma. PERRLA. Poor dentition. Neck: Supple. No JVD. Central trachea. Chest: Clear to auscultation. Some crepitus at the bases. Abdomen: Soft, nontender, nondistended. He has multiple scars which are old. Extremities: Trace edema. No clubbing, no cyanosis. Neurological: The patient is awake, alert. He is able to say his name and location. He is not oriented to time. He repeated all the answers multiple times, he is following commands, he is not agitated at this moment and he seems to be confused and having hallucinations on and off. LABORATORY DATA: Hemoglobin 9.9. Sodium 127, potassium 6.2, chloride 86, bicarbonate 23, BUN 69, creatinine 6.2, glucose 89, calcium 8.8. ASSESSMENT AND PLAN: 1. Schizophrenia with schizoaffective disorder, this is chronic. Continue with the same management and actually we will decrease the dose of the quetiapine and I will hold for now the fluoxetine since he is having some confusion and hallucinations. 2. Hyperkalemia. He is getting dialysis at this moment. 3. Anemia of chronic disease, better after transfusion. 4. Possible upper gastrointestinal bleed. Apparently this patient had an episode of hematemesis yesterday, Gastroenterology Department has been consulted. We will monitor this patient for now. Hemoglobin seems to be stable. 5. Left-sided pneumonia, already treated, resolved. 6. History of multiple myeloma, aware. Continue with same management. 7. End-stage renal disease. He is getting dialysis at this moment. Continue as scheduled. 8. Hypoglycemia, resolved. 9. Physical deconditioning. He has been placed on physical therapy. cc: Albert Barclay MD
[2019-10-16] MEDS: LOKELMA POWDER PACKET PO SCH ×2 (11:34→12:39)
[2019-10-16] MEDS: RENAGEL PO SCH ×3 (11:36→17:19)
[2019-10-16] MEDS: MIRALAX PO SCH (12:38)
[2019-10-16] MEDS: PROVERA PO SCH (12:38)
[2019-10-16] MEDS: DEPAKENE LIQUID PO SCH ×2 (12:38→21:14)
[2019-10-16] MEDS: APRESOLINE PO SCH ×3 (12:40→17:19)
[2019-10-16] MEDS: ZOLOFT PO SCH (12:42)
[2019-10-16] MEDS: CYTOXAN PO SCH (13:02)
--- NOTE | 2019-10-16 14:23 | NEPHROLOGY PROGRESS NOTE ---
DATE: 10/16/2019 SUBJECTIVE: He is on dialysis currently. Sleeping. OBJECTIVE: Blood pressure 191/87, heart rate 83, respirations 20, afebrile. IMPRESSION: Chronic kidney disease 5D. PLAN: Continue routine hemodialysis as ordered today. 2K bath with 37 bicarbonate. Hemoglobin is stable. Imaging did not support obstruction. Hemoglobin does not support GI bleeding. cc: Ronald Keita MD
[2019-10-16] MEDS: SEROQUEL PO SCH ×2 (17:27→21:16)
[2019-10-16] MEDS: HALDOL IV PRN (18:35)
[2019-10-16] MEDS: RISPERDAL PO SCH (21:21)
[2019-10-17] MEDS: PROTONIX IV SCH ×2 (02:37→16:04)
[2019-10-17] MEDS: OXY IR PO PRN ×2 (03:12→21:10)
[2019-10-17] MEDS: DUONEB (A & A) INH SCH ×4 (03:22→20:13)
--- NOTE | 2019-10-17 04:45 | GASTROENTEROLOGY CONSULTATION ---
DATE: 10/17/2019 REASON FOR CONSULTATION: Coffee ground emesis. HISTORY OF PRESENT ILLNESS: Mr. Mickey Treadwell is a 59-year-old gentleman with past medical history of multiple myeloma with chronic fractures and chronic pain, schizoaffective disorder, end- stage renal disease on hemodialysis, hypertension, COPD, chronic anemia, who presents to the GI service with 1 episode of coffee-grounds emesis yesterday. The patient is overall a poor historian, unable to give a reliable history. He says that he had some coffee ground material come up yesterday with intermittent nausea, vomiting and diffuse abdominal discomfort. He has been having bowel movements without any rectal bleeding or melena. He is on PPI 40 mg IV b.i.d. and on a bowel regimen. His last EGD and colonoscopy was in May 2018, that showed gastritis and ischemic colitis as well as hemorrhoids. His hemoglobin during this admission has ranged between 6.8 to 9.9 today. He has received 2 units of packed red blood cells. Baseline hemoglobin is unknown. He has had no H Hs throughout the last couple of years. MCV of 97. REVIEW OF SYSTEMS: As per HPI, however, limited given his underlying psych disorder. PAST MEDICAL HISTORY: Multiple myeloma, schizoaffective disorder, end-stage renal disease on dialysis, COPD, hypertension, history of gastritis, history of ischemic colitis, chronic pain, chronic anemia. PAST SURGICAL HISTORY: History of fistula placement in the left arm. SOCIAL HISTORY: One pack per day smoker. Denies any alcohol. History of cocaine use in the past. He takes oxycodone for bone pain. FAMILY HISTORY: Maternal grandmother had unknown cancer. Father with myocardial infarction. ALLERGIES: Morphine. HOME MEDICATIONS: List is not reconciled. PHYSICAL EXAM: Vitals: Temperature is 97.7 degrees, heart rate of 94, respiratory rate 22, blood pressure 177/90, O2 saturation 100% on 4 L nasal cannula. General: The patient is awake, alert, in no acute distress. HEENT: Sclerae anicteric. Moist mucous membranes. Extraocular motor intact. Neck: Supple. Cardiac: Regular rate and rhythm. No murmurs. Lungs: Clear to auscultation bilaterally. Abdomen: Soft. Bowel sounds are present. Mild diffuse tenderness to palpation. No rebound or guarding. Extremities: No clubbing, cyanosis, or edema. Neuro: In detectable speech, intermittently wanders and talks tangentially with hallucinations. LABS: White count from 10/14 was 1.67, hemoglobin 9.9 from 7.2 two days ago. Sodium 127, potassium 6.2, chloride of 86, bicarb 23, BUN of 69, creatinine 6.2. Glucose of 89. IMAGING: The KUB yesterday shows constipation. Chest x-ray today shows interval worsening likely with a combination atelectasis, infiltrate, pulmonary edema, and left pleural effusion in the left hemothorax. ASSESSMENT AND PLAN: Mr. Mickey Treadwell is a 59-year-old gentleman with past medical history significant for multiple myeloma, gastritis, history of ischemic colitis and end-stage renal disease on hemodialysis, who presents to the GI service with scant coffee ground emesis concerning for GI bleeding. He has not had any overt melena or hematochezia, nor he has had repeat hematemesis. He is on a PPI 40 mg IV b.i.d. He does have some diffuse abdominal pain, which could be related to constipation seen on x-ray. His vital signs are stable. His last EGD was in May of last year, which showed some mild gastritis and colonoscopy showed ischemic colitis and hemorrhoids. Other explanation for his anemia could be is underlying multiple myeloma, anemia of chronic disease in the setting of renal failure. Does not seem to be that he is having an acute brisk bleed, at this time. In light of his metabolic derangements and respiratory status, we would like to hold off on endoscopic evaluation unless he develops worsening anemia and/or overt bleeding again. Continue a renal diet, antiemetics as needed. Epoetin per Renal and bowel regimen. # Coffee ground emesis # Hyperkalemia # Hyponatremia # Constipation # Acute hypoxic respiratory distress # ESRD on HD # History of ischemic colitis # Multiple myeloma Thank you for this consult. We will follow with you. Please call with any questions or concerns. [facility]
[2019-10-17 05:43] LABS: HEMATOCRIT 31.8 % (42.0-52.0); HEMOGLOBIN 9.9 g/dL (14.0-18.0)
[2019-10-17 06:07] LABS: CALCIUM 8.9 mg/dL (8.8-10.2); CREATININE 4.7 mg/dL (0.7-1.2)
[2019-10-17] MEDS: SEROQUEL PO SCH ×3 (07:57→21:10)
[2019-10-17] MEDS: RENAGEL PO SCH ×3 (07:57→16:04)
[2019-10-17] MEDS: ZOLOFT PO SCH (08:00)
[2019-10-17] MEDS: PROVERA PO SCH (08:00)
[2019-10-17] MEDS: APRESOLINE PO SCH ×3 (08:00→16:04)
[2019-10-17] MEDS: CYTOXAN PO SCH (08:00)
[2019-10-17] MEDS: DEPAKENE LIQUID PO SCH ×2 (08:00→21:10)
[2019-10-17] MEDS: MIRALAX PO SCH (08:04)
--- NOTE | 2019-10-17 10:45 | PROGRESS NOTE ---
DATE: 10/17/2019 SUBJECTIVE: The patient received dialysis yesterday. He seems to be more awake and alert today. He is following commands and answering to most of my questions. As per the patient, he is not able to sleep during the night, but he has been sleeping quite a few times during the day so I recommended to stop sleeping during the day so he can sleep the whole night. His laboratory seems to be better compared with yesterday. Hemoglobin is stable. No signs of bleeding. OBJECTIVE: Vital Signs: Temperature 97.9 degrees, pulse 93, respiratory rate 16, blood pressure 169/83, oxygen saturation 98 on 4 L of nasal cannula. HEENT: Head normocephalic. No trauma. PERRLA. Poor dentition. Neck: Supple. No JVD. No masses. Central trachea. Chest: Clear to auscultation. Some crepitus at the bases. Abdomen: Soft, nontender, nondistended. He has multiple scars which are old. Extremities: No edema, no clubbing, no cyanosis. Neurological Examination: The patient is awake, alert. He is able to say his name and location. He is not oriented to time. He is not agitated at this time. Apparently, the confusion and the hallucinations are better. Laboratory: Hemoglobin 9.9, hematocrit 31.8. Sodium 133, potassium 5, chloride 89, bicarbonate 24, BUN 58, creatinine 4.7, glucose 96, calcium 8.9. ASSESSMENT AND PLAN: 1. Schizophrenia with schizoaffective disorder. This is chronic. Continue with the same management for now. I have placed this patient back on fluoxetine. 2. Hyperkalemia, resolved after dialysis. 3. Anemia of chronic disease. This is better after transfusion. There is a possibility of a gastrointestinal bleed but the hemoglobin has been stable for the past couple days. No signs of bleeding at this moment. 4. Possible upper gastrointestinal bleed, as above. He had an episode of hematemesis 2 days ago. Continue with proton pump inhibitors twice a day. 5. Left-sided pneumonia, already treated, resolved. 6. History of multiple myeloma. Aware. Continue with the same management. 7. End-stage renal disease. Continue with dialysis as scheduled. 8. Hypoglycemia, resolved. 9. Physical deconditioning. Continue physical therapy. cc: Albert Barclay MD
[2019-10-17] MEDS: PROZAC PO SCH (12:30)
[2019-10-17] MEDS: SODIUM CHLORIDE 0.9% INJ SCH (16:04)
[2019-10-17] MEDS: RISPERDAL PO SCH (21:10)
--- NOTE | 2019-10-18 00:02 | PROVIDER PROGRESS NOTE ---
Progress Note GI PROGRESS NOTE DATE 10/17/2019 S: No further coffee ground emesis. Hgb is stable. O: Last Vital Signs Temp 98.1 F 10/17/19 18:11 Pulse 95 H 10/17/19 20:13 Resp 16 10/17/19 20:13 BP 173/88 10/17/19 18:11 Pulse Ox 99 10/17/19 20:13 Height 5 ft 5 in Weight 153 lb 3 oz GEN: awake, alert NAD HEENT: anicteric, MMM NECK: supple, no JVD PULM: CTAB, no wheezing ABD: soft NT/ND EXT: no cce NEURO: moving all extremities LABS: 10/17/19 10/17/19 05:15 05:15 Hgb 9.9 L Sodium 133 L Potassium 5.0 D Chloride 89 L Carbon Dioxide 24 L BUN 58 H Creatinine 4.7 H A/P: Mr. Mickey Treadwell is a 59-year-old gentleman with past medical history significant for multiple myeloma, gastritis, history of ischemic colitis and ESRD on HD who presents to the GI service with scant coffee ground emesis. His hgb has remained stable. He is having normal brown stools. He is tolerating renal diet with benign abdominal exam. His hyperkalemia and metabolic profile has improved. Recommend continue PPI IV BID. Will consider diagnostic EGD early this week. # Coffee ground emesis # Acute on chronic anemia # ESRD on HD # Hyperkalemia # MM Will follow with you. Please call with questions.
[2019-10-18] MEDS: SODIUM CHLORIDE 0.9% INJ SCH (03:22)
[2019-10-18] MEDS: PROTONIX IV SCH ×2 (03:22→17:33)
[2019-10-18 05:29] LABS: HEMATOCRIT 30.5 % (42.0-52.0); HEMOGLOBIN 9.9 g/dL (14.0-18.0)
[2019-10-18 05:46] LABS: CALCIUM 9.3 mg/dL (8.8-10.2); CREATININE 5.8 mg/dL (0.7-1.2); POTASSIUM 5.4 mmol/L (3.5-5.1)
[2019-10-18] MEDS: RENAGEL PO SCH ×3 (07:47→17:37)
[2019-10-18] MEDS ORDERED: NS 2,000 ML MISC PRN (08:23)
[2019-10-18] MEDS: DUONEB (A & A) INH SCH ×3 (10:00→21:16)
--- NOTE | 2019-10-18 11:24 | GASTROENTEROLOGY CONSULTATION ---
DATE: 10/18/2019 SUBJECTIVE: Mr. Treadwell is a 59-year-old male receiving his dialysis this morning. The patient has denied any nausea or vomiting, and he also has denied any bowel movements today. He had one yesterday. OBJECTIVE: Vital Signs: Temperature 98.6 degrees, pulse 101, respirations are 20, blood pressure is 175/87, oxygen saturation 98% on 2 L nasal cannula. His weight is 153 pounds, BMI is 25.5 kg/m2. General: He is alert, oriented x2, in no acute distress. HEENT: Pale conjunctivae. No icterus. PERRL. Neck: Supple. Lungs: Clear to auscultation in the anterior loza. Abdomen: Mildly distended, tender. Active bowel sounds heard in all 4 quadrants. Extremities: No clubbing, no cyanosis, no edema. Pedal pulses 2+ present bilaterally. Neurologic: Alert and oriented x2. LABORATORY DATA: Hemoglobin is 9.9, hematocrit is 30.5. Sodium 132, potassium 5.4, chloride 88, carbon dioxide 24, anion gap 20, BUN 81, creatinine 5.8, glucose 90, calcium 9.3. IMPRESSION AND PLAN: Coffee-ground emesis Anemia ESRD on dialysis Hyperkalemia Multiple myeloma Gastritis Ischemic colitis PLAN: Mr. Treadwell is a 59-year-old male with a history of multiple myeloma, gastritis, ischemic colitis, and end-stage renal disease. Gastroenterology is following him for coffee- ground emesis. His hemoglobin is 9.9, and hematocrit is 30.1. The patient is hemodynamically stable. He is on GI prophylaxis Protonix intravenously twice a day for GI bleed. The patient is on a bowel regimen MiraLAX 17 grams daily. The patient's potassium today is 5.4. It has been slightly improving. We will continue to monitor his H & H, provide supportive care and follow the plan of care per PCP. This plan was discussed with Dr. Garcia. Please call us for any further questions or concerns. Dictated by KAVEH Serrano for River Garcia MD cc: River Garcia MD I have seen and examined the patient myself and I agree with the above plan of care. No plans for endoscopy at this time. Will continue to watch the patient. I have discussed the above with the patient and all questions were answered. Please call us with any further questions. MTDD
--- NOTE | 2019-10-18 12:35 | PROGRESS NOTE ---
DATE: 10/18/2019 SUBJECTIVE: This patient is getting dialysis at this moment. He seems to be feeling good and he is not agitated at this moment. I have stopped the Haldol IV and I put him on p.o. twice a day to see how he does since basically, he is getting Haldol constantly. OBJECTIVE: Vital Signs: Temperature 98.6 degrees, pulse 101, respiratory rate 20, blood pressure 175/87, oxygen saturation 98 on 2 L of nasal cannula. HEENT: Head normocephalic. No trauma. PERRLA. Poor dentition. Neck: Supple. No JVD. No masses. Central trachea. Chest: Clear to auscultation. Some crepitus at the bases. Abdomen: Soft, nontender, nondistended. He has multiple scars, which are old. Extremities: No edema, no clubbing, no cyanosis. Neurological Examination: The patient is awake and alert. He is able to say his name and location. He is oriented to time today. He is not agitated at this moment and hallucinations are better. Laboratory: Hemoglobin 9.9, hematocrit 30.5. Sodium 132, potassium 5.4, chloride 98, bicarbonate 24, BUN 81, creatinine 5.8, glucose 90, calcium 9.3. ASSESSMENT AND PLAN: 1. Schizophrenia with schizoaffective disorder. This is chronic. Continue with the same management. I have placed this patient on Haldol by mouth twice a day and I have stopped the intravenous treatment which basically he is getting frequently. 2. Hyperkalemia. He is getting dialysis today. 3. Anemia of chronic disease. This is better after transfusion. There is a possibility of gastrointestinal bleed. He had hematemesis a few days ago but the hemoglobin and hematocrit have been stable. 4. Possible upper gastrointestinal bleed, as above. He had hematemesis a few days ago. Continue proton pump inhibitors twice a day. Gastroenterology department on board. 5. Left-sided pneumonia, already treated. 6. History of multiple myeloma. Aware. Continue with the same management. 7. End-stage renal disease. Continue with dialysis as scheduled. He is getting dialysis at this moment. 8. Hypoglycemia, resolved. 9. Physical deconditioning. Continue physical therapy. cc: Albert Barclay MD
[2019-10-18] MEDS: MIRALAX PO SCH (13:26)
[2019-10-18] MEDS: SEROQUEL PO SCH ×3 (13:27→21:05)
[2019-10-18] MEDS: ZOLOFT PO SCH (13:27)
[2019-10-18] MEDS: CYTOXAN PO SCH (13:27)
[2019-10-18] MEDS: DEPAKENE LIQUID PO SCH ×2 (13:28→21:05)
[2019-10-18] MEDS: PROZAC PO SCH (13:29)
[2019-10-18] MEDS: PROVERA PO SCH (13:29)
[2019-10-18] MEDS: APRESOLINE PO SCH ×4 (13:29→18:26)
--- NOTE | 2019-10-18 16:37 | PROVIDER PROGRESS NOTE ---
Progress Note Subjective: patient lying in his bed in dialysis unit. Resting quietly with eyes closed. Objective: temp 98.9, pulse 101, respirations 19, blood pressure 167/86, 02 sat 92% on 4 L nasal cannula. General: elderly -Beninese male in bed in no acute distress.. HEENT: Normocephalic, atraumatic. Mucous membranes moist. Pupils equal and mahsa ctive. Skin: warm and dry, healing laceration to bridge of nose. Neck: supple, jvd observed Cardiovascular: S1, s2 with a gallop. regulate rate and rhythm, no murmur. Respiratory: equal air excursion, no crackles or wheezes. Accessory muscle use. Abdomen: soft, nontender, nondistended. Positive bowel sounds. : not inspected Extremities: no edema, clubbing, or cyanosis. Fistula left upper arm positive thrill and bruit Neurologic: alert oriented to person, place, and time. Labs: sodium 132, potassium 5.4, chloride 88, carbon dioxide 24, BUN 81, creatinine 5.8. Intake 840, output 200. Impression: Chronic kidney disease 5D. He will receive his routine hemodialysis treatment today we will encourage him to stay his full 3 1/2 hour treatment. Electrolytes and acid base balance. Stable Anemia. Chronic. Multiple Myeloma. On weekly erythropoietin, po cyclophosphamide. Fluid volume. Euvolemic. Blood pressure. Above target. Nutrition. Adequate Ambulation. Up to chair daily. Medications reviewed.
--- NOTE | 2019-10-18 20:04 | Diag Imaging Result Doc PS360 ---
CT HEAD W/O CONTRAST - 10/18/2019 INDICATION: swelling face/ left eye COMPARISON: 07/31/2019 FINDINGS: The ventricles and sulci are normal in size and contour. No intracranial mass or hemorrhage. There is mild periventricular white matter chronic microvascular ischemia stable from prior. The skull is intact. Orbits and orbital contents are clear. The sinuses are all clear. IMPRESSION: No acute disease or change from prior. This exam was performed using automated exposure control, adjustment of mA or kV according to patient size, and/or use of iterative reconstruction technique Electronically signed by Marcelino Rausch 10/18/2019 8:01 PM
[2019-10-18] MEDS: RISPERDAL PO SCH (21:05)
[2019-10-18] MEDS: HALDOL PO SCH (21:05)
[2019-10-19] MEDS: OXY IR PO PRN (02:13)
[2019-10-19] MEDS: PROTONIX IV SCH ×2 (02:22→16:25)
[2019-10-19] MEDS: DUONEB (A & A) INH SCH ×5 (03:36→22:30)
[2019-10-19 05:38] LABS: BASO# 0.07 X1000 (0.0-0.2); BASO% 1.5 % (0.0-0.8); EOS# 0.04 X1000 (0.0-0.7); EOS% 0.9 % (0.0-10.0); HEMATOCRIT 27.9 % (42.0-52.0); HEMOGLOBIN 8.7 g/dL (14.0-18.0); IMM GRAN# 0.08 X1000 (0.0-0.04); IMM GRAN% 1.8 % (0.0-0.5); LYMPH# 1.62 X1000 (1.2-3.4); LYMPH% 35.8 % (20.5-51.1); MCH 29.8 PG (27-31); MCHC 31.2 g/dL (33-37); MCV 95.5 FL (81-99); MONO# 0.29 X1000 (0.11-0.59); MONO% 6.4 % (1.7-9.3); MPV 8.8 FL (7.4-10.4); NEUT# 2.43 X1000 (1.4-6.5); NEUT% 53.6 % (42.2-75.2); PLT 162 X1000 (130-400); RBC 2.92 XMIL (4.7-6.1); RDW 16.6 % (11.5-14.5); WBC 4.53 X1000 (4.8-10.8)
[2019-10-19 05:49] LABS: CALCIUM 9.2 mg/dL (8.8-10.2); CREATININE 4.2 mg/dL (0.7-1.2); POTASSIUM 4.9 mmol/L (3.5-5.1)
[2019-10-19 06:26] LABS: LYMPHS 36 % (21-51); MONO 7 % (1-9); SEGS 57 % (42-75)
[2019-10-19] MEDS: PROVERA PO SCH (08:39)
[2019-10-19] MEDS: RENAGEL PO SCH ×3 (08:39→16:25)
[2019-10-19] MEDS: CYTOXAN PO SCH (08:39)
[2019-10-19] MEDS: PROZAC PO SCH (08:39)
[2019-10-19] MEDS: MIRALAX PO SCH (08:40)
[2019-10-19] MEDS: DEPAKENE LIQUID PO SCH ×2 (08:40→22:54)
[2019-10-19] MEDS: ZOLOFT PO SCH (08:40)
[2019-10-19] MEDS: APRESOLINE PO SCH ×3 (08:40→16:25)
[2019-10-19] MEDS: SEROQUEL PO SCH ×3 (08:40→22:54)
[2019-10-19] MEDS: HALDOL PO SCH ×2 (08:40→22:54)
--- NOTE | 2019-10-19 12:12 | GASTROENTEROLOGY PROGRESS NOTE ---
DATE: 10/19/2019 SUBJECTIVE: Mr. Treadwell is a 59-year-old male who was sitting in the wheelchair. He has denied any nausea, vomiting, and he mentioned that he was feeling good and was not agitated today. OBJECTIVE: Vital Signs: Temperature 98.1 degrees, pulse 94, respirations 16, blood pressure 156/97, oxygen saturation 94% on 4 L nasal cannula. The patient's weight is 153 pounds. BMI is 25.5 kg/m2. General: He is alert and oriented x2, and in no acute distress. HEENT: Pale conjunctivae. No icterus. PERRL. Neck: Supple. Lungs: Clear to auscultation in the anterior loza. Abdomen: Mildly distended, nontender. Active bowel sounds heard in all 4 quadrants. Extremities: No clubbing, no cyanosis, no edema. Pedal pulses 2+ and present bilaterally. Neurologic: He is alert and oriented x2. IMAGING AND LABORATORY DATA: WBC 4.53, RBC 2.92, hemoglobin 8.7, hematocrit 27.9, platelet count 162,000. Sodium 138, potassium 4.9, chloride 92, carbon dioxide 23, anion gap is 23, BUN 61, creatinine 4.2, glucose 82, calcium 9.2. CT of the head without contrast showed no acute disease or change from the prior. IMPRESSION AND PLAN: 1. Gastrointestinal bleed. 2. Anemia. 3. End-stage renal disease, on dialysis. 4. Multiple myeloma. 5. Gastritis. 6. Ischemic colitis. PLAN: Mr. Treadwell is a 59-year-old male with a history of multiple myeloma, gastritis, ischemic colitis, and end-stage renal disease. Gastroenterology is consulted for coffee-grounds emesis. His hemoglobin today is 8.7, and hematocrit is 27.9. It has been trending downward. We plan to do an EGD tomorrow to rule out the cause of his bleeding. The patient is currently on GI prophylaxis Protonix 40 mg intravenously twice a day. Further plans of care will be based on the EGD findings. Discussed the risks, benefits, and alternatives of the procedure to the patient. The patient acknowledges understanding of the plan of care. We will continue to follow the plan of care per PCP. This plan was discussed with Dr. Coleman. Please call us for any further questions or concerns. Dictated by KAVEH Serrano for Mj Coleman MD Physician Attestation I have seen and examined the patient. I have discussed and reviewed the note by Estee LINN and agree with findings and plan as documented. NATALY
[2019-10-19] MEDS: EPOGEN SUBQ SCH (12:23)
[2019-10-19] MEDS: D50W SYRINGE IV PRN ×2 (13:44→22:25)
--- NOTE | 2019-10-19 18:41 | PROVIDER PROGRESS NOTE ---
Progress Note Subjective: pt lying in bed in no acute distress. Objective: temp 98.1, pulse 94, respirations 16, blood pressure 136/97, 02 sat 94% on 4 L nasal cannula. General: elderly -Chinese male in bed in no acute distress.. HEENT: Normocephalic, atraumatic. Mucous membranes moist. Pupils equal and reactive. Skin: warm and dry, healing laceration to bridge of nose. Neck: supple, no jvd observed Cardiovascular: S1, s2 with a gallop. regulate rate and rhythm, no murmur. Respiratory: equal air excursion, no crackles or wheezes. Accessory muscle use. Abdomen: soft, nontender, nondistended. Positive bowel sounds. : not inspected Extremities: no edema, clubbing, or cyanosis. Fistula left upper arm positive thrill and bruit Neurologic: alert oriented to person, place, and time. Labs: Wbc 4.53, hemoglobin 8.7, hematocrit 27.9, platelet count 162, sodium 138, potassium 4.9, chloride 92, carbon dioxide 23, B1 61, creatinine 4.2. Intake 337, output 1500. Impression: Chronic kidney disease 5D. He received his routine hemodialysis yesterday. No changes. Electrolytes and acid base balance. Stable Anemia. Chronic. Multiple Myeloma. On weekly erythropoietin. Fluid volume. Euvolemic. Blood pressure.in target. Nutrition. Has been refusing. Encouraged to eat. Ambulation. Up to chair daily. Medications reviewed.
--- NOTE | 2019-10-19 19:45 | PROGRESS NOTE ---
DATE: 10/19/2019 SUBJECTIVE: Patient reports feeling fine. Working with physical therapy at the time of my dictation. No hematemesis reported. OBJECTIVE: Vital Signs: Temperature 97.5, heart rate 95, respiratory 18, blood pressure 146/96, O2 saturation 92% on 4 L nasal cannula. General: This is a chronically ill-appearing, 59-year- old, -Portuguese male, lying in bed in no acute distress. Cardiovascular: S1, S2 heard. No murmurs, gallops, or rubs. Regular rate and rhythm. Respiratory: Minimal coarse breath sounds noted in both pulmonary bases. Patient not using any accessory muscles or having work of breathing. Abdomen: Soft, nontender, nondistended. Bowel sounds present. No organomegaly. Extremities: No clubbing, cyanosis, or edema. Posterior tibial pulses present in both extremities. Neurologic: The patient is disoriented to time and place. He is not agitated. LABORATORY DATA: Reviewed. ASSESSMENT AND PLAN: 1. Schizophrenia with schizoaffective disorder. A chronic condition. We will continue with home medications. 2. Possible upper gastrointestinal bleeding. As mentioned before, patient reported hematemesis a few days, so at this point, Gastroenterology is planning to do an EGD. We will see what it shows. 3. Hyperkalemia. The potassium today is normal completely. We will continue to monitor. 4. History of multiple myeloma. Aware. 5. End-stage renal disease, on dialysis. We will continue with dialysis as scheduled. cc: Clifford Jeff MD
[2019-10-19] MEDS ORDERED: D50W SYRINGE IV ONE (22:20)
[2019-10-19 22:40] LABS: BASO# 0.16 X1000 (0.0-0.2); BASO% 2.5 % (0.0-0.8); EOS# 0.03 X1000 (0.0-0.7); EOS% 0.5 % (0.0-10.0); HEMOGLOBIN 7.5 g/dL (14.0-18.0); IMM GRAN# 0.09 X1000 (0.0-0.04); IMM GRAN% 1.4 % (0.0-0.5); LYMPH# 2.73 X1000 (1.2-3.4); LYMPH% 42.1 % (20.5-51.1); MCH 29.8 PG (27-31); MCV 99.2 FL (81-99); MONO# 0.64 X1000 (0.11-0.59); MONO% 9.9 % (1.7-9.3); MPV 9.3 FL (7.4-10.4); NEUT# 2.83 X1000 (1.4-6.5); NEUT% 43.6 % (42.2-75.2); PLT 138 X1000 (130-400); RBC 2.52 XMIL (4.7-6.1); WBC 6.48 X1000 (4.8-10.8)
[2019-10-19 22:42] LABS: ALLEN TEST YES; BE -10.8 mmoll (-3.0-3.0); BLOOD TYPE ARTERIAL; HCO3-(ACT) 16.5 mmoll (20.0-26.0); METHB 1.5 % (0.0-1.5); O2(CT) 11.4 mL/dL (15.0-23.0); O2HB 96.3 % (95.0-99.0); PO2(98.6) 225 mmHg (60-100); SAMPLE BLOOD; SAO2 99.1 % (95.0-100.0)
[2019-10-19 22:45] LABS: PCO2(98.6) 85 mmHg (35-45); pH(98.6) 6.99 (7.35-7.45)
[2019-10-19 22:46] LABS: MODALITY AMBU BAG
[2019-10-19] MEDS: RISPERDAL PO SCH (22:54)
[2019-10-19 23:03] LABS: BANDS 4 % (0-1); LYMPHS 52 % (21-51); MONO 8 % (1-9); NRBC 5 % (0-0); SEGS 26 % (42-75)
[2019-10-19 23:05] LABS: ALB/GLOB RATIO 1.1; ALBUMIN 3.7 g/dL (3.5-5.0); CALCIUM 8.9 mg/dL (8.8-10.2); MAGNESIUM 2.5 mg/dL (1.5-2.7); POTASSIUM 5.9 mmol/L (3.5-5.1); TOTAL BILIRUBIN 0.32 mg/dL (0.20-1.00); TOTAL PROTEIN 7.2 g/dL (6.3-8.3)
[2019-10-20 00:48] LABS: ALLEN TEST YES; BE -10.3 mmoll (-3.0-3.0); BLOOD TYPE ARTERIAL; HCO3-(ACT) 16.9 mmoll (20.0-26.0); O2(CT) 11.6 mL/dL (15.0-23.0); O2HB 97.5 % (95.0-99.0); PO2(98.6) 254 mmHg (60-100); SAMPLE BLOOD; SAO2 99.7 % (95.0-100.0)
[2019-10-20 00:50] LABS: PCO2(98.6) 77 mmHg (35-45); pH(98.6) 7.03 (7.35-7.45)
[2019-10-20 00:51] LABS: MODALITY BI PAP
[2019-10-20] MEDS ORDERED: SODIUM CHLORIDE 0.9% INJ ONE (00:58)
[2019-10-20] MEDS ORDERED: PHENERGAN IV ONE (00:58)
[2019-10-20] MEDS: ZOFRAN IV PRN (01:05)
[2019-10-20 02:15] LABS: ALLEN TEST YES; BE -8.1 mmoll (-3.0-3.0); BLOOD TYPE ARTERIAL; HCO3-(ACT) 18.6 mmoll (20.0-26.0); METHB 0.7 % (0.0-1.5); O2HB 95.8 % (95.0-99.0); PO2(98.6) 98 mmHg (60-100); SAMPLE BLOOD; SAO2 97.9 % (95.0-100.0)
[2019-10-20 02:16] LABS: PCO2(98.6) 81 mmHg (35-45); pH(98.6) 7.05 (7.35-7.45)
[2019-10-20 02:17] LABS: MODALITY VENTIMASK
[2019-10-20] MEDS: PROTONIX IV SCH ×2 (02:30→15:38)
[2019-10-20] MEDS ORDERED: AMIDATE ONE ×2 (02:47)
[2019-10-20] MEDS ORDERED: AMIDATE IV ONE (02:48)
[2019-10-20] MEDS ORDERED: QUELICIN IV ONE (02:49)
[2019-10-20] MEDS: DIPRIVAN 1% 1,000 MG/100 ML BOTTLE IV SCH ×3 (03:00→19:00)
[2019-10-20] MEDS: DUONEB (A & A) INH SCH ×4 (03:20→21:22)
[2019-10-20] MEDS: D50W SYRINGE IV PRN ×9 (04:09→20:02)
[2019-10-20 05:05] LABS: ALLEN TEST YES; BE -7.2 mmoll (-3.0-3.0); BLOOD TYPE ARTERIAL; HCO3-(ACT) 19.3 mmoll (20.0-26.0); METHB 1.5 % (0.0-1.5); O2(CT) 11.1 mL/dL (15.0-23.0); O2HB 96.3 % (95.0-99.0); PCO2(98.6) 46 mmHg (35-45); PO2(98.6) 164 mmHg (60-100); SAMPLE BLOOD; SAO2 98.9 % (95.0-100.0); SRATE 18 BPM; THB 7.9 g/dL (11.5-17.4); TVOL 500 mL; pH(98.6) 7.24 (7.35-7.45)
[2019-10-20 05:06] LABS: MODALITY VENTILATOR
--- NOTE | 2019-10-20 06:12 | Diag Imaging Result Doc PS360 ---
EXAM: CHEST-PORTABLE HISTORY: ET tube and NG tube placement TECHNIQUE: Two views COMPARISON: 10/19/2019 FINDINGS: An endotracheal tube has been placed. The tip is 3 cm above the curt. Nasogastric tube has also been placed which overlies the esophagus and stomach. There is opacification of the left hemithorax. No change in appearance on the right. IMPRESSION: Endotracheal and nasogastric tubes in good position Electronically signed by Brendan Rene 10/20/2019 6:10 AM
[2019-10-20 06:14] LABS: BASO# 0.04 X1000 (0.0-0.2); BASO% 1.1 % (0.0-0.8); HEMATOCRIT 23.1 % (42.0-52.0); HEMOGLOBIN 6.9 g/dL (14.0-18.0); LYMPH# 1.26 X1000 (1.2-3.4); LYMPH% 33.8 % (20.5-51.1); MCH 29.2 PG (27-31); MCHC 29.9 g/dL (33-37); MCV 97.9 FL (81-99); MONO# 0.32 X1000 (0.11-0.59); MONO% 8.6 % (1.7-9.3); MPV 9.2 FL (7.4-10.4); NEUT# 2.11 X1000 (1.4-6.5); NEUT% 56.5 % (42.2-75.2); PLT 132 X1000 (130-400); RBC 2.36 XMIL (4.7-6.1); WBC 3.73 X1000 (4.8-10.8)
--- NOTE | 2019-10-20 06:18 | Diag Imaging Result Doc PS360 ---
EXAM: CHEST-PORTABLE HISTORY: Shortness of breath TECHNIQUE: Single view COMPARISON: 10/06/2019 FINDINGS: There continues to be opacification of the left hemithorax. There are infiltrates/pulmonary edema in the right lung similar to the prior study. The overall appearance of the chest is unchanged. IMPRESSION: No improvement. Electronically signed by Brendan Rene 10/20/2019 6:15 AM
[2019-10-20 06:22] LABS: PROTIME 15.6 Seconds (11.0-16.0); PTT 42.9 Seconds (22.3-41.8)
[2019-10-20 06:23] LABS: INR 1.22
[2019-10-20] MEDS ORDERED: NS 500 ML IV ONE (06:32)
[2019-10-20 06:48] LABS: ALBUMIN 3.3 g/dL (3.5-5.0); CALCIUM 8.7 mg/dL (8.8-10.2); CREATININE 4.6 mg/dL (0.7-1.2); PHOSPHORUS 10.6 mg/dL (2.7-4.5)
[2019-10-20 06:55] LABS: POTASSIUM 6.1 mmol/L (3.5-5.1)
[2019-10-20] MEDS ORDERED: NS 2,000 ML MISC PRN (07:09)
[2019-10-20] MEDS ORDERED: D5 NS 1,000 ML IV SCH (08:00)
[2019-10-20] MEDS ORDERED: VANCOMYCIN IV PER PHARMACY MISC SCH (08:00)
[2019-10-20] MEDS: LEVOPHED 8 MG in D5 1/2 NS 250 ML IV SCH ×4 (08:43→23:32)
[2019-10-20] MEDS: HALDOL PO SCH ×2 (09:35→20:35)
[2019-10-20] MEDS: ZOLOFT PO SCH (09:35)
[2019-10-20] MEDS: PROVERA PO SCH (09:35)
[2019-10-20] MEDS: PROZAC PO SCH (09:35)
[2019-10-20] MEDS: RENAGEL PO SCH ×3 (09:35→17:26)
[2019-10-20] MEDS: APRESOLINE PO SCH ×3 (09:36→17:26)
[2019-10-20] MEDS: CYTOXAN PO SCH (09:36)
[2019-10-20] MEDS: MIRALAX PO SCH (09:36)
[2019-10-20] MEDS: SEROQUEL PO SCH ×3 (09:36→20:35)
--- NOTE | 2019-10-20 09:54 | EKG Report ---
Test Performed on : 10/19/2019 10:31:25 PM Test Reason : NO EKG ORDER FOR MUSE Blood Pressure : / mmHG Vent. Rate : 084 BPM Atrial Rate : 075 BPM P-R Int : 000 ms QRS Dur : 100 ms QT Int : 382 ms P-R-T Axes : 000 053 -09 degrees QTc Int : 451 ms Accelerated Junctional rhythm. Nonspecific T wave abnormality Abnormal ECG When compared with ECG of 25-SEP-2019 19:55, Junctional rhythm. has replaced Sinus rhythm. Nonspecific T wave abnormality, worse in Inferior leads Confirmed by Shelbie LARSON, Valeriano ([id number]) on 10/21/2019 8:29:18 AM
[2019-10-20] MEDS: DEPAKENE LIQUID PO SCH ×2 (09:59→20:35)
--- NOTE | 2019-10-20 10:18 | PROGRESS NOTE ---
DATE AND TIME: 10/20/2019 at 0300. Critical Care Progress Note. Mr. Treadwell is a 59-year-old male. He does have a history of end-stage renal disease, hypertension, COPD, chronic anemia, and multiple myeloma. He does receive hemodialysis. Since being in the hospital, he is also being evaluated for schizophrenia with schizoaffective disorder, possible upper gastrointestinal bleeding. He was scheduled to have an EGD in the morning. He has been having persistent nausea, vomiting with hematemesis. Throughout the day the patient had some problems with mild hypoglycemia. Earlier in the evening, at approximately 2209, the patient was found to be having dyspnea and did have increased altered mental status. He was sitting in a wheelchair in his room. His nurse did call a CAT call. His fingerstick blood sugar was found to be 51. We did give 2 ampules of D50 IV. Myself and Dr. Brady did respond to the CAT call. The patient was placed on BiPAP. We did do stat labs, ABG, chest x-ray and EKG. The patient's arterial blood gases did have a pH of 6.9, pCO2 of 85, PO2 of 225, HCO3 of 16.5 with O2 saturation of 99.1. We did recheck these approximately 30 minutes later and they were improving. We did order for the patient to be moved to the ICU. We did get return of his labs, which did show that he was anemic with a hemoglobin of 7.9, hematocrit of 25. Potassium was 5.9, serum bicarb was 19, BUN 83, creatinine 5, calcium 8.9. Magnesium was 2.5. CK was 120. Troponin was 0.177. Chest x-ray did have similar findings from the one that was performed on October 15 which did note a left pleural effusion. The patient's entire left lung is opacified. He does have severely diminished lung sounds on this side. EKG did show an accelerated junctional rhythm. After the patient received D50 and was placed on BiPAP, he did become more responsive. He was following simple commands. He was opening his eyes in response to verbal stimuli by calling of his name. The patient was moved to the ICU, though unfortunately, did begin to have episodes of nausea and vomiting. Secondary to this he was not able to wear the BiPAP mask. We did place him on a Ventimask, though he was still having dyspnea with shallow respirations. Due to this we did go ahead and recheck arterial blood gases, which did show that they had worsened, pH was 7.05, pCO2 was 81, PO2 was 98, HCO3 was 18.6 with O2 saturation of 97.9. At this time, Dr. Brady, attending hospitalist physician, did ask Dr. Paul, the ER physician, to come to the bedside to intubate the patient. Dr. Paul did successfully intubated the patient. He has been placed on the ventilator. He was given succinylcholine and etomidate for rapid sequence intubation. He did have positive color change on the CO2 detector. He did have good right lung sounds, though as previously mentioned, his left lung sounds were already very diminished. We are ordering a stat chest x-ray for confirmation of ET tube placement. We also did place an OG tube and did get return of 500 mL of coffee-ground appearing emesis. We have placed orders for a Pulmonology consult for ventilator management and his left pleural effusion. We are going to recheck all of his labs including a CBC, renal profile, magnesium, troponin, CK and ABG here in approximately an hour, around 4 a.m. The patient's vital signs have remained stable. He has not been tachycardic, bradycardic, or hypotensive. Last vital signs, heart rate 80, respirations 18 per ventilator, blood pressure is 157/90, and oxygen saturation is 91%. Also I would like to add that the patient's potassium was elevated at 5.9. The patient is supposed to receive dialysis today, on October 20. We did notify Dr. Keita of the patient's elevated potassium and he gave no new orders. He does plan to address this with dialysis today. The patient's daughter was at bedside after the patient's CAT call. I did update her on the patient's condition and answered her questions. I did inform her at that time that if his breathing did worsen, that he would have to be intubated. She was in agreement with this. The patient is a full code. We will contact her and update her on her father's condition to let her know that the patient has been intubated. Further orders and recommendations pending hospital course, diagnostic studies, and physician evaluation. Dictated by KAVEH Bhat for Percy Brady MD cc: Percy Brady MD [facility]
[2019-10-20] MEDS ORDERED: D10W 1,000 ML IV SCH (11:45)
[2019-10-20] MEDS ORDERED: EPINEPHRINE ONE (12:28)
--- NOTE | 2019-10-20 12:28 | PROVIDER PROGRESS NOTE ---
Progress Note Subjective: pt lying in bed intubated and sedated. Objective: temp 96.8 core, pulse 80, respirations 18, blood pressure 141/84, 02 sat 96% and 100% mechanical ventilation. General: elderly -Moroccan male in bed in no acute distress.. HEENT: Normocephalic, atraumatic. Mucous membranes moist. Pupils equal and reactive. Skin: warm and dry, healing laceration to bridge of nose. Neck: supple, no jvd observed Cardiovascular: S1, s2. S4 with a gallop. regulate rate and rhythm, no murmur. Respiratory: rhonchi throughout anterior Abdomen: soft, nontender, nondistended. Hypoactive bowel sounds. : not inspected, patel in place with no urine Extremities: no edema, clubbing, or cyanosis. Fistula left upper arm positive thrill and bruit Neurologic: alert oriented to person, place, and time. Labs: Wbc 3.73, hemoglobin 6.9, hematocrit 23.1, platelet count 132, intake 274, Output 510. Impression: Chronic kidney disease 5D. He will get a slow hemodialysis treatment at bedside in the ICU today with a UF goal of 5L. Electrolytes and acid base balance. Will correct with hemodialysis. Anemia. Chronic. Multiple Myeloma. On weekly erythropoietin. Will transfuse 2 units PRBCs. Fluid volume. Euvolemic. Blood pressure.in target. Nutrition. Intubated at the moment. Will get a nutrition consult. Ambulation. Recent intubation. Medications reviewed. Did not tolerate UF so I minimized the rate. Will stop treatment at 15:00 to facilitate EGD.
--- NOTE | 2019-10-20 12:52 | PROGRESS NOTE ---
DATE: 10/20/2019 SUBJECTIVE: Apparently, last night he has become less responsive and started not breathing okay so he was placed on BiPAP. He started vomiting so BiPAP was not possible to be used on him. He ended up being intubated and apparently he aspirated. Upon my examination, the NG tube that he has has removed a lot of coffee-ground material. OBJECTIVE: Vital Signs: Temperature 98.4 degrees, heart rate 80, respiratory rate 18, blood pressure 141/84 and O2 saturation 96% on mechanical ventilator. FiO2 100%. General: This is a chronically ill-appearing, 59-year-old male lying in bed in no acute distress. Cardiovascular: S1, S2 heard. No murmurs, gallops, or rubs. Regular rate and rhythm. Respiratory: Coarse breath sounds noted in all pulmonary loza. Patient is not using any accessory muscles or having work of breathing. Abdomen: Soft. Apparently, nontender to palpation. Bowel sounds present. No organomegaly. Extremities: No clubbing, cyanosis, or edema. Peripheral pulses present in both legs. Neurological: Patient is sedated and intubated. LABORATORY DATA: Reviewed. ASSESSMENT AND PLAN: 1. Acute respiratory failure secondary to possible aspiration pneumonia. Patient on aspirin last night. We needed to intubating. Pulmonary has been consulted. They are placing him on vancomycin per pharmacy and Zyvox after dialysis. We will continue with the same management. We are going to order a CT of the chest to have a better visualization of the lung anatomy. 2. Possible upper gastrointestinal bleeding. Patient has been vomiting a lot of coffee-ground material. His hemoglobin has reached 6.9 so at this point we are going to provide 2 units of blood. Of course, we are going to hold procedure for upper endoscopy scheduled already. 3. Hyperkalemia. Potassium is elevated today so we will provide dialysis according Dr. Keita from Nephrology. 4. History of multiple myeloma. Aware. 5. End-stage renal disease on dialysis. Patient will have dialysis today. 6. Disposition. We will continue to monitor this patient in the intensive care unit. His prognosis is really very poor. cc: Clifford Jeff MD
[2019-10-20] MEDS ORDERED: NS 1,000 ML ONE (13:04)
[2019-10-20] MEDS ORDERED: NS 1,000 ML IV ONE (13:07)
[2019-10-20] MEDS: PITRESSIN 40 UNIT in NS 100 ML IV SCH ×2 (13:19→21:22)
[2019-10-20 14:13] LABS: HEMATOCRIT 25.8 % (42.0-52.0); HEMOGLOBIN 8.2 g/dL (14.0-18.0)
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
[2019-10-20] MEDS: ZOSYN 2.25 GM in NS 50 ML IV SCH (15:38)
[2019-10-20] MEDS: SODIUM CHLORIDE 0.9% INJ SCH (15:38)
[2019-10-20] MEDS: D10W 1,000 ML IV SCH ×2 (16:28→19:00)
[2019-10-20] MEDS ORDERED: VANCOMYCIN 1 GM/NS 1 GM/250 ML IVPB IV SCH (18:00)
[2019-10-20] MEDS: NEO-SYNEPHRINE 50 MG in NS 250 ML IV SCH ×2 (19:01→22:05)
[2019-10-20] MEDS: D50W 500 ML IV SCH (20:01)
[2019-10-20] MEDS: RISPERDAL PO SCH (20:35)
[2019-10-20] MEDS: SODIUM BICARBONATE 8.4% IV PUSH SCH ×2 (21:22→22:15)
[2019-10-21] MEDS: NEO-SYNEPHRINE 50 MG in NS 250 ML IV SCH ×4 (00:40→08:16)
[2019-10-21] MEDS: D50W 500 ML IV SCH ×2 (00:40→02:25)
[2019-10-21] MEDS: SODIUM BICARBONATE 8.4% IV PUSH SCH ×2 (00:43→02:20)
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
[2019-10-21] MEDS: PROTONIX IV SCH (02:19)
[2019-10-21] MEDS: ZOSYN 2.25 GM in NS 50 ML IV SCH ×2 (02:56→03:45)
[2019-10-21] MEDS: DUONEB (A & A) INH SCH (03:48)
[2019-10-21 04:04] VITALS: BP 45/0
[2019-10-21] MEDS: LEVOPHED 8 MG in D5 1/2 NS 250 ML IV SCH (04:16)
[2019-10-21 04:37] LABS: ALLEN TEST YES; BE -24.6 mmoll (-3.0-3.0); BLOOD TYPE ARTERIAL; HCO3-(ACT) 5.7 mmoll (20.0-26.0); METHB 1.3 % (0.0-1.5); O2(CT) 10.4 mL/dL (15.0-23.0); O2HB 95.8 % (95.0-99.0); PCO2(98.6) 24 mmHg (35-45); PO2(98.6) 93 mmHg (60-100); SAMPLE BLOOD; SAO2 98.6 % (95.0-100.0); SRATE 18 BPM; THB 7.6 g/dL (11.5-17.4); TVOL 550 mL
[2019-10-21 04:40] LABS: pH(98.6) 6.96 (7.35-7.45)
[2019-10-21 04:41] LABS: MODALITY VENTILATOR
[2019-10-21] MEDS ORDERED: D50W 500 ML IV SCH (04:52)
[2019-10-21] MEDS: PITRESSIN 40 UNIT in NS 100 ML IV SCH (05:19)
--- NOTE | 2019-10-21 06:09 | OPERATIVE NOTE ---
PROCEDURE DATE: 10/20/2019 PROCEDURE: Upper gastrointestinal endoscopy PROVIDER: Mj Coleman MD. INDICATION: Upper GI bleed. MEDICATIONS: As per anesthesia. PROCEDURE: Prior to the procedure, a history and physical was performed and the patient's medications and allergies were reviewed. The patient's tolerance to previous anesthesia was also reviewed. The risks and benefits of the procedure and sedation options and risks were discussed with the patient's family. All questions were answered and informed consent was obtained. After reviewing the risks and benefits, the patient was deemed in fair condition to undergo the procedure. The endoscope was passed under direct visualization. Throughout the procedure, the patient's blood pressure, pulse and oxygen saturation were monitored continuously. Endoscope was introduced through the mouth and advanced to the second part of the duodenum. The upper GI endoscopy was accomplished without difficulty. The patient tolerated the procedure. COMPLICATIONS: No immediate complications. ESTIMATED BLOOD LOSS: Minimal. FINDINGS: There was LA grade C esophagitis found in the distal esophagus. No evidence of varices. Stomach revealed copious liquid and semisolid feculent material which was aspirated. The gastric body showed signs of ischemic gastritis and several scattered superficial ulcers. There was no obvious treatable lesion. There was no active bleeding. The mucosa was pale in coloration. Retroflexion in the stomach was negative. The first portion and the second portion of the duodenum showed diffuse superficial ulceration and erythema consistent with ischemia. Again, there were no signs of active bleeding. Brown liquid fluid was aspirated. The rest of the exam was unremarkable. IMPRESSION: LA grade C esophagitis, suspected ischemic gastritis and duodenitis. No treatable lesions or signs of active bleeding were found. RECOMMENDATIONS: Continue IV PPI b.i.d. Continue pressors and IV fluids to maintain a MAP greater than 65. Recommend continuing empiric antibiotics with Zosyn. We will obtain a KUB to evaluate for free air or bowel obstruction. Serial abdominal exams. Trend his hemoglobin and hematocrit every 8 to 12 hours. Transfuse as needed to maintain hemoglobin between 7 and 8. We will follow with you. Please call with any questions or concerns. Findings discussed with primary team. [facility]
[2019-10-21 06:24] LABS: BASO# 0.02 X1000 (0.0-0.2); EOS# 0.01 X1000 (0.0-0.7); EOS% 0.5 % (0.0-10.0); HEMATOCRIT 25.9 % (42.0-52.0); HEMOGLOBIN 7.4 g/dL (14.0-18.0); LYMPH# 1.34 X1000 (1.2-3.4); LYMPH% 69.1 % (20.5-51.1); MCH 30.2 PG (27-31); MCHC 28.6 g/dL (33-37); MCV 105.7 FL (81-99); MONO# 0.24 X1000 (0.11-0.59); MONO% 12.4 % (1.7-9.3); MPV 9.4 FL (7.4-10.4); NEUT# 0.33 X1000 (1.4-6.5); PLT 51 X1000 (130-400); RBC 2.45 XMIL (4.7-6.1); RDW 18.7 % (11.5-14.5); WBC 1.94 X1000 (4.8-10.8)
[2019-10-21 07:07] LABS: ALBUMIN 2.3 g/dL (3.5-5.0); CREATININE 2.4 mg/dL (0.7-1.2); PHOSPHORUS 6.8 mg/dL (2.7-4.5); POTASSIUM 4.7 mmol/L (3.5-5.1)
--- NOTE | 2019-10-21 07:13 | Diag Imaging Result Doc PS360 ---
EXAM: CHEST-PORTABLE 10/21/2019 HISTORY: respiratory failure TECHNIQUE: AP portable at 0522 COMMENT: Compared to 10/20/2019 there has been marked improvement in the volume of pleural fluid on the left and there are now portions of the left upper lobe which are pneumatized. There is also pleural fluid on the right and hazy opacity over the parahilar portions of both upper lobes with obscuration of the right heart border and diaphragm due to alveolar opacification of the right middle and lower lobes. IMPRESSION: Bilateral pleural effusions with improvement on the left. Pulmonary edema plus minus pneumonia. Electronically signed by Glen Goldstein 10/21/2019 7:10 AM
[2019-10-21] MEDS: RENAGEL PO SCH (08:09)
[2019-10-21] MEDS: SEROQUEL PO SCH (08:10)
[2019-10-21] MEDS: APRESOLINE PO SCH (08:10)
[2019-10-21] MEDS: CYTOXAN PO SCH (08:10)
[2019-10-21] MEDS: DEPAKENE LIQUID PO SCH (08:10)
[2019-10-21] MEDS: HALDOL PO SCH (08:10)
[2019-10-21] MEDS: MIRALAX PO SCH (08:10)
[2019-10-21] MEDS: PROVERA PO SCH (08:11)
[2019-10-21] MEDS: ZOLOFT PO SCH (08:11)
[2019-10-21] MEDS: PROZAC PO SCH (08:11)
--- NOTE | 2019-10-21 15:05 | PROVIDER PROGRESS NOTE ---
Progress Note Subjective: pt lying in bed intubated and sedated. Time seen 0650. Objective: temp 97.3, pulse 100, respirations 18, blood pressure 45/0. 02 sat 91% on 100% mechanical ventilation. General: elderly -Irish male in bed in no acute distress.. HEENT: Normocephalic, atraumatic. Mucous membranes dry. Trachea midline. Skin: warm and dry, healing laceration to bridge of nose. Grayish color. Neck: supple, no jvd observed Cardiovascular: unable to palpate radial and pedal pulses, weak groin pulse. Heart tones not auscultated. Respiratory: rhonchi throughout anterior Abdomen: soft, nontender, nondistended. Hypoactive bowel sounds. : not inspected, patel in place with no urine Extremities: no clubbing, or cyanosis. Generalized edema. Fistula left upper arm positive thrill and bruit Neurologic: intubated and sedated. Labs: WBC 1.94, hemoglobin 7.4, hematocrit 25.9, platelet count 51, sodium 139, potassium 4.7, chloride 98, carbon dioxide eight, BUN 27, creatinine 2.4. Intake 5680, output 1750. Impression: Chronic kidney disease 5D. He had a partial hemodialysis treatment at bedside yesterday that was cut short for a scheduled EGD. Due to his condition and prognosis his family has made him a DNR level one. Imminent demise. Electrolytes and acid base balance. Stable. Anemia. Chronic. Multiple Myeloma. On weekly erythropoietin. Fluid volume. Expanded. Blood pressure. Below target, he is maxed out on three vasopressors currently. Nutrition. Intubated. Ambulation. Recent intubation. Medications reviewed.
--- NOTE | 2019-10-22 16:49 | DISCHARGE SUMMARY ---
ADMISSION DATE: 09/24/2019 DISCHARGE DATE: 10/21/2019 DISCHARGE DIAGNOSES: 1. Acute respiratory failure, intubated. 2. Gastrointestinal bleeding. 3. Aspiration pneumonia. 4. Septic shock. 5. End-stage renal disease on dialysis. 6. Hyperkalemia. 7. Anemia of chronic disease. 8. Multiple myeloma. 9. Chronic bone pain. CONSULTATIONS: 1. Dr. Ronald Keita from Nephrology. 2. Dr. Mj Coleman from Gastroenterology. PROCEDURES: 1. Chest x-ray done on admission showed interval worsening of the left-sided pneumonia. 2. Chest x-ray done yesterday showed bilateral pleural effusion with improvement of the left pulmonary edema minus pulmonary edema. HOSPITAL COURSE: This is a 59-year-old male, well known to our service. He had chronic medical problems. He was admitted to the hospital for possible suicidal ideation. He was also in end-stage renal disease on dialysis. He was also given [address] Keita was consulted for medical management, was providing dialysis. Patient was after a few days stable, but because of placement the patient was kept in the hospital. Three to four days before this patient passed out, he started complaining of some GI bleeding, so we consulted Gastroenterology. The patient was about to have endoscopy yesterday. Two days ago, he started having difficulty breathing, started vomiting. Apparently he aspirated stomach contents, so he was immediately intubated and then started on antibiotics. Unfortunately, he developed septic shock requiring up to 4 vasopressors to keep his blood pressure up. Family was informed about his clinical situation. They decide to change his status to DNR. Patient unfortunately passed on today around 7 a.m. cc: Clifford Jeff MD
== END 2019-10-21 09:00 | disposition expired | DRG 640 ==
LOC: SUPCPDRO → ED 11:51 → SUATTDRO 23:19 → ICU 23:19 → 1N 09-26 17:12 → ICU 10-20 01:02
PROVIDERS: ATTEND Internal Medicine